=== PATIENT | male | born 1940 | race Caucasian/White ===

== ENCOUNTER 2017-04-15 11:25 | Inpatient (IN) | payer MEDICARE ==
[~2017-04-15] VITALS: Ht 182.9 cm; Wt 81.0 kg
[2017-04-15] VITALS (18 sets, daily range): BP systolic 78–93; BP diastolic 40–57
[2017-04-15] MEDS ORDERED: ONDANSETRON PF 4 MG/2 ML VIAL. IV PRN (14:00)
[2017-04-15] MEDS ORDERED: HYDROcodone/APAP 5/325MG 1 TAB TABLET PO PRN (14:00)
[2017-04-15] MEDS ORDERED: ACETAMINOPHEN 325 MG TABLET. PO PRN (14:00)
[2017-04-15] MEDS ORDERED: hydrALAZINE 20 MG/ML VIAL. IVP PRN (14:00)
[2017-04-15] MEDS ORDERED: ASPI-630 PO (14:54)
[2017-04-15] MEDS ORDERED: WARF1TAB7 PO (14:54)
[2017-04-15] MEDS ORDERED: CRESTOR5 MG PO (14:54)
[2017-04-15] MEDS ORDERED: FURO40TA4 PO (14:54)
[2017-04-15] MEDS ORDERED: ALEN70TA3 PO (14:54)
[2017-04-15] MEDS ORDERED: AMIO200T2 PO (14:54)
[2017-04-15] MEDS ORDERED: CYAN10005 PO (15:02)
[2017-04-15] MEDS ORDERED: HUM100VI5 SQ (15:02)
[2017-04-15] MEDS ORDERED: LEVO88TA4 PO (15:02)
[2017-04-15] MEDS ORDERED: VITA200C28 PO (15:02)
[2017-04-15] MEDS ORDERED: POTASSIUM CHLO10 MEQ PO (15:02)
[2017-04-15] MEDS ORDERED: CHOL100013 PO (15:02)
[2017-04-15] MEDS ORDERED: CARV6.252 PO (15:02)
--- NOTE | 2017-04-15 15:16 | PDOC1 ---
History and Physical Current Medications Current Medications Current Medications Medications (Trade) Dose Ordered Sig/Garret Start Time Stop Time Status Last Admin Dose Admin Acetaminophen (Tylenol) 325 mg PRN Q6HRS PRN 04/15/17 14:00 Acetaminophen/ Hydrocodone Bitart (Lortab 5/325) 1 tab PRN Q6HRS PRN 04/15/17 14:00 Albuterol Sulfate (Ventolin Neb Soln) 2.5 mg PRN Q4HRS PRN 04/15/17 14:00 Hydralazine HCl (Apresoline) 10 mg PRN Q4HRS PRN 04/15/17 14:00 Norepinephrine Bitartrate 250 ml @ 0 mls/hr CONT PRN 04/15/17 14:00 Ondansetron HCl (Zofran) 4 mg PRN Q8HRS PRN 04/15/17 14:00 Sodium Chloride 1,000 ml @ 125 mls/hr Q8H 04/15/17 14:00 Allergies Allergies Allergies Coded Allergies Type Severity Reaction Last Updated Verified niacin Allergy Intermediate 04/15/17 Yes pravastatin Allergy Intermediate 04/15/17 Yes simvastatin Allergy Intermediate 04/15/17 Yes ROS Review of System CONSTITUTIONAL: No fever or chills, weakness, EYES: No recent changes SKIN: No rash or itching CARDIOVASCULAR: No chest pain, syncope, palpitations, or edema RESPIRATORY: No SOB or cough GASTROINTESTINAL: nausea, r abdominal pain NEUROLOGICAL: No headaches or weakness ENDOCRINE: No cold or heat intolerance GENITOURINARY: No urgency or frequency of urination MUSCULOSKELETAL: No back pain or joint pain LYMPHATICS: No enlarged lymph nodes PSYCHIATRIC: No anxiety or depression Physical Exam Physical Exam GEN.: No apparent distress. Alert and oriented. weak in appearance HEENT: Head is normocephalic, atraumatic NECK: Supple. no JVD LUNGS: Clear to auscultation.normal airflow. HEART: RRR, S1, S2 present. Peripheral pulses intact ABDOMEN: Soft, nontender. Positive bowel sounds. tender, rt and left LQ EXTREMITIES: +2 EDEMA WITH DERMATITIS NEUROLOGIC: Normal speech, normal tone PSYCHIATRIC: Normal affect, normal mood. SKIN: RASH LE Vitals Vitals Vital Signs Date Time Temp Pulse Resp B/P (MAP) Pulse Ox O2 Delivery O2 Flow Rate FiO2 04/15/17 14:00 60 20 85/51 (62) 96 Nasal Cannula 2.0 04/15/17 13:45 97.9 97.9 VTE Prophylaxis Ordered VTE Prophylaxis Devices: Yes VTE Pharmacological Prophylaxi: Yes SEVERIANO CORDOBA MD Apr 15, 2017 15:16
[2017-04-15] MEDS ORDERED: DEXTROSE 50% 25 GM / 50ML DISP.SYRIN. IV PRN (15:30)
--- NOTE | 2017-04-15 15:38 | PDOC2 ---
GI CONSULT Reason For Consult: Abd pain HPI: HPI: 77 y/o male transferred from [facility] where he was evaluated for lower abdominal pain. Has been hypotensive. Reviewed labs in paper chart: WBC 6.5, Hgb 7.3 ( apparently previously 10.3), plt 129, Cr 4.8, BUN 95, lactic acid 2.3, INR 3, bili 1.5, AST 71, ALT 65, Alk Phos 43, lipase 44. CT A/P w/ mild cardiomegaly, small pleural effusions, cirrhosis, probable renal cysts, atherosclerotic disease, calcified gallstones, large amount of ascites. Transferred to [facility], admitted to ICU. Pain began 2 days ago, similar to feeling constipated. Abdomen quite distended , says retaining fluid, no h/o paracentesis. Denies h/o liver disease or ascites, does have CKD and CHF, along w/ h/o anemia. H/o constipation/straining , untreated, occasional sees pink streaks of blood. Last BM "chocolate colored " 2 days ago. Some nausea w/ "coughing up a tablespoon of acid" every morning. No hematemesis, melena, hematochezia, hematuria. No previous EGD, last colonoscopy 2014 (says has had six, first w/ polyp). H/o A Fib on Coumadin. IR has been consulted for paracentesis. Renal consult placed as well. Lactic acid to be repeated. 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 Allergies: Coded Allergies: niacin (Verified Allergy, Intermediate, 04/15/17) pravastatin (Verified Allergy, Intermediate, 04/15/17) simvastatin (Verified Allergy, Intermediate, 04/15/17) Medications: See EMR. Imaging: Imaging: Per HPI. PE: GEN: pale HEENT: Atraumatic, PERRL LUNGS: diminished HEART: RRR ABD: BS+, uncomfortable throughout, distended/ascites EXTREMITY: BLE edema SKIN: BLE stasis dermatitis NEURO/PSYCH: A & O 3 A/P: A/P: Ascites, cirrhosis, thrombocytopenia -h/o CKD and CHF, no h/o liver disease Anemia -occasional scant bleeding w/ straining, otherwise denies -previous colonoscopies, last 2014, no previous EGD -h/o A Fib on Coumadin Hypotension, CKD/HERIBERTO, pleural effusions Nausea, reflux -- IR consulted for paracentesis, transfusion also planned, along w/ echocardiogram. Will review w/ Dr. Lau. YUNIOR RESENDIZ Apr 15, 2017 15:38
[2017-04-15] MEDS ORDERED: WARFARIN 0.5 MG TABLET. PO ONE (16:00)
[2017-04-15] MEDS: PANTOPRAZOLE IV PUSH 40 MG VIAL. IVP SCH (16:12)
[2017-04-15] MEDS: IV NORMAL SALINE 1000ML BAG 1,000 ML IV SCH ×2 (16:12→22:47)
[2017-04-15] MEDS: NOREPINEPHRIN PREMIX 250 ML IV PRN ×2 (16:13→21:41)
[2017-04-15] MEDS: INSULIN ASPART 300 UNITS/3 ML INSULN.PEN SQ SCH (16:30)
[2017-04-15 16:47] LABS: HEMATOCRIT 24.8 % (39.0-53.0); HEMOGLOBIN 8.1 g/dL (13.0-17.5)
--- NOTE | 2017-04-15 17:32 | HP ---
ADMIT DATE: 04/15/2017 CHIEF COMPLAINT: Nausea and abdominal pain. HISTORY OF PRESENT ILLNESS: A 77-year-old male patient with several comorbid conditions went to [place] [facility] with complaints of 1 or 2 days of abdominal pain and discomfort located in the right lower quadrant and left lower quadrant area. The patient denies any fever, chills or trauma; never been diagnosed with cirrhosis. His pain is intractable in nature and is requiring IV pain medications and also has intractable nausea which has been improved now. The patient was hypertensive at the time of his admission. He was requiring vasopressors to improve his blood pressure and he did not respond after 3 liters of normal saline. He had a CT of the abdomen and pelvis which showed ascites. PAST MEDICAL HISTORY: AFib, coronary artery disease, CHF, diabetes, heart disease, renal disease, renal failure, coronary artery bypass surgery, pacemaker. FAMILY HISTORY: Father and mother . PERSONAL AND SOCIAL HISTORY: No smoking, no alcohol, no drug abuse, takes caffeine occasionally. ALLERGIES: NIACIN, ZOCOR, STATINS, _ HOME MEDICATIONS: Reviewed and reconciled. Please see MRAD. LABORATORY DATA: Laboratory findings from [place]. EKG personally reviewed; sinus rhythm with low voltage. WBC 6.5, hemoglobin is 7.3, hematocrit is 22.6, MCV is 85 and platelets are 129. INR is 3.0 and APTT is 36. Urine, pH is 5.0 and bilirubin negative. Urine nitrites negative. Chemistry: BUN is 95, creatinine 4.8, total bilirubin 0.5. Sodium is 135, potassium 4.9, chloride 104, carbon dioxide 24, gap is 10, GFR is 11.8, total protein 6.6. Troponin 0.017. Lactic acid 2.3. ASSESSMENT: 1. Shock, possible hypovolemic currently on vasopressors, Levophed with IV hydration. 2. Ascites, cirrhosis: unclear etiology. 3. Abdominal pain. Differential is peritonitis. 4. Chronic atrial fibrillation, rate controlled. 5. Acute kidney injury on chronic kidney disease 4. 6. History of congestive heart failure. 7. Type 2 diabetes mellitus. PLAN: 1. The patient is getting IV hydration at 125 mL per hour and currently is on Levophed to keep his blood pressure more than 90. 2. We will hold Lasix. 3. Pharmacy to dose warfarin. 4. Consult Dr. Beasley and Dr. Propeck 5. I will consult Britany for paracentesis. 6. Sliding scale insulin. 7. Continue ICU stay. 8. CBC, BMP in a.m. 9. P.r.n. hydralazine for hypertension. However, at this time, the patient is hypotensive. 10. Hold Coreg for now. 11. INR goal is 2.3. SEVERIANO CORDOBA MD DR: LITZY/luís JOB#: [id number] / [id number] ELE
[2017-04-16] VITALS (28 sets, daily range): BP systolic 80–104; BP diastolic 36–61
[2017-04-16] MEDS: NOREPINEPHRIN PREMIX 250 ML IV PRN ×3 (03:04→13:19)
[2017-04-16] MEDS: IV NORMAL SALINE 1000ML BAG 1,000 ML IV SCH ×3 (04:05→23:47)
[2017-04-16 05:10] LABS: BASO % 0 % (0-3); EOS % 0 % (0-3); HEMATOCRIT 27.4 % (39.0-53.0); HEMOGLOBIN 8.7 g/dL (13.0-17.5); LYMPH # 0.5 x10^3/uL (1.0-4.8); LYMPH % 4 % (24-48); MEAN CORPUSCULAR HEMOGLOBIN 27 pg (25-35); MEAN CORPUSCULAR HGB CONC 32 g/dL (31-37); MEAN CORPUSCULAR VOLUME 85 fL (79-100); MONO % 8 % (0-9); NEUT % 87 % (31-73); PLATELET COUNT 165 x10^3/uL (140-400); RED BLOOD COUNT 3.24 x10^6/uL (4.30-5.70); RED CELL DISTRIBUTION WIDTH 16.8 % (11.5-14.5); WHITE BLOOD COUNT 11.1 x10^3/uL (4.0-11.0)
[2017-04-16 05:36] LABS: INR 3.7 (0.8-1.1); PROTHROMBIN TIME PATIENT 34.7 SEC (11.7-14.0)
[2017-04-16 05:45] LABS: CALCIUM 7.6 mg/dL (8.5-10.1); CREATININE 4.1 mg/dL (0.7-1.3); GFR 14.1
[2017-04-16 05:47] LABS: POTASSIUM 4.8 mmol/L (3.5-5.1)
[2017-04-16] MEDS: INSULIN ASPART 300 UNITS/3 ML INSULN.PEN SQ SCH ×3 (08:00→17:00)
[2017-04-16] MEDS ORDERED: WARFARIN 1 MG TABLET. PO SCH (09:00)
[2017-04-16] MEDS: PANTOPRAZOLE IV PUSH 40 MG VIAL. IVP SCH (09:11)
--- NOTE | 2017-04-16 10:15 | PDOC ---
G I PROGRESS NOTE Subjective Maybe feeling some better overall; still appears uncomfortable. Objective No reports of any overt bleeding or emesis. Physical Exam Lungs clear anteriorly. Irreg R and R. Abdomen with ascites; fairly diffusely tender. Review of Relevant I have reviewed the following items ivon (where applicable) has been applied. Labs Laboratory Tests Test 04/15/17 14:15 04/15/17 16:05 04/15/17 16:30 04/15/17 17:00 Nasal Screen MRSA (PCR) Negative (Negative) Hemoglobin 8.1 g/dL (13.0-17.5) Hematocrit 24.8 % (39.0-53.0) Mean Corpuscular Hemoglobin Concent 33 g/dL (31-37) Lactic Acid Level 2.2 mmol/L (0.4-2.0) Glucose (Fingerstick) 103 mg/dL (70-99) Tumor Marker Alpha Fetoprotein 7.2 ng/mL (0.0-8.3) Test 04/16/17 05:00 White Blood Count 11.1 x10^3/uL (4.0-11.0) Red Blood Count 3.24 x10^6/uL (4.30-5.70) Hemoglobin 8.7 g/dL (13.0-17.5) Hematocrit 27.4 % (39.0-53.0) Mean Corpuscular Volume 85 fL (79-100) Mean Corpuscular Hemoglobin 27 pg (25-35) Mean Corpuscular Hemoglobin Concent 32 g/dL (31-37) Red Cell Distribution Width 16.8 % (11.5-14.5) Platelet Count 165 x10^3/uL (140-400) Neutrophils (%) (Auto) 87 % (31-73) Lymphocytes (%) (Auto) 4 % (24-48) Monocytes (%) (Auto) 8 % (0-9) Eosinophils (%) (Auto) 0 % (0-3) Basophils (%) (Auto) 0 % (0-3) Neutrophils # (Auto) 9.7 x10^3uL (1.8-7.7) Lymphocytes # (Auto) 0.5 x10^3/uL (1.0-4.8) Monocytes # (Auto) 0.9 x10^3/uL (0.0-1.1) Eosinophils # (Auto) 0.0 x10^3/uL (0.0-0.7) Basophils # (Auto) 0.0 x10^3/uL (0.0-0.2) Prothrombin Time 34.7 SEC (11.7-14.0) Prothromb Time International Ratio 3.7 (0.8-1.1) Sodium Level 139 mmol/L (136-145) Potassium Level 4.8 mmol/L (3.5-5.1) Chloride Level 104 mmol/L (98-107) Carbon Dioxide Level 20 mmol/L (21-32) Anion Gap 15 (6-14) Blood Urea Nitrogen 96 mg/dL (8-26) Creatinine 4.1 mg/dL (0.7-1.3) Estimated GFR (Cockcroft-Gault) 14.1 Glucose Level 113 mg/dL (70-99) Calcium Level 7.6 mg/dL (8.5-10.1) Laboratory Tests Test 04/15/17 14:15 04/15/17 16:05 04/15/17 16:30 04/15/17 17:00 Nasal Screen MRSA (PCR) Negative (Negative) Hemoglobin 8.1 g/dL (13.0-17.5) Hematocrit 24.8 % (39.0-53.0) Mean Corpuscular Hemoglobin Concent 33 g/dL (31-37) Lactic Acid Level 2.2 mmol/L (0.4-2.0) Glucose (Fingerstick) 103 mg/dL (70-99) Tumor Marker Alpha Fetoprotein 7.2 ng/mL (0.0-8.3) Test 04/16/17 05:00 White Blood Count 11.1 x10^3/uL (4.0-11.0) Red Blood Count 3.24 x10^6/uL (4.30-5.70) Hemoglobin 8.7 g/dL (13.0-17.5) Hematocrit 27.4 % (39.0-53.0) Mean Corpuscular Volume 85 fL (79-100) Mean Corpuscular Hemoglobin 27 pg (25-35) Mean Corpuscular Hemoglobin Concent 32 g/dL (31-37) Red Cell Distribution Width 16.8 % (11.5-14.5) Platelet Count 165 x10^3/uL (140-400) Neutrophils (%) (Auto) 87 % (31-73) Lymphocytes (%) (Auto) 4 % (24-48) Monocytes (%) (Auto) 8 % (0-9) Eosinophils (%) (Auto) 0 % (0-3) Basophils (%) (Auto) 0 % (0-3) Neutrophils # (Auto) 9.7 x10^3uL (1.8-7.7) Lymphocytes # (Auto) 0.5 x10^3/uL (1.0-4.8) Monocytes # (Auto) 0.9 x10^3/uL (0.0-1.1) Eosinophils # (Auto) 0.0 x10^3/uL (0.0-0.7) Basophils # (Auto) 0.0 x10^3/uL (0.0-0.2) Prothrombin Time 34.7 SEC (11.7-14.0) Prothromb Time International Ratio 3.7 (0.8-1.1) Sodium Level 139 mmol/L (136-145) Potassium Level 4.8 mmol/L (3.5-5.1) Chloride Level 104 mmol/L (98-107) Carbon Dioxide Level 20 mmol/L (21-32) Anion Gap 15 (6-14) Blood Urea Nitrogen 96 mg/dL (8-26) Creatinine 4.1 mg/dL (0.7-1.3) Estimated GFR (Cockcroft-Gault) 14.1 Glucose Level 113 mg/dL (70-99) Calcium Level 7.6 mg/dL (8.5-10.1) Hemoglobin stable. INR still near 4. Medications Current Medications Acetaminophen (Tylenol) 325 mg PRN Q6HRS PRN PO MILD PAIN / TEMP; Start at 14:00 Acetaminophen/ Hydrocodone Bitart (Lortab 5/325) 1 tab PRN Q6HRS PRN PO MODERATE TO SEVERE PAIN; Start 04/15/17 at 14:00 Hydralazine HCl (Apresoline) 10 mg PRN Q4HRS PRN IVP ELEVATED BP, SEE COMMENTS ; Start 04/15/17 at 14:00 Ondansetron HCl (Zofran) 4 mg PRN Q8HRS PRN IV NAUSEA/VOMITING; Start 04/15/17 at 14:00 Albuterol Sulfate (Ventolin Neb Soln) 2.5 mg PRN Q4HRS PRN NEB SHORTNESS OF BREATH; Start 04/15/17 at 14:00 Sodium Chloride 1,000 ml @ 125 mls/hr Q8H IV Last administered on 04/16/17 04 :05; Start 04/15/17 at 14:00 Norepinephrine Bitartrate 250 ml @ 0 mls/hr CONT PRN IV SEE I/O RECORD Last administered on 04/16/17 07:40; Start 04/15/17 at 14:00 Ceftriaxone Sodium 1 gm/ Sodium Chloride 50 ml @ 100 mls/hr Q24H IV ; Start at 16:00; Stop 04/15/17 at 16:00; Status DC Warfarin Sodium (Coumadin Per Pharmacy) 1 each PRN DAILY PRN MC SEE COMMENTS Last administered on 04/16/17 09:06; Start 04/15/17 at 15:15 Amiodarone HCl (Cordarone) 200 mg DAILY PO ; Start 04/16/17 at 09:00 Aspirin (Children'S Aspirin) 81 mg DAILYWBKFT PO ; Start 04/16/17 at 08:00 Cyanocobalamin (Vitamin B-12) 1,000 mcg AFTRNOON PO ; Start 04/16/17 at 13:00 Levothyroxine Sodium (Synthroid) 88 mcg DAILY07 PO ; Start 04/16/17 at 07:00 Warfarin Sodium (Coumadin) 1 mg DAILY PO ; Start 04/16/17 at 09:00; Status UNV Insulin Aspart (NovoLOG) 0-9 UNITS TIDWMEALS SQ ; Start 04/15/17 at 17:00 Dextrose (Dextrose 50%-Water Syringe) 12.5 gm PRN Q15MIN PRN IV SEE COMMENTS; Start 04/15/17 at 15:30 Warfarin Sodium (Coumadin) 0.5 mg 1X WARF ONCE PO ; Start 04/15/17 at 16:00; Stop 04/15/17 at 16:01; Status DC Pantoprazole Sodium (Protonix Vial) 40 mg DAILYAC IVP Last administered on 04/16 09:11; Start 04/15/17 at 16:30 Ceftriaxone Sodium 1 gm/ Sodium Chloride 50 ml @ 100 mls/hr Q24H IV Last administered on 04/16/17t 09:12; Start 04/16/17 at 09:00 Warfarin Sodium (Coumadin - No Dose Today) 1 each 1X WARF ONCE MC ; Start 04/16 at 16:00; Stop 04/16/17 at 16:01 Active Scripts Active Reported Potassium Chloride 10 Meq Capsule.er 10 Meq PO 3X/WEEK Vitamin B-12 (Cyanocobalamin (Vitamin B-12)) 1,000 Mcg Tablet 1 Tab PO AFTRNOON Vitamin D (Cholecalciferol (Vitamin D3)) 1,000 Unit Capsule 1 Cap PO HS Vitamin E (Vitamin E (Dl,Tocopheryl Acet)) 200 Unit Capsule 200 Unit PO AFTRNOON Novolin 70-30 100 Unit/Ml Vial (Hum Insulin Nph/Reg Insulin Hm) 100 Unit/1 Ml Vial 13 Unit SQ HS Levothyroxine Sodium 88 Mcg Tablet 1 Tab PO DAILY Carvedilol 6.25 Mg Tablet 1 Tab PO BID Fosamax (Alendronate Sodium) 70 Mg Tablet 1 Tab PO WEEKLY 1 Days Amiodarone Hcl 200 Mg Tablet 1 Tab PO DAILY Aspirin 81 Mg Tab.chew 1 Tab PO DAILY Warfarin Sodium 1 Mg Tablet 1 Mg PO DAILY Crestor (Rosuvastatin Calcium) 5 Mg Tablet 5 Mg PO HS Furosemide 40 Mg Tablet 40 Mg PO BID Vitals/I & O Vital Sign - Last 24 Hours 04/15/17 04/15/17 04/15/17 04/15/17 13:45 14:00 14:00 15:00 Temp 97.9 97.9 Pulse 60 60 60 Resp 20 20 20 B/P (MAP) 83/56 (65) 85/51 (62) 78/41 (53) Pulse Ox 98 96 96 O2 Delivery Nasal Cannula Nasal Cannula Nasal Cannula Nasal Cannula O2 Flow Rate 2.0 2.0 2.0 2.0 04/15/17 04/15/17 04/15/17 04/15/17 15:20 16:00 16:00 17:00 Temp 98.0 98.0 Pulse 60 60 60 Resp 20 20 20 B/P (MAP) 79/40 (53) 80/43 (55) 91/42 (58) Pulse Ox 96 96 96 O2 Delivery Nasal Cannula Nasal Cannula Nasal Cannula Nasal Cannula O2 Flow Rate 2.0 2.0 2.0 2.0 04/15/17 04/15/17 04/15/17 04/15/17 18:00 19:00 19:30 19:40 Temp 97.9 97.9 Pulse 60 60 60 Resp 20 20 20 B/P (MAP) 86/49 (61) 88/47 (61) 82/47 Pulse Ox 96 97 O2 Delivery Nasal Cannula Nasal Cannula Nasal Cannula O2 Flow Rate 2.0 2.0 2.0 04/15/17 04/15/17 04/15/17 04/15/17 20:00 20:09 20:40 21:00 Temp 97.9 98.3 97.9 98.3 Pulse 60 60 60 Resp 18 16 16 B/P (MAP) 90/50 (63) 91/49 93/53 (66) Pulse Ox 97 98 97 O2 Delivery Nasal Cannula Nasal Cannula Nasal Cannula O2 Flow Rate 2.0 2.0 2.0 04/15/17 04/15/17 04/15/17 04/15/17 21:45 21:58 22:00 23:00 Temp 98.4 98.4 Pulse 60 60 60 60 Resp 16 20 16 18 B/P (MAP) 83/45 (58) 83/45 92/57 (69) 83/43 (56) Pulse Ox 96 96 96 O2 Delivery Nasal Cannula Nasal Cannula Nasal Cannula O2 Flow Rate 2.0 2.0 2.0 04/15/17 04/15/17 04/15/17 04/16/17 23:15 23:45 23:59 00:00 Temp 99.6 99.6 Pulse 60 60 60 Resp 20 20 16 B/P (MAP) 85/41 (56) 79/42 (54) 87/36 (53) Pulse Ox 98 98 97 O2 Delivery Nasal Cannula Nasal Cannula Nasal Cannula Nasal Cannula O2 Flow Rate 2.0 2.0 2.0 04/16/17 04/16/17 04/16/17 04/16/17 01:00 02:00 03:05 04:00 Pulse 60 60 60 Resp 16 16 14 B/P (MAP) 97/54 (68) 94/54 (67) 90/55 (67) Pulse Ox 96 94 95 O2 Delivery Nasal Cannula Nasal Cannula Nasal Cannula Nasal Cannula O2 Flow Rate 2.0 2.0 2.0 2.0 04/16/17 04/16/17 04/16/1717 04:00 05:00 06:00 07:00 Temp 98.4 98.2 98.4 98.2 Pulse 60 60 60 60 Resp 14 16 14 20 B/P (MAP) 98/61 (73) 98/60 (73) 85/45 (58) 98/56 (70) Pulse Ox 94 91 95 92 O2 Delivery Nasal Cannula Nasal Cannula Nasal Cannula Nasal Cannula O2 Flow Rate 2.0 2.0 2.0 2.0 04/16/17 04/16/17 04/16/17 04/16/17 08:00 08:00 09:00 10:07 Pulse 60 60 62 Resp 19 21 20 B/P (MAP) 97/52 (67) 103/61 (75) 104/60 (75) Pulse Ox 92 92 95 O2 Delivery Nasal Cannula Nasal Cannula Nasal Cannula Nasal Cannula O2 Flow Rate 2.0 2.0 2.0 2.0 Intake and Output 04/15/17 04/15/17 04/16/17 15:00 23:00 07:00 Intake Total 526 ml 2628 ml Output Total 60 ml 445 ml 425 ml Balance -60 ml 81 ml [address] from [facility]. Assessment New onset ascites--given tender, infected? Seemed a little overdense to my eye on CT. Anemia, but no overt bleeding and fairly recent normal colonoscopy historically. Plan of Care: Continue current Tx, Mgmt Plan of Care Note As/if INR better, merits paracentesis. As regards etiology, could consider doppler of portal vein re: flow/direction. Cardiac cirrhosis/ascites certainly possible--this would not have signs of portal hypertension. PATY MUNIZ MD Apr 16, 2017 10:15
--- NOTE | 2017-04-16 10:27 | PDOC2 ---
CONSULT Date of Consult Date of Consult DATE: 04/16/17 TIME: 10:22 Reason for Consult Reason for Consult: HERIBETRO Referring Physician Referring Physician: JOHNY Identification/Chief Complaint Chief Complaint ABD PAIN Source Source: Chart review, Patient History of Present Illness Reason for Visit: THIS IS A 77 YR OLD ADMITTED WITH ABD PAIN AND NAUSEA AND POOR INTAKE FOR SEVERAL DAYS. WENT TO THE [facility] ER IN [place] AND WAS NOTED TO BE HYPOTENSIVE AND IN HERIBERTO WITH CR OF 4.8. HE HAS CKD STAGE 4 WITH CR OF 2.8. 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19) Drugs: None Lives: with Family Current Medications Current Medications Current Medications Acetaminophen (Tylenol) 325 mg PRN Q6HRS PRN PO MILD PAIN / TEMP; Start at 14:00 Acetaminophen/ Hydrocodone Bitart (Lortab 5/325) 1 tab PRN Q6HRS PRN PO MODERATE TO SEVERE PAIN; Start 04/15/17 at 14:00 Hydralazine HCl (Apresoline) 10 mg PRN Q4HRS PRN IVP ELEVATED BP, SEE COMMENTS ; Start 04/15/17 at 14:00 Ondansetron HCl (Zofran) 4 mg PRN Q8HRS PRN IV NAUSEA/VOMITING; Start 04/15/17 at 14:00 Albuterol Sulfate (Ventolin Neb Soln) 2.5 mg PRN Q4HRS PRN NEB SHORTNESS OF BREATH; Start 04/15/17 at 14:00 Sodium Chloride 1,000 ml @ 125 mls/hr Q8H IV Last administered on 04/16/17 04 :05; Start 04/15/17 at 14:00 Norepinephrine Bitartrate 250 ml @ 0 mls/hr CONT PRN IV SEE I/O RECORD Last administered on 04/16/17 07:40; Start 04/15/17 at 14:00 Ceftriaxone Sodium 1 gm/ Sodium Chloride 50 ml @ 100 mls/hr Q24H IV ; Start at 16:00; Stop 04/15/17 at 16:00; Status DC Warfarin Sodium (Coumadin Per Pharmacy) 1 each PRN DAILY PRN MC SEE COMMENTS Last administered on 04/16/17 09:06; Start 04/15/17 at 15:15 Amiodarone HCl (Cordarone) 200 mg DAILY PO ; Start 04/16/17 at 09:00 Aspirin (Children'S Aspirin) 81 mg DAILYWBKFT PO ; Start 04/16/17 at 08:00 Cyanocobalamin (Vitamin B-12) 1,000 mcg AFTRNOON PO ; Start 04/16/17 at 13:00 Levothyroxine Sodium (Synthroid) 88 mcg DAILY07 PO ; Start 04/16/17 at 07:00 Warfarin Sodium (Coumadin) 1 mg DAILY PO ; Start 04/16/17 at 09:00; Status UNV Insulin Aspart (NovoLOG) 0-9 UNITS TIDWMEALS SQ ; Start 04/15/17 at 17:00 Dextrose (Dextrose 50%-Water Syringe) 12.5 gm PRN Q15MIN PRN IV SEE COMMENTS; Start 04/15/17 at 15:30 Warfarin Sodium (Coumadin) 0.5 mg 1X WARF ONCE PO ; Start 04/15/17 at 16:00; Stop 04/15/17 at 16:01; Status DC Pantoprazole Sodium (Protonix Vial) 40 mg DAILYAC IVP Last administered on 04/16 09:11; Start 04/15/17 at 16:30 Ceftriaxone Sodium 1 gm/ Sodium Chloride 50 ml @ 100 mls/hr Q24H IV Last administered on 04/16/17 09:12; Start 04/16/17 at 09:00 Warfarin Sodium (Coumadin - No Dose Today) 1 each 1X WARF ONCE MC ; Start 04/16 at 16:00; Stop 04/16/17 at 16:01 Active Scripts Active Reported Potassium Chloride 10 Meq Capsule.er 10 Meq PO 3X/WEEK Vitamin B-12 (Cyanocobalamin (Vitamin B-12)) 1,000 Mcg Tablet 1 Tab PO AFTRNOON Vitamin D (Cholecalciferol (Vitamin D3)) 1,000 Unit Capsule 1 Cap PO HS Vitamin E (Vitamin E (Dl,Tocopheryl Acet)) 200 Unit Capsule 200 Unit PO AFTRNOON Novolin 70-30 100 Unit/Ml Vial (Hum Insulin Nph/Reg Insulin Hm) 100 Unit/1 Ml Vial 13 Unit SQ HS Levothyroxine Sodium 88 Mcg Tablet 1 Tab PO DAILY Carvedilol 6.25 Mg Tablet 1 Tab PO BID Fosamax (Alendronate Sodium) 70 Mg Tablet 1 Tab PO WEEKLY 1 Days Amiodarone Hcl 200 Mg Tablet 1 Tab PO DAILY Aspirin 81 Mg Tab.chew 1 Tab PO DAILY Warfarin Sodium 1 Mg Tablet 1 Mg PO DAILY Crestor (Rosuvastatin Calcium) 5 Mg Tablet 5 Mg PO HS Furosemide 40 Mg Tablet 40 Mg PO BID Allergies Allergies: Coded Allergies: niacin (Verified Allergy, Intermediate, 04/15/17) pravastatin (Verified Allergy, Intermediate, 04/15/17) simvastatin (Verified Allergy, Intermediate, 04/15/17) ROS General: YES: Fatigue, Malaise, Appetite PSYCHOLOGICAL ROS: YES: Anxiety HEENT: YES: Heacaches Respiratory: YES: Cough Gastrointestinal: Yes Nausea, Yes Abdominal Pain Genitourinary: YES Frequency, YES Other (NOCTURIA) Musculoskeletal: Yes Muscular Weakness Neurological: Yes Weakness Skin: Yes Dry Skin Physical Exam General: Alert, Oriented X3, Cooperative, No acute distress HEENT: Atraumatic, PERRLA, EOMI Lungs: Clear to auscultation, Normal air movement Heart: Other (IRREGULAR) Abdomen: Normal bowel sounds Extremities: No clubbing Neuro: Normal speech, Cranial nerves 3-12 NL Psych/Mental Status: Mental status NL, Mood NL MUSCULOSKELETAL: No deformity, No swelling Vitals VITALS Vital Signs Date Time Temp Pulse Resp B/P (MAP) Pulse Ox O2 Delivery O2 Flow Rate FiO2 04/16/17 10:07 62 20 104/60 (75) 95 Nasal Cannula 2.0 04/16/17 07:00 98.2 98.2 Labs Labs Laboratory Tests Test 04/15/17 14:15 04/15/17 16:05 04/15/17 16:30 04/15/17 17:00 Nasal Screen MRSA (PCR) Negative (Negative) Hemoglobin 8.1 g/dL (13.0-17.5) Hematocrit 24.8 % (39.0-53.0) Mean Corpuscular Hemoglobin Concent 33 g/dL (31-37) Lactic Acid Level 2.2 mmol/L (0.4-2.0) Glucose (Fingerstick) 103 mg/dL (70-99) Tumor Marker Alpha Fetoprotein 7.2 ng/mL (0.0-8.3) Test 04/16/17 05:00 White Blood Count 11.1 x10^3/uL (4.0-11.0) Red Blood Count 3.24 x10^6/uL (4.30-5.70) Hemoglobin 8.7 g/dL (13.0-17.5) Hematocrit 27.4 % (39.0-53.0) Mean Corpuscular Volume 85 fL (79-100) Mean Corpuscular Hemoglobin 27 pg (25-35) Mean Corpuscular Hemoglobin Concent 32 g/dL (31-37) Red Cell Distribution Width 16.8 % (11.5-14.5) Platelet Count 165 x10^3/uL (140-400) Neutrophils (%) (Auto) 87 % (31-73) Lymphocytes (%) (Auto) 4 % (24-48) Monocytes (%) (Auto) 8 % (0-9) Eosinophils (%) (Auto) 0 % (0-3) Basophils (%) (Auto) 0 % (0-3) Neutrophils # (Auto) 9.7 x10^3uL (1.8-7.7) Lymphocytes # (Auto) 0.5 x10^3/uL (1.0-4.8) Monocytes # (Auto) 0.9 x10^3/uL (0.0-1.1) Eosinophils # (Auto) 0.0 x10^3/uL (0.0-0.7) Basophils # (Auto) 0.0 x10^3/uL (0.0-0.2) Prothrombin Time 34.7 SEC (11.7-14.0) Prothromb Time International Ratio 3.7 (0.8-1.1) Sodium Level 139 mmol/L (136-145) Potassium Level 4.8 mmol/L (3.5-5.1) Chloride Level 104 mmol/L (98-107) Carbon Dioxide Level 20 mmol/L (21-32) Anion Gap 15 (6-14) Blood Urea Nitrogen 96 mg/dL (8-26) Creatinine 4.1 mg/dL (0.7-1.3) Estimated GFR (Cockcroft-Gault) 14.1 Glucose Level 113 mg/dL (70-99) Calcium Level 7.6 mg/dL (8.5-10.1) Laboratory Tests Test 04/15/17 14:15 04/15/17 16:05 04/15/17 16:30 04/15/17 17:00 Nasal Screen MRSA (PCR) Negative (Negative) Hemoglobin 8.1 g/dL (13.0-17.5) Hematocrit 24.8 % (39.0-53.0) Mean Corpuscular Hemoglobin Concent 33 g/dL (31-37) Lactic Acid Level 2.2 mmol/L (0.4-2.0) Glucose (Fingerstick) 103 mg/dL (70-99) Tumor Marker Alpha Fetoprotein 7.2 ng/mL (0.0-8.3) Test 04/16/17 05:00 White Blood Count 11.1 x10^3/uL (4.0-11.0) Red Blood Count 3.24 x10^6/uL (4.30-5.70) Hemoglobin 8.7 g/dL (13.0-17.5) Hematocrit 27.4 % (39.0-53.0) Mean Corpuscular Volume 85 fL (79-100) Mean Corpuscular Hemoglobin 27 pg (25-35) Mean Corpuscular Hemoglobin Concent 32 g/dL (31-37) Red Cell Distribution Width 16.8 % (11.5-14.5) Platelet Count 165 x10^3/uL (140-400) Neutrophils (%) (Auto) 87 % (31-73) Lymphocytes (%) (Auto) 4 % (24-48) Monocytes (%) (Auto) 8 % (0-9) Eosinophils (%) (Auto) 0 % (0-3) Basophils (%) (Auto) 0 % (0-3) Neutrophils # (Auto) 9.7 x10^3uL (1.8-7.7) Lymphocytes # (Auto) 0.5 x10^3/uL (1.0-4.8) Monocytes # (Auto) 0.9 x10^3/uL (0.0-1.1) Eosinophils # (Auto) 0.0 x10^3/uL (0.0-0.7) Basophils # (Auto) 0.0 x10^3/uL (0.0-0.2) Prothrombin Time 34.7 SEC (11.7-14.0) Prothromb Time International Ratio 3.7 (0.8-1.1) Sodium Level 139 mmol/L (136-145) Potassium Level 4.8 mmol/L (3.5-5.1) Chloride Level 104 mmol/L (98-107) Carbon Dioxide Level 20 mmol/L (21-32) Anion Gap 15 (6-14) Blood Urea Nitrogen 96 mg/dL (8-26) Creatinine 4.1 mg/dL (0.7-1.3) Estimated GFR (Cockcroft-Gault) 14.1 Glucose Level 113 mg/dL (70-99) Calcium Level 7.6 mg/dL (8.5-10.1) Assessment/Plan Assessment/Plan IMP DEHYDRATION HYPOTENSION ABD PAIN HERIBERTO WITH CR OF 4.1 CKD STAGE 4 WITH BASELINE CR OF 2.8 LEUCOCYTOSIS ANEMIA OF CKD PLAN IVF'S PRESSORS ANTIBIOTICS START ARANESP HOLD HIS HOME LASIX AND COREG AND KCL SPENCER ORTIZ MD Apr 16, 2017 10:27
[2017-04-16] MEDS: ASPIRIN CHEWABLE 81 MG TABLET. PO SCH (10:51)
[2017-04-16] MEDS: LEVOTHYROXINE 88 MCG TABLET PO SCH (10:51)
[2017-04-16] MEDS: AMIODARONE HCL 200 MG TABLET. PO SCH (10:51)
[2017-04-16 12:48] LABS: PLT ESTIMATE ADEQUATE (ADEQUATE)
--- NOTE | 2017-04-16 13:07 | PDOC ---
Provider Note Provider Note IR Note: Asked to consider paracentesis. 77 YO male ICU patient with h/o CAD, CHF, CKD. Now with abdominal pain, anemia, hypotension, and ascites. Patient might well benefit from paracentesis, but currently contraindicated with INR of 3.7. Will follow. VIDHYA ABRAMS MD Apr 16, 2017 13:07
[2017-04-16] MEDS: CYANOCOBALAMIN (VITAMIN B-12) 1,000 MCG TABLET. PO SCH (13:29)
--- NOTE | 2017-04-16 16:19 | PDOC ---
PROGRESS NOTES Chief Complaint Chief Complaint cc: low blood pressures A/P 1. Shock, possible hypovolemic: currently on vasopressors, Levophed with IV hydration. 2. Ascites, with cirrhosis: abdominal pain: on IV Rocephin,blood cx positive GPC/GPR, consult ID 3. Abdominal pain:? SBP, not able to do paracentesis due to INR 4. Chronic atrial fibrillation, rate controlled. 5. Acute kidney injury on chronic kidney disease 4.: Possible due to VMN, Volume resuscitation, Nephrology following, 6. History of congestive heart failure. 7. Type 2 diabetes mellitus: SSI 8. Prognosis guarded, 9. Anemia of chronic disease. History of Present Illness History of Present Illness making good urine no fever doing better Vitals Vitals Vital Signs Date Time Temp Pulse Resp B/P (MAP) Pulse Ox O2 Delivery O2 Flow Rate FiO2 04/16/17 15:32 61 96/56 (69) 04/16/17 13:00 22 93 Nasal Cannula 2.0 04/16/17 11:03 97.9 97.9 Physical Exam General: Alert, Oriented X3, Cooperative, No acute distress Heart: Normal S1, Normal S2, Other (IRREGULAR) Lungs: Clear Abdomen: Normal bowel sounds, Other Extremities: No clubbing Labs LABS Laboratory Tests Test 04/15/17 16:30 04/15/17 17:00 04/16/17 05:00 Glucose (Fingerstick) 103 mg/dL (70-99) Tumor Marker Alpha Fetoprotein 7.2 ng/mL (0.0-8.3) White Blood Count 11.1 x10^3/uL (4.0-11.0) Red Blood Count 3.24 x10^6/uL (4.30-5.70) Hemoglobin 8.7 g/dL (13.0-17.5) Hematocrit 27.4 % (39.0-53.0) Mean Corpuscular Volume 85 fL (79-100) Mean Corpuscular Hemoglobin 27 pg (25-35) Mean Corpuscular Hemoglobin Concent 32 g/dL (31-37) Red Cell Distribution Width 16.8 % (11.5-14.5) Platelet Count 165 x10^3/uL (140-400) Neutrophils (%) (Auto) 87 % (31-73) Lymphocytes (%) (Auto) 4 % (24-48) Monocytes (%) (Auto) 8 % (0-9) Eosinophils (%) (Auto) 0 % (0-3) Basophils (%) (Auto) 0 % (0-3) Neutrophils # (Auto) 9.7 x10^3uL (1.8-7.7) Lymphocytes # (Auto) 0.5 x10^3/uL (1.0-4.8) Monocytes # (Auto) 0.9 x10^3/uL (0.0-1.1) Eosinophils # (Auto) 0.0 x10^3/uL (0.0-0.7) Basophils # (Auto) 0.0 x10^3/uL (0.0-0.2) Segmented Neutrophils % 84 % (35-66) Band Neutrophils % 7 % (0-9) Lymphocytes % 6 % (24-48) Monocytes % 3 % (0-10) Platelet Estimate Adequate (ADEQUATE) Prothrombin Time 34.7 SEC (11.7-14.0) Prothromb Time International Ratio 3.7 (0.8-1.1) Sodium Level 139 mmol/L (136-145) Potassium Level 4.8 mmol/L (3.5-5.1) Chloride Level 104 mmol/L (98-107) Carbon Dioxide Level 20 mmol/L (21-32) Anion Gap 15 (6-14) Blood Urea Nitrogen 96 mg/dL (8-26) Creatinine 4.1 mg/dL (0.7-1.3) Estimated GFR (Cockcroft-Gault) 14.1 Glucose Level 113 mg/dL (70-99) Calcium Level 7.6 mg/dL (8.5-10.1) Comment Review of Relevant I have reviewed the following items ivon (where applicable) has been applied. Labs Laboratory Tests Test 04/15/17 14:15 04/15/17 16:05 04/15/17 16:30 04/15/17 17:00 Nasal Screen MRSA (PCR) Negative (Negative) Hemoglobin 8.1 g/dL (13.0-17.5) Hematocrit 24.8 % (39.0-53.0) Mean Corpuscular Hemoglobin Concent 33 g/dL (31-37) Lactic Acid Level 2.2 mmol/L (0.4-2.0) Glucose (Fingerstick) 103 mg/dL (70-99) Tumor Marker Alpha Fetoprotein 7.2 ng/mL (0.0-8.3) Test 04/16/17 05:00 White Blood Count 11.1 x10^3/uL (4.0-11.0) Red Blood Count 3.24 x10^6/uL (4.30-5.70) Hemoglobin 8.7 g/dL (13.0-17.5) Hematocrit 27.4 % (39.0-53.0) Mean Corpuscular Volume 85 fL (79-100) Mean Corpuscular Hemoglobin 27 pg (25-35) Mean Corpuscular Hemoglobin Concent 32 g/dL (31-37) Red Cell Distribution Width 16.8 % (11.5-14.5) Platelet Count 165 x10^3/uL (140-400) Neutrophils (%) (Auto) 87 % (31-73) Lymphocytes (%) (Auto) 4 % (24-48) Monocytes (%) (Auto) 8 % (0-9) Eosinophils (%) (Auto) 0 % (0-3) Basophils (%) (Auto) 0 % (0-3) Neutrophils # (Auto) 9.7 x10^3uL (1.8-7.7) Lymphocytes # (Auto) 0.5 x10^3/uL (1.0-4.8) Monocytes # (Auto) 0.9 x10^3/uL (0.0-1.1) Eosinophils # (Auto) 0.0 x10^3/uL (0.0-0.7) Basophils # (Auto) 0.0 x10^3/uL (0.0-0.2) Segmented Neutrophils % 84 % (35-66) Band Neutrophils % 7 % (0-9) Lymphocytes % 6 % (24-48) Monocytes % 3 % (0-10) Platelet Estimate Adequate (ADEQUATE) Prothrombin Time 34.7 SEC (11.7-14.0) Prothromb Time International Ratio 3.7 (0.8-1.1) Sodium Level 139 mmol/L (136-145) Potassium Level 4.8 mmol/L (3.5-5.1) Chloride Level 104 mmol/L (98-107) Carbon Dioxide Level 20 mmol/L (21-32) Anion Gap 15 (6-14) Blood Urea Nitrogen 96 mg/dL (8-26) Creatinine 4.1 mg/dL (0.7-1.3) Estimated GFR (Cockcroft-Gault) 14.1 Glucose Level 113 mg/dL (70-99) Calcium Level 7.6 mg/dL (8.5-10.1) Laboratory Tests Test 04/15/17 16:30 04/15/17 17:00 04/16/17 05:00 Glucose (Fingerstick) 103 mg/dL (70-99) Tumor Marker Alpha Fetoprotein 7.2 ng/mL (0.0-8.3) White Blood Count 11.1 x10^3/uL (4.0-11.0) Red Blood Count 3.24 x10^6/uL (4.30-5.70) Hemoglobin 8.7 g/dL (13.0-17.5) Hematocrit 27.4 % (39.0-53.0) Mean Corpuscular Volume 85 fL (79-100) Mean Corpuscular Hemoglobin 27 pg (25-35) Mean Corpuscular Hemoglobin Concent 32 g/dL (31-37) Red Cell Distribution Width 16.8 % (11.5-14.5) Platelet Count 165 x10^3/uL (140-400) Neutrophils (%) (Auto) 87 % (31-73) Lymphocytes (%) (Auto) 4 % (24-48) Monocytes (%) (Auto) 8 % (0-9) Eosinophils (%) (Auto) 0 % (0-3) Basophils (%) (Auto) 0 % (0-3) Neutrophils # (Auto) 9.7 x10^3uL (1.8-7.7) Lymphocytes # (Auto) 0.5 x10^3/uL (1.0-4.8) Monocytes # (Auto) 0.9 x10^3/uL (0.0-1.1) Eosinophils # (Auto) 0.0 x10^3/uL (0.0-0.7) Basophils # (Auto) 0.0 x10^3/uL (0.0-0.2) Segmented Neutrophils % 84 % (35-66) Band Neutrophils % 7 % (0-9) Lymphocytes % 6 % (24-48) Monocytes % 3 % (0-10) Platelet Estimate Adequate (ADEQUATE) Prothrombin Time 34.7 SEC (11.7-14.0) Prothromb Time International Ratio 3.7 (0.8-1.1) Sodium Level 139 mmol/L (136-145) Potassium Level 4.8 mmol/L (3.5-5.1) Chloride Level 104 mmol/L (98-107) Carbon Dioxide Level 20 mmol/L (21-32) Anion Gap 15 (6-14) Blood Urea Nitrogen 96 mg/dL (8-26) Creatinine 4.1 mg/dL (0.7-1.3) Estimated GFR (Cockcroft-Gault) 14.1 Glucose Level 113 mg/dL (70-99) Calcium Level 7.6 mg/dL (8.5-10.1) Medications Current Medications Acetaminophen (Tylenol) 325 mg PRN Q6HRS PRN PO MILD PAIN / TEMP; Start at 14:00 Acetaminophen/ Hydrocodone Bitart (Lortab 5/325) 1 tab PRN Q6HRS PRN PO MODERATE TO SEVERE PAIN; Start 04/15/17 at 14:00 Hydralazine HCl (Apresoline) 10 mg PRN Q4HRS PRN IVP ELEVATED BP, SEE COMMENTS ; Start 04/15/17 at 14:00 Ondansetron HCl (Zofran) 4 mg PRN Q8HRS PRN IV NAUSEA/VOMITING; Start 04/15/17 at 14:00 Albuterol Sulfate (Ventolin Neb Soln) 2.5 mg PRN Q4HRS PRN NEB SHORTNESS OF BREATH; Start 04/15/17 at 14:00 Sodium Chloride 1,000 ml @ 125 mls/hr Q8H IV Last administered on 04/16/17 13 :19; Start 04/15/17 at 14:00 Norepinephrine Bitartrate 250 ml @ 0 mls/hr CONT PRN IV SEE I/O RECORD Last administered on 04/16/17 13:19; Start 04/15/17 at 14:00 Ceftriaxone Sodium 1 gm/ Sodium Chloride 50 ml @ 100 mls/hr Q24H IV ; Start at 16:00; Stop 04/15/17 at 16:00; Status DC Warfarin Sodium (Coumadin Per Pharmacy) 1 each PRN DAILY PRN MC SEE COMMENTS Last administered on 04/16/17 09:06; Start 04/15/17 at 15:15 Amiodarone HCl (Cordarone) 200 mg DAILY PO Last administered on 04/16/17 10:51 ; Start 04/16/17 at 09:00 Aspirin (Children'S Aspirin) 81 mg DAILYWBKFT PO Last administered on 10:51; Start 04/16/17 at 08:00 Cyanocobalamin (Vitamin B-12) 1,000 mcg AFTRNOON PO Last administered on 13:29; Start 04/16/17 at 13:00 Levothyroxine Sodium (Synthroid) 88 mcg DAILY07 PO Last administered on 10:51; Start 04/16/17 at 07:00 Warfarin Sodium (Coumadin) 1 mg DAILY PO ; Start 04/16/17 at 09:00; Status UNV Insulin Aspart (NovoLOG) 0-9 UNITS TIDWMEALS SQ ; Start 04/15/17 at 17:00 Dextrose (Dextrose 50%-Water Syringe) 12.5 gm PRN Q15MIN PRN IV SEE COMMENTS; Start 04/15/17 at 15:30 Warfarin Sodium (Coumadin) 0.5 mg 1X WARF ONCE PO ; Start 04/15/17 at 16:00; Stop 04/15/17 at 16:01; Status DC Pantoprazole Sodium (Protonix Vial) 40 mg DAILYAC IVP Last administered on 04/16 09:11; Start 04/15/17 at 16:30 Ceftriaxone Sodium 1 gm/ Sodium Chloride 50 ml @ 100 mls/hr Q24H IV Last administered on 04/16/17 09:12; Start 04/16/17 at 09:00 Warfarin Sodium (Coumadin - No Dose Today) 1 each 1X WARF ONCE MC ; Start 04/16 at 16:00; Stop 04/16/17 at 16:01; Status DC Darbepoetin Tomás (Aranesp) 60 mcg Sa SQ ; Start 04/16/17 at 21:00 Active Scripts Active Reported Potassium Chloride 10 Meq Capsule.er 10 Meq PO 3X/WEEK Vitamin B-12 (Cyanocobalamin (Vitamin B-12)) 1,000 Mcg Tablet 1 Tab PO AFTRNOON Vitamin D (Cholecalciferol (Vitamin D3)) 1,000 Unit Capsule 1 Cap PO HS Vitamin E (Vitamin E (Dl,Tocopheryl Acet)) 200 Unit Capsule 200 Unit PO AFTRNOON Novolin 70-30 100 Unit/Ml Vial (Hum Insulin Nph/Reg Insulin Hm) 100 Unit/1 Ml Vial 13 Unit SQ HS Levothyroxine Sodium 88 Mcg Tablet 1 Tab PO DAILY Carvedilol 6.25 Mg Tablet 1 Tab PO BID Fosamax (Alendronate Sodium) 70 Mg Tablet 1 Tab PO WEEKLY 1 Days Amiodarone Hcl 200 Mg Tablet 1 Tab PO DAILY Aspirin 81 Mg Tab.chew 1 Tab PO DAILY Warfarin Sodium 1 Mg Tablet 1 Mg PO DAILY Crestor (Rosuvastatin Calcium) 5 Mg Tablet 5 Mg PO HS Furosemide 40 Mg Tablet 40 Mg PO BID Vitals/I & O Vital Sign - Last 24 Hours 04/15/17 04/15/17 04/15/17 04/15/17 17:00 18:00 19:00 19:30 Temp 98.0 98.0 Pulse 60 60 60 Resp 20 20 20 B/P (MAP) 91/42 (58) 86/49 (61) 88/47 (61) Pulse Ox 96 96 97 O2 Delivery Nasal Cannula Nasal Cannula Nasal Cannula Nasal Cannula O2 Flow Rate 2.0 2.0 2.0 2.0 04/15/17 04/15/17 04/15/17 04/15/17 19:40 20:00 20:09 20:40 Temp 97.9 97.9 98.3 97.9 97.9 98.3 Pulse 60 60 60 Resp 20 18 16 B/P (MAP) 82/47 90/50 (63) 91/49 Pulse Ox 97 98 O2 Delivery Nasal Cannula Nasal Cannula O2 Flow Rate 2.0 2.0 04/15/17 04/15/17 04/15/17 04/15/17 21:00 21:45 21:58 22:00 Temp 98.4 98.4 Pulse 60 60 60 60 Resp 16 16 20 16 B/P (MAP) 93/53 (66) 83/45 (58) 83/45 92/57 (69) Pulse Ox 97 96 96 O2 Delivery Nasal Cannula Nasal Cannula Nasal Cannula O2 Flow Rate 2.0 2.0 2.0 04/15/17 04/15/17 04/15/17 04/15/17 23:00 23:15 23:45 23:59 Pulse 60 60 60 Resp 18 20 20 B/P (MAP) 83/43 (56) 85/41 (56) 79/42 (54) Pulse Ox 96 98 98 O2 Delivery Nasal Cannula Nasal Cannula Nasal Cannula Nasal Cannula O2 Flow Rate 2.0 2.0 2.0 04/16/17 04/16/17 04/16/17 04/16/17 00:00 01:00 02:00 03:05 Temp 99.6 99.6 Pulse 60 60 60 60 Resp 16 16 16 14 B/P (MAP) 87/36 (53) 97/54 (68) 94/54 (67) 90/55 (67) Pulse Ox 97 96 94 95 O2 Delivery Nasal Cannula Nasal Cannula Nasal Cannula Nasal Cannula O2 Flow Rate 2.0 2.0 2.0 2.0 04/16/17 04/16/17 04/16/17 04/16/17 04:00 04:00 05:00 06:00 Temp 98.4 98.4 Pulse 60 60 60 Resp 14 16 14 B/P (MAP) 98/61 (73) 98/60 (73) 85/45 (58) Pulse Ox 94 91 95 O2 Delivery Nasal Cannula Nasal Cannula Nasal Cannula Nasal Cannula O2 Flow Rate 2.0 2.0 2.0 2.0 04/16/17 04/16/17 04/16/17 04/16/17 07:00 08:00 08:00 09:00 Temp 98.2 98.2 Pulse 60 60 60 Resp 20 19 21 B/P (MAP) 98/56 (70) 97/52 (67) 103/61 (75) Pulse Ox 92 92 92 O2 Delivery Nasal Cannula Nasal Cannula Nasal Cannula Nasal Cannula O2 Flow Rate 2.0 2.0 2.0 2.0 04/16/17 04/16/17 04/16/17 04/16/17 10:07 10:51 11:03 11:15 Temp 97.9 97.9 Pulse 62 62 63 60 Resp 20 16 B/P (MAP) 104/60 (75) 104/60 103/59 (74) 101/59 (73) Pulse Ox 95 96 O2 Delivery Nasal Cannula Nasal Cannula O2 Flow Rate 2.0 2.0 04/16/17 04/16/17 04/16/17 04/16/17 12:00 12:00 12:00 12:30 Pulse 56 60 62 Resp 21 B/P (MAP) 102/56 (71) 102/56 (71) 87/53 (64) Pulse Ox 93 O2 Delivery Nasal Cannula Nasal Cannula O2 Flow Rate 2.0 2.0 04/16/17 04/16/17 04/16/17 04/16/17 12:45 13:00 13:51 15:32 Pulse 63 62 60 61 Resp 22 B/P (MAP) 97/49 (65) 94/59 (71) 90/54 (66) 96/56 (69) Pulse Ox 93 O2 Delivery Nasal Cannula O2 Flow Rate 2.0 Intake and Output 04/15/17 04/15/17 04/16/17 15:00 23:00 07:00 Intake Total 526 ml 2628 ml Output Total 60 ml 445 ml 425 ml Balance -60 ml 81 ml 2203 ml SEVERIANO CORDOBA MD Apr 16, 2017 16:19
--- NOTE | 2017-04-16 17:41 | PDOC ---
Infectious Disease Note Vital Sign Vital Signs Vital Signs Date Time Temp Pulse Resp B/P (MAP) Pulse Ox O2 Delivery O2 Flow Rate FiO2 04/16/17 15:32 61 96/56 (69) 04/16/17 13:00 22 93 Nasal Cannula 2.0 04/16/17 11:03 97.9 97.9 Labs Lab Laboratory Tests Test 04/16/17 05:00 White Blood Count 11.1 x10^3/uL (4.0-11.0) Red Blood Count 3.24 x10^6/uL (4.30-5.70) Hemoglobin 8.7 g/dL (13.0-17.5) Hematocrit 27.4 % (39.0-53.0) Mean Corpuscular Volume 85 fL (79-100) Mean Corpuscular Hemoglobin 27 pg (25-35) Mean Corpuscular Hemoglobin Concent 32 g/dL (31-37) Red Cell Distribution Width 16.8 % (11.5-14.5) Platelet Count 165 x10^3/uL (140-400) Neutrophils (%) (Auto) 87 % (31-73) Lymphocytes (%) (Auto) 4 % (24-48) Monocytes (%) (Auto) 8 % (0-9) Eosinophils (%) (Auto) 0 % (0-3) Basophils (%) (Auto) 0 % (0-3) Neutrophils # (Auto) 9.7 x10^3uL (1.8-7.7) Lymphocytes # (Auto) 0.5 x10^3/uL (1.0-4.8) Monocytes # (Auto) 0.9 x10^3/uL (0.0-1.1) Eosinophils # (Auto) 0.0 x10^3/uL (0.0-0.7) Basophils # (Auto) 0.0 x10^3/uL (0.0-0.2) Segmented Neutrophils % 84 % (35-66) Band Neutrophils % 7 % (0-9) Lymphocytes % 6 % (24-48) Monocytes % 3 % (0-10) Platelet Estimate Adequate (ADEQUATE) Prothrombin Time 34.7 SEC (11.7-14.0) Prothromb Time International Ratio 3.7 (0.8-1.1) Sodium Level 139 mmol/L (136-145) Potassium Level 4.8 mmol/L (3.5-5.1) Chloride Level 104 mmol/L (98-107) Carbon Dioxide Level 20 mmol/L (21-32) Anion Gap 15 (6-14) Blood Urea Nitrogen 96 mg/dL (8-26) Creatinine 4.1 mg/dL (0.7-1.3) Estimated GFR (Cockcroft-Gault) 14.1 Glucose Level 113 mg/dL (70-99) Calcium Level 7.6 mg/dL (8.5-10.1) Objective Assessment Hypotension BC + G + cocci and G + liza Abdominal pain and distention/ascites/possible SBP Cirrhosis of liver Renal failure Leukocytosis Plan Plan of Care change rocephine to zosyn one dose of vanc check cultures supportive care need diagnostic paracentesis KERWIN PEREZ MD Apr 16, 2017 17:41
[2017-04-16] MEDS ORDERED: VANCOMYCIN 1.5 GM in IV NORMAL SALINE 500ML BAG 500 ML IV ONE (18:30)
[2017-04-16] MEDS: PIPERACILLIN/TAZOBACTAM 2.25 GM in IV NORMAL SALINE 50ML 50 ML IV SCH ×2 (19:22→23:47)
[2017-04-16] MEDS: DARBEPOETIN ALFA 60 MCG/0.3 ML DISP.SYRIN. SQ SCH (20:45)
[2017-04-17] VITALS (25 sets, daily range): BP systolic 71–120; BP diastolic 48–83
[2017-04-17 05:12] LABS: BASO % 0 % (0-3); EOS % 0 % (0-3); HEMATOCRIT 26.3 % (39.0-53.0); HEMOGLOBIN 8.4 g/dL (13.0-17.5); LYMPH # 0.5 x10^3/uL (1.0-4.8); LYMPH % 4 % (24-48); MEAN CORPUSCULAR HEMOGLOBIN 27 pg (25-35); MEAN CORPUSCULAR HGB CONC 32 g/dL (31-37); MEAN CORPUSCULAR VOLUME 85 fL (79-100); MONO % 10 % (0-9); NEUT % 86 % (31-73); PLATELET COUNT 140 x10^3/uL (140-400); RED BLOOD COUNT 3.08 x10^6/uL (4.30-5.70); WHITE BLOOD COUNT 11.2 x10^3/uL (4.0-11.0)
[2017-04-17 05:16] LABS: INR 4.4 (0.8-1.1); PROTHROMBIN TIME PATIENT 39.3 SEC (11.7-14.0)
[2017-04-17 05:32] LABS: CALCIUM 7.5 mg/dL (8.5-10.1); CREATININE 3.7 mg/dL (0.7-1.3); GFR 15.9; POTASSIUM 4.5 mmol/L (3.5-5.1)
[2017-04-17] MEDS: PIPERACILLIN/TAZOBACTAM 2.25 GM in IV NORMAL SALINE 50ML 50 ML IV SCH ×3 (05:53→17:35)
[2017-04-17] MEDS: LEVOTHYROXINE 88 MCG TABLET PO SCH (06:34)
[2017-04-17] MEDS: INSULIN ASPART 300 UNITS/3 ML INSULN.PEN SQ SCH ×3 (07:49→17:34)
--- NOTE | 2017-04-17 08:04 | PDOC ---
G I PROGRESS NOTE Subjective Observed. Sleeping, not awakened. Objective Tachypneic. Physical Exam NO PE. Review of Relevant I have reviewed the following items ivon (where applicable) has been applied. Labs Laboratory Tests Test 04/15/17 14:15 04/15/17 16:05 04/15/17 16:30 04/15/17 17:00 Nasal Screen MRSA (PCR) Negative (Negative) Hemoglobin 8.1 g/dL (13.0-17.5) Hematocrit 24.8 % (39.0-53.0) Mean Corpuscular Hemoglobin Concent 33 g/dL (31-37) Lactic Acid Level 2.2 mmol/L (0.4-2.0) Glucose (Fingerstick) 103 mg/dL (70-99) Tumor Marker Alpha Fetoprotein 7.2 ng/mL (0.0-8.3) Test 04/16/17 05:00 04/16/17 18:13 04/16/17 21:15 04/17/17 03:38 White Blood Count 11.1 x10^3/uL (4.0-11.0) 11.2 x10^3/uL (4.0-11.0) Red Blood Count 3.24 x10^6/uL (4.30-5.70) 3.08 x10^6/uL (4.30-5.70) Hemoglobin 8.7 g/dL (13.0-17.5) 8.4 g/dL (13.0-17.5) Hematocrit 27.4 % (39.0-53.0) 26.3 % (39.0-53.0) Mean Corpuscular Volume 85 fL (79-100) 85 fL (79-100) Mean Corpuscular Hemoglobin 27 pg (25-35) 27 pg (25-35) Mean Corpuscular Hemoglobin Concent 32 g/dL (31-37) 32 g/dL (31-37) Red Cell Distribution Width 16.8 % (11.5-14.5) 17.0 % (11.5-14.5) Platelet Count 165 x10^3/uL (140-400) 140 x10^3/uL (140-400) Neutrophils (%) (Auto) 87 % (31-73) 86 % (31-73) Lymphocytes (%) (Auto) 4 % (24-48) 4 % (24-48) Monocytes (%) (Auto) 8 % (0-9) 10 % (0-9) Eosinophils (%) (Auto) 0 % (0-3) 0 % (0-3) Basophils (%) (Auto) 0 % (0-3) 0 % (0-3) Neutrophils # (Auto) 9.7 x10^3uL (1.8-7.7) 9.6 x10^3uL (1.8-7.7) Lymphocytes # (Auto) 0.5 x10^3/uL (1.0-4.8) 0.5 x10^3/uL (1.0-4.8) Monocytes # (Auto) 0.9 x10^3/uL (0.0-1.1) 1.1 x10^3/uL (0.0-1.1) Eosinophils # (Auto) 0.0 x10^3/uL (0.0-0.7) 0.0 x10^3/uL (0.0-0.7) Basophils # (Auto) 0.0 x10^3/uL (0.0-0.2) 0.0 x10^3/uL (0.0-0.2) Segmented Neutrophils % 84 % (35-66) Band Neutrophils % 7 % (0-9) Lymphocytes % 6 % (24-48) Monocytes % 3 % (0-10) Platelet Estimate Adequate (ADEQUATE) Prothrombin Time 34.7 SEC (11.7-14.0) 39.3 SEC (11.7-14.0) Prothromb Time International Ratio 3.7 (0.8-1.1) 4.4 (0.8-1.1) Sodium Level 139 mmol/L (136-145) 138 mmol/L (136-145) Potassium Level 4.8 mmol/L (3.5-5.1) 4.5 mmol/L (3.5-5.1) Chloride Level 104 mmol/L (98-107) 105 mmol/L (98-107) Carbon Dioxide Level 20 mmol/L (21-32) 18 mmol/L (21-32) Anion Gap 15 (6-14) 15 (6-14) Blood Urea Nitrogen 96 mg/dL (8-26) 97 mg/dL (8-26) Creatinine 4.1 mg/dL (0.7-1.3) 3.7 mg/dL (0.7-1.3) Estimated GFR (Cockcroft-Gault) 14.1 15.9 Glucose Level 113 mg/dL (70-99) 136 mg/dL (70-99) Calcium Level 7.6 mg/dL (8.5-10.1) 7.5 mg/dL (8.5-10.1) Glucose (Fingerstick) 127 mg/dL (70-99) 164 mg/dL (70-99) Laboratory Tests Test 04/16/17 18:13 04/16/17 21:15 04/17/17 03:38 Glucose (Fingerstick) 127 mg/dL (70-99) 164 mg/dL (70-99) White Blood Count 11.2 x10^3/uL (4.0-11.0) Red Blood Count 3.08 x10^6/uL (4.30-5.70) Hemoglobin 8.4 g/dL (13.0-17.5) Hematocrit 26.3 % (39.0-53.0) Mean Corpuscular Volume 85 fL (79-100) Mean Corpuscular Hemoglobin 27 pg (25-35) Mean Corpuscular Hemoglobin Concent 32 g/dL (31-37) Red Cell Distribution Width 17.0 % (11.5-14.5) Platelet Count 140 x10^3/uL (140-400) Neutrophils (%) (Auto) 86 % (31-73) Lymphocytes (%) (Auto) 4 % (24-48) Monocytes (%) (Auto) 10 % (0-9) Eosinophils (%) (Auto) 0 % (0-3) Basophils (%) (Auto) 0 % (0-3) Neutrophils # (Auto) 9.6 x10^3uL (1.8-7.7) Lymphocytes # (Auto) 0.5 x10^3/uL (1.0-4.8) Monocytes # (Auto) 1.1 x10^3/uL (0.0-1.1) Eosinophils # (Auto) 0.0 x10^3/uL (0.0-0.7) Basophils # (Auto) 0.0 x10^3/uL (0.0-0.2) Prothrombin Time 39.3 SEC (11.7-14.0) Prothromb Time International Ratio 4.4 (0.8-1.1) Sodium Level 138 mmol/L (136-145) Potassium Level 4.5 mmol/L (3.5-5.1) Chloride Level 105 mmol/L (98-107) Carbon Dioxide Level 18 mmol/L (21-32) Anion Gap 15 (6-14) Blood Urea Nitrogen 97 mg/dL (8-26) Creatinine 3.7 mg/dL (0.7-1.3) Estimated GFR (Cockcroft-Gault) 15.9 Glucose Level 136 mg/dL (70-99) Calcium Level 7.5 mg/dL (8.5-10.1) Hemoglobin stable. INR drifting up. Medications Current Medications Acetaminophen (Tylenol) 325 mg PRN Q6HRS PRN PO MILD PAIN / TEMP; Start at 14:00 Acetaminophen/ Hydrocodone Bitart (Lortab 5/325) 1 tab PRN Q6HRS PRN PO MODERATE TO SEVERE PAIN; Start 04/15/17 at 14:00 Hydralazine HCl (Apresoline) 10 mg PRN Q4HRS PRN IVP ELEVATED BP, SEE COMMENTS ; Start 04/15/17 at 14:00 Ondansetron HCl (Zofran) 4 mg PRN Q8HRS PRN IV NAUSEA/VOMITING; Start 04/15/17 at 14:00 Albuterol Sulfate (Ventolin Neb Soln) 2.5 mg PRN Q4HRS PRN NEB SHORTNESS OF BREATH; Start 04/15/17 at 14:00 Sodium Chloride 1,000 ml @ 125 mls/hr Q8H IV Last administered on 04/16/17 23 :47; Start 04/15/17 at 14:00 Norepinephrine Bitartrate 250 ml @ 0 mls/hr CONT PRN IV SEE I/O RECORD Last administered on 04/16/17 13:19; Start 04/15/17 at 14:00 Ceftriaxone Sodium 1 gm/ Sodium Chloride 50 ml @ 100 mls/hr Q24H IV ; Start at 16:00; Stop 04/15/17 at 16:00; Status DC Warfarin Sodium (Coumadin Per Pharmacy) 1 each PRN DAILY PRN MC SEE COMMENTS Last administered on 04/16/17 09:06; Start 04/15/17 at 15:15 Amiodarone HCl (Cordarone) 200 mg DAILY PO Last administered on 04/16/17 10:51 ; Start 04/16/17 at 09:00 Aspirin (Children'S Aspirin) 81 mg DAILYWBKFT PO Last administered on 10:51; Start 04/16/17 at 08:00 Cyanocobalamin (Vitamin B-12) 1,000 mcg AFTRNOON PO Last administered on 13:29; Start 04/16/17 at 13:00 Levothyroxine Sodium (Synthroid) 88 mcg DAILY07 PO Last administered on 06:34; Start 04/16/17 at 07:00 Warfarin Sodium (Coumadin) 1 mg DAILY PO ; Start 04/16/17 at 09:00; Status UNV Insulin Aspart (NovoLOG) 0-9 UNITS TIDWMEALS SQ ; Start 04/15/17 at 17:00 Dextrose (Dextrose 50%-Water Syringe) 12.5 gm PRN Q15MIN PRN IV SEE COMMENTS; Start 04/15/17 at 15:30 Warfarin Sodium (Coumadin) 0.5 mg 1X WARF ONCE PO ; Start 04/15/17 at 16:00; Stop 04/15/17 at 16:01; Status DC Pantoprazole Sodium (Protonix Vial) 40 mg DAILYAC IVP Last administered on 04/16 09:11; Start 04/15/17 at 16:30 Ceftriaxone Sodium 1 gm/ Sodium Chloride 50 ml @ 100 mls/hr Q24H IV Last administered on 04/16/17 09:12; Start 04/16/17 at 09:00; Stop 04/16/17 at 17:42 ; Status DC Warfarin Sodium (Coumadin - No Dose Today) 1 each 1X WARF ONCE MC ; Start 04/16 at 16:00; Stop 04/16/17 at 16:01; Status DC Darbepoetin Tomás (Aranesp) 60 mcg Sa SQ Last administered on 04/16/17 20:45; Start 04/16/17 at 21:00 Piperacillin Sod/ Tazobactam Sod 2.25 gm/Sodium Chloride 50 ml @ 100 mls/hr Q6HRS IV Last administered on 04/17/17 05:53; Start 04/16/17 at 18:00 Vancomycin HCl 1.5 gm/Sodium Chloride 500 ml @ 250 mls/hr 1X ONCE IV Last administered on 04/16/17 19:22; Start 04/16/17 at 18:30; Stop 04/16/17 at 20:29 ; Status DC Active Scripts Active Reported Potassium Chloride 10 Meq Capsule.er 10 Meq PO 3X/WEEK Vitamin B-12 (Cyanocobalamin (Vitamin B-12)) 1,000 Mcg Tablet 1 Tab PO AFTRNOON Vitamin D (Cholecalciferol (Vitamin D3)) 1,000 Unit Capsule 1 Cap PO HS Vitamin E (Vitamin E (Dl,Tocopheryl Acet)) 200 Unit Capsule 200 Unit PO AFTRNOON Novolin 70-30 100 Unit/Ml Vial (Hum Insulin Nph/Reg Insulin Hm) 100 Unit/1 Ml Vial 13 Unit SQ HS Levothyroxine Sodium 88 Mcg Tablet 1 Tab PO DAILY Carvedilol 6.25 Mg Tablet 1 Tab PO BID Fosamax (Alendronate Sodium) 70 Mg Tablet 1 Tab PO WEEKLY 1 Days Amiodarone Hcl 200 Mg Tablet 1 Tab PO DAILY Aspirin 81 Mg Tab.chew 1 Tab PO DAILY Warfarin Sodium 1 Mg Tablet 1 Mg PO DAILY Crestor (Rosuvastatin Calcium) 5 Mg Tablet 5 Mg PO HS Furosemide 40 Mg Tablet 40 Mg PO BID Vitals/I & O Vital Sign - Last 24 Hours 04/16/17 04/16/17 04/16/17 04/16/17 09:00 10:07 10:51 11:03 Temp 97.9 97.9 Pulse 60 62 62 63 Resp 21 20 16 B/P (MAP) 103/61 (75) 104/60 (75) 104/60 103/59 (74) Pulse Ox 92 95 96 O2 Delivery Nasal Cannula Nasal Cannula Nasal Cannula O2 Flow Rate 2.0 2.0 2.0 04/16/17 04/16/17 04/16/17 04/16/17 11:15 12:00 12:00 12:00 Pulse 60 56 60 Resp 21 B/P (MAP) 101/59 (73) 102/56 (71) 102/56 (71) Pulse Ox 93 O2 Delivery Nasal Cannula Nasal Cannula O2 Flow Rate 2.0 2.0 04/16/17 04/16/17 04/16/17 04/16/17 12:30 12:45 13:00 13:51 Pulse 62 63 62 60 Resp 22 B/P (MAP) 87/53 (64) 97/49 (65) 94/59 (71) 90/54 (66) Pulse Ox 93 O2 Delivery Nasal Cannula O2 Flow Rate 2.0 04/16/17 04/16/17 04/16/17 04/16/17 15:30 15:32 16:00 16:00 Temp 97.9 97.9 Pulse 61 61 60 Resp 20 B/P (MAP) 96/56 (69) 96/56 (69) 96/58 (71) Pulse Ox 93 O2 Delivery Nasal Cannula Nasal Cannula O2 Flow Rate 2.0 2.0 04/16/17 04/16/17 04/16/17 04/16/17 17:00 18:00 19:00 20:00 Temp 97.9 97.9 Pulse 60 60 60 62 Resp 22 22 20 24 B/P (MAP) 87/55 (66) 91/50 (64) 95/52 (66) 99/57 (71) Pulse Ox 94 92 93 94 O2 Delivery Nasal Cannula Nasal Cannula Nasal Cannula Nasal Cannula O2 Flow Rate 2.0 2.0 2.0 2.0 04/16/17 04/16/17 04/16/17 04/16/17 20:00 21:00 22:00 23:00 Pulse 60 60 60 Resp 24 22 24 B/P (MAP) 87/53 (64) 85/54 (64) 80/61 (67) Pulse Ox 95 95 95 O2 Delivery Nasal Cannula Nasal Cannula Nasal Cannula Nasal Cannula O2 Flow Rate 2.0 2.0 2.0 2.0 04/16/17 04/17/17 04/17/17 04/17/17 23:59 00:00 01:00 02:00 Temp 98.2 98.2 Pulse 60 60 60 Resp 22 24 24 B/P (MAP) 83/55 (64) 77/48 (58) 76/52 (60) Pulse Ox 96 95 95 O2 Delivery Nasal Cannula Nasal Cannula Nasal Cannula Nasal Cannula O2 Flow Rate 2.0 2.0 2.0 2.0 04/17/17 04/17/17 04/17/1718/17 03:00 03:15 04:00 05:00 Pulse 60 60 60 Resp 22 22 22 B/P (MAP) 76/52 (60) 89/55 (66) 84/52 (63) Pulse Ox 95 95 96 O2 Delivery Nasal Cannula Nasal Cannula Nasal Cannula Nasal Cannula O2 Flow Rate 2.0 2.0 2.0 2.0 04/17/17 04/17/17 06:00 07:00 Pulse 60 60 Resp 22 21 B/P (MAP) 96/57 (70) 94/56 (69) Pulse Ox 96 95 O2 Delivery Nasal Cannula Nasal Cannula O2 Flow Rate 2.0 2.0 Intake and Output 04/16/17 04/16/17 04/17/17 15:00 23:00 07:00 Intake Total 340 ml 2775 ml 2473 ml Output Total 430 ml 480 ml 450 ml Balance -90 ml 2295 ml 2023 ml Assessment New-onset ascites. May be multifactorial. Merits at least one paracentesis, but INR precludes at this point. Plan of Care: Continue current Tx, Mgmt Plan of Care Note Vitamin K? PATY MUNIZ MD Apr 17, 2017 08:04
[2017-04-17] MEDS: ALBUTEROL SULFATE 2.5 MG/3 ML NEBU. NEB PRN (08:28)
[2017-04-17] MEDS: NOREPINEPHRIN PREMIX 250 ML IV PRN ×2 (08:46→20:29)
[2017-04-17] MEDS: IV NORMAL SALINE 1000ML BAG 1,000 ML IV SCH ×3 (08:47→22:11)
[2017-04-17] MEDS: AMIODARONE HCL 200 MG TABLET. PO SCH (08:47)
[2017-04-17] MEDS: PANTOPRAZOLE IV PUSH 40 MG VIAL. IVP SCH (08:47)
[2017-04-17] MEDS: ASPIRIN CHEWABLE 81 MG TABLET. PO SCH (08:48)
--- NOTE | 2017-04-17 08:57 | PDOC ---
Infectious Disease Note Subjective Subjective Feeling better this morning, + abdominal bloating No BM + throat dry Hypotensive, on Levophed 10 mcg No fever last 24 hours ROS ROS GEN: Denies chills, sweats CV: Denies chest pain RESP: Denies shortness of air, cough GI: Denies n/v Vital Sign Vital Signs Vital Signs Date Time Temp Pulse Resp B/P (MAP) Pulse Ox O2 Delivery O2 Flow Rate FiO2 04/17/17 08:31 96 Nasal Cannula 2.0 04/17/17 07:00 60 21 94/56 (69) 04/17/17 00:00 98.2 98.2 Physical Exam PHYSICAL EXAM GENERAL: Sitting in the chair, eating, relaxed appearance HEENT: Oral cavity dry LUNGS: Clear HEART: S1S2, no gallop, no murmur ABD: Distended, BS present, soft, NT : Stahl EXT: BLE edema 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, 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, no focal neurologic deficit SKIN: No rash IV: ok Labs Lab Laboratory Tests Test 04/16/17 18:13 04/16/17 21:15 04/17/17 03:38 Glucose (Fingerstick) 127 mg/dL (70-99) 164 mg/dL (70-99) White Blood Count 11.2 x10^3/uL (4.0-11.0) Red Blood Count 3.08 x10^6/uL (4.30-5.70) Hemoglobin 8.4 g/dL (13.0-17.5) Hematocrit 26.3 % (39.0-53.0) Mean Corpuscular Volume 85 fL (79-100) Mean Corpuscular Hemoglobin 27 pg (25-35) Mean Corpuscular Hemoglobin Concent 32 g/dL (31-37) Red Cell Distribution Width 17.0 % (11.5-14.5) Platelet Count 140 x10^3/uL (140-400) Neutrophils (%) (Auto) 86 % (31-73) Lymphocytes (%) (Auto) 4 % (24-48) Monocytes (%) (Auto) 10 % (0-9) Eosinophils (%) (Auto) 0 % (0-3) Basophils (%) (Auto) 0 % (0-3) Neutrophils # (Auto) 9.6 x10^3uL (1.8-7.7) Lymphocytes # (Auto) 0.5 x10^3/uL (1.0-4.8) Monocytes # (Auto) 1.1 x10^3/uL (0.0-1.1) Eosinophils # (Auto) 0.0 x10^3/uL (0.0-0.7) Basophils # (Auto) 0.0 x10^3/uL (0.0-0.2) Prothrombin Time 39.3 SEC (11.7-14.0) Prothromb Time International Ratio 4.4 (0.8-1.1) Sodium Level 138 mmol/L (136-145) Potassium Level 4.5 mmol/L (3.5-5.1) Chloride Level 105 mmol/L (98-107) Carbon Dioxide Level 18 mmol/L (21-32) Anion Gap 15 (6-14) Blood Urea Nitrogen 97 mg/dL (8-26) Creatinine 3.7 mg/dL (0.7-1.3) Estimated GFR (Cockcroft-Gault) 15.9 Glucose Level 136 mg/dL (70-99) Calcium Level 7.5 mg/dL (8.5-10.1) Objective Assessment Hypotension, on Levophed GPC & GPR bacteremia, present on transfer from [facility]. Abdominal pain and distention/ascites/possible SBP Cirrhosis of liver HERIBERTO on CKD Leukocytosis Coagulopathy Plan Plan of Care Zosyn One time dose vanc, 04/16 Await final cultures supportive care need diagnostic paracentesis Attending Co-Sign The patient was seen and interviewed as well as examined at the bedside. The chart was reviewed. The case was discussed. Agree with the plan of care. WOOD KRUEGER APRN Apr 17, 2017 08:57 KERWIN PEREZ MD Apr 17, 2017 12:06
[2017-04-17] MEDS ORDERED: PHYTONADIONE (VIT K1) 5 MG TABLET PO ONE (11:15)
--- NOTE | 2017-04-17 11:41 | PDOC ---
Renal-Progress Notes Subjective Notes Notes FEELING BETTER Vitals Vitals Vital Signs Date Time Temp Pulse Resp B/P (MAP) Pulse Ox O2 Delivery O2 Flow Rate FiO2 04/17/17 11:00 60 20 95/53 (67) 94 Nasal Cannula 2.0 04/17/17 00:00 98.2 98.2 Weight Weight [ ] I.O. Intake and Output Intake and Output 04/17/17 07:00 Intake Total 5588 ml Output Total 1360 ml Balance 4228 ml Intake Oral 1830 ml IV Total 3758 ml Output Urine Total 1360 ml Labs Labs Laboratory Tests Test 04/16/17 18:13 04/16/17 21:15 04/17/17 03:38 Glucose (Fingerstick) 127 mg/dL (70-99) 164 mg/dL (70-99) White Blood Count 11.2 x10^3/uL (4.0-11.0) Red Blood Count 3.08 x10^6/uL (4.30-5.70) Hemoglobin 8.4 g/dL (13.0-17.5) Hematocrit 26.3 % (39.0-53.0) Mean Corpuscular Volume 85 fL (79-100) Mean Corpuscular Hemoglobin 27 pg (25-35) Mean Corpuscular Hemoglobin Concent 32 g/dL (31-37) Red Cell Distribution Width 17.0 % (11.5-14.5) Platelet Count 140 x10^3/uL (140-400) Neutrophils (%) (Auto) 86 % (31-73) Lymphocytes (%) (Auto) 4 % (24-48) Monocytes (%) (Auto) 10 % (0-9) Eosinophils (%) (Auto) 0 % (0-3) Basophils (%) (Auto) 0 % (0-3) Neutrophils # (Auto) 9.6 x10^3uL (1.8-7.7) Lymphocytes # (Auto) 0.5 x10^3/uL (1.0-4.8) Monocytes # (Auto) 1.1 x10^3/uL (0.0-1.1) Eosinophils # (Auto) 0.0 x10^3/uL (0.0-0.7) Basophils # (Auto) 0.0 x10^3/uL (0.0-0.2) Prothrombin Time 39.3 SEC (11.7-14.0) Prothromb Time International Ratio 4.4 (0.8-1.1) Sodium Level 138 mmol/L (136-145) Potassium Level 4.5 mmol/L (3.5-5.1) Chloride Level 105 mmol/L (98-107) Carbon Dioxide Level 18 mmol/L (21-32) Anion Gap 15 (6-14) Blood Urea Nitrogen 97 mg/dL (8-26) Creatinine 3.7 mg/dL (0.7-1.3) Estimated GFR (Cockcroft-Gault) 15.9 Glucose Level 136 mg/dL (70-99) Calcium Level 7.5 mg/dL (8.5-10.1) Review of Systems Constitutional: yes: weakness, alert, oriented Ears/Nose/Throat: Yes: no symptom reported Eyes: Yes: no symptom reported Pulmonary: Yes no symptom reported Cardiovascular: Yes no symptom reported Gastrointestional: Yes: constipation Genitourinary: Yes: no symptom reported Musculoskeletal: Yes: muscle stiffness Skin: Yes no symptom reported Physical Exam General Appearance: no apparent distress Skin: warm Respiratory: decreased breath sounds Heart: S1S2 Abdomen: soft, bowel sounds present Genitourinary: bladder flat Extremities: pulses present Neurology: alert, oriented Assessment Assessment IMP HERIBERTO-BETTER WITH CR DOWN TO 3.7 CKD STAGE 4 WITH CR OF 2.8 DEHYDRATION BACTEREMIA HYPOTENSION ASCITES PLAN PRESSORS NEEDED ANTIBIOTICS CONT WITH IVF'S GI EVAL LABS IN AM SPENCER ORTIZ MD Apr 17, 2017 11:41
--- NOTE | 2017-04-17 12:12 | ACF ---
Admission Forms Criteria LIVER DISEASE COMPLICATIONS Clinical Indications for Admission to Inpatient Care (Place 'X' for any and all applicable criteria): Admission is indicated for patient with ANY ONE of the following(1)(2)(3)(4): [X]I. Inpatient admission required rather than observation care because of ANY ONE of the following: [ ]a) Hemodynamic instability that is severe or persistent [ ]b) Severe electrolyte abnormalities requiring inpatient care [ ]c) Respiratory compromise that is severe or persistent [ ]d) Coagulation abnormal that is severe or persistent [ ]e) Severe pain requiring acute inpatient management [ ]f) Renal insufficiency that is severe or worsening [ ]g) Metabolic abnormalities (e.g., vomiting, hypoglycemia, acidosis) that are severe or persistent [ ]h) Hypovolemia or hypervolemia that is severe or persistent [ ]i) Absent bowel sounds with complete ileus(2) [ ]j) Signs of intestinal obstruction or peritonitis[A] [ ]k) IV fluid to replace significant ongoing losses (>3 L/m2 per day) [ ]l) Continuous IV infusion of anticoagulation, platelet inhibitor, vasoactive, or antiarrhythmic medication [X]m) Percutaneous or open drainage (e.g., abscess, biliary tract) procedures [ ]n) Parenteral nutrition regimen that must be implemented on inpatient basis [ ]o) Other condition treatment or monitoring requiring inpatient admission [ ]II. Infected hepatic hydrothorax (eg, empyema) [ ]III. Hepatorenal syndrome (eg, elevated. creatinine with adequate volume status and negative evaluation for other cause)(8) [ ]IV. Spontaneous bacterial peritonitis [ ]V. Suspected infected ascites as indicated by ANY ONE of the following: [ ]a) Temp >100 degrees F (37.8 C ) [ ]b) High WBC count [ ]c) Abdominal pain or tenderness not relieved by paracentesis [ ]. New-onset or worsening hepatic encephalopathy(7) [ ]VII. Suspected fulminant hepatic failure (e.g., acute coagulopathy with hepatic encephalopathy or acute elevation of hepatic transaminases to more than 15 times baseline)(4) [ ]VIII. Acute hepatitis (e.g., ALT and AST at least 3 times baseline) with coagulopathy or severe jaundice as indicated by ANY ONE of the following(9)(10): [ ]a) Bilirubin >20 mg/dL (342 moles/L)(11) [ ]b) Acute elevation of PT to >50% above normal or INR >1.5 [ ] IX. Treatment of injury from hepatotoxin (e.g., acetaminophen) that requires inpatient monitoring [ ] X. Acute fatty liver of Extended stay beyond goal length of stay may be needed for(3)(7): [ ]a) Hepatorenal syndrome [ ]b) Severe or persistent hepatic encephalopathy [ ]c) Renal failure due to other causes associated with cirrhosis (e.g., hypovolemia) [ ]d) Severe or persistent coagulation abnormalities [ ]e) Refractory ascites, volume, or electrolyte abnormality [ ]f) Severe or persistent gastroesophageal bleeding [ ]g) Severe infectious or hepatotoxin-induced hepatitis (eg, acetaminophen) [ ]h) Hemodynamic instability that is severe or persistent The original [employer] content created by [employer] has been revised. The portions of the content which have been revised are identified through the use of italic text or in bold, and [facility] has neither reviewed nor approved the modified material. All other unmodified content is copyright [facility] [employer]. Please see references footnoted in the original [employer] edition 2016 Admission Criteria Met?: Yes EZEQUIEL ALTMAN Apr 17, 2017 12:12
[2017-04-17] MEDS: CYANOCOBALAMIN (VITAMIN B-12) 1,000 MCG TABLET. PO SCH (13:00)
--- NOTE | 2017-04-17 13:11 | CARD ---
APPROVED REPORT EXAM: Two-dimensional and M-mode echocardiogram with Doppler and color Doppler. Other Information Quality : Good INDICATION Hypotension 2D DIMENSIONS RVDd5.2 (2.9-3.5cm)Left Atrium(2D)4.2 (1.6-4.0cm) IVSd0.6 (0.7-1.1cm)Aortic Root(2D)3.0 (2.0-3.7cm) LVDd5.1 (3.9-5.9cm)LVOT Diameter2.3 (1.8-2.4cm) PWd0.8 (0.7-1.1cm)LVDs4.2 (2.5-4.0cm) FS (%) 18.4 %SV47.7 ml LVEF(%)35.0 (>50%) Aortic Valve AoV Peak Toño.120.1cm/sAoV VTI19.0cm AO Peak GR.5.8mmHgLVOT VTI 21.36cm AO Mean GR.3mmHgAVA (VTI)4.50cm2 Mitral Valve MV E Hblbspsp65.8cm/sMV DECEL [id number] MV A Wqqhtrgv60.4cm/sE/A Ratio1.0 TDI Lateral E' P. V5.66cm/sMedial E' P. V3.41cm/s E/Lateral E'10.0E/Medial E'16.7 Tricuspid Valve TR P. Qcrsvthe921nm/sRAP [id number] TR Peak Gr.[id number] LEFT VENTRICLE The left ventricle is normal size. There is normal left ventricular wall thickness. The LV Ejection F raction is 35%. There is global hypokinesis of the left ventricle. Apical motion consistent with pace maker activation. RIGHT VENTRICLE The right ventricle is mildly to moderately dilated. Systolic function is mildly to moderately reduce d. ATRIA The left atrium is mildly dilated. The right atrium is severely dilated. The interatrial septum is in tact with no evidence for an atrial septal defect or patent foramen ovale as noted on 2-D or Doppler imaging. MITRAL VALVE The mitral valve is calcified but opens well. There is no evidence of mitral valve prolapse. There is no mitral valve stenosis. Doppler and Color-flow revealed mild mitral regurgitation. TRICUSPID VALVE The tricuspid valve is normal in structure Doppler and Color Flow revealed mild tricuspid regurgitati on. There is mild pulmonary hypertension. Due to a sub-optimal doppler interrogation unable to estima te the PA pressure accurately. There is no tricuspid valve prolapse or vegetation. There is no tricus pid valve stenosis. PULMONIC VALVE The pulmonary valve is normal in structure and function. Doppler and Color Flow revealed no pulmonic valvular regurgitation. There is no pulmonic valvular stenosis. GREAT VESSELS The aortic root is normal in size. The ascending aorta is not well seen. The IVC is dilated and colla pses <50% with inspiration. PERICARDIAL EFFUSION There is large pleural effusion. There is no evidence of significant pericardial effusion. Critical Notification Critical Value: No <Conclusion> The LV Ejection Fraction is 35%. There is global hypokinesis of the left ventricle. Apical motion consistent with pacemaker activation. The right ventricle is mildly to moderately dilated. The left atrium is mildly dilated. The right atrium is severely dilated. The mitral valve is calcified but opens well. Doppler and Color-flow revealed mild mitral regurgitation. Doppler and Color Flow revealed mild tricuspid regurgitation. There is mild pulmonary hypertension. Due to a sub-optimal doppler interrogation unable to estimate t he PA pressure accurately. The pulmonary valve is normal in structure and function. There is large pleural effusion. There is no evidence of significant pericardial effusion.
--- NOTE | 2017-04-17 13:25 | PDOC ---
PROGRESS NOTES Chief Complaint Chief Complaint cc: low blood pressures A/P 1. Shock, possible hypovolemic: currently on vasopressors, Levophed with IV hydration. 2. Ascites, with cirrhosis: abdominal pain: on IV Zosyn ,blood cx positive GPC/ GPR,finals pending. 3. Abdominal pain:? SBP, not able to do paracentesis due to INR, vitamin K today, 4. Chronic atrial fibrillation, rate controlled. hold Coumadin. 5. Acute kidney injury on chronic kidney disease 4.: Possible due to VMN, Volume resuscitation, Nephrology following, 6. History of congestive heart failure. 7. Type 2 diabetes mellitus: SSI 8. Prognosis guarded, 9. Anemia of chronic disease. History of Present Illness History of Present Illness making good urine no fever doing better Vitals Vitals Vital Signs Date Time Temp Pulse Resp B/P (MAP) Pulse Ox O2 Delivery O2 Flow Rate FiO2 04/17/17 12:00 97.9 60 15 96/55 (69) 95 Nasal Cannula 2.0 97.9 Physical Exam General: Alert, Oriented X3, Cooperative, No acute distress Heart: Normal S1, Normal S2, Other (IRREGULAR) Lungs: Clear Abdomen: Normal bowel sounds, Soft, Other (distended. ) Extremities: No clubbing Labs LABS Laboratory Tests Test 04/16/17 18:13 04/16/17 21:15 04/17/17 03:38 04/17/17 12:49 Glucose (Fingerstick) 127 mg/dL (70-99) 164 mg/dL (70-99) 154 mg/dL (70-99) White Blood Count 11.2 x10^3/uL (4.0-11.0) Red Blood Count 3.08 x10^6/uL (4.30-5.70) Hemoglobin 8.4 g/dL (13.0-17.5) Hematocrit 26.3 % (39.0-53.0) Mean Corpuscular Volume 85 fL (79-100) Mean Corpuscular Hemoglobin 27 pg (25-35) Mean Corpuscular Hemoglobin Concent 32 g/dL (31-37) Red Cell Distribution Width 17.0 % (11.5-14.5) Platelet Count 140 x10^3/uL (140-400) Neutrophils (%) (Auto) 86 % (31-73) Lymphocytes (%) (Auto) 4 % (24-48) Monocytes (%) (Auto) 10 % (0-9) Eosinophils (%) (Auto) 0 % (0-3) Basophils (%) (Auto) 0 % (0-3) Neutrophils # (Auto) 9.6 x10^3uL (1.8-7.7) Lymphocytes # (Auto) 0.5 x10^3/uL (1.0-4.8) Monocytes # (Auto) 1.1 x10^3/uL (0.0-1.1) Eosinophils # (Auto) 0.0 x10^3/uL (0.0-0.7) Basophils # (Auto) 0.0 x10^3/uL (0.0-0.2) Prothrombin Time 39.3 SEC (11.7-14.0) Prothromb Time International Ratio 4.4 (0.8-1.1) Sodium Level 138 mmol/L (136-145) Potassium Level 4.5 mmol/L (3.5-5.1) Chloride Level 105 mmol/L (98-107) Carbon Dioxide Level 18 mmol/L (21-32) Anion Gap 15 (6-14) Blood Urea Nitrogen 97 mg/dL (8-26) Creatinine 3.7 mg/dL (0.7-1.3) Estimated GFR (Cockcroft-Gault) 15.9 Glucose Level 136 mg/dL (70-99) Calcium Level 7.5 mg/dL (8.5-10.1) Comment Review of Relevant I have reviewed the following items ivon (where applicable) has been applied. Labs Laboratory Tests Test 04/15/17 14:15 04/15/17 16:05 04/15/17 16:30 04/15/17 17:00 Nasal Screen MRSA (PCR) Negative (Negative) Hemoglobin 8.1 g/dL (13.0-17.5) Hematocrit 24.8 % (39.0-53.0) Mean Corpuscular Hemoglobin Concent 33 g/dL (31-37) Lactic Acid Level 2.2 mmol/L (0.4-2.0) Glucose (Fingerstick) 103 mg/dL (70-99) Tumor Marker Alpha Fetoprotein 7.2 ng/mL (0.0-8.3) Test 04/16/17 05:00 04/16/17 18:13 04/16/17 21:15 04/17/17 03:38 White Blood Count 11.1 x10^3/uL (4.0-11.0) 11.2 x10^3/uL (4.0-11.0) Red Blood Count 3.24 x10^6/uL (4.30-5.70) 3.08 x10^6/uL (4.30-5.70) Hemoglobin 8.7 g/dL (13.0-17.5) 8.4 g/dL (13.0-17.5) Hematocrit 27.4 % (39.0-53.0) 26.3 % (39.0-53.0) Mean Corpuscular Volume 85 fL (79-100) 85 fL (79-100) Mean Corpuscular Hemoglobin 27 pg (25-35) 27 pg (25-35) Mean Corpuscular Hemoglobin Concent 32 g/dL (31-37) 32 g/dL (31-37) Red Cell Distribution Width 16.8 % (11.5-14.5) 17.0 % (11.5-14.5) Platelet Count 165 x10^3/uL (140-400) 140 x10^3/uL (140-400) Neutrophils (%) (Auto) 87 % (31-73) 86 % (31-73) Lymphocytes (%) (Auto) 4 % (24-48) 4 % (24-48) Monocytes (%) (Auto) 8 % (0-9) 10 % (0-9) Eosinophils (%) (Auto) 0 % (0-3) 0 % (0-3) Basophils (%) (Auto) 0 % (0-3) 0 % (0-3) Neutrophils # (Auto) 9.7 x10^3uL (1.8-7.7) 9.6 x10^3uL (1.8-7.7) Lymphocytes # (Auto) 0.5 x10^3/uL (1.0-4.8) 0.5 x10^3/uL (1.0-4.8) Monocytes # (Auto) 0.9 x10^3/uL (0.0-1.1) 1.1 x10^3/uL (0.0-1.1) Eosinophils # (Auto) 0.0 x10^3/uL (0.0-0.7) 0.0 x10^3/uL (0.0-0.7) Basophils # (Auto) 0.0 x10^3/uL (0.0-0.2) 0.0 x10^3/uL (0.0-0.2) Segmented Neutrophils % 84 % (35-66) Band Neutrophils % 7 % (0-9) Lymphocytes % 6 % (24-48) Monocytes % 3 % (0-10) Platelet Estimate Adequate (ADEQUATE) Prothrombin Time 34.7 SEC (11.7-14.0) 39.3 SEC (11.7-14.0) Prothromb Time International Ratio 3.7 (0.8-1.1) 4.4 (0.8-1.1) Sodium Level 139 mmol/L (136-145) 138 mmol/L (136-145) Potassium Level 4.8 mmol/L (3.5-5.1) 4.5 mmol/L (3.5-5.1) Chloride Level 104 mmol/L (98-107) 105 mmol/L (98-107) Carbon Dioxide Level 20 mmol/L (21-32) 18 mmol/L (21-32) Anion Gap 15 (6-14) 15 (6-14) Blood Urea Nitrogen 96 mg/dL (8-26) 97 mg/dL (8-26) Creatinine 4.1 mg/dL (0.7-1.3) 3.7 mg/dL (0.7-1.3) Estimated GFR (Cockcroft-Gault) 14.1 15.9 Glucose Level 113 mg/dL (70-99) 136 mg/dL (70-99) Calcium Level 7.6 mg/dL (8.5-10.1) 7.5 mg/dL (8.5-10.1) Glucose (Fingerstick) 127 mg/dL (70-99) 164 mg/dL (70-99) Test 04/17/17 12:49 Glucose (Fingerstick) 154 mg/dL (70-99) Laboratory Tests Test 04/16/17 18:13 04/16/17 21:15 04/17/17 03:38 04/17/17 12:49 Glucose (Fingerstick) 127 mg/dL (70-99) 164 mg/dL (70-99) 154 mg/dL (70-99) White Blood Count 11.2 x10^3/uL (4.0-11.0) Red Blood Count 3.08 x10^6/uL (4.30-5.70) Hemoglobin 8.4 g/dL (13.0-17.5) Hematocrit 26.3 % (39.0-53.0) Mean Corpuscular Volume 85 fL (79-100) Mean Corpuscular Hemoglobin 27 pg (25-35) Mean Corpuscular Hemoglobin Concent 32 g/dL (31-37) Red Cell Distribution Width 17.0 % (11.5-14.5) Platelet Count 140 x10^3/uL (140-400) Neutrophils (%) (Auto) 86 % (31-73) Lymphocytes (%) (Auto) 4 % (24-48) Monocytes (%) (Auto) 10 % (0-9) Eosinophils (%) (Auto) 0 % (0-3) Basophils (%) (Auto) 0 % (0-3) Neutrophils # (Auto) 9.6 x10^3uL (1.8-7.7) Lymphocytes # (Auto) 0.5 x10^3/uL (1.0-4.8) Monocytes # (Auto) 1.1 x10^3/uL (0.0-1.1) Eosinophils # (Auto) 0.0 x10^3/uL (0.0-0.7) Basophils # (Auto) 0.0 x10^3/uL (0.0-0.2) Prothrombin Time 39.3 SEC (11.7-14.0) Prothromb Time International Ratio 4.4 (0.8-1.1) Sodium Level 138 mmol/L (136-145) Potassium Level 4.5 mmol/L (3.5-5.1) Chloride Level 105 mmol/L (98-107) Carbon Dioxide Level 18 mmol/L (21-32) Anion Gap 15 (6-14) Blood Urea Nitrogen 97 mg/dL (8-26) Creatinine 3.7 mg/dL (0.7-1.3) Estimated GFR (Cockcroft-Gault) 15.9 Glucose Level 136 mg/dL (70-99) Calcium Level 7.5 mg/dL (8.5-10.1) Medications Current Medications Acetaminophen (Tylenol) 325 mg PRN Q6HRS PRN PO MILD PAIN / TEMP; Start at 14:00 Acetaminophen/ Hydrocodone Bitart (Lortab 5/325) 1 tab PRN Q6HRS PRN PO MODERATE TO SEVERE PAIN; Start 04/15/17 at 14:00 Hydralazine HCl (Apresoline) 10 mg PRN Q4HRS PRN IVP ELEVATED BP, SEE COMMENTS ; Start 04/15/17 at 14:00 Ondansetron HCl (Zofran) 4 mg PRN Q8HRS PRN IV NAUSEA/VOMITING; Start 04/15/17 at 14:00 Albuterol Sulfate (Ventolin Neb Soln) 2.5 mg PRN Q4HRS PRN NEB SHORTNESS OF BREATH Last administered on 04/17/17 08:28; Start 04/15/17 at 14:00 Sodium Chloride 1,000 ml @ 125 mls/hr Q8H IV Last administered on 04/17/17 08 :47; Start 04/15/17 at 14:00 Norepinephrine Bitartrate 250 ml @ 0 mls/hr CONT PRN IV SEE I/O RECORD Last administered on 04/17/17 08:46; Start 04/15/17 at 14:00 Ceftriaxone Sodium 1 gm/ Sodium Chloride 50 ml @ 100 mls/hr Q24H IV ; Start at 16:00; Stop 04/15/17 at 16:00; Status DC Warfarin Sodium (Coumadin Per Pharmacy) 1 each PRN DAILY PRN MC SEE COMMENTS Last administered on 04/16/17 09:06; Start 04/15/17 at 15:15 Amiodarone HCl (Cordarone) 200 mg DAILY PO Last administered on 04/17/17 08:47 ; Start 04/16/17 at 09:00 Aspirin (Children'S Aspirin) 81 mg DAILYWBKFT PO Last administered on 08:48; Start 04/16/17 at 08:00 Cyanocobalamin (Vitamin B-12) 1,000 mcg AFTRNOON PO Last administered on 13:29; Start 04/16/17 at 13:00 Levothyroxine Sodium (Synthroid) 88 mcg DAILY07 PO Last administered on 06:34; Start 04/16/17 at 07:00 Warfarin Sodium (Coumadin) 1 mg DAILY PO ; Start 04/16/17 at 09:00; Status UNV Insulin Aspart (NovoLOG) 0-9 UNITS TIDWMEALS SQ ; Start 04/15/17 at 17:00 Dextrose (Dextrose 50%-Water Syringe) 12.5 gm PRN Q15MIN PRN IV SEE COMMENTS; Start 04/15/17 at 15:30 Warfarin Sodium (Coumadin) 0.5 mg 1X WARF ONCE PO ; Start 04/15/17 at 16:00; Stop 04/15/17 at 16:01; Status DC Pantoprazole Sodium (Protonix Vial) 40 mg DAILYAC IVP Last administered on 04/17 08:47; Start 04/15/17 at 16:30 Ceftriaxone Sodium 1 gm/ Sodium Chloride 50 ml @ 100 mls/hr Q24H IV Last administered on 04/16/17 09:12; Start 04/16/17 at 09:00; Stop 04/16/17 at 17:42 ; Status DC Warfarin Sodium (Coumadin - No Dose Today) 1 each 1X WARF ONCE MC ; Start 04/16 at 16:00; Stop 04/16/17 at 16:01; Status DC Darbepoetin Tomás (Aranesp) 60 mcg Sa SQ Last administered on 04/16/17 20:45; Start 04/16/17 at 21:00 Piperacillin Sod/ Tazobactam Sod 2.25 gm/Sodium Chloride 50 ml @ 100 mls/hr Q6HRS IV Last administered on 04/17/17 05:53; Start 04/16/17 at 18:00 Vancomycin HCl 1.5 gm/Sodium Chloride 500 ml @ 250 mls/hr 1X ONCE IV Last administered on 04/16/17 19:22; Start 04/16/17 at 18:30; Stop 04/16/17 at 20:29 ; Status DC Phytonadione (Mephyton) 5 mg 1X ONCE PO ; Start 04/17/17 at 11:15; Stop at 11:16; Status DC Active Scripts Active Reported Potassium Chloride 10 Meq Capsule.er 10 Meq PO 3X/WEEK Vitamin B-12 (Cyanocobalamin (Vitamin B-12)) 1,000 Mcg Tablet 1 Tab PO AFTRNOON Vitamin D (Cholecalciferol (Vitamin D3)) 1,000 Unit Capsule 1 Cap PO HS Vitamin E (Vitamin E (Dl,Tocopheryl Acet)) 200 Unit Capsule 200 Unit PO AFTRNOON Novolin 70-30 100 Unit/Ml Vial (Hum Insulin Nph/Reg Insulin Hm) 100 Unit/1 Ml Vial 13 Unit SQ HS Levothyroxine Sodium 88 Mcg Tablet 1 Tab PO DAILY Carvedilol 6.25 Mg Tablet 1 Tab PO BID Fosamax (Alendronate Sodium) 70 Mg Tablet 1 Tab PO WEEKLY 1 Days Amiodarone Hcl 200 Mg Tablet 1 Tab PO DAILY Aspirin 81 Mg Tab.chew 1 Tab PO DAILY Warfarin Sodium 1 Mg Tablet 1 Mg PO DAILY Crestor (Rosuvastatin Calcium) 5 Mg Tablet 5 Mg PO HS Furosemide 40 Mg Tablet 40 Mg PO BID Vitals/I & O Vital Sign - Last 24 Hours 04/16/17 04/16/17 04/16/17 04/16/17 13:51 15:30 15:32 16:00 Temp 97.9 97.9 Pulse 60 61 61 60 Resp 20 B/P (MAP) 90/54 (66) 96/56 (69) 96/56 (69) 96/58 (71) Pulse Ox 93 O2 Delivery Nasal Cannula O2 Flow Rate 2.0 04/16/17 04/16/17 04/16/17 04/16/17 16:00 17:00 18:00 19:00 Temp 97.9 97.9 Pulse 60 60 60 Resp 22 22 20 B/P (MAP) 87/55 (66) 91/50 (64) 95/52 (66) Pulse Ox 94 92 93 O2 Delivery Nasal Cannula Nasal Cannula Nasal Cannula Nasal Cannula O2 Flow Rate 2.0 2.0 2.0 2.0 04/16/17 04/16/17 04/16/17 04/16/17 20:00 20:00 21:00 22:00 Pulse 62 60 60 Resp 24 24 22 B/P (MAP) 99/57 (71) 87/53 (64) 85/54 (64) Pulse Ox 94 95 95 O2 Delivery Nasal Cannula Nasal Cannula Nasal Cannula Nasal Cannula O2 Flow Rate 2.0 2.0 2.0 2.0 04/16/17 04/16/17 04/17/17 04/17/17 23:00 23:59 00:00 01:00 Temp 98.2 98.2 Pulse 60 60 60 Resp 24 22 24 B/P (MAP) 80/61 (67) 83/55 (64) 77/48 (58) Pulse Ox 95 96 95 O2 Delivery Nasal Cannula Nasal Cannula Nasal Cannula Nasal Cannula O2 Flow Rate 2.0 2.0 2.0 2.0 04/17/17 04/17/17 04/17/17 04/17/17 02:00 03:00 03:15 04:00 Pulse 60 60 60 Resp 22 B/P (MAP) 76/52 (60) 76/52 (60) 89/55 (66) Pulse Ox 95 95 95 O2 Delivery Nasal Cannula Nasal Cannula Nasal Cannula Nasal Cannula O2 Flow Rate 2.0 2.0 2.0 2.0 04/17/17 04/17/17 04/17/17 04/17/17 05:00 06:00 07:00 07:05 Temp 97.7 97.7 Pulse 60 60 60 Resp 22 22 21 B/P (MAP) 84/52 (63) 96/57 (70) 94/56 (69) Pulse Ox 96 96 95 O2 Delivery Nasal Cannula Nasal Cannula Nasal Cannula O2 Flow Rate 2.0 2.0 2.0 04/17/17 04/17/17 04/17/17 04/17/17 08:00 08:00 08:31 08:47 Pulse 62 60 Resp 16 B/P (MAP) 86/53 (64) 94/56 Pulse Ox 93 96 O2 Delivery Nasal Cannula Nasal Cannula Nasal Cannula O2 Flow Rate 2.0 2.0 2.0 04/17/17 04/17/17 04/17/17 04/17/17 09:00 10:00 10:15 11:00 Pulse 64 60 60 60 Resp 22 20 20 20 B/P (MAP) 98/54 (69) 71/51 (58) 87/58 (68) 95/53 (67) Pulse Ox 96 95 95 94 O2 Delivery Nasal Cannula Nasal Cannula Nasal Cannula Nasal Cannula O2 Flow Rate 2.0 2.0 2.0 2.0 04/17/17 04/17/17 12:00 12:00 Temp 97.9 97.9 Pulse 60 Resp 15 B/P (MAP) 96/55 (69) Pulse Ox 95 O2 Delivery Nasal Cannula Nasal Cannula O2 Flow Rate 2.0 2.0 Intake and Output 04/16/17 04/16/17 04/17/17 15:00 23:00 07:00 Intake Total 340 ml 2775 ml 2473 ml Output Total 430 ml 480 ml 450 ml Balance -90 ml 2295 ml 2023 ml SEVERIANO CORDOBA MD Apr 17, 2017 13:25
--- NOTE | 2017-04-17 14:15 | CONS ---
DATE OF CONSULTATION: 04/16/2017 REQUESTING PHYSICIAN: Dr. Childress. REASON FOR CONSULTATION: Sepsis. HISTORY OF PRESENT ILLNESS: This is a 77-year-old gentleman with a history of renal failure, although no history of liver disease that he knows of. The patient presented with abdominal pain, nausea, and not feeling well. The patient denied any fever. The patient has significant abdominal distention that he has never had before. The patient was admitted. He is in hypovolemic hypotensive shock, renal failure, cirrhosis of liver, ascites, and possible SBP, now blood cultures are positive with Gram-positive cocci in pairs and chains and Gram-positive liza. The patient is receiving Rocephin and consult has been requested. The patient denies any fever as I said. He has nausea, denies any vomiting, diarrhea, or chest pain. PAST MEDICAL HISTORY: Positive for renal insufficiency, atrial fibrillation, coronary artery disease, congestive heart failure, diabetes, coronary artery bypass grafting done, pacemaker in place. SOCIAL HISTORY: Negative for smoking, alcohol use, or drug use. ALLERGIES: LISTED ALLERGIC TO ZOCOR AND NIACIN. CURRENT MEDICATIONS: Reviewed. The patient is on Rocephin. REVIEW OF SYSTEMS: As per HPI, all other systems reviewed are negative. PHYSICAL EXAMINATION: GENERAL: Alert and oriented gentleman, not in distress. VITAL SIGNS: Stable, afebrile. HEENT: NAD. NECK: Supple, no JVP, no lymphadenopathy. LUNGS: Clear. HEART: S1, S2 regular. ABDOMEN: Quite distended, fluid still present. There is some mild diffuse tenderness. Organomegaly not appreciated. EXTREMITIES: Edema present. SKIN: Unremarkable. NEUROLOGIC: The patient is intact. LABORATORY DATA: White count is 11.1, hemoglobin 8.7, platelets are 65,000. BUN 96, creatinine 4.1. Lactic acid was 2.2. Blood culture from [facility] is positive with Gram-positive cocci in pairs and chains and Gram-positive liza. IMPRESSION: 1. Hypotension may have been hepatorenal syndrome. 2. Blood culture positive for Gram-positive cocci, may have been contaminant and/or SBP. 3. Abdominal pain with distention, has ascites, and possible SBP. 4. Cirrhosis of liver. 5. Renal failure. 6. Leukocytosis. RECOMMENDATIONS: We will change Rocephin to Zosyn one dose of vancomycin. We will check cultures, supportive care, need diagnostic paracentesis and we will continue to follow. Thank you very much, Dr. Childress, for giving me the opportunity to participate in this patient's care. KERWIN PEREZ MD DR: ARMIDA/luís JOB#: [id number] / [id number]
[2017-04-17 21:23] LABS: HEP A IGM ABDY Negative (Negative)
[2017-04-18] VITALS (24 sets, daily range): BP systolic 87–110; BP diastolic 55–70
[2017-04-18] MEDS: PIPERACILLIN/TAZOBACTAM 2.25 GM in IV NORMAL SALINE 50ML 50 ML IV SCH ×5 (00:01→23:53)
[2017-04-18 04:33] LABS: BASO % 0 % (0-3); EOS % 0 % (0-3); HEMATOCRIT 26.2 % (39.0-53.0); HEMOGLOBIN 8.3 g/dL (13.0-17.5); LYMPH # 0.3 x10^3/uL (1.0-4.8); LYMPH % 3 % (24-48); MEAN CORPUSCULAR HEMOGLOBIN 27 pg (25-35); MEAN CORPUSCULAR HGB CONC 32 g/dL (31-37); MEAN CORPUSCULAR VOLUME 85 fL (79-100); MONO % 8 % (0-9); NEUT % 89 % (31-73); PLATELET COUNT 150 x10^3/uL (140-400); RED BLOOD COUNT 3.08 x10^6/uL (4.30-5.70)
[2017-04-18 04:40] LABS: INR 3.7 (0.8-1.1); PROTHROMBIN TIME PATIENT 34.2 SEC (11.7-14.0)
[2017-04-18 05:13] LABS: CALCIUM 7.3 mg/dL (8.5-10.1); CREATININE 3.3 mg/dL (0.7-1.3); GFR 18.2; POTASSIUM 4.3 mmol/L (3.5-5.1)
[2017-04-18] MEDS: IV NORMAL SALINE 1000ML BAG 1,000 ML IV SCH (06:20)
[2017-04-18] MEDS: NOREPINEPHRIN PREMIX 250 ML IV PRN (06:22)
[2017-04-18] MEDS: PANTOPRAZOLE IV PUSH 40 MG VIAL. IVP SCH (07:42)
[2017-04-18] MEDS: ASPIRIN CHEWABLE 81 MG TABLET. PO SCH (07:42)
[2017-04-18] MEDS: LEVOTHYROXINE 88 MCG TABLET PO SCH (07:42)
[2017-04-18] MEDS: INSULIN ASPART 300 UNITS/3 ML INSULN.PEN SQ SCH ×3 (08:00→17:00)
--- NOTE | 2017-04-18 08:17 | PDOC ---
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, 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, no focal neurologic deficit SKIN: No rash IV: ok Labs Lab Laboratory Tests Test 04/17/17 12:49 04/17/17 17:33 04/17/17 22:08 04/18/17 03:49 Glucose (Fingerstick) 154 mg/dL (70-99) 170 mg/dL (70-99) 160 mg/dL (70-99) White Blood Count 12.0 x10^3/uL (4.0-11.0) Red Blood Count 3.08 x10^6/uL (4.30-5.70) Hemoglobin 8.3 g/dL (13.0-17.5) Hematocrit 26.2 % (39.0-53.0) Mean Corpuscular Volume 85 fL (79-100) Mean Corpuscular Hemoglobin 27 pg (25-35) Mean Corpuscular Hemoglobin Concent 32 g/dL (31-37) Red Cell Distribution Width 17.0 % (11.5-14.5) Platelet Count 150 x10^3/uL (140-400) Neutrophils (%) (Auto) 89 % (31-73) Lymphocytes (%) (Auto) 3 % (24-48) Monocytes (%) (Auto) 8 % (0-9) Eosinophils (%) (Auto) 0 % (0-3) Basophils (%) (Auto) 0 % (0-3) Neutrophils # (Auto) 10.6 x10^3uL (1.8-7.7) Lymphocytes # (Auto) 0.3 x10^3/uL (1.0-4.8) Monocytes # (Auto) 1.0 x10^3/uL (0.0-1.1) Eosinophils # (Auto) 0.0 x10^3/uL (0.0-0.7) Basophils # (Auto) 0.0 x10^3/uL (0.0-0.2) Prothrombin Time 34.2 SEC (11.7-14.0) Prothromb Time International Ratio 3.7 (0.8-1.1) Sodium Level 139 mmol/L (136-145) Potassium Level 4.3 mmol/L (3.5-5.1) Chloride Level 106 mmol/L (98-107) Carbon Dioxide Level 20 mmol/L (21-32) Anion Gap 13 (6-14) Blood Urea Nitrogen 90 mg/dL (8-26) Creatinine 3.3 mg/dL (0.7-1.3) Estimated GFR (Cockcroft-Gault) 18.2 Glucose Level 144 mg/dL (70-99) Calcium Level 7.3 mg/dL (8.5-10.1) Test 04/18/17 07:46 Glucose (Fingerstick) 124 mg/dL (70-99) Objective Assessment Hypotension BC + G + cocci and G + liza Abdominal pain and distention/ascites/possible SBP Cirrhosis of liver Renal failure Leukocytosis Plan Plan of Care Zosyn One time dose vanc, 04/16 Await final cultures supportive care need diagnostic paracentesis KERWIN PEREZ MD Apr 18, 2017 08:17
[2017-04-18] MEDS: AMIODARONE HCL 200 MG TABLET. PO SCH (09:19)
[2017-04-18] MEDS ORDERED: MAGNESIUM SULFATE 2GM 50 ML IV PRN (09:45)
--- NOTE | 2017-04-18 09:50 | PDOC ---
SUBJECTIVE ROS HERIBERTO/ CKD IV doing Better but feels SOB CVS: min Orthopnea, no CP RESP: + SOB, ? COPPOLA (? not ambulated) GI: no Nausea, no Vomiting : no Dysuria, no Urgency OBJECTIVE Vital Signs Vital Signs Date Time Temp Pulse Resp B/P (MAP) Pulse Ox O2 Delivery O2 Flow Rate FiO2 04/18/17 09:19 61 91/55 04/18/17 09:00 20 97 Nasal Cannula 2.0 04/18/17 08:00 97.5 97.5 I & 0 Intake and Output 04/18/17 07:00 Intake Total 4196 ml Output Total 1730 ml Balance 2466 ml Intake Oral 850 ml IV Total 3346 ml Output Urine Total 1730 ml PHYSICAL EXAM Physical Exam GEN: Awake, Oriented x 3, In no distress EYES: Vision Unchanged, Conjunctiva Normal EN: No EN Drainage, Mucous Membranes moist NECK: no JVD, min JVP, Supple, no Thyromegaly CVS: S1S2, ? Murmur, No Gallop, No Rub,+ Edema RESP: alise basal Rales, occ Rhonchi,no Acc. Muscle Use GI: BS + ve, NO Bruit, Non Tender, Non Distended : no CVA tenderness, no Suprapubic Tenderness ([place]) DIAGNOSIS/ASSESSMENT Assessment & Plan ARF/ ? ATN vs VMN - Now better with Vol repletion and IVF: [facility] Dc IVF and reval UO, hemodynamics etc. Current fluid and E-lyte status does not necessitate emergent need for dialysis. Will re-evaluate for dialysis in the am ? Sepsis - Lactate was mildly ^ed - recheck for resolution Underlying CKD III with baseline Creat of 2.8 Mild MEt Acidosis - Watch trend off of NaCl - recheck lactate (NAG however now) ANEMIA; check Iron; Aranap as ordered, Transfuse as needed for hgb < 7 HypoTN: Current meds reviewed. remains on Pressors for now See orders for changes. DEHYDRATION - Appears adequately Vol replete; watch off of IVF BACTEREMIA - ? Source; await ID eval ASCITES with Suspicion for Cirrhosis (no imaging studies avail to review) Discussed Plan of Care with pt at bedside Problems: COMMENT/RELEVANT DATA Meds Current Medications Medications (Trade) Dose Ordered Sig/Garret Start Time Stop Time Status Last Admin Dose Admin Acetaminophen (Tylenol) 325 mg PRN Q6HRS PRN 04/15/17 14:00 Acetaminophen/ Hydrocodone Bitart (Lortab 5/325) 1 tab PRN Q6HRS PRN 04/15/17 14:00 Albuterol Sulfate (Ventolin Neb Soln) 2.5 mg PRN Q4HRS PRN 04/15/17 14:00 04/17/17 08:28 2.5 MG Amiodarone HCl (Cordarone) 200 mg DAILY 04/16/17 09:00 04/18/17 09:19 200 MG Aspirin (Children'S Aspirin) 81 mg DAILYWBKFT 04/16/17 08:00 04/18/17 07:42 81 MG Ceftriaxone Sodium 1 gm/ Sodium Chloride 50 ml @ 100 mls/hr Q24H 04/16/17 09:00 04/16/17 17:42 DC 04/16/17 09:12 100 MLS/HR Cyanocobalamin (Vitamin B-12) 1,000 mcg AFTRNOON 04/16/17 13:00 04/17/17 13:00 1,000 MCG Darbepoetin Tomás (Aranesp) 60 mcg Sa 04/16/17 21:00 04/16/17 20:45 60 MCG Dextrose (Dextrose 50%-Water Syringe) 12.5 gm PRN Q15MIN PRN 04/15/17 15:30 Hydralazine HCl (Apresoline) 10 mg PRN Q4HRS PRN 04/15/17 14:00 Insulin Aspart (NovoLOG) 0-9 UNITS TIDWMEALS 04/15/17 17:00 04/17/17 17:34 4 UNITS Levothyroxine Sodium (Synthroid) 88 mcg DAILY07 04/16/17 07:00 04/18/17 07:42 88 MCG Norepinephrine Bitartrate 250 ml @ 0 mls/hr CONT PRN 04/15/17 14:00 04/18/17 06:22 22.5 MLS/HR Ondansetron HCl (Zofran) 4 mg PRN Q8HRS PRN 04/15/17 14:00 Pantoprazole Sodium (Protonix Vial) 40 mg DAILYAC 04/15/17 16:30 04/18/17 07:42 40 MG Phytonadione (Mephyton) 5 mg 1X ONCE 04/17/17 11:15 04/17/17 11:16 DC 04/17/17 11:15 5 MG Piperacillin Sod/ Tazobactam Sod 2.25 gm/Sodium Chloride 50 ml @ 100 mls/hr Q6HRS 04/16/17 18:00 04/18/17 06:22 100 MLS/HR Sodium Chloride 1,000 ml @ 125 mls/hr Q8H 04/15/17 14:00 04/18/17 06:20 125 MLS/HR Vancomycin HCl 1.5 gm/Sodium Chloride 500 ml @ 250 mls/hr 1X ONCE 04/16/17 18:30 04/16/17 20:29 DC 04/16/17 19:22 250 MLS/HR Warfarin Sodium (Coumadin - No Dose Today) 1 each 1X WARF ONCE 04/16/17 16:00 04/16/17 16:01 DC Warfarin Sodium (Coumadin Per Pharmacy) 1 each PRN DAILY PRN 04/15/17 15:15 04/17/17 15:31 1 EACH Warfarin Sodium (Coumadin) 0.5 mg 1X WARF ONCE 04/15/17 16:00 04/15/17 16:01 DC Lab Laboratory Tests Test 04/17/17 12:49 04/17/17 17:33 04/17/17 22:08 04/18/17 03:49 Glucose (Fingerstick) 154 mg/dL (70-99) 170 mg/dL (70-99) 160 mg/dL (70-99) White Blood Count 12.0 x10^3/uL (4.0-11.0) Red Blood Count 3.08 x10^6/uL (4.30-5.70) Hemoglobin 8.3 g/dL (13.0-17.5) Hematocrit 26.2 % (39.0-53.0) Mean Corpuscular Volume 85 fL (79-100) Mean Corpuscular Hemoglobin 27 pg (25-35) Mean Corpuscular Hemoglobin Concent 32 g/dL (31-37) Red Cell Distribution Width 17.0 % (11.5-14.5) Platelet Count 150 x10^3/uL (140-400) Neutrophils (%) (Auto) 89 % (31-73) Lymphocytes (%) (Auto) 3 % (24-48) Monocytes (%) (Auto) 8 % (0-9) Eosinophils (%) (Auto) 0 % (0-3) Basophils (%) (Auto) 0 % (0-3) Neutrophils # (Auto) 10.6 x10^3uL (1.8-7.7) Lymphocytes # (Auto) 0.3 x10^3/uL (1.0-4.8) Monocytes # (Auto) 1.0 x10^3/uL (0.0-1.1) Eosinophils # (Auto) 0.0 x10^3/uL (0.0-0.7) Basophils # (Auto) 0.0 x10^3/uL (0.0-0.2) Prothrombin Time 34.2 SEC (11.7-14.0) Prothromb Time International Ratio 3.7 (0.8-1.1) Sodium Level 139 mmol/L (136-145) Potassium Level 4.3 mmol/L (3.5-5.1) Chloride Level 106 mmol/L (98-107) Carbon Dioxide Level 20 mmol/L (21-32) Anion Gap 13 (6-14) Blood Urea Nitrogen 90 mg/dL (8-26) Creatinine 3.3 mg/dL (0.7-1.3) Estimated GFR (Cockcroft-Gault) 18.2 Glucose Level 144 mg/dL (70-99) Calcium Level 7.3 mg/dL (8.5-10.1) Test 04/18/17 07:46 Glucose (Fingerstick) 124 mg/dL (70-99) NAKIA PEREZ MD Apr 18, 2017 09:50
--- NOTE | 2017-04-18 10:17 | PDOC ---
PROGRESS NOTES Chief Complaint Chief Complaint cc: low blood pressures A/P 1. Shock, possible hypovolemic: currently on vasopressors, Levophed with IV hydration. Hold IVF due to increased swelling 2. Ascites, with cirrhosis: abdominal pain: on IV Zosyn ,blood cx positive GPC/ GPR,finals pending. 3. Abdominal pain:? SBP, not able to do paracentesis due to elevated INR, s/p vitamin K on 04/17/17, 4. Chronic atrial fibrillation, rate controlled. hold Coumadin. 5. Acute kidney injury on chronic kidney disease 4.: Possible due to VMN, Volume resuscitation, d/w Nephrology 6. History of congestive heart failure. 7. Type 2 diabetes mellitus: SSI 8. Cardiomyopathy with EF 30% : Consult cardiology, 9. Anemia of chronic disease. History of Present Illness History of Present Illness making good urine no fever doing better Vitals Vitals Vital Signs Date Time Temp Pulse Resp B/P (MAP) Pulse Ox O2 Delivery O2 Flow Rate FiO2 04/18/17 09:19 61 91/55 04/18/17 09:00 20 97 Nasal Cannula 2.0 04/18/17 08:00 97.5 97.5 Physical Exam General: Alert, Oriented X3, Cooperative, No acute distress Heart: Normal S1, Normal S2, Other (IRREGULAR) Lungs: Clear Abdomen: Normal bowel sounds, Soft, Other (distended. ) Extremities: No clubbing, Other (edema with chornic dermatitis. ) Labs LABS Laboratory Tests Test 04/17/17 12:49 04/17/17 17:33 04/17/17 22:08 04/18/17 03:49 Glucose (Fingerstick) 154 mg/dL (70-99) 170 mg/dL (70-99) 160 mg/dL (70-99) White Blood Count 12.0 x10^3/uL (4.0-11.0) Red Blood Count 3.08 x10^6/uL (4.30-5.70) Hemoglobin 8.3 g/dL (13.0-17.5) Hematocrit 26.2 % (39.0-53.0) Mean Corpuscular Volume 85 fL (79-100) Mean Corpuscular Hemoglobin 27 pg (25-35) Mean Corpuscular Hemoglobin Concent 32 g/dL (31-37) Red Cell Distribution Width 17.0 % (11.5-14.5) Platelet Count 150 x10^3/uL (140-400) Neutrophils (%) (Auto) 89 % (31-73) Lymphocytes (%) (Auto) 3 % (24-48) Monocytes (%) (Auto) 8 % (0-9) Eosinophils (%) (Auto) 0 % (0-3) Basophils (%) (Auto) 0 % (0-3) Neutrophils # (Auto) 10.6 x10^3uL (1.8-7.7) Lymphocytes # (Auto) 0.3 x10^3/uL (1.0-4.8) Monocytes # (Auto) 1.0 x10^3/uL (0.0-1.1) Eosinophils # (Auto) 0.0 x10^3/uL (0.0-0.7) Basophils # (Auto) 0.0 x10^3/uL (0.0-0.2) Prothrombin Time 34.2 SEC (11.7-14.0) Prothromb Time International Ratio 3.7 (0.8-1.1) Sodium Level 139 mmol/L (136-145) Potassium Level 4.3 mmol/L (3.5-5.1) Chloride Level 106 mmol/L (98-107) Carbon Dioxide Level 20 mmol/L (21-32) Anion Gap 13 (6-14) Blood Urea Nitrogen 90 mg/dL (8-26) Creatinine 3.3 mg/dL (0.7-1.3) Estimated GFR (Cockcroft-Gault) 18.2 Glucose Level 144 mg/dL (70-99) Calcium Level 7.3 mg/dL (8.5-10.1) Test 04/18/17 07:46 Glucose (Fingerstick) 124 mg/dL (70-99) Comment Review of Relevant I have reviewed the following items ivon (where applicable) has been applied. Labs Laboratory Tests Test 04/16/17 18:13 04/16/17 21:15 04/17/17 03:38 04/17/17 12:49 Glucose (Fingerstick) 127 mg/dL (70-99) 164 mg/dL (70-99) 154 mg/dL (70-99) White Blood Count 11.2 x10^3/uL (4.0-11.0) Red Blood Count 3.08 x10^6/uL (4.30-5.70) Hemoglobin 8.4 g/dL (13.0-17.5) Hematocrit 26.3 % (39.0-53.0) Mean Corpuscular Volume 85 fL (79-100) Mean Corpuscular Hemoglobin 27 pg (25-35) Mean Corpuscular Hemoglobin Concent 32 g/dL (31-37) Red Cell Distribution Width 17.0 % (11.5-14.5) Platelet Count 140 x10^3/uL (140-400) Neutrophils (%) (Auto) 86 % (31-73) Lymphocytes (%) (Auto) 4 % (24-48) Monocytes (%) (Auto) 10 % (0-9) Eosinophils (%) (Auto) 0 % (0-3) Basophils (%) (Auto) 0 % (0-3) Neutrophils # (Auto) 9.6 x10^3uL (1.8-7.7) Lymphocytes # (Auto) 0.5 x10^3/uL (1.0-4.8) Monocytes # (Auto) 1.1 x10^3/uL (0.0-1.1) Eosinophils # (Auto) 0.0 x10^3/uL (0.0-0.7) Basophils # (Auto) 0.0 x10^3/uL (0.0-0.2) Prothrombin Time 39.3 SEC (11.7-14.0) Prothromb Time International Ratio 4.4 (0.8-1.1) Sodium Level 138 mmol/L (136-145) Potassium Level 4.5 mmol/L (3.5-5.1) Chloride Level 105 mmol/L (98-107) Carbon Dioxide Level 18 mmol/L (21-32) Anion Gap 15 (6-14) Blood Urea Nitrogen 97 mg/dL (8-26) Creatinine 3.7 mg/dL (0.7-1.3) Estimated GFR (Cockcroft-Gault) 15.9 Glucose Level 136 mg/dL (70-99) Calcium Level 7.5 mg/dL (8.5-10.1) Test 04/17/17 17:33 04/17/17 22:08 04/18/17 03:49 04/18/17 07:46 Glucose (Fingerstick) 170 mg/dL (70-99) 160 mg/dL (70-99) 124 mg/dL (70-99) White Blood Count 12.0 x10^3/uL (4.0-11.0) Red Blood Count 3.08 x10^6/uL (4.30-5.70) Hemoglobin 8.3 g/dL (13.0-17.5) Hematocrit 26.2 % (39.0-53.0) Mean Corpuscular Volume 85 fL (79-100) Mean Corpuscular Hemoglobin 27 pg (25-35) Mean Corpuscular Hemoglobin Concent 32 g/dL (31-37) Red Cell Distribution Width 17.0 % (11.5-14.5) Platelet Count 150 x10^3/uL (140-400) Neutrophils (%) (Auto) 89 % (31-73) Lymphocytes (%) (Auto) 3 % (24-48) Monocytes (%) (Auto) 8 % (0-9) Eosinophils (%) (Auto) 0 % (0-3) Basophils (%) (Auto) 0 % (0-3) Neutrophils # (Auto) 10.6 x10^3uL (1.8-7.7) Lymphocytes # (Auto) 0.3 x10^3/uL (1.0-4.8) Monocytes # (Auto) 1.0 x10^3/uL (0.0-1.1) Eosinophils # (Auto) 0.0 x10^3/uL (0.0-0.7) Basophils # (Auto) 0.0 x10^3/uL (0.0-0.2) Prothrombin Time 34.2 SEC (11.7-14.0) Prothromb Time International Ratio 3.7 (0.8-1.1) Sodium Level 139 mmol/L (136-145) Potassium Level 4.3 mmol/L (3.5-5.1) Chloride Level 106 mmol/L (98-107) Carbon Dioxide Level 20 mmol/L (21-32) Anion Gap 13 (6-14) Blood Urea Nitrogen 90 mg/dL (8-26) Creatinine 3.3 mg/dL (0.7-1.3) Estimated GFR (Cockcroft-Gault) 18.2 Glucose Level 144 mg/dL (70-99) Calcium Level 7.3 mg/dL (8.5-10.1) Laboratory Tests Test 04/17/17 12:49 04/17/17 17:33 04/17/17 22:08 04/18/17 03:49 Glucose (Fingerstick) 154 mg/dL (70-99) 170 mg/dL (70-99) 160 mg/dL (70-99) White Blood Count 12.0 x10^3/uL (4.0-11.0) Red Blood Count 3.08 x10^6/uL (4.30-5.70) Hemoglobin 8.3 g/dL (13.0-17.5) Hematocrit 26.2 % (39.0-53.0) Mean Corpuscular Volume 85 fL (79-100) Mean Corpuscular Hemoglobin 27 pg (25-35) Mean Corpuscular Hemoglobin Concent 32 g/dL (31-37) Red Cell Distribution Width 17.0 % (11.5-14.5) Platelet Count 150 x10^3/uL (140-400) Neutrophils (%) (Auto) 89 % (31-73) Lymphocytes (%) (Auto) 3 % (24-48) Monocytes (%) (Auto) 8 % (0-9) Eosinophils (%) (Auto) 0 % (0-3) Basophils (%) (Auto) 0 % (0-3) Neutrophils # (Auto) 10.6 x10^3uL (1.8-7.7) Lymphocytes # (Auto) 0.3 x10^3/uL (1.0-4.8) Monocytes # (Auto) 1.0 x10^3/uL (0.0-1.1) Eosinophils # (Auto) 0.0 x10^3/uL (0.0-0.7) Basophils # (Auto) 0.0 x10^3/uL (0.0-0.2) Prothrombin Time 34.2 SEC (11.7-14.0) Prothromb Time International Ratio 3.7 (0.8-1.1) Sodium Level 139 mmol/L (136-145) Potassium Level 4.3 mmol/L (3.5-5.1) Chloride Level 106 mmol/L (98-107) Carbon Dioxide Level 20 mmol/L (21-32) Anion Gap 13 (6-14) Blood Urea Nitrogen 90 mg/dL (8-26) Creatinine 3.3 mg/dL (0.7-1.3) Estimated GFR (Cockcroft-Gault) 18.2 Glucose Level 144 mg/dL (70-99) Calcium Level 7.3 mg/dL (8.5-10.1) Test 04/18/17 07:46 Glucose (Fingerstick) 124 mg/dL (70-99) Medications Current Medications Acetaminophen (Tylenol) 325 mg PRN Q6HRS PRN PO MILD PAIN / TEMP; Start at 14:00 Acetaminophen/ Hydrocodone Bitart (Lortab 5/325) 1 tab PRN Q6HRS PRN PO MODERATE TO SEVERE PAIN; Start 04/15/17 at 14:00 Hydralazine HCl (Apresoline) 10 mg PRN Q4HRS PRN IVP ELEVATED BP, SEE COMMENTS ; Start 04/15/17 at 14:00 Ondansetron HCl (Zofran) 4 mg PRN Q8HRS PRN IV NAUSEA/VOMITING; Start 04/15/17 at 14:00 Albuterol Sulfate (Ventolin Neb Soln) 2.5 mg PRN Q4HRS PRN NEB SHORTNESS OF BREATH Last administered on 04/17/17 08:28; Start 04/15/17 at 14:00 Sodium Chloride 1,000 ml @ 125 mls/hr Q8H IV Last administered on 04/18/17 06 :20; Start 04/15/17 at 14:00; Stop 04/18/17 at 09:50; Status DC Norepinephrine Bitartrate 250 ml @ 0 mls/hr CONT PRN IV SEE I/O RECORD Last administered on 04/18/17 06:22; Start 04/15/17 at 14:00 Ceftriaxone Sodium 1 gm/ Sodium Chloride 50 ml @ 100 mls/hr Q24H IV ; Start at 16:00; Stop 04/15/17 at 16:00; Status DC Warfarin Sodium (Coumadin Per Pharmacy) 1 each PRN DAILY PRN MC SEE COMMENTS Last administered on 04/17/17 15:31; Start 04/15/17 at 15:15 Amiodarone HCl (Cordarone) 200 mg DAILY PO Last administered on 04/18/17 09:19 ; Start 04/16/17 at 09:00 Aspirin (Children'S Aspirin) 81 mg DAILYWBKFT PO Last administered on 07:42; Start 04/16/17 at 08:00 Cyanocobalamin (Vitamin B-12) 1,000 mcg AFTRNOON PO Last administered on 13:00; Start 04/16/17 at 13:00 Levothyroxine Sodium (Synthroid) 88 mcg DAILY07 PO Last administered on 07:42; Start 04/16/17 at 07:00 Warfarin Sodium (Coumadin) 1 mg DAILY PO ; Start 04/16/17 at 09:00; Status UNV Insulin Aspart (NovoLOG) 0-9 UNITS TIDWMEALS SQ Last administered on 04/17/17 17:34; Start 04/15/17 at 17:00 Dextrose (Dextrose 50%-Water Syringe) 12.5 gm PRN Q15MIN PRN IV SEE COMMENTS; Start 04/15/17 at 15:30 Warfarin Sodium (Coumadin) 0.5 mg 1X WARF ONCE PO ; Start 04/15/17 at 16:00; Stop 04/15/17 at 16:01; Status DC Pantoprazole Sodium (Protonix Vial) 40 mg DAILYAC IVP Last administered on 04/18 07:42; Start 04/15/17 at 16:30 Ceftriaxone Sodium 1 gm/ Sodium Chloride 50 ml @ 100 mls/hr Q24H IV Last administered on 04/16/17 09:12; Start 04/16/17 at 09:00; Stop 04/16/17 at 17:42 ; Status DC Warfarin Sodium (Coumadin - No Dose Today) 1 each 1X WARF ONCE MC ; Start 04/16 at 16:00; Stop 04/16/17 at 16:01; Status DC Darbepoetin Tomás (Aranesp) 60 mcg Sa SQ Last administered on 04/16/17 20:45; Start 04/16/17 at 21:00 Piperacillin Sod/ Tazobactam Sod 2.25 gm/Sodium Chloride 50 ml @ 100 mls/hr Q6HRS IV Last administered on 04/18/17 06:22; Start 04/16/17 at 18:00 Vancomycin HCl 1.5 gm/Sodium Chloride 500 ml @ 250 mls/hr 1X ONCE IV Last administered on 04/16/17 19:22; Start 04/16/17 at 18:30; Stop 04/16/17 at 20:29 ; Status DC Phytonadione (Mephyton) 5 mg 1X ONCE PO Last administered on 04/17/17 11:15; Start 04/17/17 at 11:15; Stop 04/17/17 at 11:16; Status DC Magnesium Sulfate/ Dextrose 50 ml @ 25 mls/hr PRN DAILY PRN IV for Mag < 1.7 on am labs; Start 04/18/17 at 09:45 Active Scripts Active Reported Potassium Chloride 10 Meq Capsule.er 10 Meq PO 3X/WEEK Vitamin B-12 (Cyanocobalamin (Vitamin B-12)) 1,000 Mcg Tablet 1 Tab PO AFTRNOON Vitamin D (Cholecalciferol (Vitamin D3)) 1,000 Unit Capsule 1 Cap PO HS Vitamin E (Vitamin E (Dl,Tocopheryl Acet)) 200 Unit Capsule 200 Unit PO AFTRNOON Novolin 70-30 100 Unit/Ml Vial (Hum Insulin Nph/Reg Insulin Hm) 100 Unit/1 Ml Vial 13 Unit SQ HS Levothyroxine Sodium 88 Mcg Tablet 1 Tab PO DAILY Carvedilol 6.25 Mg Tablet 1 Tab PO BID Fosamax (Alendronate Sodium) 70 Mg Tablet 1 Tab PO WEEKLY 1 Days Amiodarone Hcl 200 Mg Tablet 1 Tab PO DAILY Aspirin 81 Mg Tab.chew 1 Tab PO DAILY Warfarin Sodium 1 Mg Tablet 1 Mg PO DAILY Crestor (Rosuvastatin Calcium) 5 Mg Tablet 5 Mg PO HS Furosemide 40 Mg Tablet 40 Mg PO BID Vitals/I & O Vital Sign - Last 24 Hours 04/17/17 04/17/17 04/17/17 04/17/17 10:15 11:00 12:00 12:00 Temp 97.9 97.9 Pulse 60 60 60 Resp 20 20 15 B/P (MAP) 87/58 (68) 95/53 (67) 96/55 (69) Pulse Ox 95 94 95 O2 Delivery Nasal Cannula Nasal Cannula Nasal Cannula Nasal Cannula O2 Flow Rate 2.0 2.0 2.0 2.0 04/17/17 04/17/17 04/17/17 6/18/17 13:00 14:00 15:00 16:00 Pulse 60 64 63 62 Resp 17 18 18 12 B/P (MAP) 100/54 (69) 96/67 (77) 99/64 (76) 97/62 (74) Pulse Ox 92 94 93 93 O2 Delivery Nasal Cannula Nasal Cannula Nasal Cannula Nasal Cannula O2 Flow Rate 2.0 2.0 2.0 2.0 04/17/17 04/17/17 04/17/17 04/17/17 16:02 17:00 18:00 19:00 Temp 97.6 97.6 Pulse 62 66 80 Resp 24 21 22 B/P (MAP) 99/65 (76) 111/70 (84) 114/83 (93) Pulse Ox 92 92 99 O2 Delivery Nasal Cannula Nasal Cannula Nasal Cannula Nasal Cannula O2 Flow Rate 2.0 2.0 2.0 2.0 04/17/17 04/17/17 04/17/17 04/17/17 20:00 20:00 21:00 22:00 Pulse 82 63 63 Resp 18 23 B/P (MAP) 120/67 (84) 96/60 (72) 107/64 (78) Pulse Ox 100 96 96 O2 Delivery Nasal Cannula Nasal Cannula Nasal Cannula Nasal Cannula O2 Flow Rate 2.0 2.0 2.0 2.0 04/17/17 04/18/17 04/18/17 04/18/17 23:00 00:00 00:00 01:00 Temp 98.0 98.0 Pulse 62 63 60 Resp 22 B/P (MAP) 103/62 (76) 103/61 (75) 98/57 (71) Pulse Ox 96 96 97 O2 Delivery Nasal Cannula Nasal Cannula Nasal Cannula Nasal Cannula O2 Flow Rate 2.0 2.0 2.0 2.0 04/18/17 04/18/17 04/18/17 04/18/17 02:00 03:00 04:00 04:00 Temp 98.0 98.0 Pulse 60 60 60 Resp 20 23 B/P (MAP) 98/60 (73) 87/58 (68) 106/66 (79) Pulse Ox 97 98 98 O2 Delivery Nasal Cannula Nasal Cannula Nasal Cannula Nasal Cannula O2 Flow Rate 2.0 2.0 2.0 2.0 6/04/18/17 04/18/17 04/18/17 05:00 06:00 07:00 08:00 Pulse 60 60 60 Resp 20 21 24 B/P (MAP) 95/63 (74) 103/69 (80) 97/61 (73) Pulse Ox 97 97 97 O2 Delivery Nasal Cannula Nasal Cannula Nasal Cannula Nasal Cannula O2 Flow Rate 2.0 2.0 2.0 2.0 04/18/17 04/18/17 04/18/17 08:00 09:00 09:19 Temp 97.5 97.5 Pulse 60 63 61 Resp 33 20 B/P (MAP) 108/67 (81) 104/61 (75) 91/55 Pulse Ox 97 97 O2 Delivery Nasal Cannula Nasal Cannula O2 Flow Rate 2.0 2.0 Intake and Output 04/17/17 04/17/17 04/18/17 15:00 23:00 07:00 Intake Total 600 ml 1883 ml 1713 ml Output Total 300 ml 775 ml 655 ml Balance 300 ml 1108 ml 1058 ml SEVERIANO CORDOBA MD Apr 18, 2017 10:17
[2017-04-18 10:19] LABS: % SAT IRON 3 % (15-34); IRON,SERUM 9 ug/dL (65-175)
[2017-04-18 10:31] LABS: FREE T4 1.02 ng/dL (0.76-1.46)
--- NOTE | 2017-04-18 12:10 | RAD ---
Indication ascites. Crackling sounds in the chest. Abnormal physical exam. Frontal and lateral views of the chest were obtained. No prior imaging of the chest is available. Postoperative changes in the chest are noted. The level of inspiratory effort is suboptimal. There is no gross congestive heart failure. There are probable tiny pleural effusions. There is no consolidated pneumonia. Defibrillating and bipolar cardiac pacing device is noted. There is an air fluid collection below the right hemidiaphragm. Subdiaphragmatic abscess is not excluded. The findings may be secondary to a ruptured viscus with ascites (ascites was demonstrated on a CT examination 04/15/2017). The air below the right hemidiaphragm is not explained by virtue of the recent CT. There is also a suggested air collection below the left hemidiaphragm. Diagnostic considerations are the same. A repeat CT examination of the chest and abdomen should be considered. Preliminary results were communicated Vee, the nurse caring for the patient in the ICU, at the time of dictation. IMPRESSION: Air below the right hemidiaphragm and probably the left. Ruptured viscus is the leading consideration.. CT imaging of the abdomen and pelvis should be considered
--- NOTE | 2017-04-18 12:11 | PDOC2 ---
CARDIAC CONSULT DATE OF CONSULT Date of Consult DATE: 04/18/17 TIME: 12:00 REASON FOR CONSULT Reason for Consult: EF 30% AFIB Hypotension REFERRING PHYSICIAN Referring Physician: Dr. Childress HISTORY OF PRESENT ILLNESS HISTORY OF PRESENT ILLNESS This is a 77 yo male who initially presented to [facility] with complaints of abdominal pain. Pain began a week ago. Associated with lower abdominal pressure "bloating" and inability to empty bladder. Does have a history of ICM s/p ICD placement. Follows closely with Dr. James with [facility]. Seen in the HF clinic at last week and had Lasix infusion per report. Has chronic LE edema. Reports compliance with medications. PAST MEDICAL HISTORY Cardiovascular: AFIB, CAD (s/p CABG), CHF (with ICM ), HTN, Hyperlipidemia, Valve insufficiency GI: GERD Hepatobiliary: Cirrhosis Psych: No pertinent hx, Other (PTSD) Musculoskeletal: Osteoarthritis Infectious disease: No pertinent hx ENT: No pertinent hx Renal/: Chronic renal insuff Endocrine: Diabetes, Hypothyroidism Dermatology: No pertinent hx PAST SURGICAL HISTORY Past Surgical History: Pacemaker (AICD), CABG, Cataract Removal FAMILY HISTORY Family History: Family History Unknown SOCIAL HISTORY Smoke: Quit (30 yrs ago ) ALCOHOL: none Drugs: None Lives: with Family ALLERGIES ALLERGIES: Coded Allergies: niacin (Verified Allergy, Intermediate, 04/15/17) pravastatin (Verified Allergy, Intermediate, 04/15/17) simvastatin (Verified Allergy, Intermediate, 04/15/17) ROS Review of System 14 point ROS conducted with pertinent positives noted above in HPI PHYSICAL EXAM General: Alert, Oriented X3, Cooperative, mild distress HEENT: Atraumatic, Mucous membr. moist/pink Lungs: Other (bibasilar crackles posteriorly ) Heart: Other (v-paced with underlying SR) Abdomen: Other (firm, ascites present ) Extremities: Other (2 + bilateral LE edema with chronic venous stasis changes, trace hand edema ) Skin: No significant lesion Neuro: Normal speech, Sensation intact Psych/Mental Status: Mental status NL, Mood NL MUSCULOSKELETAL: Osteoarthritic changes both hands VITALS VITALS Vital Signs Date Time Temp Pulse Resp B/P (MAP) Pulse Ox O2 Delivery O2 Flow Rate FiO2 04/18/17 11:00 60 25 98/67 (77) 97 Nasal Cannula 2.0 04/18/17 08:00 97.5 97.5 LABS Lab: Laboratory Tests Test 04/17/17 12:49 6/18/17 17:33 04/17/17 22:08 04/18/17 03:49 Glucose (Fingerstick) 154 mg/dL (70-99) 170 mg/dL (70-99) 160 mg/dL (70-99) White Blood Count 12.0 x10^3/uL (4.0-11.0) Red Blood Count 3.08 x10^6/uL (4.30-5.70) Hemoglobin 8.3 g/dL (13.0-17.5) Hematocrit 26.2 % (39.0-53.0) Mean Corpuscular Volume 85 fL (79-100) Mean Corpuscular Hemoglobin 27 pg (25-35) Mean Corpuscular Hemoglobin Concent 32 g/dL (31-37) Red Cell Distribution Width 17.0 % (11.5-14.5) Platelet Count 150 x10^3/uL (140-400) Neutrophils (%) (Auto) 89 % (31-73) Lymphocytes (%) (Auto) 3 % (24-48) Monocytes (%) (Auto) 8 % (0-9) Eosinophils (%) (Auto) 0 % (0-3) Basophils (%) (Auto) 0 % (0-3) Neutrophils # (Auto) 10.6 x10^3uL (1.8-7.7) Lymphocytes # (Auto) 0.3 x10^3/uL (1.0-4.8) Monocytes # (Auto) 1.0 x10^3/uL (0.0-1.1) Eosinophils # (Auto) 0.0 x10^3/uL (0.0-0.7) Basophils # (Auto) 0.0 x10^3/uL (0.0-0.2) Reticulocyte Count (auto) 1.0 % (0.5-2.5) Prothrombin Time 34.2 SEC (11.7-14.0) Prothromb Time International Ratio 3.7 (0.8-1.1) Sodium Level 139 mmol/L (136-145) Potassium Level 4.3 mmol/L (3.5-5.1) Chloride Level 106 mmol/L (98-107) Carbon Dioxide Level 20 mmol/L (21-32) Anion Gap 13 (6-14) Blood Urea Nitrogen 90 mg/dL (8-26) Creatinine 3.3 mg/dL (0.7-1.3) Estimated GFR (Cockcroft-Gault) 18.2 Glucose Level 144 mg/dL (70-99) Calcium Level 7.3 mg/dL (8.5-10.1) Iron Level 9 ug/dL (65-175) Total Iron Binding Capacity 305 ug/dL (250-450) Iron Saturation 3 % (15-34) Ferritin 164 ng/mL (26-388) Thyroid Stimulating Hormone (TSH) 3.753 uIU/mL (0.358-3.74) Free Thyroxine 1.02 ng/dL (0.76-1.46) Test 04/18/17 07:46 Glucose (Fingerstick) 124 mg/dL (70-99) ECHOCARDIOGRAM ECHOCARDIOGRAM <Conclusion> The LV Ejection Fraction is 35%. There is global hypokinesis of the left ventricle. Apical motion consistent with pacemaker activation. The right ventricle is mildly to moderately dilated. The left atrium is mildly dilated. The right atrium is severely dilated. The mitral valve is calcified but opens well. Doppler and Color-flow revealed mild mitral regurgitation. Doppler and Color Flow revealed mild tricuspid regurgitation. There is mild pulmonary hypertension. Due to a sub-optimal doppler interrogation unable to estimate the PA pressure accurately. The pulmonary valve is normal in structure and function. There is large pleural effusion. There is no evidence of significant pericardial effusion. DATE: 04/17/17 1311 ASSESSMENT/PLAN ASSESSMENT/PLAN 1. Acute on chronic systolic HF 2. ICM; LVEF 35% s/p AICD 3. CAD s/p CABG. Stable, CP free 4. H/o AFIB on Amiodarone therapy 5. Hypertension presently hypotensive 6. Hyperlipidemia; statin therapy 7. Leukocytosis with bacteremia; ?sepsis 8. HERIBERTO with CKD; improving post fluids 9. H/o Cirrhosis with present ascites Recommendations Continue Amiodarone for rhythm maintenance OAC with warfarin for stroke prophylaxis. INR 3.7 Titrate pressors as warranted. Will defer aggressive diuresis with hypotension for now Paracentesis when able. Optimization therapy as BP allows. Continue antibiotic therapy as per ID Supportive care Records from obtained: - Most recent echo with an EF of 30%. - RHC 10/28/16 show RA pressure of 5. RV pressure of 28x6. PAP of 28/13. Wedge was 7. Problems: ARAM TROTTER APRN Apr 18, 2017 12:11
[2017-04-18] MEDS: CYANOCOBALAMIN (VITAMIN B-12) 1,000 MCG TABLET. PO SCH (13:13)
--- NOTE | 2017-04-18 13:21 | PDOC ---
Subjective: Subjective: Feels full, breathing a little better. Objective: Objective: D/w RN - BM this morning. Vital Signs: Vital Signs Date Time Temp Pulse Resp B/P (MAP) Pulse Ox O2 Delivery O2 Flow Rate FiO2 04/18/17 12:00 97.1 60 22 106/58 (74) 94 Nasal Cannula 2.0 97.1 Labs: Laboratory Tests Test 04/17/17 17:33 04/17/17 22:08 04/18/17 03:49 04/18/17 07:46 Glucose (Fingerstick) 170 mg/dL 160 mg/dL 124 mg/dL White Blood Count 12.0 x10^3/uL Red Blood Count 3.08 x10^6/uL Hemoglobin 8.3 g/dL Hematocrit 26.2 % Mean Corpuscular Volume 85 fL Mean Corpuscular Hemoglobin 27 pg Mean Corpuscular Hemoglobin Concent 32 g/dL Red Cell Distribution Width 17.0 % Platelet Count 150 x10^3/uL Neutrophils (%) (Auto) 89 % Lymphocytes (%) (Auto) 3 % Monocytes (%) (Auto) 8 % Eosinophils (%) (Auto) 0 % Basophils (%) (Auto) 0 % Neutrophils # (Auto) 10.6 x10^3uL Lymphocytes # (Auto) 0.3 x10^3/uL Monocytes # (Auto) 1.0 x10^3/uL Eosinophils # (Auto) 0.0 x10^3/uL Basophils # (Auto) 0.0 x10^3/uL Reticulocyte Count (auto) 1.0 % Prothrombin Time 34.2 SEC Prothromb Time International Ratio 3.7 Sodium Level 139 mmol/L Potassium Level 4.3 mmol/L Chloride Level 106 mmol/L Carbon Dioxide Level 20 mmol/L Anion Gap 13 Blood Urea Nitrogen 90 mg/dL Creatinine 3.3 mg/dL Estimated GFR (Cockcroft-Gault) 18.2 Glucose Level 144 mg/dL Calcium Level 7.3 mg/dL Iron Level 9 ug/dL Total Iron Binding Capacity 305 ug/dL Iron Saturation 3 % Ferritin 164 ng/mL Thyroid Stimulating Hormone (TSH) 3.753 uIU/mL Free Thyroxine 1.02 ng/dL Test 04/18/17 12:32 Glucose (Fingerstick) 137 mg/dL PE: GEN: NAD, up to chair ABD: distended EXTREMITY/SKIN: BLE edema, dermatitis NEURO/PSYCH: A & O 3 A/P: Ascites (new onset), cirrhosis, thrombocytopenia/coagulopathy TAMEKA -no previous EGD, last colonoscopy 2014 -h/o A Fib on Coumadin CHF, hypotension -- Paracentesis on hold w/ elevated INR. ?vit K YUNIOR RESENDIZ Apr 18, 2017 13:21
--- NOTE | 2017-04-18 15:31 | PDOC2 ---
JENNIFER ELDER Ashley PLATING TECHNICIAN 04/18/17 1531: CONSULT Date of Consult Date of Consult DATE: 04/18/17 TIME: 15:18 Reason for Consult Reason for Consult: perforated viscus Referring Physician Referring Physician: Dr Rodney Identification/Chief Complaint Chief Complaint abdominal pain Source Source: Chart review, Patient History of Present Illness Reason for Visit: [facility] transfer, admitted 04/15 for abdominal pain and distention, new findings of liver cirrhosis and ascites. Significant medical history including afib, on coumadin, CKD, DM, CHF, CAD currently without abdominal pain and reports + stool today, does continue to be distended, nursing reports on cardiac diet, taking small amounts, no n/v denies any history of ulcers Past Medical History Cardiovascular: AFIB, CAD (s/p CABG), CHF (with ICM ), HTN, Hyperlipidemia, Valve insufficiency GI: GERD Hepatobiliary: Cirrhosis Psych: No pertinent hx, Other (PTSD) Musculoskeletal: Osteoarthritis Infectious disease: No pertinent hx ENT: No pertinent hx Renal/: Chronic renal insuff Endocrine: Diabetes, Hypothyroidism Dermatology: No pertinent hx Past Surgical History Past Surgical History: Pacemaker (AICD), CABG, Cataract Removal Family History Family History: Family History Unknown Social History Quit (30 yrs ago ) ALCOHOL: none Drugs: None Lives: with Family Current Medications Current Medications Current Medications Acetaminophen (Tylenol) 325 mg PRN Q6HRS PRN PO MILD PAIN / TEMP; Start at 14:00 Acetaminophen/ Hydrocodone Bitart (Lortab 5/325) 1 tab PRN Q6HRS PRN PO MODERATE TO SEVERE PAIN; Start 04/15/17 at 14:00 Hydralazine HCl (Apresoline) 10 mg PRN Q4HRS PRN IVP ELEVATED BP, SEE COMMENTS ; Start 04/15/17 at 14:00 Ondansetron HCl (Zofran) 4 mg PRN Q8HRS PRN IV NAUSEA/VOMITING; Start 04/15/17 at 14:00 Albuterol Sulfate (Ventolin Neb Soln) 2.5 mg PRN Q4HRS PRN NEB SHORTNESS OF BREATH Last administered on 04/17/17 08:28; Start 04/15/17 at 14:00 Sodium Chloride 1,000 ml @ 125 mls/hr Q8H IV Last administered on 04/18/17 06 :20; Start 04/15/17 at 14:00; Stop 04/18/17 at 09:50; Status DC Norepinephrine Bitartrate 250 ml @ 0 mls/hr CONT PRN IV SEE I/O RECORD Last administered on 04/18/17 06:22; Start 04/15/17 at 14:00 Ceftriaxone Sodium 1 gm/ Sodium Chloride 50 ml @ 100 mls/hr Q24H IV ; Start at 16:00; Stop 04/15/17 at 16:00; Status DC Warfarin Sodium (Coumadin Per Pharmacy) 1 each PRN DAILY PRN MC SEE COMMENTS Last administered on 04/18/17 11:27; Start 04/15/17 at 15:15 Amiodarone HCl (Cordarone) 200 mg DAILY PO Last administered on 04/18/17 09:19 ; Start 04/16/17 at 09:00 Aspirin (Children'S Aspirin) 81 mg DAILYWBKFT PO Last administered on 07:42; Start 04/16/17 at 08:00 Cyanocobalamin (Vitamin B-12) 1,000 mcg AFTRNOON PO Last administered on 13:13; Start 04/16/17 at 13:00 Levothyroxine Sodium (Synthroid) 88 mcg DAILY07 PO Last administered on 07:42; Start 04/16/17 at 07:00 Warfarin Sodium (Coumadin) 1 mg DAILY PO ; Start 04/16/17 at 09:00; Status UNV Insulin Aspart (NovoLOG) 0-9 UNITS TIDWMEALS SQ Last administered on 04/17/17 17:34; Start 04/15/17 at 17:00 Dextrose (Dextrose 50%-Water Syringe) 12.5 gm PRN Q15MIN PRN IV SEE COMMENTS; Start 04/15/17 at 15:30 Warfarin Sodium (Coumadin) 0.5 mg 1X WARF ONCE PO ; Start 04/15/17 at 16:00; Stop 04/15/17 at 16:01; Status DC Pantoprazole Sodium (Protonix Vial) 40 mg DAILYAC IVP Last administered on 04/18 07:42; Start 04/15/17 at 16:30 Ceftriaxone Sodium 1 gm/ Sodium Chloride 50 ml @ 100 mls/hr Q24H IV Last administered on 04/16/17 09:12; Start 04/16/17 at 09:00; Stop 04/16/17 at 17:42 ; Status DC Warfarin Sodium (Coumadin - No Dose Today) 1 each 1X WARF ONCE MC ; Start 04/16 at 16:00; Stop 04/16/17 at 16:01; Status DC Darbepoetin Tomás (Aranesp) 60 mcg Sa SQ Last administered on 04/16/17 20:45; Start 04/16/17 at 21:00 Piperacillin Sod/ Tazobactam Sod 2.25 gm/Sodium Chloride 50 ml @ 100 mls/hr Q6HRS IV Last administered on 04/18/17 12:25; Start 04/16/17 at 18:00 Vancomycin HCl 1.5 gm/Sodium Chloride 500 ml @ 250 mls/hr 1X ONCE IV Last administered on 04/16/17 19:22; Start 04/16/17 at 18:30; Stop 04/16/17 at 20:29 ; Status DC Phytonadione (Mephyton) 5 mg 1X ONCE PO Last administered on 04/17/17 11:15; Start 04/17/17 at 11:15; Stop 04/17/17 at 11:16; Status DC Magnesium Sulfate/ Dextrose 50 ml @ 25 mls/hr PRN DAILY PRN IV for Mag < 1.7 on am labs; Start 04/18/17 at 09:45 Warfarin Sodium (Coumadin - No Dose Today) 1 each 1X WARF ONCE MC ; Start 04/18 at 16:00; Stop 04/18/17 at 16:01 Active Scripts Active Reported Potassium Chloride 10 Meq Capsule.er 10 Meq PO 3X/WEEK Vitamin B-12 (Cyanocobalamin (Vitamin B-12)) 1,000 Mcg Tablet 1 Tab PO AFTRNOON Vitamin D (Cholecalciferol (Vitamin D3)) 1,000 Unit Capsule 1 Cap PO HS Vitamin E (Vitamin E (Dl,Tocopheryl Acet)) 200 Unit Capsule 200 Unit PO AFTRNOON Novolin 70-30 100 Unit/Ml Vial (Hum Insulin Nph/Reg Insulin Hm) 100 Unit/1 Ml Vial 13 Unit SQ HS Levothyroxine Sodium 88 Mcg Tablet 1 Tab PO DAILY Carvedilol 6.25 Mg Tablet 1 Tab PO BID Fosamax (Alendronate Sodium) 70 Mg Tablet 1 Tab PO WEEKLY 1 Days Amiodarone Hcl 200 Mg Tablet 1 Tab PO DAILY Aspirin 81 Mg Tab.chew 1 Tab PO DAILY Warfarin Sodium 1 Mg Tablet 1 Mg PO DAILY Crestor (Rosuvastatin Calcium) 5 Mg Tablet 5 Mg PO HS Furosemide 40 Mg Tablet 40 Mg PO BID Allergies Allergies: Coded Allergies: niacin (Verified Allergy, Intermediate, 04/15/17) pravastatin (Verified Allergy, Intermediate, 04/15/17) simvastatin (Verified Allergy, Intermediate, 04/15/17) ROS General: YES: Appetite (low), No: Chills, Other (fevers) PSYCHOLOGICAL ROS: No: Anxiety, Depression Eyes: No Blurry vision, No Double vision HEENT: No: Heacaches, Sore Throat Hematological and Lymphatic: YES: Bleeding Problems, No: Blood Clots Respiratory: YES: Shortness of breath, SOB with excertion, No: Cough Cardiovascular: No Chest Pain, No Palpitations Gastrointestinal: Yes Other (see hpi) Genitourinary: No Dysuria, No Retention Musculoskeletal: Yes Joint Pain, No Muscle Pain Neurological: No Impaired Coord/balance, No Numbness/Tingling Skin: No Pruritus, No Rash Physical Exam General: Alert, Oriented X3, Cooperative, No acute distress HEENT: PERRLA, Mucous membr. moist/pink Lungs: Other (diminished, soa while speaking, O2 in place) Heart: Regular rate, Normal S1, Normal S2 Abdomen: Soft, Other (distended, ascites, nontender on exam, reducible, nontender umbo hernia) Extremities: No cyanosis, Other (+ edema) Skin: No breakdown, No significant lesion Neuro: Normal speech, Sensation intact Psych/Mental Status: Mental status NL, Mood NL MUSCULOSKELETAL: No deformity Vitals VITALS Vital Signs Date Time Temp Pulse Resp B/P (MAP) Pulse Ox O2 Delivery O2 Flow Rate FiO2 04/18/17 15:00 60 22 109/63 (78) 93 Nasal Cannula 2.0 04/18/17 12:00 97.1 97.1 Labs Labs Laboratory Tests Test 04/16/17 18:13 04/16/17 21:15 04/17/17 03:38 04/17/17 12:49 Glucose (Fingerstick) 127 mg/dL (70-99) 164 mg/dL (70-99) 154 mg/dL (70-99) White Blood Count 11.2 x10^3/uL (4.0-11.0) Red Blood Count 3.08 x10^6/uL (4.30-5.70) Hemoglobin 8.4 g/dL (13.0-17.5) Hematocrit 26.3 % (39.0-53.0) Mean Corpuscular Volume 85 fL (79-100) Mean Corpuscular Hemoglobin 27 pg (25-35) Mean Corpuscular Hemoglobin Concent 32 g/dL (31-37) Red Cell Distribution Width 17.0 % (11.5-14.5) Platelet Count 140 x10^3/uL (140-400) Neutrophils (%) (Auto) 86 % (31-73) Lymphocytes (%) (Auto) 4 % (24-48) Monocytes (%) (Auto) 10 % (0-9) Eosinophils (%) (Auto) 0 % (0-3) Basophils (%) (Auto) 0 % (0-3) Neutrophils # (Auto) 9.6 x10^3uL (1.8-7.7) Lymphocytes # (Auto) 0.5 x10^3/uL (1.0-4.8) Monocytes # (Auto) 1.1 x10^3/uL (0.0-1.1) Eosinophils # (Auto) 0.0 x10^3/uL (0.0-0.7) Basophils # (Auto) 0.0 x10^3/uL (0.0-0.2) Prothrombin Time 39.3 SEC (11.7-14.0) Prothromb Time International Ratio 4.4 (0.8-1.1) Sodium Level 138 mmol/L (136-145) Potassium Level 4.5 mmol/L (3.5-5.1) Chloride Level 105 mmol/L (98-107) Carbon Dioxide Level 18 mmol/L (21-32) Anion Gap 15 (6-14) Blood Urea Nitrogen 97 mg/dL (8-26) Creatinine 3.7 mg/dL (0.7-1.3) Estimated GFR (Cockcroft-Gault) 15.9 Glucose Level 136 mg/dL (70-99) Calcium Level 7.5 mg/dL (8.5-10.1) Test 04/17/17 17:33 04/17/17 22:08 04/18/17 03:49 04/18/17 07:46 Glucose (Fingerstick) 170 mg/dL (70-99) 160 mg/dL (70-99) 124 mg/dL (70-99) White Blood Count 12.0 x10^3/uL (4.0-11.0) Red Blood Count 3.08 x10^6/uL (4.30-5.70) Hemoglobin 8.3 g/dL (13.0-17.5) Hematocrit 26.2 % (39.0-53.0) Mean Corpuscular Volume 85 fL (79-100) Mean Corpuscular Hemoglobin 27 pg (25-35) Mean Corpuscular Hemoglobin Concent 32 g/dL (31-37) Red Cell Distribution Width 17.0 % (11.5-14.5) Platelet Count 150 x10^3/uL (140-400) Neutrophils (%) (Auto) 89 % (31-73) Lymphocytes (%) (Auto) 3 % (24-48) Monocytes (%) (Auto) 8 % (0-9) Eosinophils (%) (Auto) 0 % (0-3) Basophils (%) (Auto) 0 % (0-3) Neutrophils # (Auto) 10.6 x10^3uL (1.8-7.7) Lymphocytes # (Auto) 0.3 x10^3/uL (1.0-4.8) Monocytes # (Auto) 1.0 x10^3/uL (0.0-1.1) Eosinophils # (Auto) 0.0 x10^3/uL (0.0-0.7) Basophils # (Auto) 0.0 x10^3/uL (0.0-0.2) Reticulocyte Count (auto) 1.0 % (0.5-2.5) Prothrombin Time 34.2 SEC (11.7-14.0) Prothromb Time International Ratio 3.7 (0.8-1.1) Sodium Level 139 mmol/L (136-145) Potassium Level 4.3 mmol/L (3.5-5.1) Chloride Level 106 mmol/L (98-107) Carbon Dioxide Level 20 mmol/L (21-32) Anion Gap 13 (6-14) Blood Urea Nitrogen 90 mg/dL (8-26) Creatinine 3.3 mg/dL (0.7-1.3) Estimated GFR (Cockcroft-Gault) 18.2 Glucose Level 144 mg/dL (70-99) Calcium Level 7.3 mg/dL (8.5-10.1) Iron Level 9 ug/dL (65-175) Total Iron Binding Capacity 305 ug/dL (250-450) Iron Saturation 3 % (15-34) Ferritin 164 ng/mL (26-388) Thyroid Stimulating Hormone (TSH) 3.753 uIU/mL (0.358-3.74) Free Thyroxine 1.02 ng/dL (0.76-1.46) Test 04/18/17 12:32 Glucose (Fingerstick) 137 mg/dL (70-99) Laboratory Tests Test 04/17/17 17:33 04/17/17 22:08 04/18/17 03:49 04/18/17 07:46 Glucose (Fingerstick) 170 mg/dL (70-99) 160 mg/dL (70-99) 124 mg/dL (70-99) White Blood Count 12.0 x10^3/uL (4.0-11.0) Red Blood Count 3.08 x10^6/uL (4.30-5.70) Hemoglobin 8.3 g/dL (13.0-17.5) Hematocrit 26.2 % (39.0-53.0) Mean Corpuscular Volume 85 fL (79-100) Mean Corpuscular Hemoglobin 27 pg (25-35) Mean Corpuscular Hemoglobin Concent 32 g/dL (31-37) Red Cell Distribution Width 17.0 % (11.5-14.5) Platelet Count 150 x10^3/uL (140-400) Neutrophils (%) (Auto) 89 % (31-73) Lymphocytes (%) (Auto) 3 % (24-48) Monocytes (%) (Auto) 8 % (0-9) Eosinophils (%) (Auto) 0 % (0-3) Basophils (%) (Auto) 0 % (0-3) Neutrophils # (Auto) 10.6 x10^3uL (1.8-7.7) Lymphocytes # (Auto) 0.3 x10^3/uL (1.0-4.8) Monocytes # (Auto) 1.0 x10^3/uL (0.0-1.1) Eosinophils # (Auto) 0.0 x10^3/uL (0.0-0.7) Basophils # (Auto) 0.0 x10^3/uL (0.0-0.2) Reticulocyte Count (auto) 1.0 % (0.5-2.5) Prothrombin Time 34.2 SEC (11.7-14.0) Prothromb Time International Ratio 3.7 (0.8-1.1) Sodium Level 139 mmol/L (136-145) Potassium Level 4.3 mmol/L (3.5-5.1) Chloride Level 106 mmol/L (98-107) Carbon Dioxide Level 20 mmol/L (21-32) Anion Gap 13 (6-14) Blood Urea Nitrogen 90 mg/dL (8-26) Creatinine 3.3 mg/dL (0.7-1.3) Estimated GFR (Cockcroft-Gault) 18.2 Glucose Level 144 mg/dL (70-99) Calcium Level 7.3 mg/dL (8.5-10.1) Iron Level 9 ug/dL (65-175) Total Iron Binding Capacity 305 ug/dL (250-450) Iron Saturation 3 % (15-34) Ferritin 164 ng/mL (26-388) Thyroid Stimulating Hormone (TSH) 3.753 uIU/mL (0.358-3.74) Free Thyroxine 1.02 ng/dL (0.76-1.46) Test 04/18/17 12:32 Glucose (Fingerstick) 137 mg/dL (70-99) Assessment/Plan Assessment/Plan coagulopathy-INR 3.7, Coumadin on hold, received Vit k yesterday renal failure Significant cardiac hx afib, cad, cabg, chf new diagnosis of cirrhosis, ascites hypotension, on Levophed, weaning down however pneumoperitoneum--new finding of free air under diaphragm concerning for perforated viscus--however abdominal exam is benign, comorbidities makes pt a high risk for operative intervention will check noncontrasted CT NPO, bowel rest, continue abx d/w MARIBEL Rodriguez MD 04/18/17 5833: CONSULT Allergies Allergies: Coded Allergies: niacin (Verified Allergy, Intermediate, 04/15/17) pravastatin (Verified Allergy, Intermediate, 04/15/17) simvastatin (Verified Allergy, Intermediate, 04/15/17) Assessment/Plan Assessment/Plan Pt seen and examined. Agree with Ms. Elder's note Pt reports abd pain earlier in the week, but none currently abd soft, positive fluid wave, NTTP, umb hernia c/w cirrhosis pt is high surgical risk given liver disease, elevated INR given asymptomatic, favor bowel rest and close observation suspect diverticular disease, which should resolve with supportive care Thanks for consult! JENNIFER ELDER APRN Apr 18, 2017 15:31 MARIBEL MCCURDY MD Apr 18, 2017 21:59
--- NOTE | 2017-04-18 16:13 | RAD ---
Indication plain film findings suggesting pneumoperitoneum. Axial images through the abdomen and pelvis were obtained. No oral or IV contrast was administered. There are bilateral pleural effusions. There is volume loss at the lung bases compatible with atelectasis secondary to the pleural fluid or pneumonia. A dominant soft tissue mass at either lung base is not seen. Imaging through the upper abdomen confirms pneumoperitoneum. The etiology is unclear but a ruptured viscus would be the leading consideration. There is extensive abdominal ascites. The liver has a somewhat shrunken appearance suggesting cirrhosis. There is no splenomegaly. Acute finding in involving the liver or spleen is not seen. There are densities within the gallbladder likely reflecting cholelithiasis. No pancreatic abnormality is seen. No adrenal masses are seen. There is a 4 cm mass associated with the left kidney compatible with a cyst. Occasional diverticula are seen associated with the large bowel. Active inflammation is not seen. There is soft tissue swelling suggesting a systemic process such as anasarca Preliminary critical results were communicated to Katyh, the nurse caring for the patient in the ICU, at the time of dictation IMPRESSION: Pneumoperitoneum is confirmed. The etiology is unclear but a ruptured viscus would be the leading consideration. Extensive abdominal ascites. Suspect cirrhosis. Moderate bilateral pleural effusions. Volume loss at the lung bases compatible with atelectasis or pneumonia. PQRS Compliance Statement: One or more of the following individualized dose reduction techniques were utilized for this examination: 1. Automated exposure control 2. Adjustment of the mA and/or kV according to patient size 3. Use of iterative reconstruction technique
[2017-04-19] VITALS (24 sets, daily range): BP systolic 80–111; BP diastolic 50–69
[2017-04-19 05:09] LABS: BASO % 0 % (0-3); EOS % 0 % (0-3); HEMOGLOBIN 8.3 g/dL (13.0-17.5); LYMPH # 0.2 x10^3/uL (1.0-4.8); LYMPH % 2 % (24-48); MEAN CORPUSCULAR HEMOGLOBIN 27 pg (25-35); MEAN CORPUSCULAR HGB CONC 32 g/dL (31-37); MEAN CORPUSCULAR VOLUME 85 fL (79-100); MONO % 7 % (0-9); NEUT % 90 % (31-73); PLATELET COUNT 140 x10^3/uL (140-400); RED BLOOD COUNT 3.05 x10^6/uL (4.30-5.70); RED CELL DISTRIBUTION WIDTH 17.3 % (11.5-14.5); WHITE BLOOD COUNT 9.7 x10^3/uL (4.0-11.0)
[2017-04-19 05:23] LABS: INR 2.3 (0.8-1.1); PROTHROMBIN TIME PATIENT 24.2 SEC (11.7-14.0)
[2017-04-19 05:24] LABS: ALBUMIN 2.1 g/dL (3.4-5.0); CALCIUM 7.7 mg/dL (8.5-10.1); GFR 20.3; PHOSPHORUS 5.1 mg/dL (2.6-4.7); POTASSIUM 4.2 mmol/L (3.5-5.1)
[2017-04-19] MEDS: PIPERACILLIN/TAZOBACTAM 2.25 GM in IV NORMAL SALINE 50ML 50 ML IV SCH ×4 (06:03→23:07)
[2017-04-19] MEDS: INSULIN ASPART 300 UNITS/3 ML INSULN.PEN SQ SCH ×3 (08:00→16:30)
--- NOTE | 2017-04-19 08:10 | PDOC ---
Infectious Disease Note Subjective Subjective Feeling ok says, no complaints No fever last 24 hours ROS ROS GEN: Denies fevers, chills, sweats HEENT: Denies blurred vision, sore throat CV: Denies chest pain RESP: Denies shortness of air, cough GI: Denies n/v/d NEURO: Denies confusion, dizziness MSK: Denies weakness, joint pain/swelling Vital Sign Vital Signs Vital Signs Date Time Temp Pulse Resp B/P (MAP) Pulse Ox O2 Delivery O2 Flow Rate FiO2 04/19/17 06:00 60 25 93/62 (72) 98 Nasal Cannula 2.0 04/19/17 04:00 97.8 97.8 Physical Exam PHYSICAL EXAM GENERAL: NAD, Alert HEENT: PERRL, OC/OP NECK: Supple, no JVD, no LN LUNGS: Clear HEART: S1S2, no gallop, no murmur ABD: Soft, NT, no organomegaly, no rebound EXT: No edema, no cyanosis, ascites + 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 SERVICES SPECIALIST: Alert, 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, no focal neurologic deficit SKIN: No rash IV: ok Labs Lab Laboratory Tests Test 04/18/17 12:32 04/18/17 17:31 04/19/17 04:45 04/19/17 07:00 Glucose (Fingerstick) 137 mg/dL (70-99) 142 mg/dL (70-99) 116 mg/dL (70-99) White Blood Count 9.7 x10^3/uL (4.0-11.0) Red Blood Count 3.05 x10^6/uL (4.30-5.70) Hemoglobin 8.3 g/dL (13.0-17.5) Hematocrit 26.0 % (39.0-53.0) Mean Corpuscular Volume 85 fL (79-100) Mean Corpuscular Hemoglobin 27 pg (25-35) Mean Corpuscular Hemoglobin Concent 32 g/dL (31-37) Red Cell Distribution Width 17.3 % (11.5-14.5) Platelet Count 140 x10^3/uL (140-400) Neutrophils (%) (Auto) 90 % (31-73) Lymphocytes (%) (Auto) 2 % (24-48) Monocytes (%) (Auto) 7 % (0-9) Eosinophils (%) (Auto) 0 % (0-3) Basophils (%) (Auto) 0 % (0-3) Neutrophils # (Auto) 8.7 x10^3uL (1.8-7.7) Lymphocytes # (Auto) 0.2 x10^3/uL (1.0-4.8) Monocytes # (Auto) 0.7 x10^3/uL (0.0-1.1) Eosinophils # (Auto) 0.0 x10^3/uL (0.0-0.7) Basophils # (Auto) 0.0 x10^3/uL (0.0-0.2) Prothrombin Time 24.2 SEC (11.7-14.0) Prothromb Time International Ratio 2.3 (0.8-1.1) Sodium Level 143 mmol/L (136-145) Potassium Level 4.2 mmol/L (3.5-5.1) Chloride Level 109 mmol/L (98-107) Carbon Dioxide Level 21 mmol/L (21-32) Anion Gap 13 (6-14) Blood Urea Nitrogen 83 mg/dL (8-26) Creatinine 3.0 mg/dL (0.7-1.3) Estimated GFR (Cockcroft-Gault) 20.3 Glucose Level 127 mg/dL (70-99) Lactic Acid Level 1.1 mmol/L (0.4-2.0) Calcium Level 7.7 mg/dL (8.5-10.1) Phosphorus Level 5.1 mg/dL (2.6-4.7) Magnesium Level 2.3 mg/dL (1.8-2.4) Albumin 2.1 g/dL (3.4-5.0) Objective Assessment Hypotension BC + G + cocci and G + liza,, ID still pending Abdominal pain and distention/ascites/possible SBP Cirrhosis of liver Renal failure Leukocytosis Pneumoperitoneum Plan Plan of Care Zosyn One time dose vanc, 04/16 Await final cultures supportive care d/w dr Milly PEREZ,KERWIN Borden MD Apr 19, 2017 08:10
[2017-04-19] MEDS: LEVOTHYROXINE 88 MCG TABLET PO SCH (08:44)
[2017-04-19] MEDS: PANTOPRAZOLE IV PUSH 40 MG VIAL. IVP SCH (08:44)
--- NOTE | 2017-04-19 09:05 | PDOC ---
SURGICAL PROGRESS NOTE Subjective Pt sleeping, awakens easily, denies abd pain Vital Signs Vital Signs Date Time Temp Pulse Resp B/P (MAP) Pulse Ox O2 Delivery O2 Flow Rate FiO2 04/19/17 08:00 97.3 61 25 85/52 (63) 97 Nasal Cannula 2.0 97.3 I&O Intake and Output 04/19/17 07:00 Intake Total 1347 ml Output Total 1925 ml Balance -578 ml Intake Oral 605 ml IV Total 742 ml Output Urine Total 1925 ml # Bowel Movements 1 General: Alert, Oriented X3, Cooperative, No acute distress Abdomen: Soft, No tenderness, Other (fluid wave c/w cirrhosis, umb hernia, reducible) Labs Laboratory Tests Test 04/17/17 12:49 04/17/17 17:33 04/17/17 22:08 04/18/17 03:49 Glucose (Fingerstick) 154 mg/dL (70-99) 170 mg/dL (70-99) 160 mg/dL (70-99) White Blood Count 12.0 x10^3/uL (4.0-11.0) Red Blood Count 3.08 x10^6/uL (4.30-5.70) Hemoglobin 8.3 g/dL (13.0-17.5) Hematocrit 26.2 % (39.0-53.0) Mean Corpuscular Volume 85 fL (79-100) Mean Corpuscular Hemoglobin 27 pg (25-35) Mean Corpuscular Hemoglobin Concent 32 g/dL (31-37) Red Cell Distribution Width 17.0 % (11.5-14.5) Platelet Count 150 x10^3/uL (140-400) Neutrophils (%) (Auto) 89 % (31-73) Lymphocytes (%) (Auto) 3 % (24-48) Monocytes (%) (Auto) 8 % (0-9) Eosinophils (%) (Auto) 0 % (0-3) Basophils (%) (Auto) 0 % (0-3) Neutrophils # (Auto) 10.6 x10^3uL (1.8-7.7) Lymphocytes # (Auto) 0.3 x10^3/uL (1.0-4.8) Monocytes # (Auto) 1.0 x10^3/uL (0.0-1.1) Eosinophils # (Auto) 0.0 x10^3/uL (0.0-0.7) Basophils # (Auto) 0.0 x10^3/uL (0.0-0.2) Reticulocyte Count (auto) 1.0 % (0.5-2.5) Prothrombin Time 34.2 SEC (11.7-14.0) Prothromb Time International Ratio 3.7 (0.8-1.1) Sodium Level 139 mmol/L (136-145) Potassium Level 4.3 mmol/L (3.5-5.1) Chloride Level 106 mmol/L (98-107) Carbon Dioxide Level 20 mmol/L (21-32) Anion Gap 13 (6-14) Blood Urea Nitrogen 90 mg/dL (8-26) Creatinine 3.3 mg/dL (0.7-1.3) Estimated GFR (Cockcroft-Gault) 18.2 Glucose Level 144 mg/dL (70-99) Calcium Level 7.3 mg/dL (8.5-10.1) Iron Level 9 ug/dL (65-175) Total Iron Binding Capacity 305 ug/dL (250-450) Iron Saturation 3 % (15-34) Ferritin 164 ng/mL (26-388) Thyroid Stimulating Hormone (TSH) 3.753 uIU/mL (0.358-3.74) Free Thyroxine 1.02 ng/dL (0.76-1.46) Test 04/18/17 07:46 04/18/17 12:32 04/18/17 17:31 04/19/17 04:45 Glucose (Fingerstick) 124 mg/dL (70-99) 137 mg/dL (70-99) 142 mg/dL (70-99) White Blood Count 9.7 x10^3/uL (4.0-11.0) Red Blood Count 3.05 x10^6/uL (4.30-5.70) Hemoglobin 8.3 g/dL (13.0-17.5) Hematocrit 26.0 % (39.0-53.0) Mean Corpuscular Volume 85 fL (79-100) Mean Corpuscular Hemoglobin 27 pg (25-35) Mean Corpuscular Hemoglobin Concent 32 g/dL (31-37) Red Cell Distribution Width 17.3 % (11.5-14.5) Platelet Count 140 x10^3/uL (140-400) Neutrophils (%) (Auto) 90 % (31-73) Lymphocytes (%) (Auto) 2 % (24-48) Monocytes (%) (Auto) 7 % (0-9) Eosinophils (%) (Auto) 0 % (0-3) Basophils (%) (Auto) 0 % (0-3) Neutrophils # (Auto) 8.7 x10^3uL (1.8-7.7) Lymphocytes # (Auto) 0.2 x10^3/uL (1.0-4.8) Monocytes # (Auto) 0.7 x10^3/uL (0.0-1.1) Eosinophils # (Auto) 0.0 x10^3/uL (0.0-0.7) Basophils # (Auto) 0.0 x10^3/uL (0.0-0.2) Prothrombin Time 24.2 SEC (11.7-14.0) Prothromb Time International Ratio 2.3 (0.8-1.1) Sodium Level 143 mmol/L (136-145) Potassium Level 4.2 mmol/L (3.5-5.1) Chloride Level 109 mmol/L (98-107) Carbon Dioxide Level 21 mmol/L (21-32) Anion Gap 13 (6-14) Blood Urea Nitrogen 83 mg/dL (8-26) Creatinine 3.0 mg/dL (0.7-1.3) Estimated GFR (Cockcroft-Gault) 20.3 Glucose Level 127 mg/dL (70-99) Lactic Acid Level 1.1 mmol/L (0.4-2.0) Calcium Level 7.7 mg/dL (8.5-10.1) Phosphorus Level 5.1 mg/dL (2.6-4.7) Magnesium Level 2.3 mg/dL (1.8-2.4) Albumin 2.1 g/dL (3.4-5.0) Test 04/19/17 07:00 Glucose (Fingerstick) 116 mg/dL (70-99) Laboratory Tests Test 04/18/17 12:32 04/18/17 17:31 04/19/17 04:45 04/19/17 07:00 Glucose (Fingerstick) 137 mg/dL (70-99) 142 mg/dL (70-99) 116 mg/dL (70-99) White Blood Count 9.7 x10^3/uL (4.0-11.0) Red Blood Count 3.05 x10^6/uL (4.30-5.70) Hemoglobin 8.3 g/dL (13.0-17.5) Hematocrit 26.0 % (39.0-53.0) Mean Corpuscular Volume 85 fL (79-100) Mean Corpuscular Hemoglobin 27 pg (25-35) Mean Corpuscular Hemoglobin Concent 32 g/dL (31-37) Red Cell Distribution Width 17.3 % (11.5-14.5) Platelet Count 140 x10^3/uL (140-400) Neutrophils (%) (Auto) 90 % (31-73) Lymphocytes (%) (Auto) 2 % (24-48) Monocytes (%) (Auto) 7 % (0-9) Eosinophils (%) (Auto) 0 % (0-3) Basophils (%) (Auto) 0 % (0-3) Neutrophils # (Auto) 8.7 x10^3uL (1.8-7.7) Lymphocytes # (Auto) 0.2 x10^3/uL (1.0-4.8) Monocytes # (Auto) 0.7 x10^3/uL (0.0-1.1) Eosinophils # (Auto) 0.0 x10^3/uL (0.0-0.7) Basophils # (Auto) 0.0 x10^3/uL (0.0-0.2) Prothrombin Time 24.2 SEC (11.7-14.0) Prothromb Time International Ratio 2.3 (0.8-1.1) Sodium Level 143 mmol/L (136-145) Potassium Level 4.2 mmol/L (3.5-5.1) Chloride Level 109 mmol/L (98-107) Carbon Dioxide Level 21 mmol/L (21-32) Anion Gap 13 (6-14) Blood Urea Nitrogen 83 mg/dL (8-26) Creatinine 3.0 mg/dL (0.7-1.3) Estimated GFR (Cockcroft-Gault) 20.3 Glucose Level 127 mg/dL (70-99) Lactic Acid Level 1.1 mmol/L (0.4-2.0) Calcium Level 7.7 mg/dL (8.5-10.1) Phosphorus Level 5.1 mg/dL (2.6-4.7) Magnesium Level 2.3 mg/dL (1.8-2.4) Albumin 2.1 g/dL (3.4-5.0) Problem List pneumoperitoneum, unknown etiology, favor diverticular disease appears stable, asymptomatic d/w Dr. Feliicano Rodney no surgical plans, pt poor candidate Problems: MARIBEL MCCURDY MD Apr 19, 2017 09:05
--- NOTE | 2017-04-19 10:17 | PDOC ---
SUBJECTIVE ROS HERIBERTO/ CKD III Feeling OK today. Breathing is better today CVS: no Orthopnea, no CP RESP: min SOB, ? COPPOLA GI: no Nausea, no Vomiting : no Dysuria, no Urgency OBJECTIVE Vital Signs Vital Signs Date Time Temp Pulse Resp B/P (MAP) Pulse Ox O2 Delivery O2 Flow Rate FiO2 04/19/17 09:00 60 25 101/61 (74) 99 Nasal Cannula 2.0 04/19/17 08:00 97.3 97.3 I & 0 Intake and Output 04/19/17 07:00 Intake Total 1347 ml Output Total 1925 ml Balance -578 ml Intake Oral 605 ml IV Total 742 ml Output Urine Total 1925 ml # Bowel Movements 1 PHYSICAL EXAM Physical Exam GEN: Awake, Oriented x 3, In no distress EYES: Vision Unchanged, Conjunctiva Normal EN: No EN Drainage, Mucous Membranes moist NECK: no JVD, min JVP, Supple, no Thyromegaly CVS: S1S2, ? Murmur, No Gallop, No Rub,+ Edema RESP: alise basal Rales, occ Rhonchi,no Acc. Muscle Use GI: BS + ve, NO Bruit, Non Tender, Non Distended : no CVA tenderness, no Suprapubic Tenderness (hudson) SKIN: no visible Rashes Breast Exam deferred Mu.Sk: Adequate ROM no Muscle Atrophy Heme: Unable to palpate Obvious LAD no palp Splenomegaly NEURO: Good Strength and Tone Cranial Nerves II - XII grossly intact; No Asterixis Psych: ? Depressed no Active hallucination DIAGNOSIS/ASSESSMENT Assessment & Plan ARF/ ? ATN vs VMN - Now better with Vol repletion and IVF: ? Early HRS. Creat better despite Dc IVF . UO is OK for now. Current fluid and E-lyte status does not necessitate emergent need for dialysis. Will re-evaluate for dialysis in the am Abd Perf (as reported on PA and Lat CXR and confirmed with CT)) - Now evaluated and followed by GS and GI. ? Need for TPN if he needs to be NPO in near term Ascites - Tap when INR is better ? Sepsis - Lactate was mildly ^ed - resolved on recheck Underlying CKD III with baseline Creat of 2.8 Mild MEt Acidosis - better off of NaCl Mildly ^ed Phos - watch trend while he remains NPO Nutrition - ? TPN once fluid status optimized (after Ascites Tap) ANEMIA; IV Iron as ordered; Aranesp as ordered, Transfuse as needed for hgb < 7 HypoTN: Current meds reviewed. remains on Pressors for now See orders for changes. BACTEREMIA - ? Source; await ID eval - ? Associated with abd Perf Cirrhosis as noted on CT scan - defer to GI to eval - ? Etio COMMENT/RELEVANT DATA Meds Current Medications Medications (Trade) Dose Ordered Sig/Garret Start Time Stop Time Status Last Admin Dose Admin Acetaminophen (Tylenol) 325 mg PRN Q6HRS PRN 04/15/17 14:00 Acetaminophen/ Hydrocodone Bitart (Lortab 5/325) 1 tab PRN Q6HRS PRN 04/15/17 14:00 Albuterol Sulfate (Ventolin Neb Soln) 2.5 mg PRN Q4HRS PRN 04/15/17 14:00 04/17/17 08:28 2.5 MG Amiodarone HCl (Cordarone) 200 mg DAILY 04/16/17 09:00 04/18/17 17:42 DC 04/18/17 09:19 200 MG Aspirin (Children'S Aspirin) 81 mg DAILYWBKFT 04/16/17 08:00 04/18/17 17:43 DC 04/18/17 07:42 81 MG Ceftriaxone Sodium 1 gm/ Sodium Chloride 50 ml @ 100 mls/hr Q24H 04/16/17 09:00 04/16/17 17:42 DC 04/16/17 09:12 100 MLS/HR Cyanocobalamin (Vitamin B-12) 1,000 mcg AFTRNOON 04/16/17 13:00 04/18/17 17:33 DC 04/18/17 13:13 1,000 MCG Darbepoetin Tomás (Aranesp) 60 mcg Sa 04/16/17 21:00 04/16/17 20:45 60 MCG Dextrose (Dextrose 50%-Water Syringe) 12.5 gm PRN Q15MIN PRN 04/15/17 15:30 Hydralazine HCl (Apresoline) 10 mg PRN Q4HRS PRN 04/15/17 14:00 Insulin Aspart (NovoLOG) 0-9 UNITS TIDWMEALS 04/15/17 17:00 04/17/17 17:34 4 UNITS Levothyroxine Sodium (Synthroid) 88 mcg DAILY07 04/16/17 07:00 04/19/17 08:44 88 MCG Magnesium Sulfate/ Dextrose 50 ml @ 25 mls/hr PRN DAILY PRN 04/18/17 09:45 Morphine Sulfate 2 mg PRN Q2HR PRN 04/18/17 17:45 Norepinephrine Bitartrate 250 ml @ 0 mls/hr CONT PRN 04/15/17 14:00 04/18/17 06:22 22.5 MLS/HR Ondansetron HCl (Zofran) 4 mg PRN Q8HRS PRN 04/15/17 14:00 Pantoprazole Sodium (Protonix Vial) 40 mg DAILYAC 04/15/17 16:30 04/19/17 08:44 40 MG Phytonadione (Mephyton) 5 mg 1X ONCE 04/17/17 11:15 04/17/17 11:16 DC 04/17/17 11:15 5 MG Piperacillin Sod/ Tazobactam Sod 2.25 gm/Sodium Chloride 50 ml @ 100 mls/hr Q6HRS 04/16/17 18:00 04/19/17 06:03 100 MLS/HR Sodium Chloride 1,000 ml @ 125 mls/hr Q8H 04/15/17 14:00 04/18/17 09:50 DC 04/18/17 06:20 125 MLS/HR Vancomycin HCl 1.5 gm/Sodium Chloride 500 ml @ 250 mls/hr 1X ONCE 04/16/17 18:30 04/16/17 20:29 DC 04/16/17 19:22 250 MLS/HR Warfarin Sodium (Coumadin - No Dose Today) 1 each 1X WARF ONCE 04/18/17 16:00 04/18/17 16:01 DC Warfarin Sodium (Coumadin Per Pharmacy) 1 each PRN DAILY PRN 04/15/17 15:15 04/18/17 11:27 1 EACH Warfarin Sodium (Coumadin) 0.5 mg 1X WARF ONCE 04/15/17 16:00 04/15/17 16:01 DC Lab Laboratory Tests Test 04/18/17 12:32 04/18/17 17:31 04/19/17 04:45 04/19/17 07:00 Glucose (Fingerstick) 137 mg/dL (70-99) 142 mg/dL (70-99) 116 mg/dL (70-99) White Blood Count 9.7 x10^3/uL (4.0-11.0) Red Blood Count 3.05 x10^6/uL (4.30-5.70) Hemoglobin 8.3 g/dL (13.0-17.5) Hematocrit 26.0 % (39.0-53.0) Mean Corpuscular Volume 85 fL (79-100) Mean Corpuscular Hemoglobin 27 pg (25-35) Mean Corpuscular Hemoglobin Concent 32 g/dL (31-37) Red Cell Distribution Width 17.3 % (11.5-14.5) Platelet Count 140 x10^3/uL (140-400) Neutrophils (%) (Auto) 90 % (31-73) Lymphocytes (%) (Auto) 2 % (24-48) Monocytes (%) (Auto) 7 % (0-9) Eosinophils (%) (Auto) 0 % (0-3) Basophils (%) (Auto) 0 % (0-3) Neutrophils # (Auto) 8.7 x10^3uL (1.8-7.7) Lymphocytes # (Auto) 0.2 x10^3/uL (1.0-4.8) Monocytes # (Auto) 0.7 x10^3/uL (0.0-1.1) Eosinophils # (Auto) 0.0 x10^3/uL (0.0-0.7) Basophils # (Auto) 0.0 x10^3/uL (0.0-0.2) Prothrombin Time 24.2 SEC (11.7-14.0) Prothromb Time International Ratio 2.3 (0.8-1.1) Sodium Level 143 mmol/L (136-145) Potassium Level 4.2 mmol/L (3.5-5.1) Chloride Level 109 mmol/L (98-107) Carbon Dioxide Level 21 mmol/L (21-32) Anion Gap 13 (6-14) Blood Urea Nitrogen 83 mg/dL (8-26) Creatinine 3.0 mg/dL (0.7-1.3) Estimated GFR (Cockcroft-Gault) 20.3 Glucose Level 127 mg/dL (70-99) Lactic Acid Level 1.1 mmol/L (0.4-2.0) Calcium Level 7.7 mg/dL (8.5-10.1) Phosphorus Level 5.1 mg/dL (2.6-4.7) Magnesium Level 2.3 mg/dL (1.8-2.4) Albumin 2.1 g/dL (3.4-5.0) NAKIA PEREZ MD Apr 19, 2017 10:17
--- NOTE | 2017-04-19 11:09 | PDOC ---
PROGRESS NOTES Chief Complaint Chief Complaint cc: low blood pressures A/P 1. Shock, possible hypovolemic: off vasopressors, Hold IVF due to increased swelling 2. Ascites, with cirrhosis and : IV Zosyn ,blood cx positive GPC/GPR,finals pending. 3. Abdominal pain:Pneumoperitoneum due to posable viscus perforation, not able to do paracentesis due to elevated INR, s/p vitamin K on 04/17/17, consult surgery, clinically better on abx, not a surgical candidate now. 4. Chronic atrial fibrillation, rate controlled. hold Coumadin. 5. Acute kidney injury on chronic kidney disease 4.: Possible due to VMN, Volume resuscitation, d/w Nephrology, good out put, 6. History of congestive heart failure. 7. Type 2 diabetes mellitus: SSI 8. Cardiomyopathy with EF 30% : Consult cardiology, limit IV Fluids, 9. Anemia of chronic disease. History of Present Illness History of Present Illness making good urine no fever doing better Vitals Vitals Vital Signs Date Time Temp Pulse Resp B/P (MAP) Pulse Ox O2 Delivery O2 Flow Rate FiO2 04/19/17 10:00 60 19 96/58 (71) 98 Nasal Cannula 2.0 04/19/17 08:00 97.3 97.3 Physical Exam General: Alert, Oriented X3, Cooperative, No acute distress Heart: Regular rate, Normal S1, Normal S2 Lungs: Clear Abdomen: Normal bowel sounds, Soft, No tenderness, Other (fluid wave c/w cirrhosis, umb hernia, reducible) Extremities: No cyanosis, Other (+ edema) Skin: No breakdown, No significant lesion Labs LABS Laboratory Tests Test 04/18/17 12:32 04/18/17 17:31 04/19/17 04:45 04/19/17 07:00 Glucose (Fingerstick) 137 mg/dL (70-99) 142 mg/dL (70-99) 116 mg/dL (70-99) White Blood Count 9.7 x10^3/uL (4.0-11.0) Red Blood Count 3.05 x10^6/uL (4.30-5.70) Hemoglobin 8.3 g/dL (13.0-17.5) Hematocrit 26.0 % (39.0-53.0) Mean Corpuscular Volume 85 fL (79-100) Mean Corpuscular Hemoglobin 27 pg (25-35) Mean Corpuscular Hemoglobin Concent 32 g/dL (31-37) Red Cell Distribution Width 17.3 % (11.5-14.5) Platelet Count 140 x10^3/uL (140-400) Neutrophils (%) (Auto) 90 % (31-73) Lymphocytes (%) (Auto) 2 % (24-48) Monocytes (%) (Auto) 7 % (0-9) Eosinophils (%) (Auto) 0 % (0-3) Basophils (%) (Auto) 0 % (0-3) Neutrophils # (Auto) 8.7 x10^3uL (1.8-7.7) Lymphocytes # (Auto) 0.2 x10^3/uL (1.0-4.8) Monocytes # (Auto) 0.7 x10^3/uL (0.0-1.1) Eosinophils # (Auto) 0.0 x10^3/uL (0.0-0.7) Basophils # (Auto) 0.0 x10^3/uL (0.0-0.2) Prothrombin Time 24.2 SEC (11.7-14.0) Prothromb Time International Ratio 2.3 (0.8-1.1) Sodium Level 143 mmol/L (136-145) Potassium Level 4.2 mmol/L (3.5-5.1) Chloride Level 109 mmol/L (98-107) Carbon Dioxide Level 21 mmol/L (21-32) Anion Gap 13 (6-14) Blood Urea Nitrogen 83 mg/dL (8-26) Creatinine 3.0 mg/dL (0.7-1.3) Estimated GFR (Cockcroft-Gault) 20.3 Glucose Level 127 mg/dL (70-99) Lactic Acid Level 1.1 mmol/L (0.4-2.0) Calcium Level 7.7 mg/dL (8.5-10.1) Phosphorus Level 5.1 mg/dL (2.6-4.7) Magnesium Level 2.3 mg/dL (1.8-2.4) Albumin 2.1 g/dL (3.4-5.0) Comment Review of Relevant I have reviewed the following items ivon (where applicable) has been applied. Labs Laboratory Tests Test 04/17/17 12:49 04/17/17 17:33 04/17/17 22:08 04/18/17 03:49 Glucose (Fingerstick) 154 mg/dL (70-99) 170 mg/dL (70-99) 160 mg/dL (70-99) White Blood Count 12.0 x10^3/uL (4.0-11.0) Red Blood Count 3.08 x10^6/uL (4.30-5.70) Hemoglobin 8.3 g/dL (13.0-17.5) Hematocrit 26.2 % (39.0-53.0) Mean Corpuscular Volume 85 fL (79-100) Mean Corpuscular Hemoglobin 27 pg (25-35) Mean Corpuscular Hemoglobin Concent 32 g/dL (31-37) Red Cell Distribution Width 17.0 % (11.5-14.5) Platelet Count 150 x10^3/uL (140-400) Neutrophils (%) (Auto) 89 % (31-73) Lymphocytes (%) (Auto) 3 % (24-48) Monocytes (%) (Auto) 8 % (0-9) Eosinophils (%) (Auto) 0 % (0-3) Basophils (%) (Auto) 0 % (0-3) Neutrophils # (Auto) 10.6 x10^3uL (1.8-7.7) Lymphocytes # (Auto) 0.3 x10^3/uL (1.0-4.8) Monocytes # (Auto) 1.0 x10^3/uL (0.0-1.1) Eosinophils # (Auto) 0.0 x10^3/uL (0.0-0.7) Basophils # (Auto) 0.0 x10^3/uL (0.0-0.2) Reticulocyte Count (auto) 1.0 % (0.5-2.5) Prothrombin Time 34.2 SEC (11.7-14.0) Prothromb Time International Ratio 3.7 (0.8-1.1) Sodium Level 139 mmol/L (136-145) Potassium Level 4.3 mmol/L (3.5-5.1) Chloride Level 106 mmol/L (98-107) Carbon Dioxide Level 20 mmol/L (21-32) Anion Gap 13 (6-14) Blood Urea Nitrogen 90 mg/dL (8-26) Creatinine 3.3 mg/dL (0.7-1.3) Estimated GFR (Cockcroft-Gault) 18.2 Glucose Level 144 mg/dL (70-99) Calcium Level 7.3 mg/dL (8.5-10.1) Iron Level 9 ug/dL (65-175) Total Iron Binding Capacity 305 ug/dL (250-450) Iron Saturation 3 % (15-34) Ferritin 164 ng/mL (26-388) Thyroid Stimulating Hormone (TSH) 3.753 uIU/mL (0.358-3.74) Free Thyroxine 1.02 ng/dL (0.76-1.46) Test 04/18/17 07:46 04/18/17 12:32 04/18/17 17:31 04/19/17 04:45 Glucose (Fingerstick) 124 mg/dL (70-99) 137 mg/dL (70-99) 142 mg/dL (70-99) White Blood Count 9.7 x10^3/uL (4.0-11.0) Red Blood Count 3.05 x10^6/uL (4.30-5.70) Hemoglobin 8.3 g/dL (13.0-17.5) Hematocrit 26.0 % (39.0-53.0) Mean Corpuscular Volume 85 fL (79-100) Mean Corpuscular Hemoglobin 27 pg (25-35) Mean Corpuscular Hemoglobin Concent 32 g/dL (31-37) Red Cell Distribution Width 17.3 % (11.5-14.5) Platelet Count 140 x10^3/uL (140-400) Neutrophils (%) (Auto) 90 % (31-73) Lymphocytes (%) (Auto) 2 % (24-48) Monocytes (%) (Auto) 7 % (0-9) Eosinophils (%) (Auto) 0 % (0-3) Basophils (%) (Auto) 0 % (0-3) Neutrophils # (Auto) 8.7 x10^3uL (1.8-7.7) Lymphocytes # (Auto) 0.2 x10^3/uL (1.0-4.8) Monocytes # (Auto) 0.7 x10^3/uL (0.0-1.1) Eosinophils # (Auto) 0.0 x10^3/uL (0.0-0.7) Basophils # (Auto) 0.0 x10^3/uL (0.0-0.2) Prothrombin Time 24.2 SEC (11.7-14.0) Prothromb Time International Ratio 2.3 (0.8-1.1) Sodium Level 143 mmol/L (136-145) Potassium Level 4.2 mmol/L (3.5-5.1) Chloride Level 109 mmol/L (98-107) Carbon Dioxide Level 21 mmol/L (21-32) Anion Gap 13 (6-14) Blood Urea Nitrogen 83 mg/dL (8-26) Creatinine 3.0 mg/dL (0.7-1.3) Estimated GFR (Cockcroft-Gault) 20.3 Glucose Level 127 mg/dL (70-99) Lactic Acid Level 1.1 mmol/L (0.4-2.0) Calcium Level 7.7 mg/dL (8.5-10.1) Phosphorus Level 5.1 mg/dL (2.6-4.7) Magnesium Level 2.3 mg/dL (1.8-2.4) Albumin 2.1 g/dL (3.4-5.0) Test 04/19/17 07:00 Glucose (Fingerstick) 116 mg/dL (70-99) Laboratory Tests Test 04/18/17 12:32 04/18/17 17:31 04/19/17 04:45 04/19/17 07:00 Glucose (Fingerstick) 137 mg/dL (70-99) 142 mg/dL (70-99) 116 mg/dL (70-99) White Blood Count 9.7 x10^3/uL (4.0-11.0) Red Blood Count 3.05 x10^6/uL (4.30-5.70) Hemoglobin 8.3 g/dL (13.0-17.5) Hematocrit 26.0 % (39.0-53.0) Mean Corpuscular Volume 85 fL (79-100) Mean Corpuscular Hemoglobin 27 pg (25-35) Mean Corpuscular Hemoglobin Concent 32 g/dL (31-37) Red Cell Distribution Width 17.3 % (11.5-14.5) Platelet Count 140 x10^3/uL (140-400) Neutrophils (%) (Auto) 90 % (31-73) Lymphocytes (%) (Auto) 2 % (24-48) Monocytes (%) (Auto) 7 % (0-9) Eosinophils (%) (Auto) 0 % (0-3) Basophils (%) (Auto) 0 % (0-3) Neutrophils # (Auto) 8.7 x10^3uL (1.8-7.7) Lymphocytes # (Auto) 0.2 x10^3/uL (1.0-4.8) Monocytes # (Auto) 0.7 x10^3/uL (0.0-1.1) Eosinophils # (Auto) 0.0 x10^3/uL (0.0-0.7) Basophils # (Auto) 0.0 x10^3/uL (0.0-0.2) Prothrombin Time 24.2 SEC (11.7-14.0) Prothromb Time International Ratio 2.3 (0.8-1.1) Sodium Level 143 mmol/L (136-145) Potassium Level 4.2 mmol/L (3.5-5.1) Chloride Level 109 mmol/L (98-107) Carbon Dioxide Level 21 mmol/L (21-32) Anion Gap 13 (6-14) Blood Urea Nitrogen 83 mg/dL (8-26) Creatinine 3.0 mg/dL (0.7-1.3) Estimated GFR (Cockcroft-Gault) 20.3 Glucose Level 127 mg/dL (70-99) Lactic Acid Level 1.1 mmol/L (0.4-2.0) Calcium Level 7.7 mg/dL (8.5-10.1) Phosphorus Level 5.1 mg/dL (2.6-4.7) Magnesium Level 2.3 mg/dL (1.8-2.4) Albumin 2.1 g/dL (3.4-5.0) Medications Current Medications Acetaminophen (Tylenol) 325 mg PRN Q6HRS PRN PO MILD PAIN / TEMP; Start at 14:00 Acetaminophen/ Hydrocodone Bitart (Lortab 5/325) 1 tab PRN Q6HRS PRN PO MODERATE TO SEVERE PAIN; Start 04/15/17 at 14:00 Hydralazine HCl (Apresoline) 10 mg PRN Q4HRS PRN IVP ELEVATED BP, SEE COMMENTS ; Start 04/15/17 at 14:00 Ondansetron HCl (Zofran) 4 mg PRN Q8HRS PRN IV NAUSEA/VOMITING; Start 04/15/17 at 14:00 Albuterol Sulfate (Ventolin Neb Soln) 2.5 mg PRN Q4HRS PRN NEB SHORTNESS OF BREATH Last administered on 04/17/17 08:28; Start 04/15/17 at 14:00 Sodium Chloride 1,000 ml @ 125 mls/hr Q8H IV Last administered on 04/18/17 06 :20; Start 04/15/17 at 14:00; Stop 04/18/17 at 09:50; Status DC Norepinephrine Bitartrate 250 ml @ 0 mls/hr CONT PRN IV SEE I/O RECORD Last administered on 04/18/17 06:22; Start 04/15/17 at 14:00 Ceftriaxone Sodium 1 gm/ Sodium Chloride 50 ml @ 100 mls/hr Q24H IV ; Start at 16:00; Stop 04/15/17 at 16:00; Status DC Warfarin Sodium (Coumadin Per Pharmacy) 1 each PRN DAILY PRN MC SEE COMMENTS Last administered on 04/19/17 10:53; Start 04/15/17 at 15:15 Amiodarone HCl (Cordarone) 200 mg DAILY PO Last administered on 04/18/17 09:19 ; Start 04/16/17 at 09:00; Stop 04/18/17 at 17:42; Status DC Aspirin (Children'S Aspirin) 81 mg DAILYWBKFT PO Last administered on 07:42; Start 04/16/17 at 08:00; Stop 04/18/17 at 17:43; Status DC Cyanocobalamin (Vitamin B-12) 1,000 mcg AFTRNOON PO Last administered on 13:13; Start 04/16/17 at 13:00; Stop 04/18/17 at 17:33; Status DC Levothyroxine Sodium (Synthroid) 88 mcg DAILY07 PO Last administered on 08:44; Start 04/16/17 at 07:00 Warfarin Sodium (Coumadin) 1 mg DAILY PO ; Start 04/16/17 at 09:00; Status UNV Insulin Aspart (NovoLOG) 0-9 UNITS TIDWMEALS SQ Last administered on 04/17/17 17:34; Start 04/15/17 at 17:00 Dextrose (Dextrose 50%-Water Syringe) 12.5 gm PRN Q15MIN PRN IV SEE COMMENTS; Start 04/15/17 at 15:30 Warfarin Sodium (Coumadin) 0.5 mg 1X WARF ONCE PO ; Start 04/15/17 at 16:00; Stop 04/15/17 at 16:01; Status DC Pantoprazole Sodium (Protonix Vial) 40 mg DAILYAC IVP Last administered on 04/19 08:44; Start 04/15/17 at 16:30 Ceftriaxone Sodium 1 gm/ Sodium Chloride 50 ml @ 100 mls/hr Q24H IV Last administered on 04/16/17 09:12; Start 04/16/17 at 09:00; Stop 04/16/17 at 17:42 ; Status DC Warfarin Sodium (Coumadin - No Dose Today) 1 each 1X WARF ONCE MC ; Start 04/16 at 16:00; Stop 04/16/17 at 16:01; Status DC Darbepoetin Tomás (Aranesp) 60 mcg Sa SQ Last administered on 04/16/17 20:45; Start 04/16/17 at 21:00 Piperacillin Sod/ Tazobactam Sod 2.25 gm/Sodium Chloride 50 ml @ 100 mls/hr Q6HRS IV Last administered on 04/19/17 06:03; Start 04/16/17 at 18:00 Vancomycin HCl 1.5 gm/Sodium Chloride 500 ml @ 250 mls/hr 1X ONCE IV Last administered on 04/16/17 19:22; Start 04/16/17 at 18:30; Stop 04/16/17 at 20:29 ; Status DC Phytonadione (Mephyton) 5 mg 1X ONCE PO Last administered on 04/17/17 11:15; Start 04/17/17 at 11:15; Stop 04/17/17 at 11:16; Status DC Magnesium Sulfate/ Dextrose 50 ml @ 25 mls/hr PRN DAILY PRN IV for Mag < 1.7 on am labs; Start 04/18/17 at 09:45 Warfarin Sodium (Coumadin - No Dose Today) 1 each 1X WARF ONCE MC ; Start 04/18 at 16:00; Stop 04/18/17 at 16:01; Status DC Morphine Sulfate 2 mg PRN Q2HR PRN IV PAIN; Start 04/18/17 at 17:45 Iron Sucrose 200 mg/Sodium Chloride 110 ml @ 55 mls/hr 3X/WEEK IV ; Start 04/20 at 09:00; Stop 04/29/17 at 10:59 Warfarin Sodium (Coumadin - No Dose Today) 1 each 1X WARF ONCE MC ; Start 04/19 at 16:00; Stop 04/19/17 at 16:01 Active Scripts Active Reported Potassium Chloride 10 Meq Capsule.er 10 Meq PO 3X/WEEK Vitamin B-12 (Cyanocobalamin (Vitamin B-12)) 1,000 Mcg Tablet 1 Tab PO AFTRNOON Vitamin D (Cholecalciferol (Vitamin D3)) 1,000 Unit Capsule 1 Cap PO HS Vitamin E (Vitamin E (Dl,Tocopheryl Acet)) 200 Unit Capsule 200 Unit PO AFTRNOON Novolin 70-30 100 Unit/Ml Vial (Hum Insulin Nph/Reg Insulin Hm) 100 Unit/1 Ml Vial 13 Unit SQ HS Levothyroxine Sodium 88 Mcg Tablet 1 Tab PO DAILY Carvedilol 6.25 Mg Tablet 1 Tab PO BID Fosamax (Alendronate Sodium) 70 Mg Tablet 1 Tab PO WEEKLY 1 Days Amiodarone Hcl 200 Mg Tablet 1 Tab PO DAILY Aspirin 81 Mg Tab.chew 1 Tab PO DAILY Warfarin Sodium 1 Mg Tablet 1 Mg PO DAILY Crestor (Rosuvastatin Calcium) 5 Mg Tablet 5 Mg PO HS Furosemide 40 Mg Tablet 40 Mg PO BID Vitals/I & O Vital Sign - Last 24 Hours 04/18/17 04/18/17 04/18/17 04/18/17 12:00 12:00 13:00 14:00 Temp 97.1 97.1 Pulse 60 68 60 Resp 22 28 22 B/P (MAP) 106/58 (74) 93/65 (74) 110/64 (79) Pulse Ox 94 95 94 O2 Delivery Nasal Cannula Nasal Cannula Nasal Cannula Nasal Cannula O2 Flow Rate 2.0 2.0 2.0 2.0 04/18/17 04/18/17 04/18/1704/18/17 15:00 16:00 16:00 17:00 Temp 97.4 97.4 Pulse 60 61 60 Resp B/P (MAP) 109/63 (78) 109/70 (83) 99/64 (76) Pulse Ox 93 99 96 O2 Delivery Nasal Cannula Nasal Cannula Nasal Cannula Nasal Cannula O2 Flow Rate 2.0 2.0 2.0 2.0 04/18/17 04/18/17 04/18/17 04/18/17 18:00 19:00 20:00 20:58 Temp 97.8 97.8 Pulse 60 60 60 Resp B/P (MAP) 99/57 (71) 100/59 (73) 105/59 (74) Pulse Ox 98 96 95 O2 Delivery Nasal Cannula Nasal Cannula Nasal Cannula Nasal Cannula O2 Flow Rate 2.0 2.0 2.0 2.0 04/18/17 04/18/17 04/18/17 04/19/17 21:00 22:00 23:00 00:00 Pulse 60 61 60 Resp B/P (MAP) 102/63 (76) 97/63 (74) 94/55 (68) Pulse Ox 97 99 98 O2 Delivery Nasal Cannula Nasal Cannula Nasal Cannula Nasal Cannula O2 Flow Rate 2.0 2.0 2.0 2.0 04/19/17 04/19/17 04/19/17 04/19/17 00:00 01:00 02:00 03:00 Temp 98.4 98.4 Pulse 64 63 62 62 Resp 24 B/P (MAP) 99/58 (72) 98/62 (74) 80/50 (60) 95/56 (69) Pulse Ox 96 99 98 98 O2 Delivery Nasal Cannula Nasal Cannula Nasal Cannula Nasal Cannula O2 Flow Rate 2.0 2.0 2.0 2.0 04/19/17 04/19/17 04/19/17 04/19/17 04:00 04:00 05:00 06:00 Temp 97.8 97.8 Pulse 60 60 60 Resp B/P (MAP) 111/65 (80) 92/69 (77) 93/62 (72) Pulse Ox 96 98 98 O2 Delivery Nasal Cannula Nasal Cannula Nasal Cannula Nasal Cannula O2 Flow Rate 2.0 2.0 2.0 2.0 04/19/17 04/19/17 04/19/17 04/19/17 07:00 08:00 08:00 09:00 Temp 97.3 97.3 Pulse 61 61 60 Resp 26 25 25 B/P (MAP) 92/56 (68) 85/52 (63) 101/61 (74) Pulse Ox 99 97 99 O2 Delivery Nasal Cannula Nasal Cannula Nasal Cannula Nasal Cannula O2 Flow Rate 2.0 2.0 2.0 2.0 04/19/17 10:00 Pulse 60 Resp 19 B/P (MAP) 96/58 (71) Pulse Ox 98 O2 Delivery Nasal Cannula O2 Flow Rate 2.0 Intake and Output 04/18/17 04/18/17 04/19/17 15:00 23:00 07:00 Intake Total 655 ml 420 ml 272 ml Output Total 635 ml 725 ml 565 ml Balance 20 ml -305 ml -293 ml SEVERIANO CORDOBA MD Apr 19, 2017 11:09
--- NOTE | 2017-04-19 12:36 | PDOC ---
ARAM TROTTER MANAGER [place] 04/19/17 1236: CARDIO Progress Notes Date and Time Date of Service 04/19/17 Time of Evaluation 1055 Subjective Subjective: No Chest Pain, Other (Mild SOA, abdominal distention) Vitals Vitals Vital Signs Date Time Temp Pulse Resp B/P (MAP) Pulse Ox O2 Delivery O2 Flow Rate FiO2 04/19/17 11:00 60 23 90/59 (69) 100 Nasal Cannula 2.0 04/19/17 08:00 97.3 97.3 Weight Weight [ ] Input and Output Intake and Output Intake and Output 04/19/17 07:00 Intake Total 1347 ml Output Total 1925 ml Balance -578 ml Intake Oral 605 ml IV Total 742 ml Output Urine Total 1925 ml # Bowel Movements 1 Laboratory Labs Laboratory Tests Test 04/18/17 12:32 04/18/17 17:31 04/19/17 04:45 04/19/17 07:00 Glucose (Fingerstick) 137 mg/dL (70-99) 142 mg/dL (70-99) 116 mg/dL (70-99) White Blood Count 9.7 x10^3/uL (4.0-11.0) Red Blood Count 3.05 x10^6/uL (4.30-5.70) Hemoglobin 8.3 g/dL (13.0-17.5) Hematocrit 26.0 % (39.0-53.0) Mean Corpuscular Volume 85 fL (79-100) Mean Corpuscular Hemoglobin 27 pg (25-35) Mean Corpuscular Hemoglobin Concent 32 g/dL (31-37) Red Cell Distribution Width 17.3 % (11.5-14.5) Platelet Count 140 x10^3/uL (140-400) Neutrophils (%) (Auto) 90 % (31-73) Lymphocytes (%) (Auto) 2 % (24-48) Monocytes (%) (Auto) 7 % (0-9) Eosinophils (%) (Auto) 0 % (0-3) Basophils (%) (Auto) 0 % (0-3) Neutrophils # (Auto) 8.7 x10^3uL (1.8-7.7) Lymphocytes # (Auto) 0.2 x10^3/uL (1.0-4.8) Monocytes # (Auto) 0.7 x10^3/uL (0.0-1.1) Eosinophils # (Auto) 0.0 x10^3/uL (0.0-0.7) Basophils # (Auto) 0.0 x10^3/uL (0.0-0.2) Prothrombin Time 24.2 SEC (11.7-14.0) Prothromb Time International Ratio 2.3 (0.8-1.1) Sodium Level 143 mmol/L (136-145) Potassium Level 4.2 mmol/L (3.5-5.1) Chloride Level 109 mmol/L (98-107) Carbon Dioxide Level 21 mmol/L (21-32) Anion Gap 13 (6-14) Blood Urea Nitrogen 83 mg/dL (8-26) Creatinine 3.0 mg/dL (0.7-1.3) Estimated GFR (Cockcroft-Gault) 20.3 Glucose Level 127 mg/dL (70-99) Lactic Acid Level 1.1 mmol/L (0.4-2.0) Calcium Level 7.7 mg/dL (8.5-10.1) Phosphorus Level 5.1 mg/dL (2.6-4.7) Magnesium Level 2.3 mg/dL (1.8-2.4) Albumin 2.1 g/dL (3.4-5.0) Review of Systems Constitutional: yes: weakness, alert, oriented Ears/Nose/Throat: Yes: no symptom reported Eyes: Yes: no symptom reported Pulmonary: Yes no symptom reported Cardiovascular: Yes no symptom reported Gastrointestional: Yes: constipation Genitourinary: Yes: no symptom reported Musculoskeletal: Yes: muscle stiffness Skin: Yes no symptom reported Physical Exam HEENT: Neck Supple W Full Motion Chest: Symmetric LUNGS: Other (bibasilar crackles ) Heart: S1S2, RRR, other (v-paced with underlying SR) Abdomen: Other (firm, distended abdomen ) Extremities: Other (2-3+ bilateral LE edema with chronic venous stasis changes , trace bilateral hand edema) Neurology: alert, oriented Assessment Assessment 1. Acute on chronic systolic HF 2. ICM; LVEF 35% s/p AICD 3. CAD s/p CABG 4. H/o AFIB 5. Hypotension; off pressor support 6. Hyperlipidemia 7. Leukocytosis with bacteremia; ?sepsis 8. HERIBERTO with CKD 9. H/o Cirrhosis (recently diagnosed) with present ascites 10. ? pneumoperitoneum Recommendations Discontinue Amiodarone as etiology of cirrhosis is unclear. Further workup as per GI. OAC on hold with plan for paracentesis Will defer aggressive diuresis with hypotension for now. Could consider milrinone therapy if patient becomes more symptomatic. Paracentesis when able. Continue antibiotic therapy as per ID Supportive care Records from obtained: - Most recent echo with an EF of 30%. - RHC 10/28/16 show RA pressure of 5. RV pressure of 28x6. PAP of . Wedge was 7. Problems: STEVE BOLES MD 04/19/17 2300: CARDIO Progress Notes Plan Plan Pt. seen and examined. Agree with above PIANO REFINISHER note. He has significant edema on exam. RA pressures elevated with +Kussmaul sign. Will add dopamine/lasix to therapy. PLan for aggressive diuresis. Will follow along. ARAM TROTTER APRN Apr 19, 2017 12:36 STEVE BOLES MD Apr 19, 2017 23:00
--- NOTE | 2017-04-19 12:37 | PDOC ---
Objective: Objective: No GI concerns per RN. Received vit K yesterday. Reviewed surg notes, d/w cardiology. Vital Signs: Vital Signs Date Time Temp Pulse Resp B/P (MAP) Pulse Ox O2 Delivery O2 Flow Rate FiO2 04/19/17 11:00 60 23 90/59 (69) 100 Nasal Cannula 2.0 04/19/17 08:00 97.3 97.3 Labs: Laboratory Tests Test 04/18/17 12:32 04/18/17 17:31 04/19/17 07:00 Glucose (Fingerstick) 137 mg/dL (70-99) 142 mg/dL (70-99) 116 mg/dL (70-99) Imaging: CT A/P w/o contrast 04/18/17 IMPRESSION: Pneumoperitoneum is confirmed. The etiology is unclear but a ruptured viscus would be the leading consideration. Extensive abdominal ascites. Suspect cirrhosis. Moderate bilateral pleural effusions. Volume loss at the lung bases compatible with atelectasis or pneumonia. CXR 04/18/17 IMPRESSION: Air below the right hemidiaphragm and probably the left. Ruptured viscus is the leading consideration.. CT imaging of the abdomen and pelvis should be considered PE: GEN: seems a little SOA LUNGS: decreased, nasal cannula HEART: RRR ABD: distended EXTREMITY/SKIN: BLE edema, dermatitis NEURO/PSYCH: A & O 3 A/P: Ascites (new onset), cirrhosis, coagulopathy -now relates diagnosis of cirrhosis a few months ago -Hep panel negative -paracentesis ordered but on hold, INR improved today TAMEKA -no previous EGD, last colonoscopy 2014 -on IV iron CHF, hypotension, A Fib Pneumoperitoneum -noted on CXR yesterday, confirmed w/ CT, surgery following (?diverticular disease) -- ?etiology of cirrhosis Will review w/ Dr. Lau. YUNIOR RESENDIZ Apr 19, 2017 12:37
[2017-04-19] MEDS: FUROSEMIDE INJ 100 MG in IV NORMAL SALINE 100ML 100 ML IV PRN (16:24)
[2017-04-19] MEDS ORDERED: FUROSEMIDE 40 MG/4 ML VIAL. IVP ONE (16:30)
[2017-04-19] MEDS: ALBUTEROL SULFATE 2.5 MG/3 ML NEBU. NEB PRN (16:45)
[2017-04-20] VITALS (34 sets, daily range): BP systolic 63–120; BP diastolic 42–76
[2017-04-20 05:18] LABS: BASO % 0 % (0-3); EOS % 0 % (0-3); HEMATOCRIT 24.7 % (39.0-53.0); HEMOGLOBIN 7.9 g/dL (13.0-17.5); LYMPH # 0.3 x10^3/uL (1.0-4.8); LYMPH % 3 % (24-48); MEAN CORPUSCULAR HEMOGLOBIN 27 pg (25-35); MEAN CORPUSCULAR HGB CONC 32 g/dL (31-37); MEAN CORPUSCULAR VOLUME 85 fL (79-100); MONO % 7 % (0-9); NEUT % 90 % (31-73); PLATELET COUNT 142 x10^3/uL (140-400); RED BLOOD COUNT 2.91 x10^6/uL (4.30-5.70); RED CELL DISTRIBUTION WIDTH 16.7 % (11.5-14.5); WHITE BLOOD COUNT 7.8 x10^3/uL (4.0-11.0)
[2017-04-20 05:26] LABS: INR 2.3 (0.8-1.1); PROTHROMBIN TIME PATIENT 23.9 SEC (11.7-14.0)
[2017-04-20] MEDS: FUROSEMIDE INJ 100 MG in IV NORMAL SALINE 100ML 100 ML IV PRN (05:29)
[2017-04-20 05:45] LABS: ALBUMIN 1.9 g/dL (3.4-5.0); CALCIUM 8.1 mg/dL (8.5-10.1); CREATININE 2.9 mg/dL (0.7-1.3); GFR 21.1; PHOSPHORUS 4.9 mg/dL (2.6-4.7); POTASSIUM 3.6 mmol/L (3.5-5.1)
[2017-04-20] MEDS: PIPERACILLIN/TAZOBACTAM 2.25 GM in IV NORMAL SALINE 50ML 50 ML IV SCH ×4 (06:38→23:52)
[2017-04-20] MEDS: PANTOPRAZOLE IV PUSH 40 MG VIAL. IVP SCH (07:14)
[2017-04-20] MEDS: LEVOTHYROXINE 88 MCG TABLET PO SCH (07:14)
--- NOTE | 2017-04-20 07:55 | PDOC ---
Infectious Disease Note Subjective Subjective Feeling ok says, no complaints No fever last 24 hours ROS ROS GEN: Denies fevers, chills, sweats HEENT: Denies blurred vision, sore throat CV: Denies chest pain RESP: Denies shortness of air, cough GI: Denies n/v/d NEURO: Denies confusion, dizziness Vital Sign Vital Signs Vital Signs Date Time Temp Pulse Resp B/P (MAP) Pulse Ox O2 Delivery O2 Flow Rate FiO2 04/20/17 06:39 98.1 62 22 97/60 (72) 96 Nasal Cannula 2.0 98.1 Physical Exam PHYSICAL EXAM GENERAL: NAD, Alert HEENT: PERRL, OC/OP NECK: Supple, no JVD, no LN LUNGS: Clear HEART: S1S2, no gallop, no murmur ABD: Soft, NT, no organomegaly, no rebound EXT: No edema, no cyanosis , ascites + 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: Alert, 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, no focal neurologic deficit SKIN: No rash IV: ok Labs Lab Laboratory Tests Test 04/19/17 13:09 04/19/17 16:29 04/19/17 21:20 04/20/17 04:50 Glucose (Fingerstick) 115 mg/dL (70-99) 117 mg/dL (70-99) 110 mg/dL (70-99) White Blood Count 7.8 x10^3/uL (4.0-11.0) Red Blood Count 2.91 x10^6/uL (4.30-5.70) Hemoglobin 7.9 g/dL (13.0-17.5) Hematocrit 24.7 % (39.0-53.0) Mean Corpuscular Volume 85 fL (79-100) Mean Corpuscular Hemoglobin 27 pg (25-35) Mean Corpuscular Hemoglobin Concent 32 g/dL (31-37) Red Cell Distribution Width 16.7 % (11.5-14.5) Platelet Count 142 x10^3/uL (140-400) Neutrophils (%) (Auto) 90 % (31-73) Lymphocytes (%) (Auto) 3 % (24-48) Monocytes (%) (Auto) 7 % (0-9) Eosinophils (%) (Auto) 0 % (0-3) Basophils (%) (Auto) 0 % (0-3) Neutrophils # (Auto) 7.0 x10^3uL (1.8-7.7) Lymphocytes # (Auto) 0.3 x10^3/uL (1.0-4.8) Monocytes # (Auto) 0.5 x10^3/uL (0.0-1.1) Eosinophils # (Auto) 0.0 x10^3/uL (0.0-0.7) Basophils # (Auto) 0.0 x10^3/uL (0.0-0.2) Prothrombin Time 23.9 SEC (11.7-14.0) Prothromb Time International Ratio 2.3 (0.8-1.1) Sodium Level 146 mmol/L (136-145) Potassium Level 3.6 mmol/L (3.5-5.1) Chloride Level 112 mmol/L (98-107) Carbon Dioxide Level 22 mmol/L (21-32) Anion Gap 12 (6-14) Blood Urea Nitrogen 86 mg/dL (8-26) Creatinine 2.9 mg/dL (0.7-1.3) Estimated GFR (Cockcroft-Gault) 21.1 Glucose Level 115 mg/dL (70-99) Lactic Acid Level 0.8 mmol/L (0.4-2.0) Calcium Level 8.1 mg/dL (8.5-10.1) Phosphorus Level 4.9 mg/dL (2.6-4.7) Magnesium Level 2.3 mg/dL (1.8-2.4) Albumin 1.9 g/dL (3.4-5.0) Objective Assessment Hypotension BC + G + cocci and G + liza,, ID still pending Abdominal pain and distention/ascites/possible SBP Cirrhosis of liver Renal failure Leukocytosis Pneumoperitoneum Plan Plan of Care Zosyn One time dose vanc, 04/16 Await final cultures supportive care d/w KERWIN Yadav MD Apr 20, 2017 07:54
[2017-04-20] MEDS: INSULIN ASPART 300 UNITS/3 ML INSULN.PEN SQ SCH ×3 (08:00→17:00)
[2017-04-20] MEDS: IRON SUCROSE COMPLEX 200 MG in IV NORMAL SALINE 100ML 100 ML IV SCH (09:00)
--- NOTE | 2017-04-20 09:19 | PDOC ---
PROGRESS NOTES Chief Complaint Chief Complaint cc: low blood pressures A/P 1. Shock, possible hypovolemic: off vasopressors, with cardiomyopathy and low EF with extensive edema started on Dopamine gtt with Lasix drip, on electrolyte protocol 2. Ascites, with cirrhosis and : IV Zosyn ,blood cx positive GPC/GPR,finals pending. 3. Abdominal pain:Pneumoperitoneum due to posable viscus perforation, not able to do paracentesis due to elevated INR, s/p vitamin K on 04/17/17, consult surgery, clinically better on abx, not a surgical candidate now. 4. Chronic atrial fibrillation, rate controlled. hold Coumadin. 5. Acute kidney injury on chronic kidney disease 4.: Possible due to VMN, Volume resuscitation, good output with lasix, monitor electrolytes. 6. History of congestive heart failure. 7. Type 2 diabetes mellitus: SSI 8. Cardiomyopathy with EF 30% : cardiology following, on lasix gtt with dopamine. 9. Anemia of chronic disease. 10. Prognosis guarded. History of Present Illness History of Present Illness making good urine no fever doing better Vitals Vitals Vital Signs Date Time Temp Pulse Resp B/P (MAP) Pulse Ox O2 Delivery O2 Flow Rate FiO2 04/20/17 06:39 98.1 62 22 97/60 (72) 96 Nasal Cannula 2.0 98.1 Physical Exam General: Alert, Oriented X3, Cooperative, No acute distress Heart: Regular rate, Normal S1, Normal S2 Lungs: Clear Abdomen: Normal bowel sounds, Soft, No tenderness, Other (fluid wave c/w cirrhosis, umb hernia, reducible) Extremities: No cyanosis, Other (3+ edema) Skin: No breakdown, No significant lesion Labs LABS Laboratory Tests Test 04/19/17 13:09 04/19/17 16:29 04/19/17 21:20 04/20/17 04:50 Glucose (Fingerstick) 115 mg/dL (70-99) 117 mg/dL (70-99) 110 mg/dL (70-99) White Blood Count 7.8 x10^3/uL (4.0-11.0) Red Blood Count 2.91 x10^6/uL (4.30-5.70) Hemoglobin 7.9 g/dL (13.0-17.5) Hematocrit 24.7 % (39.0-53.0) Mean Corpuscular Volume 85 fL (79-100) Mean Corpuscular Hemoglobin 27 pg (25-35) Mean Corpuscular Hemoglobin Concent 32 g/dL (31-37) Red Cell Distribution Width 16.7 % (11.5-14.5) Platelet Count 142 x10^3/uL (140-400) Neutrophils (%) (Auto) 90 % (31-73) Lymphocytes (%) (Auto) 3 % (24-48) Monocytes (%) (Auto) 7 % (0-9) Eosinophils (%) (Auto) 0 % (0-3) Basophils (%) (Auto) 0 % (0-3) Neutrophils # (Auto) 7.0 x10^3uL (1.8-7.7) Lymphocytes # (Auto) 0.3 x10^3/uL (1.0-4.8) Monocytes # (Auto) 0.5 x10^3/uL (0.0-1.1) Eosinophils # (Auto) 0.0 x10^3/uL (0.0-0.7) Basophils # (Auto) 0.0 x10^3/uL (0.0-0.2) Prothrombin Time 23.9 SEC (11.7-14.0) Prothromb Time International Ratio 2.3 (0.8-1.1) Sodium Level 146 mmol/L (136-145) Potassium Level 3.6 mmol/L (3.5-5.1) Chloride Level 112 mmol/L (98-107) Carbon Dioxide Level 22 mmol/L (21-32) Anion Gap 12 (6-14) Blood Urea Nitrogen 86 mg/dL (8-26) Creatinine 2.9 mg/dL (0.7-1.3) Estimated GFR (Cockcroft-Gault) 21.1 Glucose Level 115 mg/dL (70-99) Lactic Acid Level 0.8 mmol/L (0.4-2.0) Calcium Level 8.1 mg/dL (8.5-10.1) Phosphorus Level 4.9 mg/dL (2.6-4.7) Magnesium Level 2.3 mg/dL (1.8-2.4) Albumin 1.9 g/dL (3.4-5.0) Test 04/20/17 08:05 Glucose (Fingerstick) 116 mg/dL (70-99) Comment Review of Relevant I have reviewed the following items ivon (where applicable) has been applied. Labs Laboratory Tests Test 04/18/17 12:32 04/18/17 17:31 04/19/17 04:45 04/19/17 07:00 Glucose (Fingerstick) 137 mg/dL (70-99) 142 mg/dL (70-99) 116 mg/dL (70-99) White Blood Count 9.7 x10^3/uL (4.0-11.0) Red Blood Count 3.05 x10^6/uL (4.30-5.70) Hemoglobin 8.3 g/dL (13.0-17.5) Hematocrit 26.0 % (39.0-53.0) Mean Corpuscular Volume 85 fL (79-100) Mean Corpuscular Hemoglobin 27 pg (25-35) Mean Corpuscular Hemoglobin Concent 32 g/dL (31-37) Red Cell Distribution Width 17.3 % (11.5-14.5) Platelet Count 140 x10^3/uL (140-400) Neutrophils (%) (Auto) 90 % (31-73) Lymphocytes (%) (Auto) 2 % (24-48) Monocytes (%) (Auto) 7 % (0-9) Eosinophils (%) (Auto) 0 % (0-3) Basophils (%) (Auto) 0 % (0-3) Neutrophils # (Auto) 8.7 x10^3uL (1.8-7.7) Lymphocytes # (Auto) 0.2 x10^3/uL (1.0-4.8) Monocytes # (Auto) 0.7 x10^3/uL (0.0-1.1) Eosinophils # (Auto) 0.0 x10^3/uL (0.0-0.7) Basophils # (Auto) 0.0 x10^3/uL (0.0-0.2) Prothrombin Time 24.2 SEC (11.7-14.0) Prothromb Time International Ratio 2.3 (0.8-1.1) Sodium Level 143 mmol/L (136-145) Potassium Level 4.2 mmol/L (3.5-5.1) Chloride Level 109 mmol/L (98-107) Carbon Dioxide Level 21 mmol/L (21-32) Anion Gap 13 (6-14) Blood Urea Nitrogen 83 mg/dL (8-26) Creatinine 3.0 mg/dL (0.7-1.3) Estimated GFR (Cockcroft-Gault) 20.3 Glucose Level 127 mg/dL (70-99) Lactic Acid Level 1.1 mmol/L (0.4-2.0) Calcium Level 7.7 mg/dL (8.5-10.1) Phosphorus Level 5.1 mg/dL (2.6-4.7) Magnesium Level 2.3 mg/dL (1.8-2.4) Albumin 2.1 g/dL (3.4-5.0) Test 04/19/17 13:09 04/19/17 16:29 04/19/17 21:20 04/20/17 04:50 Glucose (Fingerstick) 115 mg/dL (70-99) 117 mg/dL (70-99) 110 mg/dL (70-99) White Blood Count 7.8 x10^3/uL (4.0-11.0) Red Blood Count 2.91 x10^6/uL (4.30-5.70) Hemoglobin 7.9 g/dL (13.0-17.5) Hematocrit 24.7 % (39.0-53.0) Mean Corpuscular Volume 85 fL (79-100) Mean Corpuscular Hemoglobin 27 pg (25-35) Mean Corpuscular Hemoglobin Concent 32 g/dL (31-37) Red Cell Distribution Width 16.7 % (11.5-14.5) Platelet Count 142 x10^3/uL (140-400) Neutrophils (%) (Auto) 90 % (31-73) Lymphocytes (%) (Auto) 3 % (24-48) Monocytes (%) (Auto) 7 % (0-9) Eosinophils (%) (Auto) 0 % (0-3) Basophils (%) (Auto) 0 % (0-3) Neutrophils # (Auto) 7.0 x10^3uL (1.8-7.7) Lymphocytes # (Auto) 0.3 x10^3/uL (1.0-4.8) Monocytes # (Auto) 0.5 x10^3/uL (0.0-1.1) Eosinophils # (Auto) 0.0 x10^3/uL (0.0-0.7) Basophils # (Auto) 0.0 x10^3/uL (0.0-0.2) Prothrombin Time 23.9 SEC (11.7-14.0) Prothromb Time International Ratio 2.3 (0.8-1.1) Sodium Level 146 mmol/L (136-145) Potassium Level 3.6 mmol/L (3.5-5.1) Chloride Level 112 mmol/L (98-107) Carbon Dioxide Level 22 mmol/L (21-32) Anion Gap 12 (6-14) Blood Urea Nitrogen 86 mg/dL (8-26) Creatinine 2.9 mg/dL (0.7-1.3) Estimated GFR (Cockcroft-Gault) 21.1 Glucose Level 115 mg/dL (70-99) Lactic Acid Level 0.8 mmol/L (0.4-2.0) Calcium Level 8.1 mg/dL (8.5-10.1) Phosphorus Level 4.9 mg/dL (2.6-4.7) Magnesium Level 2.3 mg/dL (1.8-2.4) Albumin 1.9 g/dL (3.4-5.0) Test 04/20/17 08:05 Glucose (Fingerstick) 116 mg/dL (70-99) Laboratory Tests Test 04/19/17 13:09 04/19/17 16:29 04/19/17 21:20 04/20/17 04:50 Glucose (Fingerstick) 115 mg/dL (70-99) 117 mg/dL (70-99) 110 mg/dL (70-99) White Blood Count 7.8 x10^3/uL (4.0-11.0) Red Blood Count 2.91 x10^6/uL (4.30-5.70) Hemoglobin 7.9 g/dL (13.0-17.5) Hematocrit 24.7 % (39.0-53.0) Mean Corpuscular Volume 85 fL (79-100) Mean Corpuscular Hemoglobin 27 pg (25-35) Mean Corpuscular Hemoglobin Concent 32 g/dL (31-37) Red Cell Distribution Width 16.7 % (11.5-14.5) Platelet Count 142 x10^3/uL (140-400) Neutrophils (%) (Auto) 90 % (31-73) Lymphocytes (%) (Auto) 3 % (24-48) Monocytes (%) (Auto) 7 % (0-9) Eosinophils (%) (Auto) 0 % (0-3) Basophils (%) (Auto) 0 % (0-3) Neutrophils # (Auto) 7.0 x10^3uL (1.8-7.7) Lymphocytes # (Auto) 0.3 x10^3/uL (1.0-4.8) Monocytes # (Auto) 0.5 x10^3/uL (0.0-1.1) Eosinophils # (Auto) 0.0 x10^3/uL (0.0-0.7) Basophils # (Auto) 0.0 x10^3/uL (0.0-0.2) Prothrombin Time 23.9 SEC (11.7-14.0) Prothromb Time International Ratio 2.3 (0.8-1.1) Sodium Level 146 mmol/L (136-145) Potassium Level 3.6 mmol/L (3.5-5.1) Chloride Level 112 mmol/L (98-107) Carbon Dioxide Level 22 mmol/L (21-32) Anion Gap 12 (6-14) Blood Urea Nitrogen 86 mg/dL (8-26) Creatinine 2.9 mg/dL (0.7-1.3) Estimated GFR (Cockcroft-Gault) 21.1 Glucose Level 115 mg/dL (70-99) Lactic Acid Level 0.8 mmol/L (0.4-2.0) Calcium Level 8.1 mg/dL (8.5-10.1) Phosphorus Level 4.9 mg/dL (2.6-4.7) Magnesium Level 2.3 mg/dL (1.8-2.4) Albumin 1.9 g/dL (3.4-5.0) Test 04/20/17 08:05 Glucose (Fingerstick) 116 mg/dL (70-99) Medications Current Medications Acetaminophen (Tylenol) 325 mg PRN Q6HRS PRN PO MILD PAIN / TEMP; Start at 14:00 Acetaminophen/ Hydrocodone Bitart (Lortab 5/325) 1 tab PRN Q6HRS PRN PO MODERATE TO SEVERE PAIN; Start 04/15/17 at 14:00 Hydralazine HCl (Apresoline) 10 mg PRN Q4HRS PRN IVP ELEVATED BP, SEE COMMENTS ; Start 04/15/17 at 14:00 Ondansetron HCl (Zofran) 4 mg PRN Q8HRS PRN IV NAUSEA/VOMITING; Start 04/15/17 at 14:00 Albuterol Sulfate (Ventolin Neb Soln) 2.5 mg PRN Q4HRS PRN NEB SHORTNESS OF BREATH Last administered on 04/19/17 16:45; Start 04/15/17 at 14:00 Sodium Chloride 1,000 ml @ 125 mls/hr Q8H IV Last administered on 04/18/17 06 :20; Start 04/15/17 at 14:00; Stop 04/18/17 at 09:50; Status DC Norepinephrine Bitartrate 250 ml @ 0 mls/hr CONT PRN IV SEE I/O RECORD Last administered on 04/18/17 06:22; Start 04/15/17 at 14:00 Ceftriaxone Sodium 1 gm/ Sodium Chloride 50 ml @ 100 mls/hr Q24H IV ; Start at 16:00; Stop 04/15/17 at 16:00; Status DC Warfarin Sodium (Coumadin Per Pharmacy) 1 each PRN DAILY PRN MC SEE COMMENTS Last administered on 04/19/17 10:53; Start 04/15/17 at 15:15 Amiodarone HCl (Cordarone) 200 mg DAILY PO Last administered on 04/18/17 09:19 ; Start 04/16/17 at 09:00; Stop 04/18/17 at 17:42; Status DC Aspirin (Children'S Aspirin) 81 mg DAILYWBKFT PO Last administered on 07:42; Start 04/16/17 at 08:00; Stop 04/18/17 at 17:43; Status DC Cyanocobalamin (Vitamin B-12) 1,000 mcg AFTRNOON PO Last administered on 13:13; Start 04/16/17 at 13:00; Stop 04/18/17 at 17:33; Status DC Levothyroxine Sodium (Synthroid) 88 mcg DAILY07 PO Last administered on 07:14; Start 04/16/17 at 07:00 Warfarin Sodium (Coumadin) 1 mg DAILY PO ; Start 04/16/17 at 09:00; Status UNV Insulin Aspart (NovoLOG) 0-9 UNITS TIDWMEALS SQ Last administered on 04/17/17 17:34; Start 04/15/17 at 17:00 Dextrose (Dextrose 50%-Water Syringe) 12.5 gm PRN Q15MIN PRN IV SEE COMMENTS; Start 04/15/17 at 15:30 Warfarin Sodium (Coumadin) 0.5 mg 1X WARF ONCE PO ; Start 04/15/17 at 16:00; Stop 04/15/17 at 16:01; Status DC Pantoprazole Sodium (Protonix Vial) 40 mg DAILYAC IVP Last administered on 04/20 07:14; Start 04/15/17 at 16:30 Ceftriaxone Sodium 1 gm/ Sodium Chloride 50 ml @ 100 mls/hr Q24H IV Last administered on 04/16/17 09:12; Start 04/16/17 at 09:00; Stop 04/16/17 at 17:42 ; Status DC Warfarin Sodium (Coumadin - No Dose Today) 1 each 1X WARF ONCE MC ; Start 04/16 at 16:00; Stop 04/16/17 at 16:01; Status DC Darbepoetin Tomás (Aranesp) 60 mcg Sa SQ Last administered on 04/16/17 20:45; Start 04/16/17 at 21:00 Piperacillin Sod/ Tazobactam Sod 2.25 gm/Sodium Chloride 50 ml @ 100 mls/hr Q6HRS IV Last administered on 04/20/17 06:38; Start 04/16/17 at 18:00 Vancomycin HCl 1.5 gm/Sodium Chloride 500 ml @ 250 mls/hr 1X ONCE IV Last administered on 04/16/17 19:22; Start 04/16/17 at 18:30; Stop 04/16/17 at 20:29 ; Status DC Phytonadione (Mephyton) 5 mg 1X ONCE PO Last administered on 04/17/17 11:15; Start 04/17/17 at 11:15; Stop 04/17/17 at 11:16; Status DC Magnesium Sulfate/ Dextrose 50 ml @ 25 mls/hr PRN DAILY PRN IV for Mag < 1.7 on am labs; Start 04/18/17 at 09:45 Warfarin Sodium (Coumadin - No Dose Today) 1 each 1X WARF ONCE MC ; Start 04/18 at 16:00; Stop 04/18/17 at 16:01; Status DC Morphine Sulfate 2 mg PRN Q2HR PRN IV PAIN; Start 04/18/17 at 17:45 Iron Sucrose 200 mg/Sodium Chloride 110 ml @ 55 mls/hr 3X/WEEK IV ; Start 04/20 at 09:00; Stop 04/29/17 at 10:59 Warfarin Sodium (Coumadin - No Dose Today) 1 each 1X WARF ONCE MC ; Start 04/19 at 16:00; Stop 04/19/17 at 16:01; Status DC Furosemide 100 mg/ Sodium Chloride 100 ml @ 0 mls/hr CONT PRN IV SEE I/O RECORD Last administered on 04/20/17t 05:29; Start 04/19/17 at 15:45 Furosemide (Lasix) 40 mg 1X ONCE IVP Last administered on 04/19/17t 16:26; Start 04/19/17 at 16:30; Stop 04/19/17 at 16:31; Status DC Active Scripts Active Reported Potassium Chloride 10 Meq Capsule.er 10 Meq PO 3X/WEEK Vitamin B-12 (Cyanocobalamin (Vitamin B-12)) 1,000 Mcg Tablet 1 Tab PO AFTRNOON Vitamin D (Cholecalciferol (Vitamin D3)) 1,000 Unit Capsule 1 Cap PO HS Vitamin E (Vitamin E (Dl,Tocopheryl Acet)) 200 Unit Capsule 200 Unit PO AFTRNOON Novolin 70-30 100 Unit/Ml Vial (Hum Insulin Nph/Reg Insulin Hm) 100 Unit/1 Ml Vial 13 Unit SQ HS Levothyroxine Sodium 88 Mcg Tablet 1 Tab PO DAILY Carvedilol 6.25 Mg Tablet 1 Tab PO BID Fosamax (Alendronate Sodium) 70 Mg Tablet 1 Tab PO WEEKLY 1 Days Amiodarone Hcl 200 Mg Tablet 1 Tab PO DAILY Aspirin 81 Mg Tab.chew 1 Tab PO DAILY Warfarin Sodium 1 Mg Tablet 1 Mg PO DAILY Crestor (Rosuvastatin Calcium) 5 Mg Tablet 5 Mg PO HS Furosemide 40 Mg Tablet 40 Mg PO BID Vitals/I & O Vital Sign - Last 24 Hours 04/19/17 04/19/17 04/19/17 04/19/17 10:00 11:00 12:00 12:00 Temp 97.5 97.5 Pulse 60 60 60 Resp 19 23 23 B/P (MAP) 96/58 (71) 90/59 (69) 95/59 (71) Pulse Ox 98 100 100 O2 Delivery Nasal Cannula Nasal Cannula Nasal Cannula Nasal Cannula O2 Flow Rate 2.0 2.0 2.0 2.0 04/19/17 04/19/17 04/19/17 04/19/17 13:00 14:00 15:00 16:00 Temp 97.5 97.5 Pulse 62 59 61 64 Resp 24 24 22 24 B/P (MAP) 94/57 (69) 95/63 (74) 94/60 (71) 100/61 (74) Pulse Ox 97 99 98 99 O2 Delivery Room Air Nasal Cannula Nasal Cannula Nasal Cannula O2 Flow Rate 2.0 2.0 2.0 2.0 04/19/17 04/19/17 04/19/17 04/19/17 16:00 16:46 17:00 18:00 Pulse 63 63 Resp 27 23 B/P (MAP) 93/58 (70) 91/56 (68) Pulse Ox 99 98 O2 Delivery Nasal Cannula Nasal Cannula Nasal Cannula Nasal Cannula O2 Flow Rate 2.0 2.0 2.0 2.0 04/19/17 04/19/17 04/19/17 04/19/17 19:18 19:25 20:09 21:08 Temp 97.5 97.5 Pulse 62 63 60 Resp 22 B/P (MAP) 87/53 (64) 97/56 (70) 84/52 (63) Pulse Ox 99 100 O2 Delivery Nasal Cannula Nasal Cannula Nasal Cannula O2 Flow Rate 3.0 3.0 3.0 04/19/17 04/19/17 04/19/17 04/20/17 22:04 23:03 23:53 00:08 Temp 98.4 98.4 Pulse 62 62 63 Resp 24 B/P (MAP) 92/50 (64) 84/50 (61) 87/50 (62) Pulse Ox 99 99 99 O2 Delivery Nasal Cannula Nasal Cannula Nasal Cannula Nasal Cannula O2 Flow Rate 2.0 2.0 2.0 2.0 04/20/17 04/20/17 04/20/17 04/20/17 00:52 01:18 02:22 03:49 Pulse 62 64 64 Resp B/P (MAP) 84/50 (61) 82/48 (59) 97/53 (68) Pulse Ox 98 98 99 O2 Delivery Nasal Cannula Nasal Cannula Nasal Cannula Nasal Cannula O2 Flow Rate 2.0 2.0 2.0 2.0 04/20/17 04/20/17 04/20/17 04/20/17 04:13 05:27 06:33 06:39 Temp 98.1 98.1 98.5 98.1 98.1 98.1 98.5 98.1 Pulse 61 65 109 62 Resp 24 22 B/P (MAP) 86/51 (63) 109/58 (75) 120/76 (91) 97/60 (72) Pulse Ox 98 96 97 96 O2 Delivery Nasal Cannula Nasal Cannula Nasal Cannula Nasal Cannula O2 Flow Rate 2.0 2.0 3.0 2.0 Intake and Output 04/19/17 04/19/17 04/20/17 14:59 22:59 06:59 Intake Total 20 ml 100 ml Output Total 500 ml 900 ml 1450 ml Balance -480 ml -800 ml -1450 ml SEVERIANO CORDOBA MD Apr 20, 2017 09:19
--- NOTE | 2017-04-20 09:31 | PDOC ---
Objective: Objective: Reviewed other notes, pt seen w/ Dr. Lau. Vital Signs: Vital Signs Date Time Temp Pulse Resp B/P (MAP) Pulse Ox O2 Delivery O2 Flow Rate FiO2 04/20/17 06:39 98.1 62 22 97/60 (72) 96 Nasal Cannula 2.0 98.1 Labs: Laboratory Tests Test 04/19/17 13:09 04/19/17 16:29 04/19/17 21:20 04/20/17 04:50 Glucose (Fingerstick) 115 mg/dL 117 mg/dL 110 mg/dL White Blood Count 7.8 x10^3/uL Red Blood Count 2.91 x10^6/uL Hemoglobin 7.9 g/dL Hematocrit 24.7 % Mean Corpuscular Volume 85 fL Mean Corpuscular Hemoglobin 27 pg Mean Corpuscular Hemoglobin Concent 32 g/dL Red Cell Distribution Width 16.7 % Platelet Count 142 x10^3/uL Neutrophils (%) (Auto) 90 % Lymphocytes (%) (Auto) 3 % Monocytes (%) (Auto) 7 % Eosinophils (%) (Auto) 0 % Basophils (%) (Auto) 0 % Neutrophils # (Auto) 7.0 x10^3uL Lymphocytes # (Auto) 0.3 x10^3/uL Monocytes # (Auto) 0.5 x10^3/uL Eosinophils # (Auto) 0.0 x10^3/uL Basophils # (Auto) 0.0 x10^3/uL Prothrombin Time 23.9 SEC Prothromb Time International Ratio 2.3 Sodium Level 146 mmol/L Potassium Level 3.6 mmol/L Chloride Level 112 mmol/L Carbon Dioxide Level 22 mmol/L Anion Gap 12 Blood Urea Nitrogen 86 mg/dL Creatinine 2.9 mg/dL Estimated GFR (Cockcroft-Gault) 21.1 Glucose Level 115 mg/dL Lactic Acid Level 0.8 mmol/L Calcium Level 8.1 mg/dL Phosphorus Level 4.9 mg/dL Magnesium Level 2.3 mg/dL Albumin 1.9 g/dL Test 04/20/17 08:05 Glucose (Fingerstick) 116 mg/dL PE: GEN: pale LUNGS: decreased, nasal cannula HEART: S1S2 ABD: distended NEURO/PSYCH: A & O 3 A/P: Pneumoperitoneum -surgery following, suspect diverticular disease Ascites (new onset), cirrhosis, coagulopathy -Hep panel negative -?etiology -cardiology holding amiodarone TAMEKA -no previous EGD, last colonoscopy 2014 -on IV iron CHF, hypotension, A Fib, edema -diuresis per cardiology +BC -- Continue same per GI. YUNIOR RESENDIZ Apr 20, 2017 09:31
--- NOTE | 2017-04-20 10:48 | PDOC ---
SURGICAL PROGRESS NOTE Subjective Pt without c/o, resting, but awakens easily, no c/o abd pain, notes bowel fxn Vital Signs Vital Signs Date Time Temp Pulse Resp B/P (MAP) Pulse Ox O2 Delivery O2 Flow Rate FiO2 04/20/17 10:00 60 21 90/42 (58) 97 Nasal Cannula 2.0 04/20/17 09:00 97.2 97.2 I&O Intake and Output 04/20/17 06:59 Intake Total 120 ml Output Total 2850 ml Balance -2730 ml Intake Oral 20 ml IV Total 100 ml Output Urine Total 2850 ml General: Alert, Oriented X3, Cooperative, No acute distress Abdomen: Soft, No tenderness, Other (positive fluid) Labs Laboratory Tests Test 04/18/17 12:32 04/18/17 17:31 04/19/17 04:45 04/19/17 07:00 Glucose (Fingerstick) 137 mg/dL (70-99) 142 mg/dL (70-99) 116 mg/dL (70-99) White Blood Count 9.7 x10^3/uL (4.0-11.0) Red Blood Count 3.05 x10^6/uL (4.30-5.70) Hemoglobin 8.3 g/dL (13.0-17.5) Hematocrit 26.0 % (39.0-53.0) Mean Corpuscular Volume 85 fL (79-100) Mean Corpuscular Hemoglobin 27 pg (25-35) Mean Corpuscular Hemoglobin Concent 32 g/dL (31-37) Red Cell Distribution Width 17.3 % (11.5-14.5) Platelet Count 140 x10^3/uL (140-400) Neutrophils (%) (Auto) 90 % (31-73) Lymphocytes (%) (Auto) 2 % (24-48) Monocytes (%) (Auto) 7 % (0-9) Eosinophils (%) (Auto) 0 % (0-3) Basophils (%) (Auto) 0 % (0-3) Neutrophils # (Auto) 8.7 x10^3uL (1.8-7.7) Lymphocytes # (Auto) 0.2 x10^3/uL (1.0-4.8) Monocytes # (Auto) 0.7 x10^3/uL (0.0-1.1) Eosinophils # (Auto) 0.0 x10^3/uL (0.0-0.7) Basophils # (Auto) 0.0 x10^3/uL (0.0-0.2) Prothrombin Time 24.2 SEC (11.7-14.0) Prothromb Time International Ratio 2.3 (0.8-1.1) Sodium Level 143 mmol/L (136-145) Potassium Level 4.2 mmol/L (3.5-5.1) Chloride Level 109 mmol/L (98-107) Carbon Dioxide Level 21 mmol/L (21-32) Anion Gap 13 (6-14) Blood Urea Nitrogen 83 mg/dL (8-26) Creatinine 3.0 mg/dL (0.7-1.3) Estimated GFR (Cockcroft-Gault) 20.3 Glucose Level 127 mg/dL (70-99) Lactic Acid Level 1.1 mmol/L (0.4-2.0) Calcium Level 7.7 mg/dL (8.5-10.1) Phosphorus Level 5.1 mg/dL (2.6-4.7) Magnesium Level 2.3 mg/dL (1.8-2.4) Albumin 2.1 g/dL (3.4-5.0) Test 04/19/17 13:09 04/19/17 16:29 04/19/17 21:20 04/20/17 04:50 Glucose (Fingerstick) 115 mg/dL (70-99) 117 mg/dL (70-99) 110 mg/dL (70-99) White Blood Count 7.8 x10^3/uL (4.0-11.0) Red Blood Count 2.91 x10^6/uL (4.30-5.70) Hemoglobin 7.9 g/dL (13.0-17.5) Hematocrit 24.7 % (39.0-53.0) Mean Corpuscular Volume 85 fL (79-100) Mean Corpuscular Hemoglobin 27 pg (25-35) Mean Corpuscular Hemoglobin Concent 32 g/dL (31-37) Red Cell Distribution Width 16.7 % (11.5-14.5) Platelet Count 142 x10^3/uL (140-400) Neutrophils (%) (Auto) 90 % (31-73) Lymphocytes (%) (Auto) 3 % (24-48) Monocytes (%) (Auto) 7 % (0-9) Eosinophils (%) (Auto) 0 % (0-3) Basophils (%) (Auto) 0 % (0-3) Neutrophils # (Auto) 7.0 x10^3uL (1.8-7.7) Lymphocytes # (Auto) 0.3 x10^3/uL (1.0-4.8) Monocytes # (Auto) 0.5 x10^3/uL (0.0-1.1) Eosinophils # (Auto) 0.0 x10^3/uL (0.0-0.7) Basophils # (Auto) 0.0 x10^3/uL (0.0-0.2) Prothrombin Time 23.9 SEC (11.7-14.0) Prothromb Time International Ratio 2.3 (0.8-1.1) Sodium Level 146 mmol/L (136-145) Potassium Level 3.6 mmol/L (3.5-5.1) Chloride Level 112 mmol/L (98-107) Carbon Dioxide Level 22 mmol/L (21-32) Anion Gap 12 (6-14) Blood Urea Nitrogen 86 mg/dL (8-26) Creatinine 2.9 mg/dL (0.7-1.3) Estimated GFR (Cockcroft-Gault) 21.1 Glucose Level 115 mg/dL (70-99) Lactic Acid Level 0.8 mmol/L (0.4-2.0) Calcium Level 8.1 mg/dL (8.5-10.1) Phosphorus Level 4.9 mg/dL (2.6-4.7) Magnesium Level 2.3 mg/dL (1.8-2.4) Albumin 1.9 g/dL (3.4-5.0) Test 04/20/17 08:05 Glucose (Fingerstick) 116 mg/dL (70-99) Laboratory Tests Test 04/19/17 13:09 04/19/17 16:29 04/19/17 21:20 04/20/17 04:50 Glucose (Fingerstick) 115 mg/dL (70-99) 117 mg/dL (70-99) 110 mg/dL (70-99) White Blood Count 7.8 x10^3/uL (4.0-11.0) Red Blood Count 2.91 x10^6/uL (4.30-5.70) Hemoglobin 7.9 g/dL (13.0-17.5) Hematocrit 24.7 % (39.0-53.0) Mean Corpuscular Volume 85 fL (79-100) Mean Corpuscular Hemoglobin 27 pg (25-35) Mean Corpuscular Hemoglobin Concent 32 g/dL (31-37) Red Cell Distribution Width 16.7 % (11.5-14.5) Platelet Count 142 x10^3/uL (140-400) Neutrophils (%) (Auto) 90 % (31-73) Lymphocytes (%) (Auto) 3 % (24-48) Monocytes (%) (Auto) 7 % (0-9) Eosinophils (%) (Auto) 0 % (0-3) Basophils (%) (Auto) 0 % (0-3) Neutrophils # (Auto) 7.0 x10^3uL (1.8-7.7) Lymphocytes # (Auto) 0.3 x10^3/uL (1.0-4.8) Monocytes # (Auto) 0.5 x10^3/uL (0.0-1.1) Eosinophils # (Auto) 0.0 x10^3/uL (0.0-0.7) Basophils # (Auto) 0.0 x10^3/uL (0.0-0.2) Prothrombin Time 23.9 SEC (11.7-14.0) Prothromb Time International Ratio 2.3 (0.8-1.1) Sodium Level 146 mmol/L (136-145) Potassium Level 3.6 mmol/L (3.5-5.1) Chloride Level 112 mmol/L (98-107) Carbon Dioxide Level 22 mmol/L (21-32) Anion Gap 12 (6-14) Blood Urea Nitrogen 86 mg/dL (8-26) Creatinine 2.9 mg/dL (0.7-1.3) Estimated GFR (Cockcroft-Gault) 21.1 Glucose Level 115 mg/dL (70-99) Lactic Acid Level 0.8 mmol/L (0.4-2.0) Calcium Level 8.1 mg/dL (8.5-10.1) Phosphorus Level 4.9 mg/dL (2.6-4.7) Magnesium Level 2.3 mg/dL (1.8-2.4) Albumin 1.9 g/dL (3.4-5.0) Test 04/20/17 08:05 Glucose (Fingerstick) 116 mg/dL (70-99) Assessment/Plan pneumoperitoneum, clinically stable no surgical plans, poor candidate cont supportive care Problems: MARIBEL MCCURDY MD Apr 20, 2017 10:48
--- NOTE | 2017-04-20 13:13 | PDOC ---
CARDIO Progress Notes Date and Time Date of Service 04/20/17 Time of Evaluation 1230 Subjective Subjective: No Chest Pain, No Palpitations, Other (abdominal pain, mild SOA ) Vitals Vitals Vital Signs Date Time Temp Pulse Resp B/P (MAP) Pulse Ox O2 Delivery O2 Flow Rate FiO2 04/20/17 10:00 60 21 90/42 (58) 97 Nasal Cannula 2.0 04/20/17 09:00 97.2 97.2 Weight Weight [ ] Input and Output Intake and Output Intake and Output 04/20/17 06:59 Intake Total 120 ml Output Total 2850 ml Balance -2730 ml Intake Oral 20 ml IV Total 100 ml Output Urine Total 2850 ml Laboratory Labs Laboratory Tests Test 04/19/17 16:29 04/19/17 21:20 04/20/17 04:50 04/20/17 08:05 Glucose (Fingerstick) 117 mg/dL (70-99) 110 mg/dL (70-99) 116 mg/dL (70-99) White Blood Count 7.8 x10^3/uL (4.0-11.0) Red Blood Count 2.91 x10^6/uL (4.30-5.70) Hemoglobin 7.9 g/dL (13.0-17.5) Hematocrit 24.7 % (39.0-53.0) Mean Corpuscular Volume 85 fL (79-100) Mean Corpuscular Hemoglobin 27 pg (25-35) Mean Corpuscular Hemoglobin Concent 32 g/dL (31-37) Red Cell Distribution Width 16.7 % (11.5-14.5) Platelet Count 142 x10^3/uL (140-400) Neutrophils (%) (Auto) 90 % (31-73) Lymphocytes (%) (Auto) 3 % (24-48) Monocytes (%) (Auto) 7 % (0-9) Eosinophils (%) (Auto) 0 % (0-3) Basophils (%) (Auto) 0 % (0-3) Neutrophils # (Auto) 7.0 x10^3uL (1.8-7.7) Lymphocytes # (Auto) 0.3 x10^3/uL (1.0-4.8) Monocytes # (Auto) 0.5 x10^3/uL (0.0-1.1) Eosinophils # (Auto) 0.0 x10^3/uL (0.0-0.7) Basophils # (Auto) 0.0 x10^3/uL (0.0-0.2) Prothrombin Time 23.9 SEC (11.7-14.0) Prothromb Time International Ratio 2.3 (0.8-1.1) Sodium Level 146 mmol/L (136-145) Potassium Level 3.6 mmol/L (3.5-5.1) Chloride Level 112 mmol/L (98-107) Carbon Dioxide Level 22 mmol/L (21-32) Anion Gap 12 (6-14) Blood Urea Nitrogen 86 mg/dL (8-26) Creatinine 2.9 mg/dL (0.7-1.3) Estimated GFR (Cockcroft-Gault) 21.1 Glucose Level 115 mg/dL (70-99) Lactic Acid Level 0.8 mmol/L (0.4-2.0) Calcium Level 8.1 mg/dL (8.5-10.1) Phosphorus Level 4.9 mg/dL (2.6-4.7) Magnesium Level 2.3 mg/dL (1.8-2.4) Albumin 1.9 g/dL (3.4-5.0) Review of Systems Constitutional: yes: weakness, alert, oriented Ears/Nose/Throat: Yes: no symptom reported Eyes: Yes: no symptom reported Pulmonary: Yes no symptom reported Cardiovascular: Yes no symptom reported Gastrointestional: Yes: constipation Genitourinary: Yes: no symptom reported Musculoskeletal: Yes: muscle stiffness Skin: Yes no symptom reported Physical Exam HEENT: Neck Supple W Full Motion Chest: Symmetric LUNGS: Other (diminished bases ) Heart: S1S2, RRR, other (tele: v-paced with underlying AFIB ) Abdomen: Other (firm, distended abdomen ) Extremities: Other (2-3+ bilateral LE edema with chronic venous stasis changes , trace bilateral hand edema) Neurology: alert, oriented, follow commands Assessment Assessment 1. Acute on chronic systolic HF 2. ICM; LVEF 35% s/p AICD 3. CAD s/p CABG 4. PAFIB; OAC with warfarin 5. Hypotension; requiring pressor support following Lasix gtt 6. Hyperlipidemia 7. Leukocytosis with bacteremia; ?sepsis- BC final report pending 8. HERIBERTO with CKD; Cr trending downward- now 2.9 9. H/o Cirrhosis (recently diagnosed) with present ascites 10. Pneumoperitoneum; ? SBP; no surgical plans Recommendations Significantly hypotensive; pressor support initiated. Hold Lasix gtt for now. Continue to hold OAC; Paracentesis when able. Antibiotic therapy as per ID Continue supportive care ARAM TROTTER APRN Apr 20, 2017 13:13
--- NOTE | 2017-04-20 14:27 | PDOC ---
SUBJECTIVE ROS HERIBERTO/ CK DIII/ iV Doing nad Feeling OK OVerall CVS: no Orthopnea, no CP RESP: no SOB, no COPPOLA GI: no Nausea, no Vomiting : no Dysuria, no Urgency OBJECTIVE Vital Signs Vital Signs Date Time Temp Pulse Resp B/P (MAP) Pulse Ox O2 Delivery O2 Flow Rate FiO2 04/20/17 10:00 60 21 90/42 (58) 97 Nasal Cannula 2.0 04/20/17 09:00 97.2 97.2 I & 0 Intake and Output 04/20/17 06:59 Intake Total 120 ml Output Total 2850 ml Balance -2730 ml Intake Oral 20 ml IV Total 100 ml Output Urine Total 2850 ml PHYSICAL EXAM Physical Exam GEN: Awake, Oriented x 3, In no distress EYES: Vision Unchanged, Conjunctiva Normal EN: No EN Drainage, Mucous Membranes moist NECK: no JVD, min JVP, Supple, no Thyromegaly CVS: S1S2, ? Murmur, No Gallop, No Rub,+ Edema RESP: alise basal Rales, occ Rhonchi,no Acc. Muscle Use GI: BS + ve, NO Bruit, Non Tender, Non Distended : no CVA tenderness, no Suprapubic Tenderness (hudson) SKIN: no visible Rashes Breast Exam deferred Mu.Sk: Adequate ROM no Muscle Atrophy Heme: Unable to palpate Obvious LAD no palp Splenomegaly NEURO: Good Strength and Tone Cranial Nerves II - XII grossly intact; No Asterixis Psych: ? Depressed no Active hallucination DIAGNOSIS/ASSESSMENT Assessment & Plan CKD III / IV - gradually improving ? Early HRS v sdue to Cardiomyopathy. UO is OK for now. Current fluid and E-lyte status does not necessitate emergent need for dialysis. Will re-evaluate for dialysis in the am Abd Perf (as reported on PA and Lat CXR and confirmed with CT)) - Now evaluated and followed by GS and GI. ? Need for TPN if he needs to be NPO in near term Ascites - Tap when INR is better Underlying CKD III with baseline Creat of 2.8 Min ^ed Na - NPO status, Pt refusing Central access Mildly ^ed Phos - watch trend while he remains NPO Nutrition - ? TPN once fluid status optimized (after Ascites Tap) ANEMIA; IV Iron as ordered; Aranesp as ordered, Transfuse as needed for hgb < 7 HypoTN: Current meds reviewed. remains on Pressors for now See orders for changes. would like to use IV Alb to help with Hemodynamics BACTEREMIA - ? Source; await ID eval - ? Associated with abd Perf Cirrhosis as noted on CT scan - defer to GI to eval - ? 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 COMMENT/RELEVANT DATA Meds Current Medications Medications (Trade) Dose Ordered Sig/Garret Start Time Stop Time Status Last Admin Dose Admin Acetaminophen (Tylenol) 325 mg PRN Q6HRS PRN 04/15/17 14:00 Acetaminophen/ Hydrocodone Bitart (Lortab 5/325) 1 tab PRN Q6HRS PRN 04/15/17 14:00 Albuterol Sulfate (Ventolin Neb Soln) 2.5 mg PRN Q4HRS PRN 04/15/17 14:00 04/19/17 16:45 2.5 MG Amiodarone HCl (Cordarone) 200 mg DAILY 04/16/17 09:00 04/18/17 17:42 DC 04/18/17 09:19 200 MG Aspirin (Children'S Aspirin) 81 mg [id number] 04/16/17 08:00 04/18/17 17:43 DC 04/18/17 07:42 81 MG Ceftriaxone Sodium 1 gm/ Sodium Chloride 50 ml @ 100 mls/hr Q24H 04/16/17 09:00 04/16/17 17:42 DC 04/16/17 09:12 100 MLS/HR Cyanocobalamin (Vitamin B-12) 1,000 mcg AFTRNOON 04/16/17 13:00 04/18/17 17:33 DC 04/18/17 13:13 1,000 MCG Darbepoetin Tomás (Aranesp) 60 mcg Sa 04/16/17 21:00 04/16/17 20:45 60 MCG Dextrose (Dextrose 50%-Water Syringe) 12.5 gm PRN Q15MIN PRN 04/15/17 15:30 Dopamine HCl/ Dextrose 250 ml @ 16.622 mls/ hr CONT PRN 04/20/17 11:15 Furosemide (Lasix) 40 mg 1X ONCE 04/19/17 16:30 04/19/17 16:31 DC 04/19/17 16:26 40 MG Furosemide 100 mg/ Sodium Chloride 100 ml @ 0 mls/hr CONT PRN 04/19/17 15:45 04/20/17 05:29 5 MLS/HR Hydralazine HCl (Apresoline) 10 mg PRN Q4HRS PRN 04/15/17 14:00 Insulin Aspart (NovoLOG) 0-9 UNITS TIDWMEALS 04/15/17 17:00 04/17/17 17:34 4 UNITS Iron Sucrose 200 mg/Sodium Chloride 110 ml @ 55 mls/hr 3X/WEEK 04/20/17 09:00 04/29/17 10:59 04/20/17 09:00 55 MLS/HR Levothyroxine Sodium (Synthroid) 88 mcg DAILY07 04/16/17 07:00 04/20/17 07:14 88 MCG Magnesium Sulfate/ Dextrose 50 ml @ 25 mls/hr PRN DAILY PRN 04/18/17 09:45 Morphine Sulfate 2 mg PRN Q2HR PRN 04/18/17 17:45 Norepinephrine Bitartrate 250 ml @ 0 mls/hr CONT PRN 04/15/17 14:00 04/18/17 06:22 22.5 MLS/HR Ondansetron HCl (Zofran) 4 mg PRN Q8HRS PRN 04/15/17 14:00 04/20/17 13:23 4 MG Pantoprazole Sodium (Protonix Vial) 40 mg DAILYAC 04/15/17 16:30 04/20/17 07:14 40 MG Phytonadione (Mephyton) 5 mg 1X ONCE 04/17/17 11:15 04/17/17 11:16 DC 04/17/17 11:15 5 MG Piperacillin Sod/ Tazobactam Sod 2.25 gm/Sodium Chloride 50 ml @ 100 mls/hr Q6HRS 04/16/17 18:00 04/20/17 13:23 100 MLS/HR Sodium Chloride 1,000 ml @ 125 mls/hr Q8H 04/15/17 14:00 04/18/17 09:50 DC 04/18/17 06:20 125 MLS/HR Vancomycin HCl 1.5 gm/Sodium Chloride 500 ml @ 250 mls/hr 1X ONCE 04/16/17 18:30 04/16/17 20:29 DC 04/16/17 19:22 250 MLS/HR Warfarin Sodium (Coumadin - No Dose Today) 1 each 1X WARF ONCE 04/20/17 16:00 04/20/17 16:01 Warfarin Sodium (Coumadin Per Pharmacy) 1 each PRN DAILY PRN 04/15/17 15:15 04/20/17 10:59 1 EACH Warfarin Sodium (Coumadin) 0.5 mg 1X WARF ONCE 04/15/17 16:00 04/15/17 16:01 DC Lab Laboratory Tests Test 04/19/17 16:29 04/19/17 21:20 04/20/17 04:50 04/20/17 08:05 Glucose (Fingerstick) 117 mg/dL (70-99) 110 mg/dL (70-99) 116 mg/dL (70-99) White Blood Count 7.8 x10^3/uL (4.0-11.0) Red Blood Count 2.91 x10^6/uL (4.30-5.70) Hemoglobin 7.9 g/dL (13.0-17.5) Hematocrit 24.7 % (39.0-53.0) Mean Corpuscular Volume 85 fL (79-100) Mean Corpuscular Hemoglobin 27 pg (25-35) Mean Corpuscular Hemoglobin Concent 32 g/dL (31-37) Red Cell Distribution Width 16.7 % (11.5-14.5) Platelet Count 142 x10^3/uL (140-400) Neutrophils (%) (Auto) 90 % (31-73) Lymphocytes (%) (Auto) 3 % (24-48) Monocytes (%) (Auto) 7 % (0-9) Eosinophils (%) (Auto) 0 % (0-3) Basophils (%) (Auto) 0 % (0-3) Neutrophils # (Auto) 7.0 x10^3uL (1.8-7.7) Lymphocytes # (Auto) 0.3 x10^3/uL (1.0-4.8) Monocytes # (Auto) 0.5 x10^3/uL (0.0-1.1) Eosinophils # (Auto) 0.0 x10^3/uL (0.0-0.7) Basophils # (Auto) 0.0 x10^3/uL (0.0-0.2) Prothrombin Time 23.9 SEC (11.7-14.0) Prothromb Time International Ratio 2.3 (0.8-1.1) Sodium Level 146 mmol/L (136-145) Potassium Level 3.6 mmol/L (3.5-5.1) Chloride Level 112 mmol/L (98-107) Carbon Dioxide Level 22 mmol/L (21-32) Anion Gap 12 (6-14) Blood Urea Nitrogen 86 mg/dL (8-26) Creatinine 2.9 mg/dL (0.7-1.3) Estimated GFR (Cockcroft-Gault) 21.1 Glucose Level 115 mg/dL (70-99) Lactic Acid Level 0.8 mmol/L (0.4-2.0) Calcium Level 8.1 mg/dL (8.5-10.1) Phosphorus Level 4.9 mg/dL (2.6-4.7) Magnesium Level 2.3 mg/dL (1.8-2.4) Albumin 1.9 g/dL (3.4-5.0) Test 04/20/17 13:35 Glucose (Fingerstick) 130 mg/dL (70-99) NAIKA PEREZ MD Apr 20, 2017 14:27
[2017-04-20] MEDS ORDERED: POTASSIUM CHLORIDE 10MEQ 100 ML IV SCH ×3 (15:15)
[2017-04-20] MEDS ORDERED: PHYTONADIONE 10 MG/ML AMPUL. SQ ONE (16:00)
[2017-04-21] VITALS (28 sets, daily range): BP systolic 58–119; BP diastolic 38–71
[2017-04-21] MEDS ORDERED: ALBUMIN HUMAN 25% 100 ML IV ONE (04:00)
[2017-04-21 04:22] LABS: BASO % 0 % (0-3); EOS % 0 % (0-3); HEMATOCRIT 30.2 % (39.0-53.0); HEMOGLOBIN 9.9 g/dL (13.0-17.5); LYMPH # 0.5 x10^3/uL (1.0-4.8); LYMPH % 5 % (24-48); MEAN CORPUSCULAR HEMOGLOBIN 27 pg (25-35); MEAN CORPUSCULAR HGB CONC 33 g/dL (31-37); MEAN CORPUSCULAR VOLUME 83 fL (79-100); MONO % 7 % (0-9); NEUT % 88 % (31-73); PLATELET COUNT 202 x10^3/uL (140-400); RED BLOOD COUNT 3.64 x10^6/uL (4.30-5.70); RED CELL DISTRIBUTION WIDTH 17.5 % (11.5-14.5); WHITE BLOOD COUNT 9.2 x10^3/uL (4.0-11.0)
[2017-04-21 04:38] LABS: CALCIUM 8.6 mg/dL (8.5-10.1); GFR 20.3; PHOSPHORUS 5.3 mg/dL (2.6-4.7); POTASSIUM 3.5 mmol/L (3.5-5.1)
[2017-04-21 04:41] LABS: INR 1.6 (0.8-1.1); PROTHROMBIN TIME PATIENT 18.2 SEC (11.7-14.0)
[2017-04-21] MEDS: PIPERACILLIN/TAZOBACTAM 2.25 GM in IV NORMAL SALINE 50ML 50 ML IV SCH (05:30)
[2017-04-21] MEDS: LEVOTHYROXINE 88 MCG TABLET PO SCH (06:39)
[2017-04-21] MEDS: INSULIN ASPART 300 UNITS/3 ML INSULN.PEN SQ SCH ×3 (07:32→16:48)
[2017-04-21] MEDS: PANTOPRAZOLE IV PUSH 40 MG VIAL. IVP SCH (07:44)
--- NOTE | 2017-04-21 07:57 | PDOC ---
Infectious Disease Note Subjective Subjective Feeling ok says, no complaints No fever last 24 hours ROS ROS GEN: Denies fevers, chills, sweats HEENT: Denies blurred vision, sore throat CV: Denies chest pain RESP: Denies shortness of air, cough GI: Denies n/v/d NEURO: Denies confusion, dizziness MSK: Denies weakness, joint pain/swelling Vital Sign Vital Signs Vital Signs Date Time Temp Pulse Resp B/P (MAP) Pulse Ox O2 Delivery O2 Flow Rate FiO2 04/21/17 07:00 64 20 92/54 (67) 98 Nasal Cannula 2.0 04/21/17 04:00 97.6 97.6 Physical Exam PHYSICAL EXAM GENERAL: NAD, Alert HEENT: PERRL, OC/OP NECK: Supple, no JVD, no LN LUNGS: Clear HEART: S1S2, no gallop, no murmur ABD: Soft, NT, no organomegaly, no rebound,, ascites EXT: No edema, no cyanosis PHARMACY COORDINATOR: Alert, 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, no focal neurologic deficit SKIN: No rash IV: ok Labs Lab Laboratory Tests Test 04/20/17 08:05 04/20/17 13:35 04/20/17 18:29 04/21/17 04:05 Glucose (Fingerstick) 116 mg/dL (70-99) 130 mg/dL (70-99) 144 mg/dL (70-99) White Blood Count 9.2 x10^3/uL (4.0-11.0) Red Blood Count 3.64 x10^6/uL (4.30-5.70) Hemoglobin 9.9 g/dL (13.0-17.5) Hematocrit 30.2 % (39.0-53.0) Mean Corpuscular Volume 83 fL (79-100) Mean Corpuscular Hemoglobin 27 pg (25-35) Mean Corpuscular Hemoglobin Concent 33 g/dL (31-37) Red Cell Distribution Width 17.5 % (11.5-14.5) Platelet Count 202 x10^3/uL (140-400) Neutrophils (%) (Auto) 88 % (31-73) Lymphocytes (%) (Auto) 5 % (24-48) Monocytes (%) (Auto) 7 % (0-9) Eosinophils (%) (Auto) 0 % (0-3) Basophils (%) (Auto) 0 % (0-3) Neutrophils # (Auto) 8.1 x10^3uL (1.8-7.7) Lymphocytes # (Auto) 0.5 x10^3/uL (1.0-4.8) Monocytes # (Auto) 0.6 x10^3/uL (0.0-1.1) Eosinophils # (Auto) 0.0 x10^3/uL (0.0-0.7) Basophils # (Auto) 0.0 x10^3/uL (0.0-0.2) Prothrombin Time 18.2 SEC (11.7-14.0) Prothromb Time International Ratio 1.6 (0.8-1.1) Sodium Level 150 mmol/L (136-145) Potassium Level 3.5 mmol/L (3.5-5.1) Chloride Level 113 mmol/L (98-107) Carbon Dioxide Level 22 mmol/L (21-32) Anion Gap 15 (6-14) Blood Urea Nitrogen 87 mg/dL (8-26) Creatinine 3.0 mg/dL (0.7-1.3) Estimated GFR (Cockcroft-Gault) 20.3 Glucose Level 141 mg/dL (70-99) Lactic Acid Level 1.0 mmol/L (0.4-2.0) Calcium Level 8.6 mg/dL (8.5-10.1) Phosphorus Level 5.3 mg/dL (2.6-4.7) Magnesium Level 2.3 mg/dL (1.8-2.4) Albumin 2.0 g/dL (3.4-5.0) Objective Assessment Hypotension BC + G + cocci and G + liza,, clostridium + Abdominal pain and distention/ascites/possible SBP Cirrhosis of liver Renal failure Leukocytosis Pneumoperitoneum Plan Plan of Care Zosyn change to unasyn One time dose vanc, 04/16 Await final cultures supportive care d/w dr Perez Paracentesis today KERWIN PEREZ MD Apr 21, 2017 07:57
--- NOTE | 2017-04-21 07:58 | PDOC ---
SUBJECTIVE ROS HERIBERTO/ CKD III/ IV + ^Na doing OK overall, now on IV Alb, Lasix gtt and dopamine CVS: no Orthopnea, no CP RESP: no SOB, no COPPOLA GI: no Nausea, no Vomiting : no Dysuria, no Urgency OBJECTIVE Vital Signs Vital Signs Date Time Temp Pulse Resp B/P (MAP) Pulse Ox O2 Delivery O2 Flow Rate FiO2 04/21/17 07:00 64 20 92/54 (67) 98 Nasal Cannula 2.0 04/21/17 04:00 97.6 97.6 I & 0 Intake and Output 04/21/17 07:00 Intake Total 725 ml Output Total 3770 ml Balance -3045 ml Intake Oral 0 ml IV Total 725 ml Output Urine Total 3770 ml PHYSICAL EXAM Physical Exam GEN: Awake, Oriented x 3, In no distress EYES: Vision Unchanged, Conjunctiva Normal EN: No EN Drainage, Mucous Membranes moist NECK: no JVD, min JVP, Supple, no Thyromegaly CVS: S1S2, ? Murmur, No Gallop, No Rub,+ 2 Edema RESP: Rare Rales, occ Rhonchi,no Acc. Muscle Use GI: BS + ve, NO Bruit, Non Tender, min Distended : no CVA tenderness, no Suprapubic Tenderness (hudson) SKIN: no visible Rashes Breast Exam deferred Mu.Sk: Adequate ROM no Muscle Atrophy Heme: Unable to palpate Obvious LAD no palp Splenomegaly NEURO: Good Strength and Tone Cranial Nerves II - XII grossly intact; No Asterixis Psych: ? Depressed no Active hallucination DIAGNOSIS/ASSESSMENT Assessment & Plan: CKD III / IV - stable for now ? Early HRS v/s due to Cardiomyopathy. UO is OK for now palmer on lasix gtt. Current fluid and E-lyte status does not necessitate emergent need for dialysis. Will re-evaluate for dialysis in the am Abd Perf (as reported on PA and Lat CXR and confirmed with CT)) - Now evaluated and followed by GS and GI. ? Need for TPN if he needs to be NPO in near term vs Oral feeds Ascites - Tap when INR is better - ? Today Underlying CKD III with baseline Creat of 2.8 as OP ^ed Na - partially due to NPO status, Pt now agreeable to Central access. Antcipate worsening with IV Alb and Lasix. ? Start TPN once central access avail Mildly ^ed Phos - watch trend while he remains NPO; reval after TPN started Nutrition - ? TPN once fluid status optimized (after Ascites Tap) ANEMIA; IV Iron as ordered; Aranesp as ordered, Transfuse as needed for hgb < 7 HypoTN: Current meds reviewed. remains on Pressors for now. would like to use IV Alb to help with Hemodynamics BACTEREMIA - ? Source; await ID eval - ? Associated with abd Perf Cirrhosis as noted on CT scan - defer to GI to eval - ? Etio D/w Cardio ENDOSCOPY RN and Dr Feliciano Perez COMMENT/RELEVANT DATA Meds Current Medications Medications (Trade) Dose Ordered Sig/Garret Start Time Stop Time Status Last Admin Dose Admin Acetaminophen (Tylenol) 325 mg PRN Q6HRS PRN 04/15/17 14:00 Acetaminophen/ Hydrocodone Bitart (Lortab 5/325) 1 tab PRN Q6HRS PRN 04/15/17 14:00 Albumin Human 100 ml @ 100 mls/hr 1X ONCE 04/21/17 04:00 04/21/17 04:59 DC 04/21/17 04:02 100 MLS/HR Albuterol Sulfate (Ventolin Neb Soln) 2.5 mg PRN Q4HRS PRN 04/15/17 14:00 04/19/17 16:45 2.5 MG Amiodarone HCl (Cordarone) 200 mg DAILY 04/16/17 09:00 04/18/17 17:42 DC 04/18/17 09:19 200 MG Aspirin (Children'S Aspirin) 81 mg DAILYWBKFT 04/16/17 08:00 04/18/17 17:43 DC 04/18/17 07:42 81 MG Ceftriaxone Sodium 1 gm/ Sodium Chloride 50 ml @ 100 mls/hr Q24H 04/16/17 09:00 04/16/17 17:42 DC 04/16/17 09:12 100 MLS/HR Cyanocobalamin (Vitamin B-12) 1,000 mcg AFTRNOON 04/16/17 13:00 04/18/17 17:33 DC 04/18/17 13:13 1,000 MCG Darbepoetin Tomás (Aranesp) 60 mcg Sa 04/16/17 21:00 04/16/17 20:45 60 MCG Dextrose (Dextrose 50%-Water Syringe) 12.5 gm PRN Q15MIN PRN 04/15/17 15:30 Dopamine HCl/ Dextrose 250 ml @ 16.622 mls/ hr CONT PRN 04/20/17 11:15 04/20/17 21:09 23.27 MLS/HR Furosemide (Lasix) 40 mg 1X ONCE 04/19/17 16:30 04/19/17 16:31 DC 04/19/17 16:26 40 MG Furosemide 100 mg/ Sodium Chloride 100 ml @ 0 mls/hr CONT PRN 04/19/17 15:45 04/20/17 05:29 5 MLS/HR Hydralazine HCl (Apresoline) 10 mg PRN Q4HRS PRN 04/15/17 14:00 Insulin Aspart (NovoLOG) 0-9 UNITS TIDWMEALS 04/15/17 17:00 04/17/17 17:34 4 UNITS Iron Sucrose 200 mg/Sodium Chloride 110 ml @ 55 mls/hr 3X/WEEK 04/20/17 09:00 04/29/17 10:59 04/20/17 09:00 55 MLS/HR Levothyroxine Sodium (Synthroid) 88 mcg DAILY07 04/16/17 07:00 04/21/17 06:39 88 MCG Magnesium Sulfate/ Dextrose 50 ml @ 25 mls/hr PRN DAILY PRN 04/18/17 09:45 Morphine Sulfate 2 mg PRN Q2HR PRN 04/18/17 17:45 Norepinephrine Bitartrate 250 ml @ 0 mls/hr CONT PRN 04/15/17 14:00 04/18/17 06:22 22.5 MLS/HR Ondansetron HCl (Zofran) 4 mg PRN Q8HRS PRN 04/15/17 14:00 04/20/17 13:23 4 MG Pantoprazole Sodium (Protonix Vial) 40 mg DAILYAC 04/15/17 16:30 04/20/17 07:14 40 MG Phytonadione (Mephyton) 5 mg 1X ONCE 04/17/17 11:15 04/17/17 11:16 DC 04/17/17 11:15 5 MG Phytonadione (Vitamin K) 5 mg 1X ONCE 04/20/17 16:00 04/20/17 16:01 DC 04/20/17 15:55 5 MG Piperacillin Sod/ Tazobactam Sod 2.25 gm/Sodium Chloride 50 ml @ 100 mls/hr Q6HRS 04/16/17 18:00 04/21/17 05:30 100 MLS/HR Potassium Chloride 100 ml @ 100 mls/hr Q1H 04/20/17 15:15 04/21/17 03:14 UNV Sodium Chloride 1,000 ml @ 125 mls/hr Q8H 04/15/17 14:00 04/18/17 09:50 DC 04/18/17 06:20 125 MLS/HR Vancomycin HCl 1.5 gm/Sodium Chloride 500 ml @ 250 mls/hr 1X ONCE 04/16/17 18:30 04/16/17 20:29 DC 04/16/17 19:22 250 MLS/HR Warfarin Sodium (Coumadin - No Dose Today) 1 each 1X WARF ONCE 04/20/17 16:00 04/20/17 16:01 DC Warfarin Sodium (Coumadin Per Pharmacy) 1 each PRN DAILY PRN 04/15/17 15:15 04/20/17 16:07 DC 04/20/17 10:59 1 EACH Warfarin Sodium (Coumadin) 0.5 mg 1X WARF ONCE 04/15/17 16:00 04/15/17 16:01 DC Lab Laboratory Tests Test 04/20/17 08:05 04/20/17 13:35 04/20/17 18:29 04/21/17 04:05 Glucose (Fingerstick) 116 mg/dL (70-99) 130 mg/dL (70-99) 144 mg/dL (70-99) White Blood Count 9.2 x10^3/uL (4.0-11.0) Red Blood Count 3.64 x10^6/uL (4.30-5.70) Hemoglobin 9.9 g/dL (13.0-17.5) Hematocrit 30.2 % (39.0-53.0) Mean Corpuscular Volume 83 fL (79-100) Mean Corpuscular Hemoglobin 27 pg (25-35) Mean Corpuscular Hemoglobin Concent 33 g/dL (31-37) Red Cell Distribution Width 17.5 % (11.5-14.5) Platelet Count 202 x10^3/uL (140-400) Neutrophils (%) (Auto) 88 % (31-73) Lymphocytes (%) (Auto) 5 % (24-48) Monocytes (%) (Auto) 7 % (0-9) Eosinophils (%) (Auto) 0 % (0-3) Basophils (%) (Auto) 0 % (0-3) Neutrophils # (Auto) 8.1 x10^3uL (1.8-7.7) Lymphocytes # (Auto) 0.5 x10^3/uL (1.0-4.8) Monocytes # (Auto) 0.6 x10^3/uL (0.0-1.1) Eosinophils # (Auto) 0.0 x10^3/uL (0.0-0.7) Basophils # (Auto) 0.0 x10^3/uL (0.0-0.2) Prothrombin Time 18.2 SEC (11.7-14.0) Prothromb Time International Ratio 1.6 (0.8-1.1) Sodium Level 150 mmol/L (136-145) Potassium Level 3.5 mmol/L (3.5-5.1) Chloride Level 113 mmol/L (98-107) Carbon Dioxide Level 22 mmol/L (21-32) Anion Gap 15 (6-14) Blood Urea Nitrogen 87 mg/dL (8-26) Creatinine 3.0 mg/dL (0.7-1.3) Estimated GFR (Cockcroft-Gault) 20.3 Glucose Level 141 mg/dL (70-99) Lactic Acid Level 1.0 mmol/L (0.4-2.0) Calcium Level 8.6 mg/dL (8.5-10.1) Phosphorus Level 5.3 mg/dL (2.6-4.7) Magnesium Level 2.3 mg/dL (1.8-2.4) Albumin 2.0 g/dL (3.4-5.0) NAKIA PEREZ MD Apr 21, 2017 07:58
[2017-04-21] MEDS ORDERED: MAGNESIUM SULFATE 2GM 50 ML IV PRN (08:00)
[2017-04-21] MEDS ORDERED: POTASSIUM CHLORIDE 20MEQ 50 ML IV PRN ×2 (08:00)
[2017-04-21] MEDS ORDERED: LIDOCAINE 1% / SOD BICARB 8.4% 20 ML VIAL. IJ ONE ×2 (08:08→08:45)
[2017-04-21] MEDS ORDERED: MIDAZOLAM HCL/PF 2 MG/2 ML VIAL. ONE (08:20)
[2017-04-21] MEDS ORDERED: fentaNYL PF VIAL 100 MCG/2 ML VIAL ONE (08:20)
[2017-04-21] MEDS ORDERED: IOHEXOL 240 MG/ML 50ML VIAL. PO ONE (08:45)
[2017-04-21] MEDS: ALBUMIN HUMAN 25% 100 ML IV SCH ×3 (09:00→21:35)
--- NOTE | 2017-04-21 09:04 | PDOC ---
PROGRESS NOTES Chief Complaint Chief Complaint 1. HYpotensive Shock, s/p vasopressors, 2. Severe CM with low EF 2. Ascites, with cirrhosis s/p paracentesis (04/21/17) 3. Abdominal pain:Pneumoperitoneum 4. Chronic atrial fibrillation, rate controlled. 5. Acute kidney injury on chronic kidney disease 4.: Possible due to VMN, 6. MOd PCM 7. Type 2 diabetes mellitus: SSI 8. HYpernatremia 9. Anemia of chronic disease. 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 HD yet LAbs: ALbumin 2, NA 150, crea 3,0 (stable), K 3.5, INR 1.6 - coumadin on hold ( Hx a fib) PLAN: cont gtts SUpprotive care LAbs in AM Full code Prog guarded - multiple med issues, that can cause chronic exacerbations Vitals Vitals Vital Signs Date Time Temp Pulse Resp B/P (MAP) Pulse Ox O2 Delivery O2 Flow Rate FiO2 04/21/17 08:45 87 20 107/71 (83) 96 Nasal Cannula 4.0 04/21/17 04:00 97.6 97.6 Physical Exam General: Alert, Oriented X3, Cooperative, No acute distress Heart: Regular rate, Normal S1, Normal S2 Lungs: Clear Abdomen: Soft, No tenderness, Other (positive fluid) Extremities: No cyanosis, Other (3+ edema) Skin: No breakdown, No significant lesion Labs LABS Laboratory Tests Test 04/20/17 13:35 04/20/17 18:29 04/21/17 04:05 Glucose (Fingerstick) 130 mg/dL (70-99) 144 mg/dL (70-99) White Blood Count 9.2 x10^3/uL (4.0-11.0) Red Blood Count 3.64 x10^6/uL (4.30-5.70) Hemoglobin 9.9 g/dL (13.0-17.5) Hematocrit 30.2 % (39.0-53.0) Mean Corpuscular Volume 83 fL (79-100) Mean Corpuscular Hemoglobin 27 pg (25-35) Mean Corpuscular Hemoglobin Concent 33 g/dL (31-37) Red Cell Distribution Width 17.5 % (11.5-14.5) Platelet Count 202 x10^3/uL (140-400) Neutrophils (%) (Auto) 88 % (31-73) Lymphocytes (%) (Auto) 5 % (24-48) Monocytes (%) (Auto) 7 % (0-9) Eosinophils (%) (Auto) 0 % (0-3) Basophils (%) (Auto) 0 % (0-3) Neutrophils # (Auto) 8.1 x10^3uL (1.8-7.7) Lymphocytes # (Auto) 0.5 x10^3/uL (1.0-4.8) Monocytes # (Auto) 0.6 x10^3/uL (0.0-1.1) Eosinophils # (Auto) 0.0 x10^3/uL (0.0-0.7) Basophils # (Auto) 0.0 x10^3/uL (0.0-0.2) Prothrombin Time 18.2 SEC (11.7-14.0) Prothromb Time International Ratio 1.6 (0.8-1.1) Sodium Level 150 mmol/L (136-145) Potassium Level 3.5 mmol/L (3.5-5.1) Chloride Level 113 mmol/L (98-107) Carbon Dioxide Level 22 mmol/L (21-32) Anion Gap 15 (6-14) Blood Urea Nitrogen 87 mg/dL (8-26) Creatinine 3.0 mg/dL (0.7-1.3) Estimated GFR (Cockcroft-Gault) 20.3 Glucose Level 141 mg/dL (70-99) Lactic Acid Level 1.0 mmol/L (0.4-2.0) Calcium Level 8.6 mg/dL (8.5-10.1) Phosphorus Level 5.3 mg/dL (2.6-4.7) Magnesium Level 2.3 mg/dL (1.8-2.4) Albumin 2.0 g/dL (3.4-5.0) Review of Systems Review of Systems not obtained - out of icu Comment Review of Relevant I have reviewed the following items ivon (where applicable) has been applied. Labs Laboratory Tests Test 04/19/17 13:09 04/19/17 16:29 04/19/17 21:20 04/20/17 04:50 Glucose (Fingerstick) 115 mg/dL (70-99) 117 mg/dL (70-99) 110 mg/dL (70-99) White Blood Count 7.8 x10^3/uL (4.0-11.0) Red Blood Count 2.91 x10^6/uL (4.30-5.70) Hemoglobin 7.9 g/dL (13.0-17.5) Hematocrit 24.7 % (39.0-53.0) Mean Corpuscular Volume 85 fL (79-100) Mean Corpuscular Hemoglobin 27 pg (25-35) Mean Corpuscular Hemoglobin Concent 32 g/dL (31-37) Red Cell Distribution Width 16.7 % (11.5-14.5) Platelet Count 142 x10^3/uL (140-400) Neutrophils (%) (Auto) 90 % (31-73) Lymphocytes (%) (Auto) 3 % (24-48) Monocytes (%) (Auto) 7 % (0-9) Eosinophils (%) (Auto) 0 % (0-3) Basophils (%) (Auto) 0 % (0-3) Neutrophils # (Auto) 7.0 x10^3uL (1.8-7.7) Lymphocytes # (Auto) 0.3 x10^3/uL (1.0-4.8) Monocytes # (Auto) 0.5 x10^3/uL (0.0-1.1) Eosinophils # (Auto) 0.0 x10^3/uL (0.0-0.7) Basophils # (Auto) 0.0 x10^3/uL (0.0-0.2) Prothrombin Time 23.9 SEC (11.7-14.0) Prothromb Time International Ratio 2.3 (0.8-1.1) Sodium Level 146 mmol/L (136-145) Potassium Level 3.6 mmol/L (3.5-5.1) Chloride Level 112 mmol/L (98-107) Carbon Dioxide Level 22 mmol/L (21-32) Anion Gap 12 (6-14) Blood Urea Nitrogen 86 mg/dL (8-26) Creatinine 2.9 mg/dL (0.7-1.3) Estimated GFR (Cockcroft-Gault) 21.1 Glucose Level 115 mg/dL (70-99) Lactic Acid Level 0.8 mmol/L (0.4-2.0) Calcium Level 8.1 mg/dL (8.5-10.1) Phosphorus Level 4.9 mg/dL (2.6-4.7) Magnesium Level 2.3 mg/dL (1.8-2.4) Albumin 1.9 g/dL (3.4-5.0) Test 04/20/17 08:05 04/20/17 13:35 04/20/17 18:29 04/21/17 04:05 Glucose (Fingerstick) 116 mg/dL (70-99) 130 mg/dL (70-99) 144 mg/dL (70-99) White Blood Count 9.2 x10^3/uL (4.0-11.0) Red Blood Count 3.64 x10^6/uL (4.30-5.70) Hemoglobin 9.9 g/dL (13.0-17.5) Hematocrit 30.2 % (39.0-53.0) Mean Corpuscular Volume 83 fL (79-100) Mean Corpuscular Hemoglobin 27 pg (25-35) Mean Corpuscular Hemoglobin Concent 33 g/dL (31-37) Red Cell Distribution Width 17.5 % (11.5-14.5) Platelet Count 202 x10^3/uL (140-400) Neutrophils (%) (Auto) 88 % (31-73) Lymphocytes (%) (Auto) 5 % (24-48) Monocytes (%) (Auto) 7 % (0-9) Eosinophils (%) (Auto) 0 % (0-3) Basophils (%) (Auto) 0 % (0-3) Neutrophils # (Auto) 8.1 x10^3uL (1.8-7.7) Lymphocytes # (Auto) 0.5 x10^3/uL (1.0-4.8) Monocytes # (Auto) 0.6 x10^3/uL (0.0-1.1) Eosinophils # (Auto) 0.0 x10^3/uL (0.0-0.7) Basophils # (Auto) 0.0 x10^3/uL (0.0-0.2) Prothrombin Time 18.2 SEC (11.7-14.0) Prothromb Time International Ratio 1.6 (0.8-1.1) Sodium Level 150 mmol/L (136-145) Potassium Level 3.5 mmol/L (3.5-5.1) Chloride Level 113 mmol/L (98-107) Carbon Dioxide Level 22 mmol/L (21-32) Anion Gap 15 (6-14) Blood Urea Nitrogen 87 mg/dL (8-26) Creatinine 3.0 mg/dL (0.7-1.3) Estimated GFR (Cockcroft-Gault) 20.3 Glucose Level 141 mg/dL (70-99) Lactic Acid Level 1.0 mmol/L (0.4-2.0) Calcium Level 8.6 mg/dL (8.5-10.1) Phosphorus Level 5.3 mg/dL (2.6-4.7) Magnesium Level 2.3 mg/dL (1.8-2.4) Albumin 2.0 g/dL (3.4-5.0) Laboratory Tests Test 04/20/17 13:35 04/20/17 18:29 04/21/17 04:05 Glucose (Fingerstick) 130 mg/dL (70-99) 144 mg/dL (70-99) White Blood Count 9.2 x10^3/uL (4.0-11.0) Red Blood Count 3.64 x10^6/uL (4.30-5.70) Hemoglobin 9.9 g/dL (13.0-17.5) Hematocrit 30.2 % (39.0-53.0) Mean Corpuscular Volume 83 fL (79-100) Mean Corpuscular Hemoglobin 27 pg (25-35) Mean Corpuscular Hemoglobin Concent 33 g/dL (31-37) Red Cell Distribution Width 17.5 % (11.5-14.5) Platelet Count 202 x10^3/uL (140-400) Neutrophils (%) (Auto) 88 % (31-73) Lymphocytes (%) (Auto) 5 % (24-48) Monocytes (%) (Auto) 7 % (0-9) Eosinophils (%) (Auto) 0 % (0-3) Basophils (%) (Auto) 0 % (0-3) Neutrophils # (Auto) 8.1 x10^3uL (1.8-7.7) Lymphocytes # (Auto) 0.5 x10^3/uL (1.0-4.8) Monocytes # (Auto) 0.6 x10^3/uL (0.0-1.1) Eosinophils # (Auto) 0.0 x10^3/uL (0.0-0.7) Basophils # (Auto) 0.0 x10^3/uL (0.0-0.2) Prothrombin Time 18.2 SEC (11.7-14.0) Prothromb Time International Ratio 1.6 (0.8-1.1) Sodium Level 150 mmol/L (136-145) Potassium Level 3.5 mmol/L (3.5-5.1) Chloride Level 113 mmol/L (98-107) Carbon Dioxide Level 22 mmol/L (21-32) Anion Gap 15 (6-14) Blood Urea Nitrogen 87 mg/dL (8-26) Creatinine 3.0 mg/dL (0.7-1.3) Estimated GFR (Cockcroft-Gault) 20.3 Glucose Level 141 mg/dL (70-99) Lactic Acid Level 1.0 mmol/L (0.4-2.0) Calcium Level 8.6 mg/dL (8.5-10.1) Phosphorus Level 5.3 mg/dL (2.6-4.7) Magnesium Level 2.3 mg/dL (1.8-2.4) Albumin 2.0 g/dL (3.4-5.0) Medications Current Medications Acetaminophen (Tylenol) 325 mg PRN Q6HRS PRN PO MILD PAIN / TEMP; Start at 14:00 Acetaminophen/ Hydrocodone Bitart (Lortab 5/325) 1 tab PRN Q6HRS PRN PO MODERATE TO SEVERE PAIN; Start 04/15/17 at 14:00 Hydralazine HCl (Apresoline) 10 mg PRN Q4HRS PRN IVP ELEVATED BP, SEE COMMENTS ; Start 04/15/17 at 14:00 Ondansetron HCl (Zofran) 4 mg PRN Q8HRS PRN IV NAUSEA/VOMITING Last administered on 04/20/17t 13:23; Start 04/15/17 at 14:00 Albuterol Sulfate (Ventolin Neb Soln) 2.5 mg PRN Q4HRS PRN NEB SHORTNESS OF BREATH Last administered on 04/19/17 16:45; Start 04/15/17 at 14:00 Sodium Chloride 1,000 ml @ 125 mls/hr Q8H IV Last administered on 04/18/17 06 :20; Start 04/15/17 at 14:00; Stop 04/18/17 at 09:50; Status DC Norepinephrine Bitartrate 250 ml @ 0 mls/hr CONT PRN IV SEE I/O RECORD Last administered on 04/18/17 06:22; Start 04/15/17 at 14:00 Ceftriaxone Sodium 1 gm/ Sodium Chloride 50 ml @ 100 mls/hr Q24H IV ; Start at 16:00; Stop 04/15/17 at 16:00; Status DC Warfarin Sodium (Coumadin Per Pharmacy) 1 each PRN DAILY PRN MC SEE COMMENTS Last administered on 04/20/17 10:59; Start 04/15/17 at 15:15; Stop 04/20/17 at 16:07; Status DC Amiodarone HCl (Cordarone) 200 mg DAILY PO Last administered on 04/18/17 09:19 ; Start 04/16/17 at 09:00; Stop 04/18/17 at 17:42; Status DC Aspirin (Children'S Aspirin) 81 mg DAILYWBKFT PO Last administered on 07:42; Start 04/16/17 at 08:00; Stop 04/18/17 at 17:43; Status DC Cyanocobalamin (Vitamin B-12) 1,000 mcg AFTRNOON PO Last administered on 13:13; Start 04/16/17 at 13:00; Stop 04/18/17 at 17:33; Status DC Levothyroxine Sodium (Synthroid) 88 mcg DAILY07 PO Last administered on 06:39; Start 04/16/17 at 07:00 Warfarin Sodium (Coumadin) 1 mg DAILY PO ; Start 04/16/17 at 09:00; Status UNV Insulin Aspart (NovoLOG) 0-9 UNITS TIDWMEALS SQ Last administered on 04/17/17 17:34; Start 04/15/17 at 17:00 Dextrose (Dextrose 50%-Water Syringe) 12.5 gm PRN Q15MIN PRN IV SEE COMMENTS; Start 04/15/17 at 15:30 Warfarin Sodium (Coumadin) 0.5 mg 1X WARF ONCE PO ; Start 04/15/17 at 16:00; Stop 04/15/17 at 16:01; Status DC Pantoprazole Sodium (Protonix Vial) 40 mg DAILYAC IVP Last administered on 04/21 07:44; Start 04/15/17 at 16:30 Ceftriaxone Sodium 1 gm/ Sodium Chloride 50 ml @ 100 mls/hr Q24H IV Last administered on 04/16/17 09:12; Start 04/16/17 at 09:00; Stop 04/16/17 at 17:42 ; Status DC Warfarin Sodium (Coumadin - No Dose Today) 1 each 1X WARF ONCE MC ; Start 04/16 at 16:00; Stop 04/16/17 at 16:01; Status DC Darbepoetin Tomás (Aranesp) 60 mcg Sa SQ Last administered on 04/16/17 20:45; Start 04/16/17 at 21:00 Piperacillin Sod/ Tazobactam Sod 2.25 gm/Sodium Chloride 50 ml @ 100 mls/hr Q6HRS IV Last administered on 04/21/17 05:30; Start 04/16/17 at 18:00; Stop at 07:58; Status DC Vancomycin HCl 1.5 gm/Sodium Chloride 500 ml @ 250 mls/hr 1X ONCE IV Last administered on 04/16/17 19:22; Start 04/16/17 at 18:30; Stop 04/16/17 at 20:29 ; Status DC Phytonadione (Mephyton) 5 mg 1X ONCE PO Last administered on 04/17/17 11:15; Start 04/17/17 at 11:15; Stop 04/17/17 at 11:16; Status DC Magnesium Sulfate/ Dextrose 50 ml @ 25 mls/hr PRN DAILY PRN IV for Mag < 1.7 on am labs; Start 04/18/17 at 09:45 Warfarin Sodium (Coumadin - No Dose Today) 1 each 1X WARF ONCE MC ; Start 04/18 at 16:00; Stop 04/18/17 at 16:01; Status DC Morphine Sulfate 2 mg PRN Q2HR PRN IV PAIN; Start 04/18/17 at 17:45 Iron Sucrose 200 mg/Sodium Chloride 110 ml @ 55 mls/hr 3X/WEEK IV Last administered on 04/20/17 09:00; Start 04/20/17 at 09:00; Stop 04/29/17 at 10:59 Warfarin Sodium (Coumadin - No Dose Today) 1 each 1X WARF ONCE MC ; Start 04/19 at 16:00; Stop 04/19/17 at 16:01; Status DC Furosemide 100 mg/ Sodium Chloride 100 ml @ 0 mls/hr CONT PRN IV SEE I/O RECORD Last administered on 04/20/17 05:29; Start 04/19/17 at 15:45 Furosemide (Lasix) 40 mg 1X ONCE IVP Last administered on 04/19/17 16:26; Start 04/19/17 at 16:30; Stop 04/19/17 at 16:31; Status DC Warfarin Sodium (Coumadin - No Dose Today) 1 each 1X WARF ONCE MC ; Start 04/20 at 16:00; Stop 04/20/17 at 16:01; Status DC Dopamine HCl/ Dextrose 250 ml @ 16.622 mls/ hr CONT PRN IV SEE I/O RECORD Last administered on 04/21/17 08:14; Start 04/20/17 at 11:15 Phytonadione (Vitamin K) 5 mg 1X ONCE SQ Last administered on 04/20/17 15:55 ; Start 04/20/17 at 16:00; Stop 04/20/17 at 16:01; Status DC Potassium Chloride 100 ml @ 100 mls/hr Q1H IV ; Start 04/20/17 at 15:15; Stop 04/20/17 at 19:14; Status UNV Potassium Chloride 100 ml @ 100 mls/hr Q1H IV ; Start 04/20/17 at 15:15; Stop 04/20/17 at 23:14; Status UNV Potassium Chloride 100 ml @ 100 mls/hr Q1H IV ; Start 04/20/17 at 15:15; Stop 04/21/17 at 03:14; Status UNV Albumin Human 100 ml @ 100 mls/hr 1X ONCE IV Last administered on 04/21/17 04:02; Start 04/21/17 at 04:00; Stop 04/21/17 at 04:59; Status DC Albumin Human 100 ml @ 100 mls/hr TID IV ; Start 04/21/17 at 09:00; Stop at 21:59 Desmopressin Acetate (Ddavp) 4 mcg BID SQ ; Start 04/21/17 at 09:00; Stop at 21:01 Magnesium Sulfate/ Dextrose 50 ml @ 25 mls/hr PRN DAILY PRN IV for Mag < 1.7 on am labs; Start 04/21/17 at 08:00 Potassium Chloride 50 ml @ 50 mls/hr PRN Q6HRS PRN IV For K < 3.7; Start at 08:00 Potassium Chloride 50 ml @ 50 mls/hr PRN Q2HR PRN IV total of 40mEq for K < 3.5; Start 04/21/17 at 08:00 Ampicillin Sodium/ Sulbactam Sodium 1.5 gm/Sodium Chloride 50 ml @ 100 mls/hr Q6HRS IV ; Start 04/21/17 at 12:00 Potassium Chloride 100 ml @ 100 mls/hr Q1H IV ; Start 04/21/17 at 09:00; Stop 04/21/17 at 10:59 Lidocaine/Sodium Bicarbonate (Buffered Lidocaine 1%) 20 ml STK-MED ONCE IJ ; Start 04/21/17 at 08:08; Stop 04/21/17 at 08:09; Status DC Heparin Sodium/ Sodium Chloride 500 ml @ As Directed STK-MED ONCE .ROUTE ; Start 04/21/17 at 08:08; Stop 04/21/17 at 08:09; Status DC Fentanyl Citrate (Fentanyl 2ml Vial) 100 mcg STK-MED ONCE .ROUTE ; Start at 08:20; Stop 04/21/17 at 08:21; Status DC Midazolam HCl (Versed) 2 mg STK-MED ONCE .ROUTE ; Start 04/21/17 at 08:20; Stop 04/21/17 at 08:21; Status DC Iohexol (Omnipaque 240 Mg/ml) 30 ml 1X ONCE PO ; Start 04/21/17 at 08:45; Stop 04/21/17 at 08:46; Status DC Lidocaine/Sodium Bicarbonate (Buffered Lidocaine 1%) 3 ml 1X ONCE IJ ; Start at 08:45; Stop 04/21/17 at 08:49; Status DC Heparin Sodium/ Sodium Chloride 60 unit 1X ONCE IV ; Start 04/21/17 at 08:45; Stop 04/21/17 at 08:49; Status DC Active Scripts Active Reported Potassium Chloride 10 Meq Capsule.er 10 Meq PO 3X/WEEK Vitamin B-12 (Cyanocobalamin (Vitamin B-12)) 1,000 Mcg Tablet 1 Tab PO AFTRNOON Vitamin D (Cholecalciferol (Vitamin D3)) 1,000 Unit Capsule 1 Cap PO HS Vitamin E (Vitamin E (Dl,Tocopheryl Acet)) 200 Unit Capsule 200 Unit PO AFTRNOON Novolin 70-30 100 Unit/Ml Vial (Hum Insulin Nph/Reg Insulin Hm) 100 Unit/1 Ml Vial 13 Unit SQ HS Levothyroxine Sodium 88 Mcg Tablet 1 Tab PO DAILY Carvedilol 6.25 Mg Tablet 1 Tab PO BID Fosamax (Alendronate Sodium) 70 Mg Tablet 1 Tab PO WEEKLY 1 Days Amiodarone Hcl 200 Mg Tablet 1 Tab PO DAILY Aspirin 81 Mg Tab.chew 1 Tab PO DAILY Warfarin Sodium 1 Mg Tablet 1 Mg PO DAILY Crestor (Rosuvastatin Calcium) 5 Mg Tablet 5 Mg PO HS Furosemide 40 Mg Tablet 40 Mg PO BID Vitals/I & O Vital Sign - Last 24 Hours 04/20/17 04/20/17 04/20/17 04/20/17 10:00 11:00 11:15 11:30 Pulse 60 60 68 68 Resp B/P (MAP) 90/42 (58) 88/45 (59) 73/46 (55) 70/46 (54) Pulse Ox 97 96 96 96 O2 Delivery Nasal Cannula Nasal Cannula Nasal Cannula Nasal Cannula O2 Flow Rate 2.0 2.0 2.0 2.0 04/20/17 04/20/17 04/20/17 04/20/17 11:45 12:00 12:00 12:15 Temp 98.0 98.0 Pulse 66 74 88 Resp B/P (MAP) 73/47 (56) 93/48 (63) 103/48 (66) Pulse Ox 96 95 93 O2 Delivery Nasal Cannula Nasal Cannula Nasal Cannula Nasal Cannula O2 Flow Rate 2.0 2.0 2.0 2.0 04/20/17 04/20/17 04/20/17 04/20/17 12:30 12:45 13:00 13:15 Pulse 98 100 88 86 Resp 24 24 25 22 B/P (MAP) 96/54 (68) 93/55 (68) 84/61 (69) 93/53 (66) Pulse Ox 91 89 92 92 O2 Delivery Nasal Cannula Nasal Cannula Nasal Cannula Nasal Cannula O2 Flow Rate 2.0 2.0 2.0 2.0 04/20/17 04/20/17 04/20/17 04/20/17 13:30 13:45 14:00 14:30 Pulse 94 93 93 90 Resp 22 20 22 19 B/P (MAP) 103/44 (63) 95/48 (64) 82/49 (60) 93/53 (66) Pulse Ox 93 93 93 90 O2 Delivery Nasal Cannula Nasal Cannula Nasal Cannula Nasal Cannula O2 Flow Rate 2.0 2.0 2.0 2.0 04/20/17 04/20/17 04/20/17 04/20/17 14:37 16:00 16:00 17:00 Temp 97.3 97.3 Pulse 100 96 B/P (MAP) 98/65 (76) 102/56 (71) O2 Delivery Nasal Cannula Nasal Cannula Nasal Cannula Nasal Cannula O2 Flow Rate 2.0 2.0 2.0 2.0 04/20/17 04/20/17 04/20/17 04/20/17 18:00 19:00 19:00 20:00 Pulse 97 87 B/P (MAP) 63/ 101/47 (65) 98/54 (69) O2 Delivery Nasal Cannula Nasal Cannula Nasal Cannula O2 Flow Rate 2.0 2.0 2.0 04/20/17 04/20/17 04/20/17 04/20/17 20:00 20:30 21:00 22:00 Temp 97.8 97.8 Pulse 85 76 86 B/P (MAP) 91/60 (70) 63/46 (52) 77/50 (59) 91/49 (63) O2 Delivery Nasal Cannula Nasal Cannula Nasal Cannula O2 Flow Rate 2.0 2.0 2.0 04/20/17 04/21/17 04/21/17 04/21/17 23:00 00:00 00:00 01:00 Temp 97.6 97.6 Pulse 87 88 87 B/P (MAP) 105/54 (71) 90/52 (65) 92/52 (65) O2 Delivery Nasal Cannula Nasal Cannula Nasal Cannula Nasal Cannula O2 Flow Rate 2.0 2.0 2.0 2.0 04/21/17 04/21/17 04/21/17 04/21/17 02:00 03:00 04:00 04:00 Temp 97.6 97.6 Pulse 67 76 74 Resp 24 22 24 B/P (MAP) 87/54 (65) 93/61 (72) 100/60 (73) Pulse Ox 97 96 O2 Delivery Nasal Cannula Nasal Cannula Nasal Cannula Nasal Cannula O2 Flow Rate 2.0 2.0 2.0 2.0 04/21/17 04/21/17 04/21/17 04/21/17 05:00 06:00 07:00 08:00 Pulse 80 81 64 Resp 19 22 20 B/P (MAP) 93/63 (73) 88/51 (63) 92/54 (67) Pulse Ox 98 98 98 O2 Delivery Nasal Cannula Nasal Cannula Nasal Cannula Nasal Cannula O2 Flow Rate 2.0 2.0 2.0 2.0 04/21/17 04/21/17 08:30 08:45 Pulse 87 87 Resp 20 20 B/P (MAP) 119/71 (87) 107/71 (83) Pulse Ox 98 96 O2 Delivery Nasal Cannula Nasal Cannula O2 Flow Rate 4.0 4.0 Intake and Output 04/20/17 04/20/17 04/21/17 15:00 23:00 07:00 Intake Total 0 ml 725 ml Output Total 2000 ml 1230 ml 540 ml Balance -2000 ml -1230 ml 185 ml FABRICE PERSAUD MD Apr 21, 2017 09:04
--- NOTE | 2017-04-21 09:21 | PDOC ---
Exam Accreditation Manager Accreditation Manager Britany Director Of Recruiting Director Of Recruiting F Ndumbu Pre-Procedure Diagnosis Pre-Procedure Diagnosis 77 YO male ICU patient with cirrhosis, large volume ascites, and hypotension, requiring BP support with pressors. Post-Procedure Diagnosis Post-Procedure Diagnosis Same Procedure Performed Procedure Performed Sono guided Dx/Tx paracentesis Sono/fluoro guided CVC insertion for ICU meds, including pressors. Type of Anesthesia Type of Anesthesia Local only Estimated Blood Loss EBL: Minimal Specimens Specimans 10,000 cc reddish-hazy ascites removed---samples to lab per protocol Drain/Tubes Drains/Tubes Left IJ 7F 3L 20cm power injectable CVC Condition of Patient Condition of Patient No change. No apparent complication. Disposition Disposition From IR return to ICU. OK to use CVC. Full report to follow. VIDHYA ABRAMS MD Apr 21, 2017 09:21
--- NOTE | 2017-04-21 10:00 | PDOC ---
Objective: Objective: Was out for paracentesis when I stopped by. D/w RN. Vital Signs: Vital Signs Date Time Temp Pulse Resp B/P (MAP) Pulse Ox O2 Delivery O2 Flow Rate FiO2 04/21/17 09:45 81 20 105/67 (80) 97 Nasal Cannula 4.0 04/21/17 04:00 97.6 97.6 Labs: Laboratory Tests Test 04/20/17 13:35 04/20/17 18:29 04/21/17 04:05 Glucose (Fingerstick) 130 mg/dL 144 mg/dL White Blood Count 9.2 x10^3/uL Red Blood Count 3.64 x10^6/uL Hemoglobin 9.9 g/dL Hematocrit 30.2 % Mean Corpuscular Volume 83 fL Mean Corpuscular Hemoglobin 27 pg Mean Corpuscular Hemoglobin Concent 33 g/dL Red Cell Distribution Width 17.5 % Platelet Count 202 x10^3/uL Neutrophils (%) (Auto) 88 % Lymphocytes (%) (Auto) 5 % Monocytes (%) (Auto) 7 % Eosinophils (%) (Auto) 0 % Basophils (%) (Auto) 0 % Neutrophils # (Auto) 8.1 x10^3uL Lymphocytes # (Auto) 0.5 x10^3/uL Monocytes # (Auto) 0.6 x10^3/uL Eosinophils # (Auto) 0.0 x10^3/uL Basophils # (Auto) 0.0 x10^3/uL Prothrombin Time 18.2 SEC Prothromb Time International Ratio 1.6 Sodium Level 150 mmol/L Potassium Level 3.5 mmol/L Chloride Level 113 mmol/L Carbon Dioxide Level 22 mmol/L Anion Gap 15 Blood Urea Nitrogen 87 mg/dL Creatinine 3.0 mg/dL Estimated GFR (Cockcroft-Gault) 20.3 Glucose Level 141 mg/dL Lactic Acid Level 1.0 mmol/L Calcium Level 8.6 mg/dL Phosphorus Level 5.3 mg/dL Magnesium Level 2.3 mg/dL Albumin 2.0 g/dL PE: no exam A/P: Pneumoperitoneum -not good surg candidate Ascites (new onset), cirrhosis -Hep panel negative, ?etiology, previously on amiodarone -paracentesis today TAMEKA -no previous EGD, last colonoscopy 2014, on IV iron CHF, hypotension, A Fib, edema +BC -on atbx -- Await paracentesis. YUNIOR RESENDIZ Apr 21, 2017 10:00
[2017-04-21] MEDS: POTASSIUM CHLORIDE 10MEQ 100 ML IV SCH ×2 (10:41→11:10)
[2017-04-21] MEDS: DESMOPRESSIN 4 MCG/ML AMPUL. SQ SCH ×2 (11:10→21:26)
--- NOTE | 2017-04-21 11:36 | PDOC ---
SURGICAL PROGRESS NOTE Subjective Pt feels better, s/p paracentesis, min c/o LLQ pain Vital Signs Vital Signs Date Time Temp Pulse Resp B/P (MAP) Pulse Ox O2 Delivery O2 Flow Rate FiO2 04/21/17 11:00 99 Nasal Cannula 2.0 04/21/17 11:00 86 18 107/53 (71) 04/21/17 04:00 97.6 97.6 I&O Intake and Output 04/21/17 07:00 Intake Total 725 ml Output Total 3770 ml Balance -3045 ml Intake Oral 0 ml IV Total 725 ml Output Urine Total 3770 ml General: Alert, Oriented X3, Cooperative, No acute distress Abdomen: Soft, No tenderness, Other (fluid decreased) Labs Laboratory Tests Test 04/19/17 13:09 04/19/17 16:29 04/19/17 21:20 04/20/17 04:50 Glucose (Fingerstick) 115 mg/dL (70-99) 117 mg/dL (70-99) 110 mg/dL (70-99) White Blood Count 7.8 x10^3/uL (4.0-11.0) Red Blood Count 2.91 x10^6/uL (4.30-5.70) Hemoglobin 7.9 g/dL (13.0-17.5) Hematocrit 24.7 % (39.0-53.0) Mean Corpuscular Volume 85 fL (79-100) Mean Corpuscular Hemoglobin 27 pg (25-35) Mean Corpuscular Hemoglobin Concent 32 g/dL (31-37) Red Cell Distribution Width 16.7 % (11.5-14.5) Platelet Count 142 x10^3/uL (140-400) Neutrophils (%) (Auto) 90 % (31-73) Lymphocytes (%) (Auto) 3 % (24-48) Monocytes (%) (Auto) 7 % (0-9) Eosinophils (%) (Auto) 0 % (0-3) Basophils (%) (Auto) 0 % (0-3) Neutrophils # (Auto) 7.0 x10^3uL (1.8-7.7) Lymphocytes # (Auto) 0.3 x10^3/uL (1.0-4.8) Monocytes # (Auto) 0.5 x10^3/uL (0.0-1.1) Eosinophils # (Auto) 0.0 x10^3/uL (0.0-0.7) Basophils # (Auto) 0.0 x10^3/uL (0.0-0.2) Prothrombin Time 23.9 SEC (11.7-14.0) Prothromb Time International Ratio 2.3 (0.8-1.1) Sodium Level 146 mmol/L (136-145) Potassium Level 3.6 mmol/L (3.5-5.1) Chloride Level 112 mmol/L (98-107) Carbon Dioxide Level 22 mmol/L (21-32) Anion Gap 12 (6-14) Blood Urea Nitrogen 86 mg/dL (8-26) Creatinine 2.9 mg/dL (0.7-1.3) Estimated GFR (Cockcroft-Gault) 21.1 Glucose Level 115 mg/dL (70-99) Lactic Acid Level 0.8 mmol/L (0.4-2.0) Calcium Level 8.1 mg/dL (8.5-10.1) Phosphorus Level 4.9 mg/dL (2.6-4.7) Magnesium Level 2.3 mg/dL (1.8-2.4) Albumin 1.9 g/dL (3.4-5.0) Test 04/20/17 08:05 04/20/17 13:35 04/20/17 18:29 04/21/17 04:05 Glucose (Fingerstick) 116 mg/dL (70-99) 130 mg/dL (70-99) 144 mg/dL (70-99) White Blood Count 9.2 x10^3/uL (4.0-11.0) Red Blood Count 3.64 x10^6/uL (4.30-5.70) Hemoglobin 9.9 g/dL (13.0-17.5) Hematocrit 30.2 % (39.0-53.0) Mean Corpuscular Volume 83 fL (79-100) Mean Corpuscular Hemoglobin 27 pg (25-35) Mean Corpuscular Hemoglobin Concent 33 g/dL (31-37) Red Cell Distribution Width 17.5 % (11.5-14.5) Platelet Count 202 x10^3/uL (140-400) Neutrophils (%) (Auto) 88 % (31-73) Lymphocytes (%) (Auto) 5 % (24-48) Monocytes (%) (Auto) 7 % (0-9) Eosinophils (%) (Auto) 0 % (0-3) Basophils (%) (Auto) 0 % (0-3) Neutrophils # (Auto) 8.1 x10^3uL (1.8-7.7) Lymphocytes # (Auto) 0.5 x10^3/uL (1.0-4.8) Monocytes # (Auto) 0.6 x10^3/uL (0.0-1.1) Eosinophils # (Auto) 0.0 x10^3/uL (0.0-0.7) Basophils # (Auto) 0.0 x10^3/uL (0.0-0.2) Prothrombin Time 18.2 SEC (11.7-14.0) Prothromb Time International Ratio 1.6 (0.8-1.1) Sodium Level 150 mmol/L (136-145) Potassium Level 3.5 mmol/L (3.5-5.1) Chloride Level 113 mmol/L (98-107) Carbon Dioxide Level 22 mmol/L (21-32) Anion Gap 15 (6-14) Blood Urea Nitrogen 87 mg/dL (8-26) Creatinine 3.0 mg/dL (0.7-1.3) Estimated GFR (Cockcroft-Gault) 20.3 Glucose Level 141 mg/dL (70-99) Lactic Acid Level 1.0 mmol/L (0.4-2.0) Calcium Level 8.6 mg/dL (8.5-10.1) Phosphorus Level 5.3 mg/dL (2.6-4.7) Magnesium Level 2.3 mg/dL (1.8-2.4) Albumin 2.0 g/dL (3.4-5.0) Test 04/21/17 10:20 04/21/17 10:28 Magnesium Level 2.4 mg/dL (1.8-2.4) Glucose (Fingerstick) 148 mg/dL (70-99) Laboratory Tests Test 04/20/17 13:35 04/20/17 18:29 04/21/17 04:05 04/21/17 10:20 Glucose (Fingerstick) 130 mg/dL (70-99) 144 mg/dL (70-99) White Blood Count 9.2 x10^3/uL (4.0-11.0) Red Blood Count 3.64 x10^6/uL (4.30-5.70) Hemoglobin 9.9 g/dL (13.0-17.5) Hematocrit 30.2 % (39.0-53.0) Mean Corpuscular Volume 83 fL (79-100) Mean Corpuscular Hemoglobin 27 pg (25-35) Mean Corpuscular Hemoglobin Concent 33 g/dL (31-37) Red Cell Distribution Width 17.5 % (11.5-14.5) Platelet Count 202 x10^3/uL (140-400) Neutrophils (%) (Auto) 88 % (31-73) Lymphocytes (%) (Auto) 5 % (24-48) Monocytes (%) (Auto) 7 % (0-9) Eosinophils (%) (Auto) 0 % (0-3) Basophils (%) (Auto) 0 % (0-3) Neutrophils # (Auto) 8.1 x10^3uL (1.8-7.7) Lymphocytes # (Auto) 0.5 x10^3/uL (1.0-4.8) Monocytes # (Auto) 0.6 x10^3/uL (0.0-1.1) Eosinophils # (Auto) 0.0 x10^3/uL (0.0-0.7) Basophils # (Auto) 0.0 x10^3/uL (0.0-0.2) Prothrombin Time 18.2 SEC (11.7-14.0) Prothromb Time International Ratio 1.6 (0.8-1.1) Sodium Level 150 mmol/L (136-145) Potassium Level 3.5 mmol/L (3.5-5.1) Chloride Level 113 mmol/L (98-107) Carbon Dioxide Level 22 mmol/L (21-32) Anion Gap 15 (6-14) Blood Urea Nitrogen 87 mg/dL (8-26) Creatinine 3.0 mg/dL (0.7-1.3) Estimated GFR (Cockcroft-Gault) 20.3 Glucose Level 141 mg/dL (70-99) Lactic Acid Level 1.0 mmol/L (0.4-2.0) Calcium Level 8.6 mg/dL (8.5-10.1) Phosphorus Level 5.3 mg/dL (2.6-4.7) Magnesium Level 2.3 mg/dL (1.8-2.4) 2.4 mg/dL (1.8-2.4) Albumin 2.0 g/dL (3.4-5.0) Test 04/21/17 10:28 Glucose (Fingerstick) 148 mg/dL (70-99) Assessment/Plan pneumoperitoneum cont supportive care no surgical plans Problems: MARIBEL MCCURDY MD Apr 21, 2017 11:36
[2017-04-21] MEDS: AMPICILLIN/SULBACTAM 1.5 GM in IV NORMAL SALINE 50ML 50 ML IV SCH ×2 (11:49→17:40)
[2017-04-21 12:20] LABS: BF CLARITY TURBID; BF COLOR AMBER
--- NOTE | 2017-04-21 13:37 | PDOC ---
CARDIO Progress Notes Date and Time Date of Service 04/21/17 Time of Evaluation 1245 Subjective Subjective: No Chest Pain, No shortness of breath, No Palpitations, Other ( mild lower abdominal discomfort. Breathing significantly improved s/p paracentesis ) Vitals Vitals Vital Signs Date Time Temp Pulse Resp B/P (MAP) Pulse Ox O2 Delivery O2 Flow Rate FiO2 04/21/17 11:00 99 Nasal Cannula 2.0 04/21/17 11:00 86 18 107/53 (71) 04/21/17 04:00 97.6 97.6 Weight Weight [ ] Input and Output Intake and Output Intake and Output 04/21/17 07:00 Intake Total 725 ml Output Total 3770 ml Balance -3045 ml Intake Oral 0 ml IV Total 725 ml Output Urine Total 3770 ml Laboratory Labs Laboratory Tests Test 04/20/17 13:35 04/20/17 18:29 04/21/17 04:05 04/21/17 09:00 Glucose (Fingerstick) 130 mg/dL (70-99) 144 mg/dL (70-99) White Blood Count 9.2 x10^3/uL (4.0-11.0) Red Blood Count 3.64 x10^6/uL (4.30-5.70) Hemoglobin 9.9 g/dL (13.0-17.5) Hematocrit 30.2 % (39.0-53.0) Mean Corpuscular Volume 83 fL (79-100) Mean Corpuscular Hemoglobin 27 pg (25-35) Mean Corpuscular Hemoglobin Concent 33 g/dL (31-37) Red Cell Distribution Width 17.5 % (11.5-14.5) Platelet Count 202 x10^3/uL (140-400) Neutrophils (%) (Auto) 88 % (31-73) Lymphocytes (%) (Auto) 5 % (24-48) Monocytes (%) (Auto) 7 % (0-9) Eosinophils (%) (Auto) 0 % (0-3) Basophils (%) (Auto) 0 % (0-3) Neutrophils # (Auto) 8.1 x10^3uL (1.8-7.7) Lymphocytes # (Auto) 0.5 x10^3/uL (1.0-4.8) Monocytes # (Auto) 0.6 x10^3/uL (0.0-1.1) Eosinophils # (Auto) 0.0 x10^3/uL (0.0-0.7) Basophils # (Auto) 0.0 x10^3/uL (0.0-0.2) Prothrombin Time 18.2 SEC (11.7-14.0) Prothromb Time International Ratio 1.6 (0.8-1.1) Sodium Level 150 mmol/L (136-145) Potassium Level 3.5 mmol/L (3.5-5.1) Chloride Level 113 mmol/L (98-107) Carbon Dioxide Level 22 mmol/L (21-32) Anion Gap 15 (6-14) Blood Urea Nitrogen 87 mg/dL (8-26) Creatinine 3.0 mg/dL (0.7-1.3) Estimated GFR (Cockcroft-Gault) 20.3 Glucose Level 141 mg/dL (70-99) Lactic Acid Level 1.0 mmol/L (0.4-2.0) Calcium Level 8.6 mg/dL (8.5-10.1) Phosphorus Level 5.3 mg/dL (2.6-4.7) Magnesium Level 2.3 mg/dL (1.8-2.4) Albumin 2.0 g/dL (3.4-5.0) Body Fluid Source Ascites Body Fluid Color Gabrielle Body Fluid Clarity Turbid Body Fluid Nucleated Cells 2052 /cmm Body Fluid Mononuclear WBCs (%) 42 % Body Fluid Polymorphonuclear Cells 58 % Body Fluid Total RBCs Counted 69598 /cmm Test 04/21/17 10:20 04/21/17 10:28 Magnesium Level 2.4 mg/dL (1.8-2.4) Glucose (Fingerstick) 148 mg/dL (70-99) Review of Systems Constitutional: yes: weakness, alert, oriented Ears/Nose/Throat: Yes: no symptom reported Eyes: Yes: no symptom reported Pulmonary: Yes no symptom reported Cardiovascular: Yes no symptom reported Gastrointestional: Yes: constipation Genitourinary: Yes: no symptom reported Musculoskeletal: Yes: muscle stiffness Skin: Yes no symptom reported Physical Exam HEENT: Neck Supple W Full Motion Chest: Symmetric LUNGS: Clear to Auscultation, Other (diminished bases ) Heart: S1S2, RRR, other (tele: v-paced with underlying AFIB ) Abdomen: Other (mild lower abdominal tenderness ) Extremities: Other (2-3+ bilateral LE edema with chronic venous stasis changes , trace bilateral hand edema) Neurology: alert, oriented, follow commands Assessment Assessment 1. Acute on chronic systolic HF; better compensated post fluid removal 2. ICM; LVEF 35% s/p AICD 3. CAD s/p CABG 4. PAFIB; OAC with warfarin 5. Hypotension; requiring pressor support following Lasix gtt 6. Hyperlipidemia 7. Leukocytosis with bacteremia; ?sepsis- final report pending 8. HERIBERTO with CKD; Cr trending downward- now 2.9 9. H/o Cirrhosis (recently diagnosed) with present ascites; s/p paracentesis with 9000cc fluid removal. 10. Pneumoperitoneum; ? SBP; no surgical plans Recommendations Discontinue Lasix gtt. Resume oral Titrate off Dopamine as able. Resume Warfarin when okay with IR and sx Antibiotic therapy as per ID Continue supportive care ARAM TROTTER APRN Apr 21, 2017 13:37
[2017-04-21] MEDS: TPN PER PHARMACY MC PRN ×2 (13:59→14:57)
[2017-04-21] MEDS ORDERED: WARFARIN 1 MG TABLET. PO ONE (16:00)
--- NOTE | 2017-04-21 18:51 | RAD ---
Ultrasound-guided diagnostic and therapeutic paracentesis Indication: 77-year-old male with cirrhosis and with large volume, symptomatic ascites. Anesthesia: Local only Procedure: Informed consent was obtained from the patient. He was placed supine on the angiography table. Preliminary ultrasound examination confirmed the presence of a large volume of abdominal/pelvic ascites. A right lateral abdominal peritoneal fluid collection, suitable for sono guided paracentesis, was selected, was marked, and was documented with a single hard copy ultrasound image. That area was then prepped and draped in the usual sterile fashion. Using aseptic technique, local anesthesia, and direct ultrasound guidance, a 21-gauge micropuncture needle was successfully introduced into the selected peritoneal fluid collection. The 21-gauge needle was exchanged over a microguidewire for a micropuncture sheath, which was, in turn, exchanged over a 0.035 inch guidewire for a 6 [place] drainage catheter. Approximately 10,000 cc of reddish-hazy ascites was removed, samples which were submitted to the clinical laboratory per routine protocol. The drainage catheter was then removed and a sterile dressing was applied. Patient tolerated the procedure well without apparent complication. Infusion of 50 g 25% albumin was initiated during the paracentesis procedure. Impression: Successful, uneventful ultrasound-guided diagnostic and therapeutic paracentesis, as described.
[2017-04-21] MEDS: POTASSIUM CHLORIDE 20MEQ 50 ML IV SCH ×2 (19:29→20:13)
[2017-04-21] MEDS: FUROSEMIDE 40 MG TABLET. PO SCH (21:25)
[2017-04-21] MEDS ORDERED: TOTAL PARENTERAL NUTRITION IV SCH ×8 (22:00)
[2017-04-21] MEDS ORDERED: DEXTROSE 70% IV SCH ×8 (22:00)
[2017-04-21] MEDS ORDERED: [UNRECOGNIZED DRUG - OTHER] IV SCH ×8 (22:00)
[2017-04-21] MEDS ORDERED: AMINO ACIDS IV SCH ×8 (22:00)
[2017-04-22] VITALS (27 sets, daily range): BP systolic 82–151; BP diastolic 38–73
[2017-04-22] MEDS: AMPICILLIN/SULBACTAM 1.5 GM in IV NORMAL SALINE 50ML 50 ML IV SCH ×5 (01:53→23:21)
[2017-04-22 06:45] LABS: INR 1.9 (0.8-1.1); PROTHROMBIN TIME PATIENT 20.5 SEC (11.7-14.0)
--- NOTE | 2017-04-22 08:27 | PDOC ---
SURGICAL PROGRESS NOTE Subjective Pt reports feeling better, some gas pains Vital Signs Vital Signs Date Time Temp Pulse Resp B/P (MAP) Pulse Ox O2 Delivery O2 Flow Rate FiO2 04/22/17 06:26 82/47 (59) 04/22/17 06:22 85 19 99 Nasal Cannula 04/22/17 06:00 2.0 04/22/17 04:00 97.5 97.5 I&O Intake and Output 04/22/17 06:59 Intake Total 1696.59 ml Output Total 2890 ml Balance -1193.41 ml IV Total 1696.59 ml Output Urine Total 2890 ml General: Alert, Oriented X3, Cooperative, No acute distress Abdomen: Soft, Other (mild TTP LLQ) Labs Laboratory Tests Test 04/20/17 13:35 04/20/17 18:29 04/21/17 04:05 04/21/17 09:00 Glucose (Fingerstick) 130 mg/dL (70-99) 144 mg/dL (70-99) White Blood Count 9.2 x10^3/uL (4.0-11.0) Red Blood Count 3.64 x10^6/uL (4.30-5.70) Hemoglobin 9.9 g/dL (13.0-17.5) Hematocrit 30.2 % (39.0-53.0) Mean Corpuscular Volume 83 fL (79-100) Mean Corpuscular Hemoglobin 27 pg (25-35) Mean Corpuscular Hemoglobin Concent 33 g/dL (31-37) Red Cell Distribution Width 17.5 % (11.5-14.5) Platelet Count 202 x10^3/uL (140-400) Neutrophils (%) (Auto) 88 % (31-73) Lymphocytes (%) (Auto) 5 % (24-48) Monocytes (%) (Auto) 7 % (0-9) Eosinophils (%) (Auto) 0 % (0-3) Basophils (%) (Auto) 0 % (0-3) Neutrophils # (Auto) 8.1 x10^3uL (1.8-7.7) Lymphocytes # (Auto) 0.5 x10^3/uL (1.0-4.8) Monocytes # (Auto) 0.6 x10^3/uL (0.0-1.1) Eosinophils # (Auto) 0.0 x10^3/uL (0.0-0.7) Basophils # (Auto) 0.0 x10^3/uL (0.0-0.2) Prothrombin Time 18.2 SEC (11.7-14.0) Prothromb Time International Ratio 1.6 (0.8-1.1) Sodium Level 150 mmol/L (136-145) Potassium Level 3.5 mmol/L (3.5-5.1) Chloride Level 113 mmol/L (98-107) Carbon Dioxide Level 22 mmol/L (21-32) Anion Gap 15 (6-14) Blood Urea Nitrogen 87 mg/dL (8-26) Creatinine 3.0 mg/dL (0.7-1.3) Estimated GFR (Cockcroft-Gault) 20.3 Glucose Level 141 mg/dL (70-99) Lactic Acid Level 1.0 mmol/L (0.4-2.0) Calcium Level 8.6 mg/dL (8.5-10.1) Phosphorus Level 5.3 mg/dL (2.6-4.7) Magnesium Level 2.3 mg/dL (1.8-2.4) Albumin 2.0 g/dL (3.4-5.0) Body Fluid Source Ascites Body Fluid Color Gabrielle Body Fluid Clarity Turbid Body Fluid Nucleated Cells 2052 /cmm Body Fluid Mononuclear WBCs (%) 42 % Body Fluid Polymorphonuclear Cells 58 % Body Fluid Total RBCs Counted 28623 /cmm Test 04/21/17 10:20 04/21/17 10:28 04/21/17 16:48 04/21/17 17:40 Magnesium Level 2.4 mg/dL (1.8-2.4) Glucose (Fingerstick) 148 mg/dL (70-99) 142 mg/dL (70-99) Potassium Level 3.3 mmol/L (3.5-5.1) Test 04/22/17 06:05 Prothrombin Time 20.5 SEC (11.7-14.0) Prothromb Time International Ratio 1.9 (0.8-1.1) Sodium Level 152 mmol/L (136-145) Potassium Level 3.5 mmol/L (3.5-5.1) Chloride Level 116 mmol/L (98-107) Carbon Dioxide Level 25 mmol/L (21-32) Anion Gap 11 (6-14) Blood Urea Nitrogen 86 mg/dL (8-26) Creatinine 2.6 mg/dL (0.7-1.3) Estimated GFR (Cockcroft-Gault) 23.9 Glucose Level 225 mg/dL (70-99) Lactic Acid Level 0.9 mmol/L (0.4-2.0) Calcium Level 8.2 mg/dL (8.5-10.1) Phosphorus Level 4.2 mg/dL (2.6-4.7) Magnesium Level 2.1 mg/dL (1.8-2.4) Albumin 2.4 g/dL (3.4-5.0) Triglycerides Level 61 mg/dL (0-150) Laboratory Tests Test 04/21/17 09:00 04/21/17 10:20 04/21/17 10:28 04/21/17 16:48 Body Fluid Source Ascites Body Fluid Color Gabrielle Body Fluid Clarity Turbid Body Fluid Nucleated Cells 2052 /cmm Body Fluid Mononuclear WBCs (%) 42 % Body Fluid Polymorphonuclear Cells 58 % Body Fluid Total RBCs Counted 97249 /cmm Magnesium Level 2.4 mg/dL (1.8-2.4) Glucose (Fingerstick) 148 mg/dL (70-99) 142 mg/dL (70-99) Test 04/21/17 17:40 04/22/17 06:05 Potassium Level 3.3 mmol/L (3.5-5.1) 3.5 mmol/L (3.5-5.1) Prothrombin Time 20.5 SEC (11.7-14.0) Prothromb Time International Ratio 1.9 (0.8-1.1) Sodium Level 152 mmol/L (136-145) Chloride Level 116 mmol/L (98-107) Carbon Dioxide Level 25 mmol/L (21-32) Anion Gap 11 (6-14) Blood Urea Nitrogen 86 mg/dL (8-26) Creatinine 2.6 mg/dL (0.7-1.3) Estimated GFR (Cockcroft-Gault) 23.9 Glucose Level 225 mg/dL (70-99) Lactic Acid Level 0.9 mmol/L (0.4-2.0) Calcium Level 8.2 mg/dL (8.5-10.1) Phosphorus Level 4.2 mg/dL (2.6-4.7) Magnesium Level 2.1 mg/dL (1.8-2.4) Albumin 2.4 g/dL (3.4-5.0) Triglycerides Level 61 mg/dL (0-150) Assessment/Plan pneumoperitoneum appears stable no surgical plans, pt poor candidate cont supportive care Problems: MARIBEL MCCURDY MD Apr 22, 2017 08:27
[2017-04-22] MEDS: PANTOPRAZOLE IV PUSH 40 MG VIAL. IVP SCH (08:34)
[2017-04-22] MEDS: LEVOTHYROXINE 88 MCG TABLET PO SCH (08:34)
[2017-04-22] MEDS: FUROSEMIDE 40 MG TABLET. PO SCH ×2 (08:34→21:46)
[2017-04-22] MEDS: DESMOPRESSIN 4 MCG/ML AMPUL. SQ SCH ×2 (08:34→21:47)
[2017-04-22] MEDS: ALBUMIN HUMAN 25% 100 ML IV SCH ×3 (08:34→21:46)
[2017-04-22] MEDS: INSULIN ASPART 300 UNITS/3 ML INSULN.PEN SQ SCH ×3 (08:36→18:19)
[2017-04-22] MEDS: IRON SUCROSE COMPLEX 200 MG in IV NORMAL SALINE 100ML 100 ML IV SCH (08:48)
[2017-04-22] MEDS: TPN PER PHARMACY MC PRN ×2 (09:26→10:14)
--- NOTE | 2017-04-22 09:42 | PDOC ---
SUBJECTIVE ROS HERIBERTO/ CKD III/ Iv Doing OK overall, Better after Paracentesis CVS: no Orthopnea, no CP RESP: no SOB, no COPPOLA GI: no Nausea, no Vomiting : no Dysuria, no Urgency OBJECTIVE Vital Signs Vital Signs Date Time Temp Pulse Resp B/P (MAP) Pulse Ox O2 Delivery O2 Flow Rate FiO2 04/22/17 06:26 82/47 (59) 04/22/17 06:22 85 19 99 Nasal Cannula 04/22/17 06:00 2.0 04/22/17 04:00 97.5 97.5 I & 0 Intake and Output 04/22/17 07:00 Intake Total 1696.59 ml Output Total 2890 ml Balance -1193.41 ml IV Total 1696.59 ml Output Urine Total 2890 ml PHYSICAL EXAM Physical Exam GEN: Awake, Oriented x 3, In no distress EYES: Vision Unchanged, Conjunctiva Normal EN: No EN Drainage, Mucous Membranes moist NECK: no JVD, min JVP, Supple, no Thyromegaly CVS: S1S2, ? Murmur, No Gallop, No Rub,+ 2 Edema RESP: Rare Rales, occ Rhonchi,no Acc. Muscle Use GI: BS + ve, NO Bruit, Min Tender, not Distended; +ve Rebound t'ness : no CVA tenderness, no Suprapubic Tenderness ([place]) SKIN: no visible Rashes Breast Exam deferred Mu.Sk: Adequate ROM no Muscle Atrophy Heme: Unable to palpate Obvious LAD no palp Splenomegaly NEURO: Good Strength and Tone Cranial Nerves II - XII grossly intact; No Asterixis Psych: ? Depressed no Active hallucination DIAGNOSIS/ASSESSMENT Assessment & Plan: CKD III / IV - stable for now ? Early HRS v/s due to Cardiomyopathy. UO is OK for now palmer on lasix gtt. Current fluid and E-lyte status does not necessitate emergent need for dialysis. Will re-evaluate for dialysis in the am Abd Perf - now with t'ness and Rebound - re CT - Now evaluated and followed by GS and GI. ? Need for TPN if he needs to be NPO in near term vs Oral feeds Sepsis and Hypotension presumably associated with Abd Perf/ Pathology/ Peritonitis Ascites - s/p Tap Underlying CKD III with baseline Creat of 2.8 as OP ^ed Na - partially due to NPO status, watch trend on IV Alb, PO Lasix and current Na-free TPN Mildly ^ed Phos - better after TPN started Nutrition - TPN until cleared by GI/ GS for oral feeds ANEMIA; IV Iron as ordered; Aranesp as ordered, Transfuse as needed for hgb < 7 HypoTN: Current meds reviewed. remains on Pressors for now. would like to use IV Alb to help with Hemodynamics BACTEREMIA - ? Source; await ID eval - ? Associated with abd Perf Cirrhosis as noted on CT scan - defer to GI to eval - ? Etio D/w Cardio and ID [employer] [facility] STAFF NURSE COMMENT/RELEVANT DATA Meds Current Medications Medications (Trade) Dose Ordered Sig/Garret Start Time Stop Time Status Last Admin Dose Admin Acetaminophen (Tylenol) 325 mg PRN Q6HRS PRN 04/15/17 14:00 Acetaminophen/ Hydrocodone Bitart (Lortab 5/325) 1 tab PRN Q6HRS PRN 04/15/17 14:00 Albumin Human 100 ml @ 100 mls/hr TID 04/21/17 09:00 04/22/17 21:59 04/22/17 08:34 100 MLS/HR Albuterol Sulfate (Ventolin Neb Soln) 2.5 mg PRN Q4HRS PRN 04/15/17 14:00 04/19/17 16:45 2.5 MG Amiodarone HCl (Cordarone) 200 mg DAILY 04/16/17 09:00 04/18/17 17:42 DC 04/18/17 09:19 200 MG Ampicillin Sodium/ Sulbactam Sodium 1.5 gm/Sodium Chloride 50 ml @ 100 mls/hr Q6HRS 04/21/17 12:00 04/22/17 05:51 100 MLS/HR Aspirin (Children'S Aspirin) 81 mg [id number] 04/16/17 08:00 04/18/17 17:43 DC 04/18/17 07:42 81 MG Ceftriaxone Sodium 1 gm/ Sodium Chloride 50 ml @ 100 mls/hr Q24H 04/16/17 09:00 04/16/17 17:42 DC 04/16/17 09:12 100 MLS/HR Cyanocobalamin (Vitamin B-12) 1,000 mcg AFTRNOON 04/16/17 13:00 04/18/17 17:33 DC 04/18/17 13:13 1,000 MCG Darbepoetin Tomás (Aranesp) 60 mcg Sa 04/16/17 21:00 04/16/17 20:45 60 MCG Desmopressin Acetate (Ddavp) 4 mcg BID 04/21/17 09:00 04/23/17 21:01 04/22/17 08:34 4 MCG Dextrose (Dextrose 50%-Water Syringe) 12.5 gm PRN Q15MIN PRN 04/15/17 15:30 Dopamine HCl/ Dextrose 250 ml @ 16.622 mls/ hr CONT PRN 04/20/17 11:15 04/22/17 03:19 23.27 MLS/HR Fentanyl Citrate (Fentanyl 2ml Vial) 100 mcg STK-MED ONCE 04/21/17 08:20 04/21/17 08:21 DC Furosemide (Lasix) 40 mg BID 04/21/17 21:00 04/22/17 08:34 40 MG Furosemide 100 mg/ Sodium Chloride 100 ml @ 0 mls/hr CONT PRN 04/19/17 15:45 04/21/17 13:35 DC 04/20/17 05:29 5 MLS/HR Heparin Sodium/ Sodium Chloride 60 unit 1X ONCE 04/21/17 08:45 04/21/17 08:49 DC 04/21/17 09:17 60 UNIT Hydralazine HCl (Apresoline) 10 mg PRN Q4HRS PRN 04/15/17 14:00 Info 1 each PRN DAILY PRN 04/21/17 13:45 04/21/17 14:57 1 EACH Insulin Aspart (NovoLOG) 0-9 UNITS TIDWMEALS 04/15/17 17:00 04/22/17 08:36 4 UNITS Iohexol (Omnipaque 240 Mg/ml) 30 ml 1X ONCE 04/21/17 08:45 04/21/17 08:46 DC Iron Sucrose 200 mg/Sodium Chloride 110 ml @ 55 mls/hr 3X/WEEK 04/20/17 09:00 04/29/17 10:59 04/22/17 08:48 55 MLS/HR Levothyroxine Sodium (Synthroid) 88 mcg DAILY07 04/16/17 07:00 04/22/17 08:34 88 MCG Lidocaine/Sodium Bicarbonate (Buffered Lidocaine 1%) 3 ml 1X ONCE 04/21/17 08:45 04/21/17 08:49 DC 04/21/17 09:18 3 ML Magnesium Sulfate/ Dextrose 50 ml @ 25 mls/hr PRN DAILY PRN 04/21/17 08:00 Midazolam HCl (Versed) 2 mg STK-MED ONCE 04/21/17 08:20 04/21/17 08:21 DC Morphine Sulfate 2 mg PRN Q2HR PRN 04/18/17 17:45 Norepinephrine Bitartrate 250 ml @ 0 mls/hr CONT PRN 04/15/17 14:00 04/18/17 06:22 22.5 MLS/HR Ondansetron HCl (Zofran) 4 mg PRN Q8HRS PRN 04/15/17 14:00 04/20/17 13:23 4 MG Pantoprazole Sodium (Protonix Vial) 40 mg DAILYAC 04/15/17 16:30 04/22/17 08:34 40 MG Phytonadione (Mephyton) 5 mg 1X ONCE 04/17/17 11:15 04/17/17 11:16 DC 04/17/17 11:15 5 MG Phytonadione (Vitamin K) 5 mg 1X ONCE 04/20/17 16:00 04/20/17 16:01 DC 04/20/17 15:55 5 MG Piperacillin Sod/ Tazobactam Sod 2.25 gm/Sodium Chloride 50 ml @ 100 mls/hr Q6HRS 04/16/17 18:00 04/21/17 07:58 DC 04/21/17 05:30 100 MLS/HR Potassium Acetate 50 meq/Magnesium Sulfate 5 meq/ Calcium Gluconate 5 meq/ Multivitamins 10 ml/Chromium/ Copper/Manganese/ Seleni/Zn 1 ml/ Total Parenteral Nutrition/Amino Acids/Dextrose/ Fat Emulsion Intravenous 1,512 ml @ 63 mls/hr TPN CONT 04/21/17 22:00 04/22/17 21:59 04/21/17 21:26 63 MLS/HR Potassium Chloride 50 ml @ 50 mls/hr Q1H 04/21/17 19:00 04/21/17 20:59 DC 04/21/17 20:13 50 MLS/HR Sodium Chloride 1,000 ml @ 125 mls/hr Q8H 04/15/17 14:00 04/18/17 09:50 DC 04/18/17 06:20 125 MLS/HR Vancomycin HCl 1.5 gm/Sodium Chloride 500 ml @ 250 mls/hr 1X ONCE 04/16/17 18:30 04/16/17 20:29 DC 04/16/17 19:22 250 MLS/HR Warfarin Sodium (Coumadin - No Dose Today) 1 each 1X WARF ONCE 04/20/17 16:00 04/20/17 16:01 DC Warfarin Sodium (Coumadin Per Pharmacy) 1 each PRN DAILY PRN 04/21/17 13:45 04/21/17 13:39 1 EACH Warfarin Sodium (Coumadin) 1 mg 1X WARF ONCE 04/22/17 16:00 04/22/17 16:01 Lab Laboratory Tests Test 04/21/17 10:20 04/21/17 10:28 04/21/17 16:48 04/21/17 17:40 Magnesium Level 2.4 mg/dL (1.8-2.4) Glucose (Fingerstick) 148 mg/dL (70-99) 142 mg/dL (70-99) Potassium Level 3.3 mmol/L (3.5-5.1) Test 04/22/17 06:05 Prothrombin Time 20.5 SEC (11.7-14.0) Prothromb Time International Ratio 1.9 (0.8-1.1) Sodium Level 152 mmol/L (136-145) Potassium Level 3.5 mmol/L (3.5-5.1) Chloride Level 116 mmol/L (98-107) Carbon Dioxide Level 25 mmol/L (21-32) Anion Gap 11 (6-14) Blood Urea Nitrogen 86 mg/dL (8-26) Creatinine 2.6 mg/dL (0.7-1.3) Estimated GFR (Cockcroft-Gault) 23.9 Glucose Level 225 mg/dL (70-99) Lactic Acid Level 0.9 mmol/L (0.4-2.0) Calcium Level 8.2 mg/dL (8.5-10.1) Phosphorus Level 4.2 mg/dL (2.6-4.7) Magnesium Level 2.1 mg/dL (1.8-2.4) Albumin 2.4 g/dL (3.4-5.0) Triglycerides Level 61 mg/dL (0-150) NAKIA PEREZ MD Apr 22, 2017 09:42
--- NOTE | 2017-04-22 09:47 | PDOC ---
Infectious Disease Note Subjective Subjective c/o abdominal cramping, mild Denies N/V/D or bloating Hypotension, remains of dopamine TPN ROS ROS GEN: Denies fevers, chills, sweats CV: Denies chest pain RESP: Denies shortness of air, cough NEURO: Denies confusion Vital Sign Vital Signs Vital Signs Date Time Temp Pulse Resp B/P (MAP) Pulse Ox O2 Delivery O2 Flow Rate FiO2 04/22/17 06:26 82/47 (59) 04/22/17 06:22 85 19 99 Nasal Cannula 04/22/17 06:00 2.0 04/22/17 04:00 97.5 97.5 Physical Exam PHYSICAL EXAM GENERAL: Propped up in bed, calm, NAD HEENT: PERRL, OC/OP pink, dentures in place NECK: Supple, no JVD, no LN LUNGS: Clear HEART: S1 and S2 ABD: Mildly disdented, BS active, soft, + rebound tenderness EXT: Generalized edema, LUE > RUE 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 clean Labs Lab Laboratory Tests Test 04/21/17 10:20 04/21/17 10:28 04/21/17 16:48 04/21/17 17:40 Magnesium Level 2.4 mg/dL (1.8-2.4) Glucose (Fingerstick) 148 mg/dL (70-99) 142 mg/dL (70-99) Potassium Level 3.3 mmol/L (3.5-5.1) Test 04/22/17 06:05 Prothrombin Time 20.5 SEC (11.7-14.0) Prothromb Time International Ratio 1.9 (0.8-1.1) Sodium Level 152 mmol/L (136-145) Potassium Level 3.5 mmol/L (3.5-5.1) Chloride Level 116 mmol/L (98-107) Carbon Dioxide Level 25 mmol/L (21-32) Anion Gap 11 (6-14) Blood Urea Nitrogen 86 mg/dL (8-26) Creatinine 2.6 mg/dL (0.7-1.3) Estimated GFR (Cockcroft-Gault) 23.9 Glucose Level 225 mg/dL (70-99) Lactic Acid Level 0.9 mmol/L (0.4-2.0) Calcium Level 8.2 mg/dL (8.5-10.1) Phosphorus Level 4.2 mg/dL (2.6-4.7) Magnesium Level 2.1 mg/dL (1.8-2.4) Albumin 2.4 g/dL (3.4-5.0) Triglycerides Level 61 mg/dL (0-150) Micro 04/21. Abdominal fluid GRAM STAIN Final WBCS MANY RBCS MANY ORGANISMS NONE SEEN Objective Assessment Sepsis with hypotension, on pressor support GPC & Clostridium Ramosum bacteremia, present on transfer from [facility]. Abdominal pain and distention/ascites/possible SBP. Pneumoperitoneum -s/p paracentesis, 04/21 Cirrhosis of liver HERIBERTO on CKD Leukocytosis, improved Coagulopathy Plan Plan of Care Cont Unasyn One time dose vanc, 04/16 f/u abdominal fluid cultures and repeat CT abd/pelvic scan some improvement Supportive care No surgical plans noted Attending Co-Sign Attending Co-Sign The patient was seen and interviewed as well as examined at the bedside. The chart was reviewed. The case was discussed. Agree with the plan of care. WOOD KRUEGER APRN Apr 22, 2017 09:47 ARLET ALVARENGA MD Apr 22, 2017 14:13
--- NOTE | 2017-04-22 09:53 | PDOC ---
CARDIO Progress Notes Date and Time Date of Service 04/22/17 Time of Evaluation 0935 Subjective Subjective: No Chest Pain, No shortness of breath, No Palpitations, Other (c/o LLQ abdominal pain "gas") Vitals Vitals Vital Signs Date Time Temp Pulse Resp B/P (MAP) Pulse Ox O2 Delivery O2 Flow Rate FiO2 04/22/17 06:26 82/47 (59) 04/22/17 06:22 85 19 99 Nasal Cannula 04/22/17 06:00 2.0 04/22/17 04:00 97.5 97.5 Weight Weight [ ] Input and Output Intake and Output Intake and Output 04/22/17 07:00 Intake Total 1696.59 ml Output Total 2890 ml Balance -1193.41 ml IV Total 1696.59 ml Output Urine Total 2890 ml Laboratory Labs Laboratory Tests Test 04/21/17 10:20 04/21/17 10:28 04/21/17 16:48 04/21/17 17:40 Magnesium Level 2.4 mg/dL (1.8-2.4) Glucose (Fingerstick) 148 mg/dL (70-99) 142 mg/dL (70-99) Potassium Level 3.3 mmol/L (3.5-5.1) Test 04/22/17 06:05 Prothrombin Time 20.5 SEC (11.7-14.0) Prothromb Time International Ratio 1.9 (0.8-1.1) Lactic Acid Level 0.9 mmol/L (0.4-2.0) Magnesium Level 2.1 mg/dL (1.8-2.4) Triglycerides Level 61 mg/dL (0-150) Microbiology Micro Microbiology 04/21/17 Gram Stain - Final, Complete Review of Systems Constitutional: yes: weakness, alert, oriented Ears/Nose/Throat: Yes: no symptom reported Eyes: Yes: no symptom reported Pulmonary: Yes no symptom reported Cardiovascular: Yes no symptom reported Gastrointestional: Yes: constipation Genitourinary: Yes: no symptom reported Musculoskeletal: Yes: muscle stiffness Skin: Yes no symptom reported Physical Exam HEENT: Neck Supple W Full Motion Chest: Symmetric LUNGS: Clear to Auscultation, Other (diminished bases ) Heart: S1S2, RRR, other (tele: v-paced with underlying AFIB ) Abdomen: Other (LLQ abdominal tenderness ) Extremities: Other (2-3+ bilateral LE edema with chronic venous stasis changes , trace bilateral hand edema) Neurology: alert, oriented, follow commands Assessment Assessment 1. Acute on chronic systolic HF; better compensated post fluid removal 2. ICM; LVEF 35% s/p AICD 3. CAD s/p CABG 4. PAFIB; OAC with warfarin 5. Hypotension; continues to require pressor support. Albumin added 6. Hyperlipidemia 7. Leukocytosis with bacteremia; ?sepsis- final report pending 8. HERIBERTO with CKD; improved- now 2.7. Baseline near 2.8 9. H/o Cirrhosis (recently diagnosed) with present ascites; s/p paracentesis with 9000cc fluid removal. 10. Pneumoperitoneum; ? SBP; no surgical plans Recommendations Continue oral diuresis. Monitor fluid status closely with TPN, albumin, and IV antibiotic therapy . Wean off Dopamine as able. No TAPAN/BB with hypotension Antibiotic therapy as per ID Continue supportive care ARAM TROTTER APRN Apr 22, 2017 09:53
--- NOTE | 2017-04-22 09:57 | PDOC ---
PROGRESS NOTES Chief Complaint Chief Complaint 1. HYpotensive Shock, s/p vasopressors, 2. Severe CM with low EF 2. Ascites, with cirrhosis s/p LARGE VOLUME paracentesis (04/21/17) 3. Abdominal pain:Pneumoperitoneum 4. Chronic atrial fibrillation, rate controlled. 5. Acute kidney injury on chronic kidney disease 4.: Possible due to VMN, 6. MOd PCM 7. Type 2 diabetes mellitus: SSI 8. HYpernatremia 9. Anemia of chronic disease. 10. 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 gtt - accepted at [facility] ID wishes pt to stay here for now NOt HD yet LAbs: ALbumin 2, NA 150, crea 3,0 (stable), K 3.5, INR 1.6 - coumadin on hold ( Hx a fib) - reversed by vit K prior to pneumoperitoneum for the abd tap PLAN: cont gtts SUpprotive care LTAC on dc Follow renal and iD recs GEtting albumin - large vol paracentesis LAbs in AM Full code Prog guarded - multiple med issues, that can cause chronic exacerbations COnsider TPN for nutrition Vitals Vitals Vital Signs Date Time Temp Pulse Resp B/P (MAP) Pulse Ox O2 Delivery O2 Flow Rate FiO2 04/22/17 06:26 82/47 (59) 04/22/17 06:22 85 19 99 Nasal Cannula 04/22/17 06:00 2.0 04/22/17 04:00 97.5 97.5 Physical Exam General: Alert, Oriented X3, Cooperative, No acute distress Heart: Regular rate, Normal S1, Normal S2 Lungs: Clear Abdomen: Soft, Other (mild TTP LLQ) Extremities: No cyanosis, Other (3+ edema) Skin: No breakdown, No significant lesion Labs LABS Laboratory Tests Test 04/21/17 10:20 04/21/17 10:28 04/21/17 16:48 04/21/17 17:40 Magnesium Level 2.4 mg/dL (1.8-2.4) Glucose (Fingerstick) 148 mg/dL (70-99) 142 mg/dL (70-99) Potassium Level 3.3 mmol/L (3.5-5.1) Test 04/22/17 06:05 Prothrombin Time 20.5 SEC (11.7-14.0) Prothromb Time International Ratio 1.9 (0.8-1.1) Lactic Acid Level 0.9 mmol/L (0.4-2.0) Phosphorus Level 4.2 mg/dL (2.6-4.7) Magnesium Level 2.1 mg/dL (1.8-2.4) Triglycerides Level 61 mg/dL (0-150) Review of Systems Review of Systems denies 14 pt system Comment Review of Relevant I have reviewed the following items ivon (where applicable) has been applied. Labs Laboratory Tests Test 04/20/17 13:35 04/20/17 18:29 04/21/17 04:05 04/21/17 09:00 Glucose (Fingerstick) 130 mg/dL (70-99) 144 mg/dL (70-99) White Blood Count 9.2 x10^3/uL (4.0-11.0) Red Blood Count 3.64 x10^6/uL (4.30-5.70) Hemoglobin 9.9 g/dL (13.0-17.5) Hematocrit 30.2 % (39.0-53.0) Mean Corpuscular Volume 83 fL (79-100) Mean Corpuscular Hemoglobin 27 pg (25-35) Mean Corpuscular Hemoglobin Concent 33 g/dL (31-37) Red Cell Distribution Width 17.5 % (11.5-14.5) Platelet Count 202 x10^3/uL (140-400) Neutrophils (%) (Auto) 88 % (31-73) Lymphocytes (%) (Auto) 5 % (24-48) Monocytes (%) (Auto) 7 % (0-9) Eosinophils (%) (Auto) 0 % (0-3) Basophils (%) (Auto) 0 % (0-3) Neutrophils # (Auto) 8.1 x10^3uL (1.8-7.7) Lymphocytes # (Auto) 0.5 x10^3/uL (1.0-4.8) Monocytes # (Auto) 0.6 x10^3/uL (0.0-1.1) Eosinophils # (Auto) 0.0 x10^3/uL (0.0-0.7) Basophils # (Auto) 0.0 x10^3/uL (0.0-0.2) Prothrombin Time 18.2 SEC (11.7-14.0) Prothromb Time International Ratio 1.6 (0.8-1.1) Sodium Level 150 mmol/L (136-145) Potassium Level 3.5 mmol/L (3.5-5.1) Chloride Level 113 mmol/L (98-107) Carbon Dioxide Level 22 mmol/L (21-32) Anion Gap 15 (6-14) Blood Urea Nitrogen 87 mg/dL (8-26) Creatinine 3.0 mg/dL (0.7-1.3) Estimated GFR (Cockcroft-Gault) 20.3 Glucose Level 141 mg/dL (70-99) Lactic Acid Level 1.0 mmol/L (0.4-2.0) Calcium Level 8.6 mg/dL (8.5-10.1) Phosphorus Level 5.3 mg/dL (2.6-4.7) Magnesium Level 2.3 mg/dL (1.8-2.4) Albumin 2.0 g/dL (3.4-5.0) Body Fluid Source Ascites Body Fluid Color Gabrielle Body Fluid Clarity Turbid Body Fluid Nucleated Cells 2052 /cmm Body Fluid Mononuclear WBCs (%) 42 % Body Fluid Polymorphonuclear Cells 58 % Body Fluid Total RBCs Counted 55438 /cmm Test 04/21/17 10:20 04/21/17 10:28 04/21/17 16:48 04/21/17 17:40 Magnesium Level 2.4 mg/dL (1.8-2.4) Glucose (Fingerstick) 148 mg/dL (70-99) 142 mg/dL (70-99) Potassium Level 3.3 mmol/L (3.5-5.1) Test 04/22/17 06:05 Prothrombin Time 20.5 SEC (11.7-14.0) Prothromb Time International Ratio 1.9 (0.8-1.1) Lactic Acid Level 0.9 mmol/L (0.4-2.0) Phosphorus Level 4.2 mg/dL (2.6-4.7) Magnesium Level 2.1 mg/dL (1.8-2.4) Triglycerides Level 61 mg/dL (0-150) Laboratory Tests Test 04/21/17 10:20 04/21/17 10:28 04/21/17 16:48 04/21/17 17:40 Magnesium Level 2.4 mg/dL (1.8-2.4) Glucose (Fingerstick) 148 mg/dL (70-99) 142 mg/dL (70-99) Potassium Level 3.3 mmol/L (3.5-5.1) Test 04/22/17 06:05 Prothrombin Time 20.5 SEC (11.7-14.0) Prothromb Time International Ratio 1.9 (0.8-1.1) Lactic Acid Level 0.9 mmol/L (0.4-2.0) Phosphorus Level 4.2 mg/dL (2.6-4.7) Magnesium Level 2.1 mg/dL (1.8-2.4) Triglycerides Level 61 mg/dL (0-150) Microbiology 04/21/17 Gram Stain - Final, Complete Medications Current Medications Acetaminophen (Tylenol) 325 mg PRN Q6HRS PRN PO MILD PAIN / TEMP; Start at 14:00 Acetaminophen/ Hydrocodone Bitart (Lortab 5/325) 1 tab PRN Q6HRS PRN PO MODERATE TO SEVERE PAIN; Start 04/15/17 at 14:00 Hydralazine HCl (Apresoline) 10 mg PRN Q4HRS PRN IVP ELEVATED BP, SEE COMMENTS ; Start 04/15/17 at 14:00 Ondansetron HCl (Zofran) 4 mg PRN Q8HRS PRN IV NAUSEA/VOMITING Last administered on 04/20/17 13:23; Start 04/15/17 at 14:00 Albuterol Sulfate (Ventolin Neb Soln) 2.5 mg PRN Q4HRS PRN NEB SHORTNESS OF BREATH Last administered on 04/19/17 16:45; Start 04/15/17 at 14:00 Sodium Chloride 1,000 ml @ 125 mls/hr Q8H IV Last administered on 04/18/17 06 :20; Start 04/15/17 at 14:00; Stop 04/18/17 at 09:50; Status DC Norepinephrine Bitartrate 250 ml @ 0 mls/hr CONT PRN IV SEE I/O RECORD Last administered on 04/18/17 06:22; Start 04/15/17 at 14:00 Ceftriaxone Sodium 1 gm/ Sodium Chloride 50 ml @ 100 mls/hr Q24H IV ; Start at 16:00; Stop 04/15/17 at 16:00; Status DC Warfarin Sodium (Coumadin Per Pharmacy) 1 each PRN DAILY PRN MC SEE COMMENTS Last administered on 04/20/17 10:59; Start 04/15/17 at 15:15; Stop 04/20/17 at 16:07; Status DC Amiodarone HCl (Cordarone) 200 mg DAILY PO Last administered on 04/18/17 09:19 ; Start 04/16/17 at 09:00; Stop 04/18/17 at 17:42; Status DC Aspirin (Children'S Aspirin) 81 mg DAILYWBKFT PO Last administered on 07:42; Start 04/16/17 at 08:00; Stop 04/18/17 at 17:43; Status DC Cyanocobalamin (Vitamin B-12) 1,000 mcg AFTRNOON PO Last administered on 13:13; Start 04/16/17 at 13:00; Stop 04/18/17 at 17:33; Status DC Levothyroxine Sodium (Synthroid) 88 mcg DAILY07 PO Last administered on 08:34; Start 04/16/17 at 07:00 Warfarin Sodium (Coumadin) 1 mg DAILY PO ; Start 04/16/17 at 09:00; Status UNV Insulin Aspart (NovoLOG) 0-9 UNITS TIDWMEALS SQ Last administered on 04/22/17 08:36; Start 04/15/17 at 17:00 Dextrose (Dextrose 50%-Water Syringe) 12.5 gm PRN Q15MIN PRN IV SEE COMMENTS; Start 04/15/17 at 15:30 Warfarin Sodium (Coumadin) 0.5 mg 1X WARF ONCE PO ; Start 04/15/17 at 16:00; Stop 04/15/17 at 16:01; Status DC Pantoprazole Sodium (Protonix Vial) 40 mg DAILYAC IVP Last administered on 04/22 08:34; Start 04/15/17 at 16:30 Ceftriaxone Sodium 1 gm/ Sodium Chloride 50 ml @ 100 mls/hr Q24H IV Last administered on 04/16/17 09:12; Start 04/16/17 at 09:00; Stop 04/16/17 at 17:42 ; Status DC Warfarin Sodium (Coumadin - No Dose Today) 1 each 1X WARF ONCE MC ; Start 04/16 at 16:00; Stop 04/16/17 at 16:01; Status DC Darbepoetin Tomás (Aranesp) 60 mcg Sa SQ Last administered on 04/16/17 20:45; Start 04/16/17 at 21:00 Piperacillin Sod/ Tazobactam Sod 2.25 gm/Sodium Chloride 50 ml @ 100 mls/hr Q6HRS IV Last administered on 04/21/17 05:30; Start 04/16/17 at 18:00; Stop at 07:58; Status DC Vancomycin HCl 1.5 gm/Sodium Chloride 500 ml @ 250 mls/hr 1X ONCE IV Last administered on 04/16/17 19:22; Start 04/16/17 at 18:30; Stop 04/16/17 at 20:29 ; Status DC Phytonadione (Mephyton) 5 mg 1X ONCE PO Last administered on 04/17/17 11:15; Start 04/17/17 at 11:15; Stop 04/17/17 at 11:16; Status DC Magnesium Sulfate/ Dextrose 50 ml @ 25 mls/hr PRN DAILY PRN IV for Mag < 1.7 on am labs; Start 04/18/17 at 09:45; Status Cancel Warfarin Sodium (Coumadin - No Dose Today) 1 each 1X WARF ONCE MC ; Start 04/18 at 16:00; Stop 04/18/17 at 16:01; Status DC Morphine Sulfate 2 mg PRN Q2HR PRN IV PAIN; Start 04/18/17 at 17:45 Iron Sucrose 200 mg/Sodium Chloride 110 ml @ 55 mls/hr 3X/WEEK IV Last administered on 04/22/17 08:48; Start 04/20/17 at 09:00; Stop 04/29/17 at 10:59 Warfarin Sodium (Coumadin - No Dose Today) 1 each 1X WARF ONCE MC ; Start 04/19 at 16:00; Stop 04/19/17 at 16:01; Status DC Furosemide 100 mg/ Sodium Chloride 100 ml @ 0 mls/hr CONT PRN IV SEE I/O RECORD Last administered on 04/20/17 05:29; Start 04/19/17 at 15:45; Stop 04/21 at 13:35; Status DC Furosemide (Lasix) 40 mg 1X ONCE IVP Last administered on 04/19/17 16:26; Start 04/19/17 at 16:30; Stop 04/19/17 at 16:31; Status DC Warfarin Sodium (Coumadin - No Dose Today) 1 each 1X WARF ONCE MC ; Start 04/20 at 16:00; Stop 04/20/17 at 16:01; Status DC Dopamine HCl/ Dextrose 250 ml @ 16.622 mls/ hr CONT PRN IV SEE I/O RECORD Last administered on 04/22/17 03:19; Start 04/20/17 at 11:15 Phytonadione (Vitamin K) 5 mg 1X ONCE SQ Last administered on 04/20/17 15:55 ; Start 04/20/17 at 16:00; Stop 04/20/17 at 16:01; Status DC Potassium Chloride 100 ml @ 100 mls/hr Q1H IV ; Start 04/20/17 at 15:15; Stop 04/20/17 at 19:14; Status UNV Potassium Chloride 100 ml @ 100 mls/hr Q1H IV ; Start 04/20/17 at 15:15; Stop 04/20/17 at 23:14; Status UNV Potassium Chloride 100 ml @ 100 mls/hr Q1H IV ; Start 04/20/17 at 15:15; Stop 04/21/17 at 03:14; Status UNV Albumin Human 100 ml @ 100 mls/hr 1X ONCE IV Last administered on 04/21/17 04:02; Start 04/21/17 at 04:00; Stop 04/21/17 at 04:59; Status DC Albumin Human 100 ml @ 100 mls/hr TID IV Last administered on 04/22/17 08:34 ; Start 04/21/17 at 09:00; Stop 04/22/17 at 21:59 Desmopressin Acetate (Ddavp) 4 mcg BID SQ Last administered on 04/22/17 08:34 ; Start 04/21/17 at 09:00; Stop 04/23/17 at 21:01 Magnesium Sulfate/ Dextrose 50 ml @ 25 mls/hr PRN DAILY PRN IV for Mag < 1.7 on am labs; Start 04/21/17 at 08:00 Potassium Chloride 50 ml @ 50 mls/hr PRN Q6HRS PRN IV For K < 3.7; Start at 08:00 Potassium Chloride 50 ml @ 50 mls/hr PRN Q2HR PRN IV total of 40mEq for K < 3.5; Start 04/21/17 at 08:00 Ampicillin Sodium/ Sulbactam Sodium 1.5 gm/Sodium Chloride 50 ml @ 100 mls/hr Q6HRS IV Last administered on 04/22/17 05:51; Start 04/21/17 at 12:00 Potassium Chloride 100 ml @ 100 mls/hr Q1H IV Last administered on 04/21/17 11:10; Start 04/21/17 at 09:00; Stop 04/21/17 at 10:59; Status DC Lidocaine/Sodium Bicarbonate (Buffered Lidocaine 1%) 20 ml STK-MED ONCE IJ ; Start 04/21/17 at 08:08; Stop 04/21/17 at 08:09; Status DC Heparin Sodium/ Sodium Chloride 500 ml @ As Directed STK-MED ONCE .ROUTE ; Start 04/21/17 at 08:08; Stop 04/21/17 at 08:09; Status DC Fentanyl Citrate (Fentanyl 2ml Vial) 100 mcg STK-MED ONCE .ROUTE ; Start at 08:20; Stop 04/21/17 at 08:21; Status DC Midazolam HCl (Versed) 2 mg STK-MED ONCE .ROUTE ; Start 04/21/17 at 08:20; Stop 04/21/17 at 08:21; Status DC Iohexol (Omnipaque 240 Mg/ml) 30 ml 1X ONCE PO ; Start 04/21/17 at 08:45; Stop 04/21/17 at 08:46; Status DC Lidocaine/Sodium Bicarbonate (Buffered Lidocaine 1%) 3 ml 1X ONCE IJ Last administered on 04/21/17 09:18; Start 04/21/17 at 08:45; Stop 04/21/17 at 08:49 ; Status DC Heparin Sodium/ Sodium Chloride 60 unit 1X ONCE IV Last administered on 09:17; Start 04/21/17 at 08:45; Stop 04/21/17 at 08:49; Status DC Warfarin Sodium (Coumadin Per Pharmacy) 1 each PRN DAILY PRN MC SEE COMMENTS Last administered on 04/22/17 09:28; Start 04/21/17 at 13:45 Furosemide (Lasix) 40 mg BID PO Last administered on 04/22/17 08:34; Start at 21:00 Warfarin Sodium (Coumadin) 1 mg 1X WARF ONCE PO Last administered on 16:56; Start 04/21/17 at 16:00; Stop 04/21/17 at 16:01; Status DC Info 1 each PRN DAILY PRN MC SEE COMMENTS Last administered on 04/22/17 09:26 ; Start 04/21/17 at 13:45 Potassium Acetate 50 meq/Magnesium Sulfate 5 meq/ Calcium Gluconate 5 meq/ Multivitamins 10 ml/Chromium/ Copper/Manganese/ Seleni/Zn 1 ml/ Total Parenteral Nutrition/Amino Acids/Dextrose/ Fat Emulsion Intravenous 1,512 ml @ 63 mls/hr TPN CONT IV Last administered on 04/21/17 21:26; Start 04/21/17 at 22:00; Stop 04/22/17 at 21:59 Potassium Chloride 50 ml @ 50 mls/hr Q1H IV Last administered on 04/21/17 20: 13; Start 04/21/17 at 19:00; Stop 04/21/17 at 20:59; Status DC Warfarin Sodium (Coumadin) 1 mg 1X WARF ONCE PO ; Start 04/22/17 at 16:00; Stop 04/22/17 at 16:01 Potassium Chloride 50 ml @ 50 mls/hr Q1H IV ; Start 04/22/17 at 09:45; Stop at 11:44; Status UNV Active Scripts Active Reported Potassium Chloride 10 Meq Capsule.er 10 Meq PO 3X/WEEK Vitamin B-12 (Cyanocobalamin (Vitamin B-12)) 1,000 Mcg Tablet 1 Tab PO AFTRNOON Vitamin D (Cholecalciferol (Vitamin D3)) 1,000 Unit Capsule 1 Cap PO HS Vitamin E (Vitamin E (Dl,Tocopheryl Acet)) 200 Unit Capsule 200 Unit PO AFTRNOON Novolin 70-30 100 Unit/Ml Vial (Hum Insulin Nph/Reg Insulin Hm) 100 Unit/1 Ml Vial 13 Unit SQ HS Levothyroxine Sodium 88 Mcg Tablet 1 Tab PO DAILY Carvedilol 6.25 Mg Tablet 1 Tab PO BID Fosamax (Alendronate Sodium) 70 Mg Tablet 1 Tab PO WEEKLY 1 Days Amiodarone Hcl 200 Mg Tablet 1 Tab PO DAILY Aspirin 81 Mg Tab.chew 1 Tab PO DAILY Warfarin Sodium 1 Mg Tablet 1 Mg PO DAILY Crestor (Rosuvastatin Calcium) 5 Mg Tablet 5 Mg PO HS Furosemide 40 Mg Tablet 40 Mg PO BID Vitals/I & O Vital Sign - Last 24 Hours 04/21/17 04/21/17 04/21/17 04/21/17 10:10 11:00 11:00 12:00 Temp 97.5 97.5 Pulse 71 86 72 Resp 21 18 19 B/P (MAP) 100/58 (72) 107/53 (71) 101/51 (68) Pulse Ox 96 98 99 99 O2 Delivery Nasal Cannula Nasal Cannula Nasal Cannula Nasal Cannula O2 Flow Rate 1.0 2.0 2.0 2.0 04/21/17 04/21/17 04/21/17 04/21/17 12:00 13:00 14:00 15:00 Pulse 76 79 61 Resp 27 20 15 B/P (MAP) 101/52 (68) 99/58 (72) 95/58 (70) Pulse Ox 98 99 98 O2 Delivery Nasal Cannula Nasal Cannula Nasal Cannula Nasal Cannula O2 Flow Rate 2.0 2.0 2.0 2.0 04/21/17 04/21/17 04/21/17 04/21/17 16:00 16:00 17:00 18:00 Temp 97.5 97.5 Pulse 78 62 71 Resp 28 21 24 B/P (MAP) 58/38 (45) 77/43 (54) 93/56 (68) Pulse Ox 96 99 100 O2 Delivery Nasal Cannula Nasal Cannula Nasal Cannula Nasal Cannula O2 Flow Rate 2.0 2.0 2.0 2.0 04/21/17 04/21/17 04/21/17 04/21/17 19:00 20:00 20:00 21:00 Temp 97.2 97.2 Pulse 74 67 80 Resp 18 18 18 B/P (MAP) 92/52 (65) 96/50 (65) 96/53 (67) Pulse Ox 98 100 99 O2 Delivery Nasal Cannula Room Air Room Air Room Air O2 Flow Rate 2.0 04/21/17 04/21/17 04/22/17 04/22/17 22:00 23:00 00:00 00:00 Temp 97.4 97.4 Pulse 78 78 67 Resp 20 20 18 B/P (MAP) 97/51 (66) 101/57 (72) 92/50 (64) Pulse Ox 99 99 100 O2 Delivery Room Air Room Air Room Air Room Air 04/22/17 04/22/17 04/22/17 04/22/17 01:00 02:00 03:00 04:00 Temp 97.5 97.5 Pulse 78 78 74 67 Resp 20 20 16 B/P (MAP) 104/59 (74) 90/59 (69) 91/52 (65) 90/49 (63) Pulse Ox 99 99 99 100 O2 Delivery Room Air Room Air Room Air Nasal Cannula O2 Flow Rate 2.0 04/22/17 04/22/17 04/22/17 04/22/17 04:00 04:30 05:00 05:30 Pulse 74 74 66 Resp 22 B/P (MAP) 105/47 (66) 94/55 (68) 103/52 (69) Pulse Ox 99 99 99 O2 Delivery Room Air Nasal Cannula Nasal Cannula Nasal Cannula O2 Flow Rate 2.0 04/22/17 04/22/17 04/22/17 06:00 06:22 06:26 Pulse 94 85 Resp 22 19 B/P (MAP) 85/49 (61) 99/50 (66) 82/47 (59) Pulse Ox 99 99 O2 Delivery Nasal Cannula Nasal Cannula O2 Flow Rate 2.0 Intake and Output 04/21/17 04/21/17 04/22/17 15:00 23:00 07:00 Intake Total 196.6 ml 674.99 ml 825 ml Output Total 450 ml 1300 ml 1140 ml Balance -253.4 ml -625.01 ml -315 ml FABRICE PERSAUD MD Apr 22, 2017 09:57
[2017-04-22 10:05] LABS: ALBUMIN 2.4 g/dL (3.4-5.0); ALBUMIN/GLOBULIN RATIO 0.8 (1.0-1.7); CALCIUM 8.3 mg/dL (8.5-10.1); CREATININE 2.7 mg/dL (0.7-1.3); GFR 22.9; POTASSIUM 3.3 mmol/L (3.5-5.1); TOTAL BILIRUBIN 1.2 mg/dL (0.2-1.0); TOTAL PROTEIN 5.5 g/dL (6.4-8.2)
--- NOTE | 2017-04-22 10:12 | PDOC3 ---
Discharge Summary Visit Information Date of Admission: Apr 15, 2017 Date of Discharge: Apr 22, 2017 Admitting Diagnosis Comment: Chief Complaint 1. HYpotensive Shock, s/p vasopressors, 2. Severe CM with low EF 2. Ascites, with cirrhosis s/p LARGE VOLUME paracentesis (04/21/17) 3. Abdominal pain:Pneumoperitoneum 4. Chronic atrial fibrillation, rate controlled. 5. Acute kidney injury on chronic kidney disease 4.: Possible due to VMN, 6. MOd PCM 7. Type 2 diabetes mellitus: SSI 8. HYpernatremia 9. Anemia of chronic disease. 10. CHronic post inflammatory hyperpigmentation legs Brief Hospital Course Allergies Allergies Coded Allergies Type Severity Reaction Last Updated Verified niacin Allergy Intermediate 04/15/17 Yes pravastatin Allergy Intermediate 04/15/17 Yes simvastatin Allergy Intermediate 04/15/17 Yes Vital Signs Vital Signs Date Time Temp Pulse Resp B/P (MAP) Pulse Ox O2 Delivery O2 Flow Rate FiO2 04/22/17 08:00 97.5 70 21 91/38 (55) 100 Nasal Cannula 2.0 97.5 Lab Results Laboratory Tests Test 04/20/17 13:35 04/20/17 18:29 04/21/17 04:05 04/21/17 09:00 Glucose (Fingerstick) 130 mg/dL (70-99) 144 mg/dL (70-99) White Blood Count 9.2 x10^3/uL (4.0-11.0) Red Blood Count 3.64 x10^6/uL (4.30-5.70) Hemoglobin 9.9 g/dL (13.0-17.5) Hematocrit 30.2 % (39.0-53.0) Mean Corpuscular Volume 83 fL (79-100) Mean Corpuscular Hemoglobin 27 pg (25-35) Mean Corpuscular Hemoglobin Concent 33 g/dL (31-37) Red Cell Distribution Width 17.5 % (11.5-14.5) Platelet Count 202 x10^3/uL (140-400) Neutrophils (%) (Auto) 88 % (31-73) Lymphocytes (%) (Auto) 5 % (24-48) Monocytes (%) (Auto) 7 % (0-9) Eosinophils (%) (Auto) 0 % (0-3) Basophils (%) (Auto) 0 % (0-3) Neutrophils # (Auto) 8.1 x10^3uL (1.8-7.7) Lymphocytes # (Auto) 0.5 x10^3/uL (1.0-4.8) Monocytes # (Auto) 0.6 x10^3/uL (0.0-1.1) Eosinophils # (Auto) 0.0 x10^3/uL (0.0-0.7) Basophils # (Auto) 0.0 x10^3/uL (0.0-0.2) Prothrombin Time 18.2 SEC (11.7-14.0) Prothromb Time International Ratio 1.6 (0.8-1.1) Sodium Level 150 mmol/L (136-145) Potassium Level 3.5 mmol/L (3.5-5.1) Chloride Level 113 mmol/L (98-107) Carbon Dioxide Level 22 mmol/L (21-32) Anion Gap 15 (6-14) Blood Urea Nitrogen 87 mg/dL (8-26) Creatinine 3.0 mg/dL (0.7-1.3) Estimated GFR (Cockcroft-Gault) 20.3 Glucose Level 141 mg/dL (70-99) Lactic Acid Level 1.0 mmol/L (0.4-2.0) Calcium Level 8.6 mg/dL (8.5-10.1) Phosphorus Level 5.3 mg/dL (2.6-4.7) Magnesium Level 2.3 mg/dL (1.8-2.4) Albumin 2.0 g/dL (3.4-5.0) Body Fluid Source Ascites Body Fluid Color Gabrielle Body Fluid Clarity Turbid Body Fluid Nucleated Cells 2052 /cmm Body Fluid Mononuclear WBCs (%) 42 % Body Fluid Polymorphonuclear Cells 58 % Body Fluid Total RBCs Counted 71818 /cmm Test 04/21/17 10:20 04/21/17 10:28 04/21/17 16:48 04/21/17 17:40 Magnesium Level 2.4 mg/dL (1.8-2.4) Glucose (Fingerstick) 148 mg/dL (70-99) 142 mg/dL (70-99) Potassium Level 3.3 mmol/L (3.5-5.1) Test 04/22/17 06:05 Prothrombin Time 20.5 SEC (11.7-14.0) Prothromb Time International Ratio 1.9 (0.8-1.1) Sodium Level 150 mmol/L (136-145) Potassium Level 3.3 mmol/L (3.5-5.1) Chloride Level 115 mmol/L (98-107) Carbon Dioxide Level 27 mmol/L (21-32) Anion Gap 8 (6-14) Blood Urea Nitrogen 85 mg/dL (8-26) Creatinine 2.7 mg/dL (0.7-1.3) Estimated GFR (Cockcroft-Gault) 22.9 BUN/Creatinine Ratio 31 (6-20) Glucose Level 233 mg/dL (70-99) Lactic Acid Level 0.9 mmol/L (0.4-2.0) Calcium Level 8.3 mg/dL (8.5-10.1) Phosphorus Level 4.2 mg/dL (2.6-4.7) Magnesium Level 2.1 mg/dL (1.8-2.4) Total Bilirubin 1.2 mg/dL (0.2-1.0) Aspartate Amino Transf (AST/SGOT) 18 U/L (15-37) Alanine Aminotransferase (ALT/SGPT) 43 U/L (16-63) Alkaline Phosphatase 41 U/L (46-116) Total Protein 5.5 g/dL (6.4-8.2) Albumin 2.4 g/dL (3.4-5.0) Albumin/Globulin Ratio 0.8 (1.0-1.7) Triglycerides Level 61 mg/dL (0-150) Laboratory Tests Test 04/21/17 10:20 04/21/17 10:28 04/21/17 16:48 04/21/17 17:40 Magnesium Level 2.4 mg/dL (1.8-2.4) Glucose (Fingerstick) 148 mg/dL (70-99) 142 mg/dL (70-99) Potassium Level 3.3 mmol/L (3.5-5.1) Test 04/22/17 06:05 Prothrombin Time 20.5 SEC (11.7-14.0) Prothromb Time International Ratio 1.9 (0.8-1.1) Sodium Level 150 mmol/L (136-145) Potassium Level 3.3 mmol/L (3.5-5.1) Chloride Level 115 mmol/L (98-107) Carbon Dioxide Level 27 mmol/L (21-32) Anion Gap 8 (6-14) Blood Urea Nitrogen 85 mg/dL (8-26) Creatinine 2.7 mg/dL (0.7-1.3) Estimated GFR (Cockcroft-Gault) 22.9 BUN/Creatinine Ratio 31 (6-20) Glucose Level 233 mg/dL (70-99) Lactic Acid Level 0.9 mmol/L (0.4-2.0) Calcium Level 8.3 mg/dL (8.5-10.1) Phosphorus Level 4.2 mg/dL (2.6-4.7) Magnesium Level 2.1 mg/dL (1.8-2.4) Total Bilirubin 1.2 mg/dL (0.2-1.0) Aspartate Amino Transf (AST/SGOT) 18 U/L (15-37) Alanine Aminotransferase (ALT/SGPT) 43 U/L (16-63) Alkaline Phosphatase 41 U/L (46-116) Total Protein 5.5 g/dL (6.4-8.2) Albumin 2.4 g/dL (3.4-5.0) Albumin/Globulin Ratio 0.8 (1.0-1.7) Triglycerides Level 61 mg/dL (0-150) Brief Hospital Course Mr. Martinez is a 77 old [sex] who presented with [ ] Discharge Information Condition at Discharge: Improved, Stable Disposition/Orders: Other (ltac) Scheduled Alendronate Sodium (Fosamax), 1 TAB PO WEEKLY, (Reported) Amiodarone Hcl (Amiodarone Hcl), 1 TAB PO DAILY, (Reported) Aspirin (Aspirin), 1 TAB PO DAILY, (Reported) Carvedilol (Carvedilol), 1 TAB PO BID, (Reported) Cholecalciferol (Vitamin D3) (Vitamin D), 1 CAP PO HS, (Reported) Cyanocobalamin (Vitamin B-12) (Vitamin B-12), 1 TAB PO AFTRNOON, (Reported) Furosemide (Furosemide), 40 MG PO BID, (Reported) Hum Insulin Nph/Reg Insulin Hm (Novolin 70-30 100 Unit/Ml Vial), 13 UNIT SQ HS, (Reported) Levothyroxine Sodium (Levothyroxine Sodium), 1 TAB PO DAILY, (Reported) Potassium Chloride (Potassium Chloride), 10 MEQ PO 3X/WEEK, (Reported) Rosuvastatin Calcium (Crestor), 5 MG PO HS, (Reported) Vitamin E (Dl,Tocopheryl Acet) (Vitamin E), 200 UNIT PO AFTRNOON, (Reported) Warfarin Sodium (Warfarin Sodium), 1 MG PO DAILY, (Reported) FABRICE PERSAUD MD Apr 22, 2017 10:12
[2017-04-22] MEDS: POTASSIUM CHLORIDE 20MEQ 50 ML IV SCH ×2 (10:48→12:41)
[2017-04-22] MEDS ORDERED: IOHEXOL 240 MG/ML 50ML VIAL. PO ONE (11:45)
--- NOTE | 2017-04-22 12:51 | RAD ---
Indication ascites. Possible perforation. Pneumoperitoneum identified on previous exam. Axial images to the abdomen were obtained. Oral contrast was administered. IV contrast was not. Comparison is made to an exam 4 days earlier. Note is made of the paracentesis procedure yesterday. Bilateral pleural effusions persist. Some volume loss, compatible with passive atelectasis associated with the pleural fluid persists but aeration of the lung bases has improved somewhat relative to the previous exam. Some pneumoperitoneum persists but the volume of pneumoperitoneum is less than previously. Moderately extensive abdominal ascites persists but this too is improved. Increased density is seen associated with the gallbladder similar to the prior study. Cholelithiasis is not excluded. A new finding involving the liver or spleen is not seen. No new finding involving the pancreas kidneys or adrenal glands is seen. IMPRESSION: Pneumoperitoneum persists but the volume of free air in the abdomen is less than on the previous exam. Bilateral pleural effusions appearing similar. Aeration of the lung bases has improved somewhat. New finding in the abdomen is not seen. Abdominal ascites persists but is less than previously compatible with the paracentesis procedure yesterday PQRS Compliance Statement: One or more of the following individualized dose reduction techniques were utilized for this examination: 1. Automated exposure control 2. Adjustment of the mA and/or kV according to patient size 3. Use of iterative reconstruction technique
--- NOTE | 2017-04-22 14:22 | PDOC ---
Subjective: Subjective: Doing okay. Hungry. Some abd pain. Objective: Objective: Possible DC to [facility] today but will probably stay the weekend. Vital Signs: Vital Signs Date Time Temp Pulse Resp B/P (MAP) Pulse Ox O2 Delivery O2 Flow Rate FiO2 04/22/17 14:00 71 19 99/50 (66) 99 Room Air 04/22/17 12:00 97.5 97.5 04/22/17 11:00 2.0 Labs: Laboratory Tests Test 04/21/17 16:48 04/21/17 17:40 04/22/17 06:05 04/22/17 12:38 Glucose (Fingerstick) 142 mg/dL 236 mg/dL Potassium Level 3.3 mmol/L 3.3 mmol/L Prothrombin Time 20.5 SEC Prothromb Time International Ratio 1.9 Sodium Level 150 mmol/L Chloride Level 115 mmol/L Carbon Dioxide Level 27 mmol/L Anion Gap 8 Blood Urea Nitrogen 85 mg/dL Creatinine 2.7 mg/dL Estimated GFR (Cockcroft-Gault) 22.9 BUN/Creatinine Ratio 31 Glucose Level 233 mg/dL Lactic Acid Level 0.9 mmol/L Calcium Level 8.3 mg/dL Phosphorus Level 4.2 mg/dL Magnesium Level 2.1 mg/dL Total Bilirubin 1.2 mg/dL Aspartate Amino Transf (AST/SGOT) 18 U/L Alanine Aminotransferase (ALT/SGPT) 43 U/L Alkaline Phosphatase 41 U/L Total Protein 5.5 g/dL Albumin 2.4 g/dL Albumin/Globulin Ratio 0.8 Triglycerides Level 61 mg/dL PE: GEN: NAD, up to chair LUNGS: diminished ABD: less distended, some tenderness EXTREMITY: edematous NEURO/PSYCH: A & O 3 A/P: Pneumoperitoneum -TPN New onset ascites (?etiology), cirrhosis -s/p paracentesis 04/21/17 +BC -IV atbx CHF, hypotension -- Continue same per GI. YUNIOR RESENDIZ Apr 22, 2017 14:22 RALF MCDONALD MD Apr 22, 2017 14:27
[2017-04-22] MEDS ORDERED: WARFARIN 1 MG TABLET. PO ONE (16:00)
[2017-04-22] MEDS ORDERED: DEXTROSE 70% IV SCH ×8 (22:00)
[2017-04-22] MEDS ORDERED: [UNRECOGNIZED DRUG - OTHER] IV SCH ×8 (22:00)
[2017-04-22] MEDS ORDERED: AMINO ACIDS IV SCH ×8 (22:00)
[2017-04-22] MEDS ORDERED: TOTAL PARENTERAL NUTRITION IV SCH ×8 (22:00)
[2017-04-23] VITALS (17 sets, daily range): BP systolic 86–130; BP diastolic 44–60
[2017-04-23] MEDS: AMPICILLIN/SULBACTAM 1.5 GM in IV NORMAL SALINE 50ML 50 ML IV SCH ×4 (06:14→23:31)
[2017-04-23] MEDS: LEVOTHYROXINE 88 MCG TABLET PO SCH (06:17)
[2017-04-23 06:58] LABS: BASO % 0 % (0-3); EOS % 0 % (0-3); HEMATOCRIT 26.2 % (39.0-53.0); HEMOGLOBIN 8.3 g/dL (13.0-17.5); LYMPH # 0.4 x10^3/uL (1.0-4.8); LYMPH % 4 % (24-48); MEAN CORPUSCULAR HEMOGLOBIN 27 pg (25-35); MEAN CORPUSCULAR HGB CONC 32 g/dL (31-37); MEAN CORPUSCULAR VOLUME 84 fL (79-100); MONO % 4 % (0-9); NEUT % 92 % (31-73); PLATELET COUNT 179 x10^3/uL (140-400); RED BLOOD COUNT 3.11 x10^6/uL (4.30-5.70); RED CELL DISTRIBUTION WIDTH 17.2 % (11.5-14.5); WHITE BLOOD COUNT 9.9 x10^3/uL (4.0-11.0)
[2017-04-23 07:02] LABS: ALBUMIN 2.5 g/dL (3.4-5.0); CALCIUM 8.3 mg/dL (8.5-10.1); CREATININE 2.3 mg/dL (0.7-1.3); GFR 27.6; PHOSPHORUS 2.7 mg/dL (2.6-4.7); POTASSIUM 3.2 mmol/L (3.5-5.1)
[2017-04-23 07:23] LABS: INR 2.1 (0.8-1.1); PROTHROMBIN TIME PATIENT 22.6 SEC (11.7-14.0)
--- NOTE | 2017-04-23 07:34 | PDOC ---
CARDIOLOGY PROGRESS NOTE SUBJECTIVE: No acute events overnight. Off Dopamine. Continues to feel fatigued. +abd pain. OBJECTIVE: Vital SIgns: 98.1/68/ 107/45, 99% on RA. I & O -15L including paracentesis over last 72 hours Objective: Gen: Somnolent but arousable CVS: RRR, +systolic murmur PULM: Decreased breath sounds at the bases. ABD: Soft, Mild tenderness. EXT: 2+ edema. NEURO:Non-focal CURRENT MEDICATIONS: Lasix 40mg bid Coumadin x 1 Desmopressin DIAGNOSTIC TESTING: Hgb 8.3 Plt 179, Cr 2.3 INR 1.9 ASSESSMENT: 1. 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 PAF 3. CAD s/p CABG 4. Hepatorenal syndrome, etiology unclear 5. Bacteremia, possible underlying sepsis Problems: PLAN: 1. Although he is at high risk for stroke, given his liver failure, anemia and pneumoperitoneum, it would be better to hold his coumadin until he recovers further. Will stop further coumadin and reconsider prior to discharge from [facility]. 2. Continue lasix. 3. Unable to tolerate b-ernestine, snudeep-inh due to recent hypotension and HERIBERTO. Very poor prognosis, would consider palliative care consult/hospice. Poor utility to sending him to rehab as no continuous churn buttermaker prognosis. Will follow along. STEVE BOLES MD Apr 23, 2017 07:34
[2017-04-23] MEDS: FUROSEMIDE 40 MG TABLET. PO SCH ×2 (08:09→20:59)
[2017-04-23] MEDS: DESMOPRESSIN 4 MCG/ML AMPUL. SQ SCH ×2 (08:09→21:00)
[2017-04-23] MEDS: PANTOPRAZOLE IV PUSH 40 MG VIAL. IVP SCH (08:10)
[2017-04-23] MEDS: POTASSIUM CHLORIDE 20MEQ 50 ML IV SCH ×2 (08:17→10:49)
[2017-04-23] MEDS: INSULIN ASPART 300 UNITS/3 ML INSULN.PEN SQ SCH ×3 (08:18→18:26)
--- NOTE | 2017-04-23 08:35 | PDOC ---
Infectious Disease Note Subjective Subjective "feels lousy. c/o abdominal cramping and gas + BM Denies N/V/D or bloating BP stable, off dopamine TPN ROS ROS GEN: Denies fevers, chills, sweats CV: Denies chest pain RESP: Denies shortness of air, cough NEURO: Denies confusion, dizziness Vital Sign Vital Signs Vital Signs Date Time Temp Pulse Resp B/P (MAP) Pulse Ox O2 Delivery O2 Flow Rate FiO2 04/23/17 08:11 23 98 Room Air 04/23/17 07:00 68 116/46 (69) 04/23/17 04:00 98.1 98.1 04/22/17 11:00 2.0 Physical Exam PHYSICAL EXAM GENERAL: In chair, calm, NAD HEENT: OC/OP dry LUNGS: Clear HEART: S1 and S2 ABD: increase distention, ascites, BS active, soft, tender R mid quad EXT: Generalized edema PEWTER CASTER: Alert, 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, no focal neurologic deficit SKIN: No rash Left subclavian central line. clean Labs Lab Laboratory Tests Test 04/22/17 12:38 04/22/17 18:15 04/22/17 23:38 04/23/17 06:30 Glucose (Fingerstick) 236 mg/dL (70-99) 232 mg/dL (70-99) 245 mg/dL (70-99) White Blood Count 9.9 x10^3/uL (4.0-11.0) Red Blood Count 3.11 x10^6/uL (4.30-5.70) Hemoglobin 8.3 g/dL (13.0-17.5) Hematocrit 26.2 % (39.0-53.0) Mean Corpuscular Volume 84 fL (79-100) Mean Corpuscular Hemoglobin 27 pg (25-35) Mean Corpuscular Hemoglobin Concent 32 g/dL (31-37) Red Cell Distribution Width 17.2 % (11.5-14.5) Platelet Count 179 x10^3/uL (140-400) Neutrophils (%) (Auto) 92 % (31-73) Lymphocytes (%) (Auto) 4 % (24-48) Monocytes (%) (Auto) 4 % (0-9) Eosinophils (%) (Auto) 0 % (0-3) Basophils (%) (Auto) 0 % (0-3) Neutrophils # (Auto) 9.1 x10^3uL (1.8-7.7) Lymphocytes # (Auto) 0.4 x10^3/uL (1.0-4.8) Monocytes # (Auto) 0.4 x10^3/uL (0.0-1.1) Eosinophils # (Auto) 0.0 x10^3/uL (0.0-0.7) Basophils # (Auto) 0.0 x10^3/uL (0.0-0.2) Prothrombin Time 22.6 SEC (11.7-14.0) Prothromb Time International Ratio 2.1 (0.8-1.1) Sodium Level 151 mmol/L (136-145) Potassium Level 3.2 mmol/L (3.5-5.1) Chloride Level 114 mmol/L (98-107) Carbon Dioxide Level 27 mmol/L (21-32) Anion Gap 10 (6-14) Blood Urea Nitrogen 78 mg/dL (8-26) Creatinine 2.3 mg/dL (0.7-1.3) Estimated GFR (Cockcroft-Gault) 27.6 Glucose Level 292 mg/dL (70-99) Lactic Acid Level 1.6 mmol/L (0.4-2.0) Calcium Level 8.3 mg/dL (8.5-10.1) Phosphorus Level 2.7 mg/dL (2.6-4.7) Magnesium Level 1.9 mg/dL (1.8-2.4) Albumin 2.5 g/dL (3.4-5.0) CT abdomen, 04/22. IMPRESSION: Pneumoperitoneum persists but the volume of free air in the abdomen is less than on the previous exam. Bilateral pleural effusions appearing similar. Aeration of the lung bases has improved somewhat. New finding in the abdomen is not seen. Abdominal ascites persists but is less than previously compatible with the paracentesis procedure yesterday Micro 04/21. Abdominal fluid GRAM STAIN Final WBCS MANY RBCS MANY ORGANISMS NONE SEEN ANAEROBIC-AEROBIC CULTURE PENDING ANAEROBIC RES 1 PENDING AEROBIC CULT Preliminary Preliminary report AEROBIC RES 1 Preliminary Comment No growth after 18-24 hours. Objective Assessment Sepsis with hypotension, off pressor support now GPC & Clostridium Ramosum bacteremia, present on transfer from [facility]. Abdominal pain and distention/ascites/possible SBP. Pneumoperitoneum -s/p paracentesis, 04/21. cx NGTD Cirrhosis of liver HERIBERTO on CKD Leukocytosis, improved Coagulopathy PAFIB on warfarin therapy Plan Plan of Care Cont Unasyn One time dose vanc, 04/16 Monitor abd pain Abdominal fluid cultures NGTD Supportive care No surgical plans noted CBC in am Attending Co-Sign Attending Co-Sign The patient was seen and interviewed as well as examined at the bedside. The chart was reviewed. The case was discussed. Agree with the plan of care. WOOD KRUEGER APRN Apr 23, 2017 08:35 ARLET ALVARENGA MD Apr 23, 2017 12:22
[2017-04-23] MEDS ORDERED: fentaNYL PF VIAL 100 MCG/2 ML VIAL IV PRN (11:15)
--- NOTE | 2017-04-23 11:17 | PDOC ---
PROGRESS NOTES Chief Complaint Chief Complaint 1. HYpotensive Shock, s/p vasopressors, 2. Severe CM with low EF 2. Ascites, with cirrhosis s/p LARGE VOLUME paracentesis (04/21/17) 3. Abdominal pain:Pneumoperitoneum 4. Chronic atrial fibrillation, rate controlled. 5. Acute kidney injury on chronic kidney disease 4.: Possible due to VMN, 6. MOd PCM 7. Type 2 diabetes mellitus: SSI 8. HYpernatremia 9. Anemia of chronic disease. 10. CHronic post inflammatory hyperpigmentation legs History of Present Illness History of Present Illness Seen in ICU remains on dopa and albumin gtts More abd pain today, very tender with PT, very tender to palpation Got lortab PO today REfsued the morphine CARds did introduce hospice/palliative to him - I re inforced, he acknowledges There is and son? knows how isck he is Pt thinks his abd fluid is reaccumulating\ Abd seems more palpable today EARLIER ENTRY: SBP lowish Got 9 L ascitic fluid out - first time for pt accepted [facility]: Consult palliative re goals of acre and code status SO far fullc ode for now COnt gtts OK to t.o ICU Would recommend strict NPO - encourage IV pain meds - more pain today post PO lortab Replace K (3.2) Monitor BMP (creat 2.5 NA 151- NPO) BS high - on TPN Levemir 20 qD dw [employer] Vitals Vitals Vital Signs Date Time Temp Pulse Resp B/P (MAP) Pulse Ox O2 Delivery O2 Flow Rate FiO2 04/23/17 10:00 72 21 130/44 (72) 98 Room Air 04/23/17 04:00 98.1 98.1 04/22/17 11:00 2.0 Physical Exam General: Alert, Oriented X3, Cooperative, No acute distress Heart: Regular rate, Normal S1, Normal S2 Lungs: Clear Abdomen: Soft, Other (mild TTP LLQ) Extremities: No cyanosis, Other (3+ edema) Skin: No breakdown, No significant lesion Labs LABS Laboratory Tests Test 04/22/17 12:38 04/22/17 18:15 04/22/17 23:38 04/23/17 06:30 Glucose (Fingerstick) 236 mg/dL (70-99) 232 mg/dL (70-99) 245 mg/dL (70-99) White Blood Count 9.9 x10^3/uL (4.0-11.0) Red Blood Count 3.11 x10^6/uL (4.30-5.70) Hemoglobin 8.3 g/dL (13.0-17.5) Hematocrit 26.2 % (39.0-53.0) Mean Corpuscular Volume 84 fL (79-100) Mean Corpuscular Hemoglobin 27 pg (25-35) Mean Corpuscular Hemoglobin Concent 32 g/dL (31-37) Red Cell Distribution Width 17.2 % (11.5-14.5) Platelet Count 179 x10^3/uL (140-400) Neutrophils (%) (Auto) 92 % (31-73) Lymphocytes (%) (Auto) 4 % (24-48) Monocytes (%) (Auto) 4 % (0-9) Eosinophils (%) (Auto) 0 % (0-3) Basophils (%) (Auto) 0 % (0-3) Neutrophils # (Auto) 9.1 x10^3uL (1.8-7.7) Lymphocytes # (Auto) 0.4 x10^3/uL (1.0-4.8) Monocytes # (Auto) 0.4 x10^3/uL (0.0-1.1) Eosinophils # (Auto) 0.0 x10^3/uL (0.0-0.7) Basophils # (Auto) 0.0 x10^3/uL (0.0-0.2) Prothrombin Time 22.6 SEC (11.7-14.0) Prothromb Time International Ratio 2.1 (0.8-1.1) Sodium Level 151 mmol/L (136-145) Potassium Level 3.2 mmol/L (3.5-5.1) Chloride Level 114 mmol/L (98-107) Carbon Dioxide Level 27 mmol/L (21-32) Anion Gap 10 (6-14) Blood Urea Nitrogen 78 mg/dL (8-26) Creatinine 2.3 mg/dL (0.7-1.3) Estimated GFR (Cockcroft-Gault) 27.6 Glucose Level 292 mg/dL (70-99) Lactic Acid Level 1.6 mmol/L (0.4-2.0) Calcium Level 8.3 mg/dL (8.5-10.1) Phosphorus Level 2.7 mg/dL (2.6-4.7) Magnesium Level 1.9 mg/dL (1.8-2.4) Albumin 2.5 g/dL (3.4-5.0) Review of Systems Review of Systems abd pain, no emesis, soa at times, al else is neg Comment Review of Relevant I have reviewed the following items ivon (where applicable) has been applied. Labs Laboratory Tests Test 04/21/17 16:48 04/21/17 17:40 04/22/17 06:05 04/22/17 12:38 Glucose (Fingerstick) 142 mg/dL (70-99) 236 mg/dL (70-99) Potassium Level 3.3 mmol/L (3.5-5.1) 3.3 mmol/L (3.5-5.1) Prothrombin Time 20.5 SEC (11.7-14.0) Prothromb Time International Ratio 1.9 (0.8-1.1) Sodium Level 150 mmol/L (136-145) Chloride Level 115 mmol/L (98-107) Carbon Dioxide Level 27 mmol/L (21-32) Anion Gap 8 (6-14) Blood Urea Nitrogen 85 mg/dL (8-26) Creatinine 2.7 mg/dL (0.7-1.3) Estimated GFR (Cockcroft-Gault) 22.9 BUN/Creatinine Ratio 31 (6-20) Glucose Level 233 mg/dL (70-99) Lactic Acid Level 0.9 mmol/L (0.4-2.0) Calcium Level 8.3 mg/dL (8.5-10.1) Phosphorus Level 4.2 mg/dL (2.6-4.7) Magnesium Level 2.1 mg/dL (1.8-2.4) Total Bilirubin 1.2 mg/dL (0.2-1.0) Aspartate Amino Transf (AST/SGOT) 18 U/L (15-37) Alanine Aminotransferase (ALT/SGPT) 43 U/L (16-63) Alkaline Phosphatase 41 U/L (46-116) Total Protein 5.5 g/dL (6.4-8.2) Albumin 2.4 g/dL (3.4-5.0) Albumin/Globulin Ratio 0.8 (1.0-1.7) Triglycerides Level 61 mg/dL (0-150) Test 04/22/17 18:15 04/22/17 23:38 04/23/17 06:30 Glucose (Fingerstick) 232 mg/dL (70-99) 245 mg/dL (70-99) White Blood Count 9.9 x10^3/uL (4.0-11.0) Red Blood Count 3.11 x10^6/uL (4.30-5.70) Hemoglobin 8.3 g/dL (13.0-17.5) Hematocrit 26.2 % (39.0-53.0) Mean Corpuscular Volume 84 fL (79-100) Mean Corpuscular Hemoglobin 27 pg (25-35) Mean Corpuscular Hemoglobin Concent 32 g/dL (31-37) Red Cell Distribution Width 17.2 % (11.5-14.5) Platelet Count 179 x10^3/uL (140-400) Neutrophils (%) (Auto) 92 % (31-73) Lymphocytes (%) (Auto) 4 % (24-48) Monocytes (%) (Auto) 4 % (0-9) Eosinophils (%) (Auto) 0 % (0-3) Basophils (%) (Auto) 0 % (0-3) Neutrophils # (Auto) 9.1 x10^3uL (1.8-7.7) Lymphocytes # (Auto) 0.4 x10^3/uL (1.0-4.8) Monocytes # (Auto) 0.4 x10^3/uL (0.0-1.1) Eosinophils # (Auto) 0.0 x10^3/uL (0.0-0.7) Basophils # (Auto) 0.0 x10^3/uL (0.0-0.2) Prothrombin Time 22.6 SEC (11.7-14.0) Prothromb Time International Ratio 2.1 (0.8-1.1) Sodium Level 151 mmol/L (136-145) Potassium Level 3.2 mmol/L (3.5-5.1) Chloride Level 114 mmol/L (98-107) Carbon Dioxide Level 27 mmol/L (21-32) Anion Gap 10 (6-14) Blood Urea Nitrogen 78 mg/dL (8-26) Creatinine 2.3 mg/dL (0.7-1.3) Estimated GFR (Cockcroft-Gault) 27.6 Glucose Level 292 mg/dL (70-99) Lactic Acid Level 1.6 mmol/L (0.4-2.0) Calcium Level 8.3 mg/dL (8.5-10.1) Phosphorus Level 2.7 mg/dL (2.6-4.7) Magnesium Level 1.9 mg/dL (1.8-2.4) Albumin 2.5 g/dL (3.4-5.0) Laboratory Tests Test 04/22/17 12:38 04/22/17 18:15 04/22/17 23:38 04/23/17 06:30 Glucose (Fingerstick) 236 mg/dL (70-99) 232 mg/dL (70-99) 245 mg/dL (70-99) White Blood Count 9.9 x10^3/uL (4.0-11.0) Red Blood Count 3.11 x10^6/uL (4.30-5.70) Hemoglobin 8.3 g/dL (13.0-17.5) Hematocrit 26.2 % (39.0-53.0) Mean Corpuscular Volume 84 fL (79-100) Mean Corpuscular Hemoglobin 27 pg (25-35) Mean Corpuscular Hemoglobin Concent 32 g/dL (31-37) Red Cell Distribution Width 17.2 % (11.5-14.5) Platelet Count 179 x10^3/uL (140-400) Neutrophils (%) (Auto) 92 % (31-73) Lymphocytes (%) (Auto) 4 % (24-48) Monocytes (%) (Auto) 4 % (0-9) Eosinophils (%) (Auto) 0 % (0-3) Basophils (%) (Auto) 0 % (0-3) Neutrophils # (Auto) 9.1 x10^3uL (1.8-7.7) Lymphocytes # (Auto) 0.4 x10^3/uL (1.0-4.8) Monocytes # (Auto) 0.4 x10^3/uL (0.0-1.1) Eosinophils # (Auto) 0.0 x10^3/uL (0.0-0.7) Basophils # (Auto) 0.0 x10^3/uL (0.0-0.2) Prothrombin Time 22.6 SEC (11.7-14.0) Prothromb Time International Ratio 2.1 (0.8-1.1) Sodium Level 151 mmol/L (136-145) Potassium Level 3.2 mmol/L (3.5-5.1) Chloride Level 114 mmol/L (98-107) Carbon Dioxide Level 27 mmol/L (21-32) Anion Gap 10 (6-14) Blood Urea Nitrogen 78 mg/dL (8-26) Creatinine 2.3 mg/dL (0.7-1.3) Estimated GFR (Cockcroft-Gault) 27.6 Glucose Level 292 mg/dL (70-99) Lactic Acid Level 1.6 mmol/L (0.4-2.0) Calcium Level 8.3 mg/dL (8.5-10.1) Phosphorus Level 2.7 mg/dL (2.6-4.7) Magnesium Level 1.9 mg/dL (1.8-2.4) Albumin 2.5 g/dL (3.4-5.0) Microbiology 04/21/17 Gram Stain - Final, Complete Medications Current Medications Acetaminophen (Tylenol) 325 mg PRN Q6HRS PRN PO MILD PAIN / TEMP; Start at 14:00 Acetaminophen/ Hydrocodone Bitart (Lortab 5/325) 1 tab PRN Q6HRS PRN PO MODERATE TO SEVERE PAIN Last administered on 04/23/17 08:11; Start 04/15/17 at 14:00 Hydralazine HCl (Apresoline) 10 mg PRN Q4HRS PRN IVP ELEVATED BP, SEE COMMENTS ; Start 04/15/17 at 14:00 Ondansetron HCl (Zofran) 4 mg PRN Q8HRS PRN IV NAUSEA/VOMITING Last administered on 04/20/17 13:23; Start 04/15/17 at 14:00 Albuterol Sulfate (Ventolin Neb Soln) 2.5 mg PRN Q4HRS PRN NEB SHORTNESS OF BREATH Last administered on 04/19/17 16:45; Start 04/15/17 at 14:00 Sodium Chloride 1,000 ml @ 125 mls/hr Q8H IV Last administered on 04/18/17 06 :20; Start 04/15/17 at 14:00; Stop 04/18/17 at 09:50; Status DC Norepinephrine Bitartrate 250 ml @ 0 mls/hr CONT PRN IV SEE I/O RECORD Last administered on 04/18/17 06:22; Start 04/15/17 at 14:00 Ceftriaxone Sodium 1 gm/ Sodium Chloride 50 ml @ 100 mls/hr Q24H IV ; Start at 16:00; Stop 04/15/17 at 16:00; Status DC Warfarin Sodium (Coumadin Per Pharmacy) 1 each PRN DAILY PRN MC SEE COMMENTS Last administered on 04/20/17 10:59; Start 04/15/17 at 15:15; Stop 04/20/17 at 16:07; Status DC Amiodarone HCl (Cordarone) 200 mg DAILY PO Last administered on 04/18/17 09:19 ; Start 04/16/17 at 09:00; Stop 04/18/17 at 17:42; Status DC Aspirin (Children'S Aspirin) 81 mg DAILYWBKFT PO Last administered on 07:42; Start 04/16/17 at 08:00; Stop 04/18/17 at 17:43; Status DC Cyanocobalamin (Vitamin B-12) 1,000 mcg AFTRNOON PO Last administered on 13:13; Start 04/16/17 at 13:00; Stop 04/18/17 at 17:33; Status DC Levothyroxine Sodium (Synthroid) 88 mcg DAILY07 PO Last administered on 06:17; Start 04/16/17 at 07:00 Warfarin Sodium (Coumadin) 1 mg DAILY PO ; Start 04/16/17 at 09:00; Status UNV Insulin Aspart (NovoLOG) 0-9 UNITS TIDWMEALS SQ Last administered on 04/23/17 08:18; Start 04/15/17 at 17:00 Dextrose (Dextrose 50%-Water Syringe) 12.5 gm PRN Q15MIN PRN IV SEE COMMENTS; Start 04/15/17 at 15:30 Warfarin Sodium (Coumadin) 0.5 mg 1X WARF ONCE PO ; Start 04/15/17 at 16:00; Stop 04/15/17 at 16:01; Status DC Pantoprazole Sodium (Protonix Vial) 40 mg DAILYAC IVP Last administered on 04/23 08:10; Start 04/15/17 at 16:30 Ceftriaxone Sodium 1 gm/ Sodium Chloride 50 ml @ 100 mls/hr Q24H IV Last administered on 04/16/17 09:12; Start 04/16/17 at 09:00; Stop 04/16/17 at 17:42 ; Status DC Warfarin Sodium (Coumadin - No Dose Today) 1 each 1X WARF ONCE MC ; Start 04/16 at 16:00; Stop 04/16/17 at 16:01; Status DC Darbepoetin Tomás (Aranesp) 60 mcg Sa SQ Last administered on 04/16/17 20:45; Start 04/16/17 at 21:00 Piperacillin Sod/ Tazobactam Sod 2.25 gm/Sodium Chloride 50 ml @ 100 mls/hr Q6HRS IV Last administered on 04/21/17 05:30; Start 04/16/17 at 18:00; Stop at 07:58; Status DC Vancomycin HCl 1.5 gm/Sodium Chloride 500 ml @ 250 mls/hr 1X ONCE IV Last administered on 04/16/17 19:22; Start 04/16/17 at 18:30; Stop 04/16/17 at 20:29 ; Status DC Phytonadione (Mephyton) 5 mg 1X ONCE PO Last administered on 04/17/17 11:15; Start 04/17/17 at 11:15; Stop 04/17/17 at 11:16; Status DC Magnesium Sulfate/ Dextrose 50 ml @ 25 mls/hr PRN DAILY PRN IV for Mag < 1.7 on am labs; Start 04/18/17 at 09:45; Status Cancel Warfarin Sodium (Coumadin - No Dose Today) 1 each 1X WARF ONCE MC ; Start 04/18 at 16:00; Stop 04/18/17 at 16:01; Status DC Morphine Sulfate 2 mg PRN Q2HR PRN IV PAIN; Start 04/18/17 at 17:45 Iron Sucrose 200 mg/Sodium Chloride 110 ml @ 55 mls/hr 3X/WEEK IV Last administered on 04/22/17 08:48; Start 04/20/17 at 09:00; Stop 04/29/17 at 10:59 Warfarin Sodium (Coumadin - No Dose Today) 1 each 1X WARF ONCE MC ; Start 04/19 at 16:00; Stop 04/19/17 at 16:01; Status DC Furosemide 100 mg/ Sodium Chloride 100 ml @ 0 mls/hr CONT PRN IV SEE I/O RECORD Last administered on 04/20/17 05:29; Start 04/19/17 at 15:45; Stop 04/21 at 13:35; Status DC Furosemide (Lasix) 40 mg 1X ONCE IVP Last administered on 04/19/17 16:26; Start 04/19/17 at 16:30; Stop 04/19/17 at 16:31; Status DC Warfarin Sodium (Coumadin - No Dose Today) 1 each 1X WARF ONCE MC ; Start 04/20 at 16:00; Stop 04/20/17 at 16:01; Status DC Dopamine HCl/ Dextrose 250 ml @ 16.622 mls/ hr CONT PRN IV SEE I/O RECORD Last administered on 04/22/17 03:19; Start 04/20/17 at 11:15 Phytonadione (Vitamin K) 5 mg 1X ONCE SQ Last administered on 04/20/17 15:55 ; Start 04/20/17 at 16:00; Stop 04/20/17 at 16:01; Status DC Potassium Chloride 100 ml @ 100 mls/hr Q1H IV ; Start 04/20/17 at 15:15; Stop 04/20/17 at 19:14; Status UNV Potassium Chloride 100 ml @ 100 mls/hr Q1H IV ; Start 04/20/17 at 15:15; Stop 04/20/17 at 23:14; Status UNV Potassium Chloride 100 ml @ 100 mls/hr Q1H IV ; Start 04/20/17 at 15:15; Stop 04/21/17 at 03:14; Status UNV Albumin Human 100 ml @ 100 mls/hr 1X ONCE IV Last administered on 04/21/17 04:02; Start 04/21/17 at 04:00; Stop 04/21/17 at 04:59; Status DC Albumin Human 100 ml @ 100 mls/hr TID IV Last administered on 04/22/17 21:46 ; Start 04/21/17 at 09:00; Stop 04/22/17 at 21:59; Status DC Desmopressin Acetate (Ddavp) 4 mcg BID SQ Last administered on 04/23/17 08:09 ; Start 04/21/17 at 09:00; Stop 04/23/17 at 21:01 Magnesium Sulfate/ Dextrose 50 ml @ 25 mls/hr PRN DAILY PRN IV for Mag < 1.7 on am labs; Start 04/21/17 at 08:00 Potassium Chloride 50 ml @ 50 mls/hr PRN Q6HRS PRN IV For K < 3.7; Start at 08:00 Potassium Chloride 50 ml @ 50 mls/hr PRN Q2HR PRN IV total of 40mEq for K < 3.5; Start 04/21/17 at 08:00 Ampicillin Sodium/ Sulbactam Sodium 1.5 gm/Sodium Chloride 50 ml @ 100 mls/hr Q6HRS IV Last administered on 04/23/17 06:14; Start 04/21/17 at 12:00 Potassium Chloride 100 ml @ 100 mls/hr Q1H IV Last administered on 04/21/17 11:10; Start 04/21/17 at 09:00; Stop 04/21/17 at 10:59; Status DC Lidocaine/Sodium Bicarbonate (Buffered Lidocaine 1%) 20 ml STK-MED ONCE IJ ; Start 04/21/17 at 08:08; Stop 04/21/17 at 08:09; Status DC Heparin Sodium/ Sodium Chloride 500 ml @ As Directed STK-MED ONCE .ROUTE ; Start 04/21/17 at 08:08; Stop 04/21/17 at 08:09; Status DC Fentanyl Citrate (Fentanyl 2ml Vial) 100 mcg STK-MED ONCE .ROUTE ; Start at 08:20; Stop 04/21/17 at 08:21; Status DC Midazolam HCl (Versed) 2 mg STK-MED ONCE .ROUTE ; Start 04/21/17 at 08:20; Stop 04/21/17 at 08:21; Status DC Iohexol (Omnipaque 240 Mg/ml) 30 ml 1X ONCE PO ; Start 04/21/17 at 08:45; Stop 04/21/17 at 08:46; Status DC Lidocaine/Sodium Bicarbonate (Buffered Lidocaine 1%) 3 ml 1X ONCE IJ Last administered on 04/21/17 09:18; Start 04/21/17 at 08:45; Stop 04/21/17 at 08:49 ; Status DC Heparin Sodium/ Sodium Chloride 60 unit 1X ONCE IV Last administered on 09:17; Start 04/21/17 at 08:45; Stop 04/21/17 at 08:49; Status DC Warfarin Sodium (Coumadin Per Pharmacy) 1 each PRN DAILY PRN MC SEE COMMENTS Last administered on 04/23/17 08:02; Start 04/21/17 at 13:45; Stop 04/23/17 at 09:40; Status DC Furosemide (Lasix) 40 mg BID PO Last administered on 04/23/17 08:09; Start at 21:00 Warfarin Sodium (Coumadin) 1 mg 1X WARF ONCE PO Last administered on 16:56; Start 04/21/17 at 16:00; Stop 04/21/17 at 16:01; Status DC Info 1 each PRN DAILY PRN MC SEE COMMENTS Last administered on 04/22/17 10:14 ; Start 04/21/17 at 13:45 Potassium Acetate 50 meq/Magnesium Sulfate 5 meq/ Calcium Gluconate 5 meq/ Multivitamins 10 ml/Chromium/ Copper/Manganese/ Seleni/Zn 1 ml/ Total Parenteral Nutrition/Amino Acids/Dextrose/ Fat Emulsion Intravenous 1,512 ml @ 63 mls/hr TPN CONT IV Last administered on 04/21/17 21:26; Start 04/21/17 at 22:00; Stop 04/22/17 at 21:59; Status DC Potassium Chloride 50 ml @ 50 mls/hr Q1H IV Last administered on 04/21/17 20: 13; Start 04/21/17 at 19:00; Stop 04/21/17 at 20:59; Status DC Warfarin Sodium (Coumadin) 1 mg 1X WARF ONCE PO Last administered on 18:13; Start 04/22/17 at 16:00; Stop 04/22/17 at 16:01; Status DC Potassium Chloride 50 ml @ 50 mls/hr Q1H IV Last administered on 04/22/17 12: 41; Start 04/22/17 at 10:30; Stop 04/22/17 at 12:29; Status DC Potassium Acetate 70 meq/Magnesium Sulfate 5 meq/ Calcium Gluconate 5 meq/ Multivitamins 10 ml/Chromium/ Copper/Manganese/ Seleni/Zn 1 ml/ Total Parenteral Nutrition/Amino Acids/Dextrose/ Fat Emulsion Intravenous 1,512 ml @ 63 mls/hr TPN CONT IV Last administered on 04/22/17 19:54; Start 04/22/17 at 22:00; Stop 04/23/17 at 21:59 Iohexol (Omnipaque 240 Mg/ml) 50 ml 1X ONCE PO Last administered on 04/22/17 11:45; Start 04/22/17 at 11:45; Stop 04/22/17 at 11:46; Status DC Potassium Chloride 50 ml @ 50 mls/hr Q2H IV Last administered on 04/23/17 10: 49; Start 04/23/17 at 08:30; Stop 04/23/17 at 11:29 Warfarin Sodium (Coumadin) 1 mg 1X WARF ONCE PO ; Start 04/23/17 at 16:00; Stop 04/23/17 at 16:01; Status Cancel Insulin Detemir (Levemir) 20 units DAILY SQ ; Start 04/23/17 at 10:00 Active Scripts Active Reported Potassium Chloride 10 Meq Capsule.er 10 Meq PO 3X/WEEK Vitamin B-12 (Cyanocobalamin (Vitamin B-12)) 1,000 Mcg Tablet 1 Tab PO AFTRNOON Vitamin D (Cholecalciferol (Vitamin D3)) 1,000 Unit Capsule 1 Cap PO HS Vitamin E (Vitamin E (Dl,Tocopheryl Acet)) 200 Unit Capsule 200 Unit PO AFTRNOON Novolin 70-30 100 Unit/Ml Vial (Hum Insulin Nph/Reg Insulin Hm) 100 Unit/1 Ml Vial 13 Unit SQ HS Levothyroxine Sodium 88 Mcg Tablet 1 Tab PO DAILY Carvedilol 6.25 Mg Tablet 1 Tab PO BID Fosamax (Alendronate Sodium) 70 Mg Tablet 1 Tab PO WEEKLY 1 Days Amiodarone Hcl 200 Mg Tablet 1 Tab PO DAILY Aspirin 81 Mg Tab.chew 1 Tab PO DAILY Warfarin Sodium 1 Mg Tablet 1 Mg PO DAILY Crestor (Rosuvastatin Calcium) 5 Mg Tablet 5 Mg PO HS Furosemide 40 Mg Tablet 40 Mg PO BID Vitals/I & O Vital Sign - Last 24 Hours 04/22/17 04/22/17 04/22/17 04/22/17 12:00 12:00 13:00 14:00 Temp 97.5 97.5 Pulse 78 86 71 Resp 22 19 19 B/P (MAP) 95/53 (67) 96/51 (66) 99/50 (66) Pulse Ox 98 96 99 O2 Delivery Room Air Room Air Room Air Room Air 04/22/17 04/22/17 04/22/17 04/22/17 15:00 16:00 16:00 17:00 Temp 97.5 97.5 Pulse 74 66 68 Resp 20 22 21 B/P (MAP) 107/52 (70) 151/73 (99) 135/61 (85) Pulse Ox 97 97 99 O2 Delivery Room Air Room Air Room Air Room Air 04/22/17 04/22/17 04/22/17 04/22/17 18:00 19:00 20:00 20:00 Temp 97.6 97.6 Pulse 64 71 66 Resp 26 26 B/P (MAP) 137/62 (87) 125/62 (83) 99/42 (61) Pulse Ox 99 96 97 O2 Delivery Room Air Room Air Room Air Room Air 04/22/17 04/22/17 04/22/17 04/23/17 21:00 22:00 23:00 00:00 Temp 97.9 97.9 Pulse 69 75 65 71 Resp 24 25 21 25 B/P (MAP) 98/48 (65) 98/48 (65) 98/42 (60) 104/50 (68) Pulse Ox 95 98 98 100 O2 Delivery Room Air Room Air Room Air Room Air 04/23/17 04/23/17 04/23/17 04/23/17 00:00 01:00 02:00 03:00 Temp 98.1 98.1 Pulse 74 79 64 Resp 30 28 25 B/P (MAP) 113/55 (74) 122/60 (80) 112/48 (69) Pulse Ox 100 100 100 O2 Delivery Room Air Room Air Room Air Room Air 04/23/17 04/23/17 04/23/17 04/23/17 04:00 04:00 05:00 06:00 Temp 98.1 98.1 Pulse 73 68 68 Resp 20 24 B/P (MAP) 109/47 (67) 117/49 (71) 107/45 (65) Pulse Ox 100 99 99 O2 Delivery Room Air Room Air Room Air Room Air 04/23/17 04/23/17 04/23/17 04/23/17 07:00 08:00 08:00 08:11 Pulse 68 76 Resp B/P (MAP) 116/46 (69) 126/45 (72) Pulse Ox 99 99 98 O2 Delivery Room Air Room Air Room Air Room Air 04/23/17 04/23/17 04/23/17 09:00 09:11 10:00 Pulse 74 72 Resp B/P (MAP) 101/44 (63) 130/44 (72) Pulse Ox 96 98 O2 Delivery Room Air Room Air Room Air Intake and Output 04/22/17 04/22/17 04/23/17 14:59 22:59 06:59 Intake Total 400 ml 1141.99 ml 1304.11 ml Output Total 950 ml 1200 ml 425 ml Balance -550 ml -58.01 ml 879.11 ml FABRICE PERSAUD MD Apr 23, 2017 11:17
[2017-04-23] MEDS: TPN PER PHARMACY MC PRN (11:51)
--- NOTE | 2017-04-23 12:00 | RAD ---
Ultrasound and fluoro guided Central Venous Catheter placement Date of service: 04/21/2017 Indication: 77-year-old male ICU patient with hypotension. Central venous access insertion has been requested for ICU medications, including pressors. Fluoro time: 0.1 Kerma-Area Product: 1 Gycm2 Anesthesia: Local only Sterility: All elements of maximal sterile barrier technique, hand hygiene, skin preparation, and, if ultrasound was used, sterile ultrasound technique were followed. Procedure: Informed consent was obtained from the patient. He was placed supine on the angiography table. Preliminary ultrasound evaluation of left neck revealed wide patency of left internal jugular vein, which was documented with a single hard copy ultrasound image. Left neck was then prepped and draped in the usual sterile fashion, utilizing all elements of maximal sterile barrier technique, as described above. Using aseptic technique, local anesthesia, direct sterile ultrasound guidance, and the micropuncture system, successful percutaneous entry was achieved into left internal jugular vein. The left IJ venostomy tract was then dilated and a 7 M[place]ese triple lumen 20cm Power Injectable CVC was easily advanced centrally over an angiographic guidewire, and was positioned with it's tip at level of upper right atrium, using fluoroscopic guidance. Satisfactory position of the CVC tip was confirmed with a single fluoroscopic spot image. The CVC was then demonstrated to flush and aspirate normally and was secured at the skin exit site using suture and sterile dressing. Patient tolerated the procedure well, without apparent complication. Impression: Successful, uneventful sono and fluoro guided placement of left IJ 7 Maltese triple lumen 20 cm Power Injectable CVC, as described.
[2017-04-23] MEDS: INSULIN DETEMIR 300 UNITS/3 ML INSULN.PEN. SQ SCH (12:11)
--- NOTE | 2017-04-23 13:07 | PDOC ---
SUBJECTIVE ROS HERIBERTO/ CKD III Doing same overall x some abd discomfort CVS: no Orthopnea, no CP RESP: no SOB, no COPPOLA GI: no Nausea, no Vomiting : no Dysuria, no Urgency OBJECTIVE Vital Signs Vital Signs Date Time Temp Pulse Resp B/P (MAP) Pulse Ox O2 Delivery O2 Flow Rate FiO2 04/23/17 12:00 Room Air 04/23/17 12:00 97.6 77 23 111/53 (72) 100 97.6 04/22/17 11:00 2.0 I & 0 Intake and Output 04/23/17 07:00 Intake Total 2846.10 ml Output Total 2575 ml Balance 271.10 ml Intake Oral 820 ml IV Total 2026.10 ml Output Urine Total 2575 ml PHYSICAL EXAM Physical Exam GEN: Awake, Oriented x 3, In no distress EYES: Vision Unchanged, Conjunctiva Normal EN: No EN Drainage, Mucous Membranes moist NECK: no JVD, min JVP, Supple, no Thyromegaly CVS: S1S2, ? Murmur, No Gallop, No Rub,+ 2 Edema RESP: Rare Rales, occ Rhonchi,no Acc. Muscle Use GI: BS + ve, NO Bruit, Min Tender, not Distended; +ve Rebound t'ness : no CVA tenderness, no Suprapubic Tenderness (hudson) SKIN: no visible Rashes Breast Exam deferred Mu.Sk: Adequate ROM no Muscle Atrophy Heme: Unable to palpate Obvious LAD no palp Splenomegaly NEURO: Good Strength and Tone Cranial Nerves II - XII grossly intact; No Asterixis Psych: ? Depressed no Active hallucination DIAGNOSIS/ASSESSMENT Assessment & Plan: CKD III / IV - stable for now ? Early HRS v/s due to Cardiomyopathy. UO is OK for now palmer on lasix gtt. Current fluid and E-lyte status does not necessitate emergent need for dialysis. Will re-evaluate for dialysis in the am. Abd Perf - now with t'ness and Rebound - re CT - Now evaluated and followed by GS and GI. ct TPN sicne he needs to be NPO in near term vs Oral feeds and Hospice Sepsis and Hypotension presumably associated with Abd Perf/ Pathology/ Peritonitis Ascites - s/p Tap - ? Etio: Perf vs cirrhosis Underlying CKD III with baseline Creat of 2.8 as OP; now better then that Low K - replace as needed ^ed Na - partially due to NPO status, watch trend on current Na-free TPN Mildly ^ed Phos - better after TPN started Nutrition - TPN until cleared by GI/ GS for oral feeds ANEMIA; IV Iron as ordered; Aranesp as ordered, Transfuse as needed for hgb < 7 HypoTN: Current meds reviewed. remains on Pressors for now. would like to use IV Alb to help with Hemodynamics BACTEREMIA - ? Source; await ID eval - ? Associated with abd Perf Cirrhosis as noted on CT scan - defer to GI to eval - ? 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 Meds Current Medications Medications (Trade) Dose Ordered Sig/Garret Start Time Stop Time Status Last Admin Dose Admin Acetaminophen (Tylenol) 325 mg PRN Q6HRS PRN 04/15/17 14:00 Acetaminophen/ Hydrocodone Bitart (Lortab 5/325) 1 tab PRN Q6HRS PRN 04/15/17 14:00 04/23/17 11:14 DC 04/23/17 08:11 1 TAB Albumin Human 100 ml @ 100 mls/hr TID 04/21/17 09:00 04/22/17 21:59 DC 04/22/17 21:46 100 MLS/HR Albuterol Sulfate (Ventolin Neb Soln) 2.5 mg PRN Q4HRS PRN 04/15/17 14:00 04/19/17 16:45 2.5 MG Amiodarone HCl (Cordarone) 200 mg DAILY 04/16/17 09:00 04/18/17 17:42 DC 04/18/17 09:19 200 MG Ampicillin Sodium/ Sulbactam Sodium 1.5 gm/Sodium Chloride 50 ml @ 100 mls/hr Q6HRS 04/21/17 12:00 04/23/17 12:10 100 MLS/HR Aspirin (Children'S Aspirin) 81 mg DAILYWBKFT 04/16/17 08:00 04/18/17 17:43 DC 04/18/17 07:42 81 MG Ceftriaxone Sodium 1 gm/ Sodium Chloride 50 ml @ 100 mls/hr Q24H 04/16/17 09:00 04/16/17 17:42 DC 04/16/17 09:12 100 MLS/HR Cyanocobalamin (Vitamin B-12) 1,000 mcg AFTRNOON 04/16/17 13:00 04/18/17 17:33 DC 04/18/17 13:13 1,000 MCG Darbepoetin Tomás (Aranesp) 60 mcg Sa 04/16/17 21:00 04/16/17 20:45 60 MCG Desmopressin Acetate (Ddavp) 4 mcg BID 04/21/17 09:00 04/23/17 21:01 04/23/17 08:09 4 MCG Dextrose (Dextrose 50%-Water Syringe) 12.5 gm PRN Q15MIN PRN 04/15/17 15:30 Dopamine HCl/ Dextrose 250 ml @ 16.622 mls/ hr CONT PRN 04/20/17 11:15 04/22/17 03:19 23.27 MLS/HR Fentanyl Citrate (Fentanyl 2ml Vial) 50 mcg PRN Q2HR PRN 04/23/17 11:15 Furosemide (Lasix) 40 mg BID 04/21/17 21:00 04/23/17 08:09 40 MG Furosemide 100 mg/ Sodium Chloride 100 ml @ 0 mls/hr CONT PRN 04/19/17 15:45 04/21/17 13:35 DC 04/20/17 05:29 5 MLS/HR Heparin Sodium/ Sodium Chloride 60 unit 1X ONCE 04/21/17 08:45 04/21/17 08:49 DC 04/21/17 09:17 60 UNIT Hydralazine HCl (Apresoline) 10 mg PRN Q4HRS PRN 04/15/17 14:00 Info 1 each PRN DAILY PRN 04/21/17 13:45 04/23/17 11:51 1 EACH Insulin Aspart (NovoLOG) 0-9 UNITS TIDWMEALS 04/15/17 17:00 04/23/17 12:15 7 UNITS Insulin Detemir (Levemir) 20 units DAILY 04/23/17 10:00 04/23/17 12:11 20 UNITS Iohexol (Omnipaque 240 Mg/ml) 50 ml 1X ONCE 04/22/17 11:45 04/22/17 11:46 DC 04/22/17 11:45 50 ML Iron Sucrose 200 mg/Sodium Chloride 110 ml @ 55 mls/hr 3X/WEEK 04/20/17 09:00 04/29/17 10:59 04/22/17 08:48 55 MLS/HR Levothyroxine Sodium (Synthroid) 88 mcg DAILY07 04/16/17 07:00 04/23/17 06:17 88 MCG Lidocaine/Sodium Bicarbonate (Buffered Lidocaine 1%) 3 ml 1X ONCE 04/21/17 08:45 04/21/17 08:49 DC 04/21/17 09:18 3 ML Magnesium Sulfate/ Dextrose 50 ml @ 25 mls/hr PRN DAILY PRN 04/21/17 08:00 Midazolam HCl (Versed) 2 mg STK-MED ONCE 04/21/17 08:20 04/21/17 08:21 DC Morphine Sulfate 2 mg PRN Q2HR PRN 04/18/17 17:45 Norepinephrine Bitartrate 250 ml @ 0 mls/hr CONT PRN 04/15/17 14:00 04/18/17 06:22 22.5 MLS/HR Ondansetron HCl (Zofran) 4 mg PRN Q8HRS PRN 04/15/17 14:00 04/20/17 13:23 4 MG Pantoprazole Sodium (Protonix Vial) 40 mg DAILYAC 04/15/17 16:30 04/23/17 08:10 40 MG Phytonadione (Mephyton) 5 mg 1X ONCE 04/17/17 11:15 04/17/17 11:16 DC 04/17/17 11:15 5 MG Phytonadione (Vitamin K) 5 mg 1X ONCE 04/20/17 16:00 04/20/17 16:01 DC 04/20/17 15:55 5 MG Piperacillin Sod/ Tazobactam Sod 2.25 gm/Sodium Chloride 50 ml @ 100 mls/hr Q6HRS 04/16/17 18:00 04/21/17 07:58 DC 04/21/17 05:30 100 MLS/HR Potassium Acetate 50 meq/Magnesium Sulfate 5 meq/ Calcium Gluconate 5 meq/ Multivitamins 10 ml/Chromium/ Copper/Manganese/ Seleni/Zn 1 ml/ Total Parenteral Nutrition/Amino Acids/Dextrose/ Fat Emulsion Intravenous 1,512 ml @ 63 mls/hr TPN CONT 04/21/17 22:00 04/22/17 21:59 DC 04/21/17 21:26 63 MLS/HR Potassium Acetate 70 meq/Magnesium Sulfate 5 meq/ Calcium Gluconate 5 meq/ Multivitamins 10 ml/Chromium/ Copper/Manganese/ Seleni/Zn 1 ml/ Total Parenteral Nutrition/Amino Acids/Dextrose/ Fat Emulsion Intravenous 1,512 ml @ 63 mls/hr TPN CONT 04/22/17 22:00 04/23/17 21:59 04/22/17 19:54 63 MLS/HR Potassium Acetate 90 meq/Magnesium Sulfate 5 meq/ Calcium Gluconate 5 meq/ Multivitamins 10 ml/Chromium/ Copper/Manganese/ Seleni/Zn 1 ml/ Total Parenteral Nutrition/Amino Acids/Dextrose/ Fat Emulsion Intravenous 1,512 ml @ 63 mls/hr TPN CONT 04/23/17 22:00 04/24/17 21:59 Potassium Chloride 50 ml @ 50 mls/hr Q2H 04/23/17 08:30 04/23/17 11:29 DC 04/23/17 10:49 50 MLS/HR Sodium Chloride 1,000 ml @ 125 mls/hr Q8H 04/15/17 14:00 04/18/17 09:50 DC 04/18/17 06:20 125 MLS/HR Vancomycin HCl 1.5 gm/Sodium Chloride 500 ml @ 250 mls/hr 1X ONCE 04/16/17 18:30 04/16/17 20:29 DC 04/16/17 19:22 250 MLS/HR Warfarin Sodium (Coumadin - No Dose Today) 1 each 1X WARF ONCE 04/20/17 16:00 04/20/17 16:01 DC Warfarin Sodium (Coumadin Per Pharmacy) 1 each PRN DAILY PRN 04/21/17 13:45 04/23/17 09:40 DC 04/23/17 08:02 1 EACH Warfarin Sodium (Coumadin) 1 mg 1X WARF ONCE 04/23/17 16:00 04/23/17 16:01 Cancel Lab Laboratory Tests Test 04/22/17 18:15 04/22/17 23:38 04/23/17 06:30 04/23/17 12:08 Glucose (Fingerstick) 232 mg/dL (70-99) 245 mg/dL (70-99) 269 mg/dL (70-99) White Blood Count 9.9 x10^3/uL (4.0-11.0) Red Blood Count 3.11 x10^6/uL (4.30-5.70) Hemoglobin 8.3 g/dL (13.0-17.5) Hematocrit 26.2 % (39.0-53.0) Mean Corpuscular Volume 84 fL (79-100) Mean Corpuscular Hemoglobin 27 pg (25-35) Mean Corpuscular Hemoglobin Concent 32 g/dL (31-37) Red Cell Distribution Width 17.2 % (11.5-14.5) Platelet Count 179 x10^3/uL (140-400) Neutrophils (%) (Auto) 92 % (31-73) Lymphocytes (%) (Auto) 4 % (24-48) Monocytes (%) (Auto) 4 % (0-9) Eosinophils (%) (Auto) 0 % (0-3) Basophils (%) (Auto) 0 % (0-3) Neutrophils # (Auto) 9.1 x10^3uL (1.8-7.7) Lymphocytes # (Auto) 0.4 x10^3/uL (1.0-4.8) Monocytes # (Auto) 0.4 x10^3/uL (0.0-1.1) Eosinophils # (Auto) 0.0 x10^3/uL (0.0-0.7) Basophils # (Auto) 0.0 x10^3/uL (0.0-0.2) Prothrombin Time 22.6 SEC (11.7-14.0) Prothromb Time International Ratio 2.1 (0.8-1.1) Sodium Level 151 mmol/L (136-145) Potassium Level 3.2 mmol/L (3.5-5.1) Chloride Level 114 mmol/L (98-107) Carbon Dioxide Level 27 mmol/L (21-32) Anion Gap 10 (6-14) Blood Urea Nitrogen 78 mg/dL (8-26) Creatinine 2.3 mg/dL (0.7-1.3) Estimated GFR (Cockcroft-Gault) 27.6 Glucose Level 292 mg/dL (70-99) Lactic Acid Level 1.6 mmol/L (0.4-2.0) Calcium Level 8.3 mg/dL (8.5-10.1) Phosphorus Level 2.7 mg/dL (2.6-4.7) Magnesium Level 1.9 mg/dL (1.8-2.4) Albumin 2.5 g/dL (3.4-5.0) NAKIA PEREZ MD Apr 23, 2017 13:07
[2017-04-23] MEDS ORDERED: POTASSIUM CHLORIDE 20MEQ 50 ML IV PRN ×2 (13:15)
[2017-04-23] MEDS ORDERED: MAGNESIUM SULFATE 2GM 50 ML IV PRN (13:15)
--- NOTE | 2017-04-23 14:29 | PDOC ---
Provider Note Provider Note Melania Rowe Pt tells me his abd pain is the same. He is "sore". no n/v. afeb vss alert, in chair abd soft distended/ascites. diffuse tender a/p pneumoperitoneum. being managed since diagnosis with antibiotics/npo due to his sig comorbidities including ESLD with ascites, ARF, severe malnutrition. He would do very poorly with an operation. I see that discussion re: palliative care is in progress. I think that is the most reasonable course. SONDRA JENNINGS MD Apr 23, 2017 14:29
[2017-04-23] MEDS: MORPHINE SULFATE 2 MG/ML DISP.SYRIN. IV PRN (15:44)
[2017-04-23] MEDS ORDERED: WARFARIN 1 MG TABLET. PO ONE (16:00)
[2017-04-23] MEDS: DARBEPOETIN ALFA 60 MCG/0.3 ML DISP.SYRIN. SQ SCH (20:50)
[2017-04-23] MEDS ORDERED: TOTAL PARENTERAL NUTRITION IV SCH ×8 (22:00)
[2017-04-23] MEDS ORDERED: DEXTROSE 70% IV SCH ×8 (22:00)
[2017-04-23] MEDS ORDERED: AMINO ACIDS IV SCH ×8 (22:00)
[2017-04-23] MEDS ORDERED: [UNRECOGNIZED DRUG - OTHER] IV SCH ×8 (22:00)
[2017-04-24] VITALS (8 sets, daily range): BP systolic 79–97; BP diastolic 42–54
[2017-04-24] MEDS: INSULIN ASPART 300 UNITS/3 ML INSULN.PEN SQ SCH ×4 (00:08→17:51)
[2017-04-24 04:35] LABS: BASO % 0 % (0-3); EOS % 0 % (0-3); HEMATOCRIT 28.5 % (39.0-53.0); HEMOGLOBIN 8.8 g/dL (13.0-17.5); LYMPH # 0.3 x10^3/uL (1.0-4.8); LYMPH % 1 % (24-48); MEAN CORPUSCULAR HEMOGLOBIN 26 pg (25-35); MEAN CORPUSCULAR HGB CONC 31 g/dL (31-37); MEAN CORPUSCULAR VOLUME 85 fL (79-100); MONO % 2 % (0-9); NEUT % 97 % (31-73); PLATELET COUNT 170 x10^3/uL (140-400); RED BLOOD COUNT 3.35 x10^6/uL (4.30-5.70); RED CELL DISTRIBUTION WIDTH 17.3 % (11.5-14.5)
[2017-04-24 04:44] LABS: ALBUMIN 2.1 g/dL (3.4-5.0); CALCIUM 8.4 mg/dL (8.5-10.1); CREATININE 2.6 mg/dL (0.7-1.3); GFR 23.9; PHOSPHORUS 2.6 mg/dL (2.6-4.7)
[2017-04-24] MEDS: AMPICILLIN/SULBACTAM 1.5 GM in IV NORMAL SALINE 50ML 50 ML IV SCH ×2 (05:03→11:41)
[2017-04-24 05:04] LABS: NUCLEATED RBC 1; PLT ESTIMATE ADEQUATE (ADEQUATE); POLYCHROMASIA SLIGHT
[2017-04-24 05:05] LABS: ANISOCYTOSIS SLIGHT; TOXIC GRANULATION MOD
[2017-04-24] MEDS: LEVOTHYROXINE 88 MCG TABLET PO SCH (07:00)
[2017-04-24] MEDS: FUROSEMIDE 40 MG TABLET. PO SCH ×2 (08:15→21:00)
[2017-04-24] MEDS: PANTOPRAZOLE IV PUSH 40 MG VIAL. IVP SCH (08:38)
[2017-04-24] MEDS: INSULIN DETEMIR 300 UNITS/3 ML INSULN.PEN. SQ SCH (08:39)
--- NOTE | 2017-04-24 09:30 | PDOC ---
SUBJECTIVE ROS CKD IV not doing too well - significant ABD Discomfort CVS: no Orthopnea, no CP RESP: no SOB, no COPPOLA GI: no Nausea, no Vomiting : no Dysuria, no Urgency OBJECTIVE Vital Signs Vital Signs Date Time Temp Pulse Resp B/P (MAP) Pulse Ox O2 Delivery O2 Flow Rate FiO2 04/24/17 07:00 98.0 81 18 87/54 (65) 96 Room Air 98.0 I & 0 Intake and Output 04/24/17 07:00 Intake Total 441 ml Output Total 1125 ml Balance -684 ml IV Total 441 ml Output Urine Total 1125 ml PHYSICAL EXAM Physical Exam GEN: Awake, Oriented x 3, In no distress EYES: Vision Unchanged, Conjunctiva Normal EN: No EN Drainage, Mucous Membranes moist NECK: no JVD, min JVP, Supple, no Thyromegaly CVS: S1S2, ? Murmur, No Gallop, No Rub,+ 2 Edema RESP: Rare Rales, occ Rhonchi,no Acc. Muscle Use GI: BS rare to - ve, NO Bruit, very Tender, not Distended; +ve Rebound t' ness : no CVA tenderness, no Suprapubic Tenderness (hudson) DIAGNOSIS/ASSESSMENT Assessment & Plan: CKD III / IV - creat is stable for now . UO is OK for now. Current fluid and E -lyte status does not necessitate emergent need for dialysis. Will re-evaluate for dialysis in the am. Abd Perf - now with t'ness and Rebound - not a surgical candidate per GS. Hospice is being contemplated Sepsis and Hypotension presumably associated with Abd Perf/ Pathology/ Peritonitis - aysmptomatic off of pressors currently ^ed Na - partially due to NPO status, watch trend on current Na-free TPN - may need DDAVP Nutrition - TPN until cleared by GI/ GS for oral feeds ANEMIA; IV Iron as ordered; Aranesp as ordered, Transfuse as needed for hgb < 7 palliative Care eval for goals of care - DNR status? COMMENT/RELEVANT DATA Meds Current Medications Medications (Trade) Dose Ordered Sig/Garret Start Time Stop Time Status Last Admin Dose Admin Acetaminophen (Tylenol) 325 mg PRN Q6HRS PRN 04/15/17 14:00 Acetaminophen/ Hydrocodone Bitart (Lortab 5/325) 1 tab PRN Q6HRS PRN 04/15/17 14:00 04/23/17 11:14 DC 04/23/17 08:11 1 TAB Albumin Human 100 ml @ 100 mls/hr TID 04/21/17 09:00 04/22/17 21:59 DC 04/22/17 21:46 100 MLS/HR Albuterol Sulfate (Ventolin Neb Soln) 2.5 mg PRN Q4HRS PRN 04/15/17 14:00 04/19/17 16:45 2.5 MG Amiodarone HCl (Cordarone) 200 mg DAILY 04/16/17 09:00 04/18/17 17:42 DC 04/18/17 09:19 200 MG Ampicillin Sodium/ Sulbactam Sodium 1.5 gm/Sodium Chloride 50 ml @ 100 mls/hr Q6HRS 04/21/17 12:00 04/24/17 05:03 100 MLS/HR Aspirin (Children'S Aspirin) 81 mg DAILYWBKFT 04/16/17 08:00 04/18/17 17:43 DC 04/18/17 07:42 81 MG Ceftriaxone Sodium 1 gm/ Sodium Chloride 50 ml @ 100 mls/hr Q24H 04/16/17 09:00 04/16/17 17:42 DC 04/16/17 09:12 100 MLS/HR Cyanocobalamin (Vitamin B-12) 1,000 mcg AFTRNOON 04/16/17 13:00 04/18/17 17:33 DC 04/18/17 13:13 1,000 MCG Darbepoetin Tomás (Aranesp) 60 mcg Sa 04/16/17 21:00 04/23/17 20:50 60 MCG Desmopressin Acetate (Ddavp) 4 mcg BID 04/21/17 09:00 04/23/17 21:01 DC 04/23/17 21:00 4 MCG Dextrose (Dextrose 50%-Water Syringe) 12.5 gm PRN Q15MIN PRN 04/15/17 15:30 Dopamine HCl/ Dextrose 250 ml @ 16.622 mls/ hr CONT PRN 04/20/17 11:15 04/22/17 03:19 23.27 MLS/HR Fentanyl Citrate (Fentanyl 2ml Vial) 50 mcg PRN Q2HR PRN 6/24/17 11:15 Furosemide (Lasix) 40 mg BID 04/21/17 21:00 04/23/17 08:09 40 MG Furosemide 100 mg/ Sodium Chloride 100 ml @ 0 mls/hr CONT PRN 04/19/17 15:45 04/21/17 13:35 DC 04/20/17 05:29 5 MLS/HR Heparin Sodium/ Sodium Chloride 60 unit 1X ONCE 04/21/17 08:45 04/21/17 08:49 DC 04/21/17 09:17 60 UNIT Hydralazine HCl (Apresoline) 10 mg PRN Q4HRS PRN 04/15/17 14:00 Info 1 each PRN DAILY PRN 04/21/17 13:45 04/23/17 11:51 1 EACH Insulin Aspart (NovoLOG) 0-9 UNITS Q6HRS 04/23/17 18:00 04/24/17 05:10 7 UNITS Insulin Detemir (Levemir) 20 units DAILY 04/23/17 10:00 04/24/17 08:39 20 UNITS Iohexol (Omnipaque 240 Mg/ml) 50 ml 1X ONCE 04/22/17 11:45 04/22/17 11:46 DC 04/22/17 11:45 50 ML Iron Sucrose 200 mg/Sodium Chloride 110 ml @ 55 mls/hr 3X/WEEK 04/20/17 09:00 04/29/17 10:59 04/22/17 08:48 55 MLS/HR Levothyroxine Sodium (Synthroid) 88 mcg DAILY07 04/16/17 07:00 04/23/17 06:17 88 MCG Lidocaine/Sodium Bicarbonate (Buffered Lidocaine 1%) 3 ml 1X ONCE 04/21/17 08:45 04/21/17 08:49 DC 04/21/17 09:18 3 ML Magnesium Sulfate/ Dextrose 50 ml @ 25 mls/hr PRN DAILY PRN 04/23/17 13:15 Midazolam HCl (Versed) 2 mg STK-MED ONCE 04/21/17 08:20 04/21/17 08:21 DC Morphine Sulfate 2 mg PRN Q2HR PRN 04/18/17 17:45 04/23/17 15:44 2 MG Norepinephrine Bitartrate 250 ml @ 0 mls/hr CONT PRN 04/15/17 14:00 04/18/17 06:22 22.5 MLS/HR Ondansetron HCl (Zofran) 4 mg PRN Q8HRS PRN 04/15/17 14:00 04/20/17 13:23 4 MG Pantoprazole Sodium (Protonix Vial) 40 mg DAILYAC 04/15/17 16:30 04/24/17 08:38 40 MG Phytonadione (Mephyton) 5 mg 1X ONCE 04/17/17 11:15 04/17/17 11:16 DC 04/17/17 11:15 5 MG Phytonadione (Vitamin K) 5 mg 1X ONCE 04/20/17 16:00 04/20/17 16:01 DC 04/20/17 15:55 5 MG Piperacillin Sod/ Tazobactam Sod 2.25 gm/Sodium Chloride 50 ml @ 100 mls/hr Q6HRS 04/16/17 18:00 04/21/17 07:58 DC 04/21/17 05:30 100 MLS/HR Potassium Acetate 50 meq/Magnesium Sulfate 5 meq/ Calcium Gluconate 5 meq/ Multivitamins 10 ml/Chromium/ Copper/Manganese/ Seleni/Zn 1 ml/ Total Parenteral Nutrition/Amino Acids/Dextrose/ Fat Emulsion Intravenous 1,512 ml @ 63 mls/hr TPN CONT 04/21/17 22:00 04/22/17 21:59 DC 04/21/17 21:26 63 MLS/HR Potassium Acetate 70 meq/Magnesium Sulfate 5 meq/ Calcium Gluconate 5 meq/ Multivitamins 10 ml/Chromium/ Copper/Manganese/ Seleni/Zn 1 ml/ Total Parenteral Nutrition/Amino Acids/Dextrose/ Fat Emulsion Intravenous 1,512 ml @ 63 mls/hr TPN CONT 04/22/17 22:00 04/23/17 21:59 DC 04/22/17 19:54 63 MLS/HR Potassium Acetate 90 meq/Magnesium Sulfate 5 meq/ Calcium Gluconate 5 meq/ Multivitamins 10 ml/Chromium/ Copper/Manganese/ Seleni/Zn 1 ml/ Total Parenteral Nutrition/Amino Acids/Dextrose/ Fat Emulsion Intravenous 1,512 ml @ 63 mls/hr TPN CONT 04/23/17 22:00 04/24/17 21:59 04/23/17 20:51 63 MLS/HR Potassium Chloride 50 ml @ 50 mls/hr PRN Q2HR PRN 04/23/17 13:15 Sodium Chloride 1,000 ml @ 125 mls/hr Q8H 04/15/17 14:00 04/18/17 09:50 DC 04/18/17 06:20 125 MLS/HR Vancomycin HCl 1.5 gm/Sodium Chloride 500 ml @ 250 mls/hr 1X ONCE 04/16/17 18:30 04/16/17 20:29 DC 04/16/17 19:22 250 MLS/HR Warfarin Sodium (Coumadin - No Dose Today) 1 each 1X WARF ONCE 04/20/17 16:00 04/20/17 16:01 DC Warfarin Sodium (Coumadin Per Pharmacy) 1 each PRN DAILY PRN 04/21/17 13:45 04/23/17 09:40 DC 04/23/17 08:02 1 EACH Warfarin Sodium (Coumadin) 1 mg 1X WARF ONCE 04/23/17 16:00 04/23/17 16:01 Cancel Lab Laboratory Tests Test 04/23/17 12:08 04/23/17 17:55 04/23/17 21:27 04/24/17 04:25 Glucose (Fingerstick) 269 mg/dL (70-99) 308 mg/dL (70-99) 232 mg/dL (70-99) White Blood Count 22.0 x10^3/uL (4.0-11.0) Red Blood Count 3.35 x10^6/uL (4.30-5.70) Hemoglobin 8.8 g/dL (13.0-17.5) Hematocrit 28.5 % (39.0-53.0) Mean Corpuscular Volume 85 fL (79-100) Mean Corpuscular Hemoglobin 26 pg (25-35) Mean Corpuscular Hemoglobin Concent 31 g/dL (31-37) Red Cell Distribution Width 17.3 % (11.5-14.5) Platelet Count 170 x10^3/uL (140-400) Neutrophils (%) (Auto) 97 % (31-73) Lymphocytes (%) (Auto) 1 % (24-48) Monocytes (%) (Auto) 2 % (0-9) Eosinophils (%) (Auto) 0 % (0-3) Basophils (%) (Auto) 0 % (0-3) Neutrophils # (Auto) 21.3 x10^3uL (1.8-7.7) Lymphocytes # (Auto) 0.3 x10^3/uL (1.0-4.8) Monocytes # (Auto) 0.4 x10^3/uL (0.0-1.1) Eosinophils # (Auto) 0.1 x10^3/uL (0.0-0.7) Basophils # (Auto) 0.0 x10^3/uL (0.0-0.2) Segmented Neutrophils % 92 % (35-66) Band Neutrophils % 8 % (0-9) Nucleated Red Blood Cells 1 Toxic Granulation Mod Platelet Estimate Adequate (ADEQUATE) Polychromasia Slight Anisocytosis Slight Sodium Level 150 mmol/L (136-145) Potassium Level 4.0 mmol/L (3.5-5.1) Chloride Level 114 mmol/L (98-107) Carbon Dioxide Level 27 mmol/L (21-32) Anion Gap 9 (6-14) Blood Urea Nitrogen 85 mg/dL (8-26) Creatinine 2.6 mg/dL (0.7-1.3) Estimated GFR (Cockcroft-Gault) 23.9 Glucose Level 268 mg/dL (70-99) Calcium Level 8.4 mg/dL (8.5-10.1) Phosphorus Level 2.6 mg/dL (2.6-4.7) Albumin 2.1 g/dL (3.4-5.0) Test 04/24/17 07:38 Glucose (Fingerstick) 241 mg/dL (70-99) NAKIA PEREZ MD Apr 24, 2017 09:30
--- NOTE | 2017-04-24 10:57 | PDOC ---
Infectious Disease Note Subjective Subjective Transferred out of ICU to telemetry floor. c/o persistent abdominal pain and dry mouth + BM NPO, on TPN ROS ROS GEN: Denies fevers, chills, sweats CV: Denies chest pain RESP: Denies shortness of air, cough GI: Denies n/v/d NEURO: Denies confusion Vital Sign Vital Signs Vital Signs Date Time Temp Pulse Resp B/P (MAP) Pulse Ox O2 Delivery O2 Flow Rate FiO2 04/24/17 07:00 98.0 81 18 87/54 (65) 96 Room Air 98.0 Physical Exam PHYSICAL EXAM GENERAL: Lying down, NAD HEENT: OC/OP dry LUNGS: Clear HEART: S1 and S2 ABD: Increae distension, + ascites, BS active, soft, tender light palpation EXT: Less generalized edema CLINICAL REVIEWER: Alert, 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, no focal neurologic deficit SKIN: No rash Left subclavian central line. clean Labs Lab Laboratory Tests Test 04/23/17 12:08 04/23/17 17:55 04/23/17 21:27 04/24/17 04:25 Glucose (Fingerstick) 269 mg/dL (70-99) 308 mg/dL (70-99) 232 mg/dL (70-99) White Blood Count 22.0 x10^3/uL (4.0-11.0) Red Blood Count 3.35 x10^6/uL (4.30-5.70) Hemoglobin 8.8 g/dL (13.0-17.5) Hematocrit 28.5 % (39.0-53.0) Mean Corpuscular Volume 85 fL (79-100) Mean Corpuscular Hemoglobin 26 pg (25-35) Mean Corpuscular Hemoglobin Concent 31 g/dL (31-37) Red Cell Distribution Width 17.3 % (11.5-14.5) Platelet Count 170 x10^3/uL (140-400) Neutrophils (%) (Auto) 97 % (31-73) Lymphocytes (%) (Auto) 1 % (24-48) Monocytes (%) (Auto) 2 % (0-9) Eosinophils (%) (Auto) 0 % (0-3) Basophils (%) (Auto) 0 % (0-3) Neutrophils # (Auto) 21.3 x10^3uL (1.8-7.7) Lymphocytes # (Auto) 0.3 x10^3/uL (1.0-4.8) Monocytes # (Auto) 0.4 x10^3/uL (0.0-1.1) Eosinophils # (Auto) 0.1 x10^3/uL (0.0-0.7) Basophils # (Auto) 0.0 x10^3/uL (0.0-0.2) Segmented Neutrophils % 92 % (35-66) Band Neutrophils % 8 % (0-9) Nucleated Red Blood Cells 1 Toxic Granulation Mod Platelet Estimate Adequate (ADEQUATE) Polychromasia Slight Anisocytosis Slight Sodium Level 150 mmol/L (136-145) Potassium Level 4.0 mmol/L (3.5-5.1) Chloride Level 114 mmol/L (98-107) Carbon Dioxide Level 27 mmol/L (21-32) Anion Gap 9 (6-14) Blood Urea Nitrogen 85 mg/dL (8-26) Creatinine 2.6 mg/dL (0.7-1.3) Estimated GFR (Cockcroft-Gault) 23.9 Glucose Level 268 mg/dL (70-99) Calcium Level 8.4 mg/dL (8.5-10.1) Phosphorus Level 2.6 mg/dL (2.6-4.7) Albumin 2.1 g/dL (3.4-5.0) Test 04/24/17 07:38 Glucose (Fingerstick) 241 mg/dL (70-99) Micro 04/21. Abdominal fluid ANAEROBIC-AEROBIC CULTURE PENDING ANAEROBIC RES 1 PENDING AEROBIC RES 1 Final Enterobacter cloacae complex Antibiotic RSLT#1 Amoxicillin/Clavulanic Acid R Cefazolin R Cefepime R Ceftriaxone R Cefuroxime R Ciprofloxacin S Gentamicin S Imipenem R Levofloxacin S Piperacillin R Tetracycline S Tobramycin S Trimethoprim/Sulfa S Objective Assessment Sepsis with hypotension, off pressor support GPC & Clostridium Ramosum bacteremia, present on transfer from [facility]. 04/15 Abdominal pain, distention and ascites: SBP & pneumoperitoneum -s/p paracentesis, 04/21. 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 Cirrhosis of liver HERIBERTO on CKD Leukocytosis, worse Coagulopathy PAFIB Plan Plan of Care change Unasyn to Tygacil per Dr. Barrett (HERIBERTO and Afib) Contact isolation, CRE No surgical plans noted Repeat CBC in am D/w RN Attending Co-Sign Attending Co-Sign The patient was seen and interviewed as well as examined at the bedside. The chart was reviewed. The case was discussed. Agree with the plan of care. WOOD KRUEGER APRN Apr 24, 2017 10:57 ARLET BARRETT MD Apr 24, 2017 15:31
[2017-04-24] MEDS ORDERED: TIGECYCLINE 100 MG in IV NORMAL SALINE 100ML 100 ML IV ONE (12:00)
--- NOTE | 2017-04-24 13:23 | PDOC ---
PROGRESS NOTES Chief Complaint Chief Complaint 1. Hpotensive Shock, s/p vasopressors, 2. Severe CM with low EF 2. Ascites, with cirrhosis s/p LARGE VOLUME paracentesis (04/21/17) 3. Abdominal pain:Pneumoperitoneum 4. Chronic atrial fibrillation, rate controlled. 5. Acute kidney injury on chronic kidney disease 4.: Possible due to VMN, 6. Multi organ dysfunction 7. Type 2 diabetes mellitus: SSI 8. Hypernatremia 9. Anemia of chronic disease. 10. Chronic post inflammatory hyperpigmentation legs History of Present Illness History of Present Illness Pt seen and examined DW RN On TPN Looks very weak Vitals Vitals Vital Signs Date Time Temp Pulse Resp B/P (MAP) Pulse Ox O2 Delivery O2 Flow Rate FiO2 04/24/17 11:07 98.0 104 18 93/48 (63) 93 Room Air 98.0 Physical Exam General: Alert, Oriented X3, Cooperative, No acute distress Heart: Regular rate, Normal S1, Normal S2 Lungs: Clear Abdomen: Soft, Other (mild TTP LLQ) Extremities: No cyanosis, Other (3+ edema) Skin: No breakdown, No significant lesion Labs LABS Laboratory Tests Test 04/23/17 17:55 04/23/17 21:27 04/24/17 04:25 04/24/17 07:38 Glucose (Fingerstick) 308 mg/dL (70-99) 232 mg/dL (70-99) 241 mg/dL (70-99) White Blood Count 22.0 x10^3/uL (4.0-11.0) Red Blood Count 3.35 x10^6/uL (4.30-5.70) Hemoglobin 8.8 g/dL (13.0-17.5) Hematocrit 28.5 % (39.0-53.0) Mean Corpuscular Volume 85 fL (79-100) Mean Corpuscular Hemoglobin 26 pg (25-35) Mean Corpuscular Hemoglobin Concent 31 g/dL (31-37) Red Cell Distribution Width 17.3 % (11.5-14.5) Platelet Count 170 x10^3/uL (140-400) Neutrophils (%) (Auto) 97 % (31-73) Lymphocytes (%) (Auto) 1 % (24-48) Monocytes (%) (Auto) 2 % (0-9) Eosinophils (%) (Auto) 0 % (0-3) Basophils (%) (Auto) 0 % (0-3) Neutrophils # (Auto) 21.3 x10^3uL (1.8-7.7) Lymphocytes # (Auto) 0.3 x10^3/uL (1.0-4.8) Monocytes # (Auto) 0.4 x10^3/uL (0.0-1.1) Eosinophils # (Auto) 0.1 x10^3/uL (0.0-0.7) Basophils # (Auto) 0.0 x10^3/uL (0.0-0.2) Segmented Neutrophils % 92 % (35-66) Band Neutrophils % 8 % (0-9) Nucleated Red Blood Cells 1 Toxic Granulation Mod Platelet Estimate Adequate (ADEQUATE) Polychromasia Slight Anisocytosis Slight Sodium Level 150 mmol/L (136-145) Potassium Level 4.0 mmol/L (3.5-5.1) Chloride Level 114 mmol/L (98-107) Carbon Dioxide Level 27 mmol/L (21-32) Anion Gap 9 (6-14) Blood Urea Nitrogen 85 mg/dL (8-26) Creatinine 2.6 mg/dL (0.7-1.3) Estimated GFR (Cockcroft-Gault) 23.9 Glucose Level 268 mg/dL (70-99) Calcium Level 8.4 mg/dL (8.5-10.1) Phosphorus Level 2.6 mg/dL (2.6-4.7) Albumin 2.1 g/dL (3.4-5.0) Test 04/24/17 11:22 Glucose (Fingerstick) 236 mg/dL (70-99) Review of Systems Review of Systems co weaknness co hunger Assessment and Plan Assessmemt and Plan 1. Hpotensive Shock, s/p vasopressors, 2. Severe CM with low EF 2. Ascites, with cirrhosis s/p LARGE VOLUME paracentesis (04/21/17) 3. Abdominal pain:Pneumoperitoneum 4. Chronic atrial fibrillation, rate controlled. 5. Acute kidney injury on chronic kidney disease 4.: Possible due to VMN, 6. Multi organ dysfunction 7. Type 2 diabetes mellitus: SSI 8. Hypernatremia 9. Anemia of chronic disease. 10. Chronic post inflammatory hyperpigmentation legs Plan TPN Labs PTOT SNU eval Home meds Diuretics Appreciate subspecialist input Problems: Comment Review of Relevant I have reviewed the following items ivon (where applicable) has been applied. Labs Laboratory Tests Test 04/22/17 18:15 04/22/17 23:38 04/23/17 06:30 04/23/17 12:08 Glucose (Fingerstick) 232 mg/dL (70-99) 245 mg/dL (70-99) 269 mg/dL (70-99) White Blood Count 9.9 x10^3/uL (4.0-11.0) Red Blood Count 3.11 x10^6/uL (4.30-5.70) Hemoglobin 8.3 g/dL (13.0-17.5) Hematocrit 26.2 % (39.0-53.0) Mean Corpuscular Volume 84 fL (79-100) Mean Corpuscular Hemoglobin 27 pg (25-35) Mean Corpuscular Hemoglobin Concent 32 g/dL (31-37) Red Cell Distribution Width 17.2 % (11.5-14.5) Platelet Count 179 x10^3/uL (140-400) Neutrophils (%) (Auto) 92 % (31-73) Lymphocytes (%) (Auto) 4 % (24-48) Monocytes (%) (Auto) 4 % (0-9) Eosinophils (%) (Auto) 0 % (0-3) Basophils (%) (Auto) 0 % (0-3) Neutrophils # (Auto) 9.1 x10^3uL (1.8-7.7) Lymphocytes # (Auto) 0.4 x10^3/uL (1.0-4.8) Monocytes # (Auto) 0.4 x10^3/uL (0.0-1.1) Eosinophils # (Auto) 0.0 x10^3/uL (0.0-0.7) Basophils # (Auto) 0.0 x10^3/uL (0.0-0.2) Prothrombin Time 22.6 SEC (11.7-14.0) Prothromb Time International Ratio 2.1 (0.8-1.1) Sodium Level 151 mmol/L (136-145) Potassium Level 3.2 mmol/L (3.5-5.1) Chloride Level 114 mmol/L (98-107) Carbon Dioxide Level 27 mmol/L (21-32) Anion Gap 10 (6-14) Blood Urea Nitrogen 78 mg/dL (8-26) Creatinine 2.3 mg/dL (0.7-1.3) Estimated GFR (Cockcroft-Gault) 27.6 Glucose Level 292 mg/dL (70-99) Lactic Acid Level 1.6 mmol/L (0.4-2.0) Calcium Level 8.3 mg/dL (8.5-10.1) Phosphorus Level 2.7 mg/dL (2.6-4.7) Magnesium Level 1.9 mg/dL (1.8-2.4) Albumin 2.5 g/dL (3.4-5.0) Test 04/23/17 17:55 04/23/17 21:27 04/24/17 04:25 04/24/17 07:38 Glucose (Fingerstick) 308 mg/dL (70-99) 232 mg/dL (70-99) 241 mg/dL (70-99) White Blood Count 22.0 x10^3/uL (4.0-11.0) Red Blood Count 3.35 x10^6/uL (4.30-5.70) Hemoglobin 8.8 g/dL (13.0-17.5) Hematocrit 28.5 % (39.0-53.0) Mean Corpuscular Volume 85 fL (79-100) Mean Corpuscular Hemoglobin 26 pg (25-35) Mean Corpuscular Hemoglobin Concent 31 g/dL (31-37) Red Cell Distribution Width 17.3 % (11.5-14.5) Platelet Count 170 x10^3/uL (140-400) Neutrophils (%) (Auto) 97 % (31-73) Lymphocytes (%) (Auto) 1 % (24-48) Monocytes (%) (Auto) 2 % (0-9) Eosinophils (%) (Auto) 0 % (0-3) Basophils (%) (Auto) 0 % (0-3) Neutrophils # (Auto) 21.3 x10^3uL (1.8-7.7) Lymphocytes # (Auto) 0.3 x10^3/uL (1.0-4.8) Monocytes # (Auto) 0.4 x10^3/uL (0.0-1.1) Eosinophils # (Auto) 0.1 x10^3/uL (0.0-0.7) Basophils # (Auto) 0.0 x10^3/uL (0.0-0.2) Segmented Neutrophils % 92 % (35-66) Band Neutrophils % 8 % (0-9) Nucleated Red Blood Cells 1 Toxic Granulation Mod Platelet Estimate Adequate (ADEQUATE) Polychromasia Slight Anisocytosis Slight Sodium Level 150 mmol/L (136-145) Potassium Level 4.0 mmol/L (3.5-5.1) Chloride Level 114 mmol/L (98-107) Carbon Dioxide Level 27 mmol/L (21-32) Anion Gap 9 (6-14) Blood Urea Nitrogen 85 mg/dL (8-26) Creatinine 2.6 mg/dL (0.7-1.3) Estimated GFR (Cockcroft-Gault) 23.9 Glucose Level 268 mg/dL (70-99) Calcium Level 8.4 mg/dL (8.5-10.1) Phosphorus Level 2.6 mg/dL (2.6-4.7) Albumin 2.1 g/dL (3.4-5.0) Test 04/24/17 11:22 Glucose (Fingerstick) 236 mg/dL (70-99) Laboratory Tests Test 04/23/17 17:55 04/23/17 21:27 04/24/17 04:25 04/24/17 07:38 Glucose (Fingerstick) 308 mg/dL (70-99) 232 mg/dL (70-99) 241 mg/dL (70-99) White Blood Count 22.0 x10^3/uL (4.0-11.0) Red Blood Count 3.35 x10^6/uL (4.30-5.70) Hemoglobin 8.8 g/dL (13.0-17.5) Hematocrit 28.5 % (39.0-53.0) Mean Corpuscular Volume 85 fL (79-100) Mean Corpuscular Hemoglobin 26 pg (25-35) Mean Corpuscular Hemoglobin Concent 31 g/dL (31-37) Red Cell Distribution Width 17.3 % (11.5-14.5) Platelet Count 170 x10^3/uL (140-400) Neutrophils (%) (Auto) 97 % (31-73) Lymphocytes (%) (Auto) 1 % (24-48) Monocytes (%) (Auto) 2 % (0-9) Eosinophils (%) (Auto) 0 % (0-3) Basophils (%) (Auto) 0 % (0-3) Neutrophils # (Auto) 21.3 x10^3uL (1.8-7.7) Lymphocytes # (Auto) 0.3 x10^3/uL (1.0-4.8) Monocytes # (Auto) 0.4 x10^3/uL (0.0-1.1) Eosinophils # (Auto) 0.1 x10^3/uL (0.0-0.7) Basophils # (Auto) 0.0 x10^3/uL (0.0-0.2) Segmented Neutrophils % 92 % (35-66) Band Neutrophils % 8 % (0-9) Nucleated Red Blood Cells 1 Toxic Granulation Mod Platelet Estimate Adequate (ADEQUATE) Polychromasia Slight Anisocytosis Slight Sodium Level 150 mmol/L (136-145) Potassium Level 4.0 mmol/L (3.5-5.1) Chloride Level 114 mmol/L (98-107) Carbon Dioxide Level 27 mmol/L (21-32) Anion Gap 9 (6-14) Blood Urea Nitrogen 85 mg/dL (8-26) Creatinine 2.6 mg/dL (0.7-1.3) Estimated GFR (Cockcroft-Gault) 23.9 Glucose Level 268 mg/dL (70-99) Calcium Level 8.4 mg/dL (8.5-10.1) Phosphorus Level 2.6 mg/dL (2.6-4.7) Albumin 2.1 g/dL (3.4-5.0) Test 04/24/17 11:22 Glucose (Fingerstick) 236 mg/dL (70-99) Microbiology 04/21/17 Gram Stain - Final, Complete Medications Current Medications Acetaminophen (Tylenol) 325 mg PRN Q6HRS PRN PO MILD PAIN / TEMP; Start at 14:00 Acetaminophen/ Hydrocodone Bitart (Lortab 5/325) 1 tab PRN Q6HRS PRN PO MODERATE TO SEVERE PAIN Last administered on 04/23/17 08:11; Start 04/15/17 at 14:00; Stop 04/23/17 at 11:14; Status DC Hydralazine HCl (Apresoline) 10 mg PRN Q4HRS PRN IVP ELEVATED BP, SEE COMMENTS ; Start 04/15/17 at 14:00 Ondansetron HCl (Zofran) 4 mg PRN Q8HRS PRN IV NAUSEA/VOMITING Last administered on 04/20/17 13:23; Start 04/15/17 at 14:00 Albuterol Sulfate (Ventolin Neb Soln) 2.5 mg PRN Q4HRS PRN NEB SHORTNESS OF BREATH Last administered on 04/19/17 16:45; Start 04/15/17 at 14:00 Sodium Chloride 1,000 ml @ 125 mls/hr Q8H IV Last administered on 04/18/17 06 :20; Start 04/15/17 at 14:00; Stop 04/18/17 at 09:50; Status DC Norepinephrine Bitartrate 250 ml @ 0 mls/hr CONT PRN IV SEE I/O RECORD Last administered on 04/18/17 06:22; Start 04/15/17 at 14:00 Ceftriaxone Sodium 1 gm/ Sodium Chloride 50 ml @ 100 mls/hr Q24H IV ; Start at 16:00; Stop 04/15/17 at 16:00; Status DC Warfarin Sodium (Coumadin Per Pharmacy) 1 each PRN DAILY PRN MC SEE COMMENTS Last administered on 04/20/17 10:59; Start 04/15/17 at 15:15; Stop 04/20/17 at 16:07; Status DC Amiodarone HCl (Cordarone) 200 mg DAILY PO Last administered on 04/18/17 09:19 ; Start 04/16/17 at 09:00; Stop 04/18/17 at 17:42; Status DC Aspirin (Children'S Aspirin) 81 mg DAILYWBKFT PO Last administered on 07:42; Start 04/16/17 at 08:00; Stop 04/18/17 at 17:43; Status DC Cyanocobalamin (Vitamin B-12) 1,000 mcg AFTRNOON PO Last administered on 13:13; Start 04/16/17 at 13:00; Stop 04/18/17 at 17:33; Status DC Levothyroxine Sodium (Synthroid) 88 mcg DAILY07 PO Last administered on 06:17; Start 04/16/17 at 07:00 Warfarin Sodium (Coumadin) 1 mg DAILY PO ; Start 04/16/17 at 09:00; Status UNV Insulin Aspart (NovoLOG) 0-9 UNITS TIDWMEALS SQ Last administered on 04/23/17 12:15; Start 04/15/17 at 17:00; Stop 04/23/17 at 14:51; Status DC Dextrose (Dextrose 50%-Water Syringe) 12.5 gm PRN Q15MIN PRN IV SEE COMMENTS; Start 04/15/17 at 15:30 Warfarin Sodium (Coumadin) 0.5 mg 1X WARF ONCE PO ; Start 04/15/17 at 16:00; Stop 04/15/17 at 16:01; Status DC Pantoprazole Sodium (Protonix Vial) 40 mg DAILYAC IVP Last administered on 04/24 08:38; Start 04/15/17 at 16:30 Ceftriaxone Sodium 1 gm/ Sodium Chloride 50 ml @ 100 mls/hr Q24H IV Last administered on 04/16/17 09:12; Start 04/16/17 at 09:00; Stop 04/16/17 at 17:42 ; Status DC Warfarin Sodium (Coumadin - No Dose Today) 1 each 1X WARF ONCE MC ; Start 04/16 at 16:00; Stop 04/16/17 at 16:01; Status DC Darbepoetin Tomás (Aranesp) 60 mcg Sa SQ Last administered on 04/23/17 20:50; Start 04/16/17 at 21:00 Piperacillin Sod/ Tazobactam Sod 2.25 gm/Sodium Chloride 50 ml @ 100 mls/hr Q6HRS IV Last administered on 04/21/17 05:30; Start 04/16/17 at 18:00; Stop at 07:58; Status DC Vancomycin HCl 1.5 gm/Sodium Chloride 500 ml @ 250 mls/hr 1X ONCE IV Last administered on 04/16/17 19:22; Start 04/16/17 at 18:30; Stop 04/16/17 at 20:29 ; Status DC Phytonadione (Mephyton) 5 mg 1X ONCE PO Last administered on 04/17/17 11:15; Start 04/17/17 at 11:15; Stop 04/17/17 at 11:16; Status DC Magnesium Sulfate/ Dextrose 50 ml @ 25 mls/hr PRN DAILY PRN IV for Mag < 1.7 on am labs; Start 04/18/17 at 09:45; Status Cancel Warfarin Sodium (Coumadin - No Dose Today) 1 each 1X WARF ONCE MC ; Start 04/18 at 16:00; Stop 04/18/17 at 16:01; Status DC Morphine Sulfate 2 mg PRN Q2HR PRN IV PAIN Last administered on 04/23/17 15:44 ; Start 04/18/17 at 17:45 Iron Sucrose 200 mg/Sodium Chloride 110 ml @ 55 mls/hr 3X/WEEK IV Last administered on 04/22/17 08:48; Start 04/20/17 at 09:00; Stop 04/29/17 at 10:59 Warfarin Sodium (Coumadin - No Dose Today) 1 each 1X WARF ONCE MC ; Start 04/19 at 16:00; Stop 04/19/17 at 16:01; Status DC Furosemide 100 mg/ Sodium Chloride 100 ml @ 0 mls/hr CONT PRN IV SEE I/O RECORD Last administered on 04/20/17 05:29; Start 04/19/17 at 15:45; Stop 04/21 at 13:35; Status DC Furosemide (Lasix) 40 mg 1X ONCE IVP Last administered on 04/19/17 16:26; Start 04/19/17 at 16:30; Stop 04/19/17 at 16:31; Status DC Warfarin Sodium (Coumadin - No Dose Today) 1 each 1X WARF ONCE MC ; Start 04/20 at 16:00; Stop 04/20/17 at 16:01; Status DC Dopamine HCl/ Dextrose 250 ml @ 16.622 mls/ hr CONT PRN IV SEE I/O RECORD Last administered on 04/22/17 03:19; Start 04/20/17 at 11:15 Phytonadione (Vitamin K) 5 mg 1X ONCE SQ Last administered on 04/20/17 15:55 ; Start 04/20/17 at 16:00; Stop 04/20/17 at 16:01; Status DC Potassium Chloride 100 ml @ 100 mls/hr Q1H IV ; Start 04/20/17 at 15:15; Stop 04/20/17 at 19:14; Status UNV Potassium Chloride 100 ml @ 100 mls/hr Q1H IV ; Start 04/20/17 at 15:15; Stop 04/20/17 at 23:14; Status UNV Potassium Chloride 100 ml @ 100 mls/hr Q1H IV ; Start 04/20/17 at 15:15; Stop 04/21/17 at 03:14; Status UNV Albumin Human 100 ml @ 100 mls/hr 1X ONCE IV Last administered on 04/21/17 04:02; Start 04/21/17 at 04:00; Stop 04/21/17 at 04:59; Status DC Albumin Human 100 ml @ 100 mls/hr TID IV Last administered on 04/22/17 21:46 ; Start 04/21/17 at 09:00; Stop 04/22/17 at 21:59; Status DC Desmopressin Acetate (Ddavp) 4 mcg BID SQ Last administered on 04/23/17 21:00 ; Start 04/21/17 at 09:00; Stop 04/23/17 at 21:01; Status DC Magnesium Sulfate/ Dextrose 50 ml @ 25 mls/hr PRN DAILY PRN IV for Mag < 1.7 on am labs; Start 04/21/17 at 08:00; Stop 04/23/17 at 13:10; Status DC Potassium Chloride 50 ml @ 50 mls/hr PRN Q6HRS PRN IV For K < 3.7; Start at 08:00; Stop 04/23/17 at 13:10; Status DC Potassium Chloride 50 ml @ 50 mls/hr PRN Q2HR PRN IV total of 40mEq for K < 3.5; Start 04/21/17 at 08:00; Stop 04/23/17 at 13:11; Status DC Ampicillin Sodium/ Sulbactam Sodium 1.5 gm/Sodium Chloride 50 ml @ 100 mls/hr Q6HRS IV Last administered on 04/24/17 11:41; Start 04/21/17 at 12:00; Stop at 11:46; Status DC Potassium Chloride 100 ml @ 100 mls/hr Q1H IV Last administered on 04/21/17 11:10; Start 04/21/17 at 09:00; Stop 04/21/17 at 10:59; Status DC Lidocaine/Sodium Bicarbonate (Buffered Lidocaine 1%) 20 ml STK-MED ONCE IJ ; Start 04/21/17 at 08:08; Stop 04/21/17 at 08:09; Status DC Heparin Sodium/ Sodium Chloride 500 ml @ As Directed STK-MED ONCE .ROUTE ; Start 04/21/17 at 08:08; Stop 04/21/17 at 08:09; Status DC Fentanyl Citrate (Fentanyl 2ml Vial) 100 mcg STK-MED ONCE .ROUTE ; Start at 08:20; Stop 04/21/17 at 08:21; Status DC Midazolam HCl (Versed) 2 mg STK-MED ONCE .ROUTE ; Start 04/21/17 at 08:20; Stop 04/21/17 at 08:21; Status DC Iohexol (Omnipaque 240 Mg/ml) 30 ml 1X ONCE PO ; Start 04/21/17 at 08:45; Stop 04/21/17 at 08:46; Status DC Lidocaine/Sodium Bicarbonate (Buffered Lidocaine 1%) 3 ml 1X ONCE IJ Last administered on 04/21/17 09:18; Start 04/21/17 at 08:45; Stop 04/21/17 at 08:49 ; Status DC Heparin Sodium/ Sodium Chloride 60 unit 1X ONCE IV Last administered on 09:17; Start 04/21/17 at 08:45; Stop 04/21/17 at 08:49; Status DC Warfarin Sodium (Coumadin Per Pharmacy) 1 each PRN DAILY PRN MC SEE COMMENTS Last administered on 04/23/17 08:02; Start 04/21/17 at 13:45; Stop 04/23/17 at 09:40; Status DC Furosemide (Lasix) 40 mg BID PO Last administered on 04/23/17 08:09; Start at 21:00 Warfarin Sodium (Coumadin) 1 mg 1X WARF ONCE PO Last administered on 16:56; Start 04/21/17 at 16:00; Stop 04/21/17 at 16:01; Status DC Info 1 each PRN DAILY PRN MC SEE COMMENTS Last administered on 04/23/17 11:51 ; Start 04/21/17 at 13:45 Potassium Acetate 50 meq/Magnesium Sulfate 5 meq/ Calcium Gluconate 5 meq/ Multivitamins 10 ml/Chromium/ Copper/Manganese/ Seleni/Zn 1 ml/ Total Parenteral Nutrition/Amino Acids/Dextrose/ Fat Emulsion Intravenous 1,512 ml @ 63 mls/hr TPN CONT IV Last administered on 04/21/17 21:26; Start 04/21/17 at 22:00; Stop 04/22/17 at 21:59; Status DC Potassium Chloride 50 ml @ 50 mls/hr Q1H IV Last administered on 04/21/17 20: 13; Start 04/21/17 at 19:00; Stop 04/21/17 at 20:59; Status DC Warfarin Sodium (Coumadin) 1 mg 1X WARF ONCE PO Last administered on 18:13; Start 04/22/17 at 16:00; Stop 04/22/17 at 16:01; Status DC Potassium Chloride 50 ml @ 50 mls/hr Q1H IV Last administered on 04/22/17 12: 41; Start 04/22/17 at 10:30; Stop 04/22/17 at 12:29; Status DC Potassium Acetate 70 meq/Magnesium Sulfate 5 meq/ Calcium Gluconate 5 meq/ Multivitamins 10 ml/Chromium/ Copper/Manganese/ Seleni/Zn 1 ml/ Total Parenteral Nutrition/Amino Acids/Dextrose/ Fat Emulsion Intravenous 1,512 ml @ 63 mls/hr TPN CONT IV Last administered on 04/22/17 19:54; Start 04/22/17 at 22:00; Stop 04/23/17 at 21:59; Status DC Iohexol (Omnipaque 240 Mg/ml) 50 ml 1X ONCE PO Last administered on 04/22/17 11:45; Start 04/22/17 at 11:45; Stop 04/22/17 at 11:46; Status DC Potassium Chloride 50 ml @ 50 mls/hr Q2H IV Last administered on 04/23/17 10: 49; Start 04/23/17 at 08:30; Stop 04/23/17 at 11:29; Status DC Warfarin Sodium (Coumadin) 1 mg 1X WARF ONCE PO ; Start 04/23/17 at 16:00; Stop 04/23/17 at 16:01; Status Cancel Insulin Detemir (Levemir) 20 units DAILY SQ Last administered on 04/24/17 08: 39; Start 04/23/17 at 10:00 Fentanyl Citrate (Fentanyl 2ml Vial) 50 mcg PRN Q2HR PRN IV PAIN; Start at 11:15 Potassium Acetate 90 meq/Magnesium Sulfate 5 meq/ Calcium Gluconate 5 meq/ Multivitamins 10 ml/Chromium/ Copper/Manganese/ Seleni/Zn 1 ml/ Total Parenteral Nutrition/Amino Acids/Dextrose/ Fat Emulsion Intravenous 1,512 ml @ 63 mls/hr TPN CONT IV Last administered on 04/23/17 20:51; Start 04/23/17 at 22:00; Stop 04/24/17 at 21:59 Magnesium Sulfate/ Dextrose 50 ml @ 25 mls/hr PRN DAILY PRN IV for Mag < 1.7 on am labs; Start 04/23/17 at 13:15 Potassium Chloride 50 ml @ 50 mls/hr PRN Q6HRS PRN IV For K < 3.7; Start at 13:15 Potassium Chloride 50 ml @ 50 mls/hr PRN Q2HR PRN IV total of 40mEq for K < 3.5; Start 04/23/17 at 13:15 Insulin Aspart (NovoLOG) 0-9 UNITS Q6HRS SQ Last administered on 04/24/17 11: 45; Start 04/23/17 at 18:00 Tigecycline 100 mg/Sodium Chloride 100 ml @ 200 mls/hr 1X ONCE IV ; Start at 12:00; Stop 04/24/17 at 12:29; Status DC Tigecycline 50 mg/ Sodium Chloride 50 ml @ 100 mls/hr Q12HR IV ; Start at 21:00; Status UNV Active Scripts Active Reported Potassium Chloride 10 Meq Capsule.er 10 Meq PO 3X/WEEK Vitamin B-12 (Cyanocobalamin (Vitamin B-12)) 1,000 Mcg Tablet 1 Tab PO AFTRNOON Vitamin D (Cholecalciferol (Vitamin D3)) 1,000 Unit Capsule 1 Cap PO HS Vitamin E (Vitamin E (Dl,Tocopheryl Acet)) 200 Unit Capsule 200 Unit PO AFTRNOON Novolin 70-30 100 Unit/Ml Vial (Hum Insulin Nph/Reg Insulin Hm) 100 Unit/1 Ml Vial 13 Unit SQ HS Levothyroxine Sodium 88 Mcg Tablet 1 Tab PO DAILY Carvedilol 6.25 Mg Tablet 1 Tab PO BID Fosamax (Alendronate Sodium) 70 Mg Tablet 1 Tab PO WEEKLY 1 Days Amiodarone Hcl 200 Mg Tablet 1 Tab PO DAILY Aspirin 81 Mg Tab.chew 1 Tab PO DAILY Warfarin Sodium 1 Mg Tablet 1 Mg PO DAILY Crestor (Rosuvastatin Calcium) 5 Mg Tablet 5 Mg PO HS Furosemide 40 Mg Tablet 40 Mg PO BID Vitals/I & O Vital Sign - Last 24 Hours 04/23/17 04/23/17 04/23/17 04/23/17 15:01 19:00 20:00 23:00 Temp 97.8 98.0 97.8 98.0 Pulse 78 94 91 Resp 26 20 20 B/P (MAP) 98/51 (67) 86/57 (67) 91/46 (61) Pulse Ox 98 92 96 O2 Delivery Room Air Room Air Room Air Room Air 04/24/17 04/24/17 04/24/17 04/24/17 03:00 07:00 08:00 11:07 Temp 97.6 98.0 98.0 97.6 98.0 98.0 Pulse 90 81 104 Resp 20 18 18 B/P (MAP) 85/42 (56) 87/54 (65) 93/48 (63) Pulse Ox 96 96 93 O2 Delivery Room Air Room Air Room Air Room Air Intake and Output 04/23/17 04/23/17 04/24/17 15:00 23:00 07:00 Intake Total 441 ml Output Total 575 ml 550 ml Balance -575 ml -109 ml ANA ROSA LIM III DO Apr 24, 2017 13:22
[2017-04-24] MEDS: TPN PER PHARMACY MC PRN (14:01)
--- NOTE | 2017-04-24 19:20 | PDOC ---
Provider Note Provider Note no change. he tells me he feels tired and his pain is unchanged afeb vss wbc ~22 alert, frail abd soft mod distended unchanged from yest-tender a/p pneumoperitoneum leukocytosis cirrhosis acute renal failure severe malnutrition d/w pt. as long as he is not worsening, he wants to cont his current tx. if he were to worsen/significantly decline, he would refuse surgery and want to be kept comfortable. he said he had spoken with his family today about cont his current care since he is not worsening. SONDRA JENNINGS MD Apr 24, 2017 19:20
[2017-04-24] MEDS: TIGECYCLINE 50 MG in IV NORMAL SALINE 50ML 50 ML IV SCH (21:05)
[2017-04-24] MEDS ORDERED: [UNRECOGNIZED DRUG - OTHER] IV SCH ×8 (22:00)
[2017-04-24] MEDS ORDERED: TOTAL PARENTERAL NUTRITION IV SCH ×8 (22:00)
[2017-04-24] MEDS ORDERED: DEXTROSE 70% IV SCH ×8 (22:00)
[2017-04-24] MEDS ORDERED: AMINO ACIDS IV SCH ×8 (22:00)
[2017-04-25 00:03] LABS: BASO % 0 % (0-3); EOS % 0 % (0-3); HEMATOCRIT 25.3 % (39.0-53.0); LYMPH # 0.4 x10^3/uL (1.0-4.8); LYMPH % 3 % (24-48); MEAN CORPUSCULAR HEMOGLOBIN 27 pg (25-35); MEAN CORPUSCULAR HGB CONC 32 g/dL (31-37); MEAN CORPUSCULAR VOLUME 84 fL (79-100); MONO % 4 % (0-9); NEUT % 93 % (31-73); PLATELET COUNT 161 x10^3/uL (140-400); RED BLOOD COUNT 3.01 x10^6/uL (4.30-5.70); RED CELL DISTRIBUTION WIDTH 17.7 % (11.5-14.5); WHITE BLOOD COUNT 14.2 x10^3/uL (4.0-11.0)
[2017-04-25 00:16] LABS: CALCIUM 8.5 mg/dL (8.5-10.1); CREATININE 2.6 mg/dL (0.7-1.3); GFR 23.9; POTASSIUM 4.4 mmol/L (3.5-5.1)
[2017-04-25 00:19] LABS: INR 1.9 (0.8-1.1); PROTHROMBIN TIME PATIENT 20.9 SEC (11.7-14.0)
[2017-04-25 00:23] LABS: ALBUMIN 1.9 g/dL (3.4-5.0); ALBUMIN/GLOBULIN RATIO 0.6 (1.0-1.7); TOTAL BILIRUBIN 2.6 mg/dL (0.2-1.0)
[2017-04-25] MEDS: INSULIN ASPART 300 UNITS/3 ML INSULN.PEN SQ SCH ×4 (01:16→18:06)
--- NOTE | 2017-04-25 01:28 | RAD ---
EXAM: KUB, PORTABLE CHEST 1V HISTORY: abdomen distension, respiratory distress COMPARISON: None. TECHNIQUE: Portable semiupright frontal view of the chest is obtained. Portable supine views of the abdomen are obtained. FINDINGS: Bibasilar opacities are present bilaterally, including linear type opacity seen in the right hilar region. There is loss of visualization of both hemidiaphragms with a hazy appearance, suggesting some degree of pleural fluid. No pneumothorax is seen. Cardiac silhouette appears mildly enlarged. 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 Visualized osseous structures and surrounding soft tissues of the chest demonstrate no acute finding. Gaseous distended small bowel loops are present within the mid and left abdomen, not overly dilated. Formed fecal material is seen within the right abdomen, with small scattered lucencies present throughout the right abdomen which likely reside within colonic bowel loops. Evaluation for intra-abdominal free air is limited on this supine exam. Diffuse osteopenia is present. IMPRESSION: 1. Bibasilar opacities with probable bilateral small pleural effusions. Cardiomegaly. 2. Gaseous distended small bowel loops do not appear overly dilated. If there is concern for obstruction, upright radiograph would be of benefit. Findings of constipation. Electronically signed by: Delia Tanner MD (04/25/2017 1:25 AM)
[2017-04-25] MEDS ORDERED: ALBUMIN HUMAN 25% 100 ML IV ONE (01:30)
[2017-04-25 06:00] VITALS: BP 90/55
[2017-04-25 06:05] VITALS: BP 88/49
[2017-04-25] MEDS: LEVOTHYROXINE 88 MCG TABLET PO SCH (07:00)
[2017-04-25] MEDS: PANTOPRAZOLE IV PUSH 40 MG VIAL. IVP SCH (08:26)
[2017-04-25] MEDS: TIGECYCLINE 50 MG in IV NORMAL SALINE 50ML 50 ML IV SCH ×2 (08:26→20:53)
[2017-04-25] MEDS: INSULIN DETEMIR 300 UNITS/3 ML INSULN.PEN. SQ SCH (08:34)
[2017-04-25] MEDS: FUROSEMIDE 40 MG TABLET. PO SCH (09:00)
--- NOTE | 2017-04-25 09:21 | PDOC ---
Infectious Disease Note Subjective Subjective Doing ok but feels he is filling up again ROS ROS GEN: Denies fevers, chills, sweats HEENT: Denies blurred vision, sore throat CV: Denies chest pain RESP: Denies shortness of air, cough GI: Denies n/v/d NEURO: Denies confusion, dizziness MSK: Denies weakness, joint pain/swelling Vital Sign Vital Signs Vital Signs Date Time Temp Pulse Resp B/P (MAP) Pulse Ox O2 Delivery O2 Flow Rate FiO2 04/25/17 06:05 82 30 88/49 (62) 93 Room Air 04/24/17 22:30 97.5 97.5 Physical Exam PHYSICAL EXAM GENERAL: NAD, Alert HEENT: PERRL, OC/OP- dry NECK: Supple, no JVD, no LN LUNGS: Clear HEART: S1S2, no gallop, no murmur ABD: Soft, Distended. saml umbilical hernia. mild tender, Stahl EXT: No edema, no cyanosis BANK OFFICER: Alert, 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, no focal neurologic deficit SKIN: No rash IV: LIJ Labs Lab Laboratory Tests Test 04/24/17 11:22 04/24/17 16:23 04/24/17 23:45 04/25/17 05:56 Glucose (Fingerstick) 236 mg/dL (70-99) 222 mg/dL (70-99) 194 mg/dL (70-99) White Blood Count 14.2 x10^3/uL (4.0-11.0) Red Blood Count 3.01 x10^6/uL (4.30-5.70) Hemoglobin 8.0 g/dL (13.0-17.5) Hematocrit 25.3 % (39.0-53.0) Mean Corpuscular Volume 84 fL (79-100) Mean Corpuscular Hemoglobin 27 pg (25-35) Mean Corpuscular Hemoglobin Concent 32 g/dL (31-37) Red Cell Distribution Width 17.7 % (11.5-14.5) Platelet Count 161 x10^3/uL (140-400) Neutrophils (%) (Auto) 93 % (31-73) Lymphocytes (%) (Auto) 3 % (24-48) Monocytes (%) (Auto) 4 % (0-9) Eosinophils (%) (Auto) 0 % (0-3) Basophils (%) (Auto) 0 % (0-3) Neutrophils # (Auto) 13.2 x10^3uL (1.8-7.7) Lymphocytes # (Auto) 0.4 x10^3/uL (1.0-4.8) Monocytes # (Auto) 0.6 x10^3/uL (0.0-1.1) Eosinophils # (Auto) 0.0 x10^3/uL (0.0-0.7) Basophils # (Auto) 0.0 x10^3/uL (0.0-0.2) Prothrombin Time 20.9 SEC (11.7-14.0) Prothromb Time International Ratio 1.9 (0.8-1.1) Sodium Level 151 mmol/L (136-145) Potassium Level 4.4 mmol/L (3.5-5.1) Chloride Level 115 mmol/L (98-107) Carbon Dioxide Level 26 mmol/L (21-32) Anion Gap 10 (6-14) Blood Urea Nitrogen 99 mg/dL (8-26) Creatinine 2.6 mg/dL (0.7-1.3) Estimated GFR (Cockcroft-Gault) 23.9 BUN/Creatinine Ratio 38 (6-20) Glucose Level 196 mg/dL (70-99) Lactic Acid Level 2.0 mmol/L (0.4-2.0) Calcium Level 8.5 mg/dL (8.5-10.1) Total Bilirubin 2.6 mg/dL (0.2-1.0) Aspartate Amino Transf (AST/SGOT) 107 U/L (15-37) Alanine Aminotransferase (ALT/SGPT) 73 U/L (16-63) Alkaline Phosphatase 46 U/L (46-116) CR-Jyx-C-Type Natriuretic Peptide 1949 pg/mL (0-449) Total Protein 5.0 g/dL (6.4-8.2) Albumin 1.9 g/dL (3.4-5.0) Albumin/Globulin Ratio 0.6 (1.0-1.7) Procalcitonin 1.59 ng/mL (0.00-0.10) Objective Assessment Sepsis with hypotension - resolved GPC & Clostridium Ramosum bacteremia, present on transfer from [facility]. Abdominal pain and distention/ascites/possible SBP. Pneumoperitoneum -s/p paracentesis, 04/21. cx CRE Cirrhosis of liver HERIBERTO on CKD Leukocytosis, improved Coagulopathy PAFIB on warfarin therapy Plan Plan of Care changed Unasyn to Tygacil 04/24 (HERIBERTO and Afib) Contact isolation, CRE No surgical plans noted Repeat CBC/CMP in am Repeat blood cults D/w ARLET PHAM MD Apr 25, 2017 09:21
--- NOTE | 2017-04-25 10:40 | PDOC ---
JENNIFER DURAN LEAD NUCLEAR MEDICINE TECHNOLOGIST 04/25/17 1040: SURGICAL PROGRESS NOTE Subjective pain is about the same no emesis + flatus today Vital Signs Vital Signs Date Time Temp Pulse Resp B/P (MAP) Pulse Ox O2 Delivery O2 Flow Rate FiO2 04/25/17 08:00 Room Air 04/25/17 06:05 82 30 88/49 (62) 93 04/24/17 22:30 97.5 97.5 I&O Intake and Output 04/25/17 07:00 Intake Total 2160 ml Output Total 1000 ml Balance 1160 ml Intake Oral 10 ml IV Total 2150 ml Output Urine Total 1000 ml General: Alert, Oriented X3, Cooperative, No acute distress Abdomen: Soft, Other (distended, nontender on exam) Labs Laboratory Tests Test 04/23/17 12:08 04/23/17 17:55 04/23/17 21:27 04/24/17 04:25 Glucose (Fingerstick) 269 mg/dL (70-99) 308 mg/dL (70-99) 232 mg/dL (70-99) White Blood Count 22.0 x10^3/uL (4.0-11.0) Red Blood Count 3.35 x10^6/uL (4.30-5.70) Hemoglobin 8.8 g/dL (13.0-17.5) Hematocrit 28.5 % (39.0-53.0) Mean Corpuscular Volume 85 fL (79-100) Mean Corpuscular Hemoglobin 26 pg (25-35) Mean Corpuscular Hemoglobin Concent 31 g/dL (31-37) Red Cell Distribution Width 17.3 % (11.5-14.5) Platelet Count 170 x10^3/uL (140-400) Neutrophils (%) (Auto) 97 % (31-73) Lymphocytes (%) (Auto) 1 % (24-48) Monocytes (%) (Auto) 2 % (0-9) Eosinophils (%) (Auto) 0 % (0-3) Basophils (%) (Auto) 0 % (0-3) Neutrophils # (Auto) 21.3 x10^3uL (1.8-7.7) Lymphocytes # (Auto) 0.3 x10^3/uL (1.0-4.8) Monocytes # (Auto) 0.4 x10^3/uL (0.0-1.1) Eosinophils # (Auto) 0.1 x10^3/uL (0.0-0.7) Basophils # (Auto) 0.0 x10^3/uL (0.0-0.2) Segmented Neutrophils % 92 % (35-66) Band Neutrophils % 8 % (0-9) Nucleated Red Blood Cells 1 Toxic Granulation Mod Platelet Estimate Adequate (ADEQUATE) Polychromasia Slight Anisocytosis Slight Sodium Level 150 mmol/L (136-145) Potassium Level 4.0 mmol/L (3.5-5.1) Chloride Level 114 mmol/L (98-107) Carbon Dioxide Level 27 mmol/L (21-32) Anion Gap 9 (6-14) Blood Urea Nitrogen 85 mg/dL (8-26) Creatinine 2.6 mg/dL (0.7-1.3) Estimated GFR (Cockcroft-Gault) 23.9 Glucose Level 268 mg/dL (70-99) Calcium Level 8.4 mg/dL (8.5-10.1) Phosphorus Level 2.6 mg/dL (2.6-4.7) Albumin 2.1 g/dL (3.4-5.0) Test 04/24/17 05:00 04/24/17 07:38 04/24/17 11:22 04/24/17 16:23 Magnesium Level 1.8 mg/dL (1.8-2.4) Glucose (Fingerstick) 241 mg/dL (70-99) 236 mg/dL (70-99) 222 mg/dL (70-99) Test 04/24/17 23:45 04/25/17 05:56 White Blood Count 14.2 x10^3/uL (4.0-11.0) Red Blood Count 3.01 x10^6/uL (4.30-5.70) Hemoglobin 8.0 g/dL (13.0-17.5) Hematocrit 25.3 % (39.0-53.0) Mean Corpuscular Volume 84 fL (79-100) Mean Corpuscular Hemoglobin 27 pg (25-35) Mean Corpuscular Hemoglobin Concent 32 g/dL (31-37) Red Cell Distribution Width 17.7 % (11.5-14.5) Platelet Count 161 x10^3/uL (140-400) Neutrophils (%) (Auto) 93 % (31-73) Lymphocytes (%) (Auto) 3 % (24-48) Monocytes (%) (Auto) 4 % (0-9) Eosinophils (%) (Auto) 0 % (0-3) Basophils (%) (Auto) 0 % (0-3) Neutrophils # (Auto) 13.2 x10^3uL (1.8-7.7) Lymphocytes # (Auto) 0.4 x10^3/uL (1.0-4.8) Monocytes # (Auto) 0.6 x10^3/uL (0.0-1.1) Eosinophils # (Auto) 0.0 x10^3/uL (0.0-0.7) Basophils # (Auto) 0.0 x10^3/uL (0.0-0.2) Prothrombin Time 20.9 SEC (11.7-14.0) Prothromb Time International Ratio 1.9 (0.8-1.1) Sodium Level 151 mmol/L (136-145) Potassium Level 4.4 mmol/L (3.5-5.1) Chloride Level 115 mmol/L (98-107) Carbon Dioxide Level 26 mmol/L (21-32) Anion Gap 10 (6-14) Blood Urea Nitrogen 99 mg/dL (8-26) Creatinine 2.6 mg/dL (0.7-1.3) Estimated GFR (Cockcroft-Gault) 23.9 BUN/Creatinine Ratio 38 (6-20) Glucose Level 196 mg/dL (70-99) Lactic Acid Level 2.0 mmol/L (0.4-2.0) Calcium Level 8.5 mg/dL (8.5-10.1) Total Bilirubin 2.6 mg/dL (0.2-1.0) Aspartate Amino Transf (AST/SGOT) 107 U/L (15-37) Alanine Aminotransferase (ALT/SGPT) 73 U/L (16-63) Alkaline Phosphatase 46 U/L (46-116) BT-Txm-Y-Type Natriuretic Peptide 1949 pg/mL (0-449) Total Protein 5.0 g/dL (6.4-8.2) Albumin 1.9 g/dL (3.4-5.0) Albumin/Globulin Ratio 0.6 (1.0-1.7) Procalcitonin 1.59 ng/mL (0.00-0.10) Glucose (Fingerstick) 194 mg/dL (70-99) Laboratory Tests Test 04/24/17 11:22 04/24/17 16:23 04/24/17 23:45 04/25/17 05:56 Glucose (Fingerstick) 236 mg/dL (70-99) 222 mg/dL (70-99) 194 mg/dL (70-99) White Blood Count 14.2 x10^3/uL (4.0-11.0) Red Blood Count 3.01 x10^6/uL (4.30-5.70) Hemoglobin 8.0 g/dL (13.0-17.5) Hematocrit 25.3 % (39.0-53.0) Mean Corpuscular Volume 84 fL (79-100) Mean Corpuscular Hemoglobin 27 pg (25-35) Mean Corpuscular Hemoglobin Concent 32 g/dL (31-37) Red Cell Distribution Width 17.7 % (11.5-14.5) Platelet Count 161 x10^3/uL (140-400) Neutrophils (%) (Auto) 93 % (31-73) Lymphocytes (%) (Auto) 3 % (24-48) Monocytes (%) (Auto) 4 % (0-9) Eosinophils (%) (Auto) 0 % (0-3) Basophils (%) (Auto) 0 % (0-3) Neutrophils # (Auto) 13.2 x10^3uL (1.8-7.7) Lymphocytes # (Auto) 0.4 x10^3/uL (1.0-4.8) Monocytes # (Auto) 0.6 x10^3/uL (0.0-1.1) Eosinophils # (Auto) 0.0 x10^3/uL (0.0-0.7) Basophils # (Auto) 0.0 x10^3/uL (0.0-0.2) Prothrombin Time 20.9 SEC (11.7-14.0) Prothromb Time International Ratio 1.9 (0.8-1.1) Sodium Level 151 mmol/L (136-145) Potassium Level 4.4 mmol/L (3.5-5.1) Chloride Level 115 mmol/L (98-107) Carbon Dioxide Level 26 mmol/L (21-32) Anion Gap 10 (6-14) Blood Urea Nitrogen 99 mg/dL (8-26) Creatinine 2.6 mg/dL (0.7-1.3) Estimated GFR (Cockcroft-Gault) 23.9 BUN/Creatinine Ratio 38 (6-20) Glucose Level 196 mg/dL (70-99) Lactic Acid Level 2.0 mmol/L (0.4-2.0) Calcium Level 8.5 mg/dL (8.5-10.1) Total Bilirubin 2.6 mg/dL (0.2-1.0) Aspartate Amino Transf (AST/SGOT) 107 U/L (15-37) Alanine Aminotransferase (ALT/SGPT) 73 U/L (16-63) Alkaline Phosphatase 46 U/L (46-116) EX-Fgp-Z-Type Natriuretic Peptide 1949 pg/mL (0-449) Total Protein 5.0 g/dL (6.4-8.2) Albumin 1.9 g/dL (3.4-5.0) Albumin/Globulin Ratio 0.6 (1.0-1.7) Procalcitonin 1.59 ng/mL (0.00-0.10) Assessment/Plan pneumoperitoneum leukocytosis cirrhosis acute renal failure severe malnutrition no surgical plans at this time palliative consult pending, possible dc to select pending Problems: SONDRA JENNINGS MD 04/25/17 1622: SURGICAL PROGRESS NOTE Problem List addendum i saw him. he had 2 visitors. no change in abd pain afeb wbc normal abd soft nd tenderness unchanged. a/p pneumoperitoneum. no surg plans due to comorbidities. cont supportive care. i will be out and one of my partners will cover until dr. jesus returns. Problems: JENNIFER DURAN APRN Apr 25, 2017 10:40 SONDRA JENNINGS MD Apr 25, 2017 16:22
[2017-04-25] MEDS: IRON SUCROSE COMPLEX 200 MG in IV NORMAL SALINE 100ML 100 ML IV SCH (10:47)
[2017-04-25 11:00] VITALS: BP 92/49
[2017-04-25 11:25] LABS: BASO % 0 % (0-3); EOS % 0 % (0-3); HEMOGLOBIN 7.6 g/dL (13.0-17.5); LYMPH # 0.4 x10^3/uL (1.0-4.8); LYMPH % 4 % (24-48); MEAN CORPUSCULAR HEMOGLOBIN 27 pg (25-35); MEAN CORPUSCULAR HGB CONC 32 g/dL (31-37); MEAN CORPUSCULAR VOLUME 85 fL (79-100); MONO % 6 % (0-9); NEUT % 90 % (31-73); PLATELET COUNT 151 x10^3/uL (140-400); RED BLOOD COUNT 2.82 x10^6/uL (4.30-5.70); RED CELL DISTRIBUTION WIDTH 17.6 % (11.5-14.5)
[2017-04-25 11:32] LABS: ALBUMIN 2.2 g/dL (3.4-5.0); CALCIUM 8.5 mg/dL (8.5-10.1); CREATININE 2.7 mg/dL (0.7-1.3); GFR 22.9; PHOSPHORUS 3.7 mg/dL (2.6-4.7); POTASSIUM 4.5 mmol/L (3.5-5.1)
--- NOTE | 2017-04-25 11:37 | PDOC ---
Renal-Progress Notes Subjective Notes Notes STILL HAS ABD PAIN History of Present Illness Hx of present illness NO CHANGE Vitals Vitals Vital Signs Date Time Temp Pulse Resp B/P (MAP) Pulse Ox O2 Delivery O2 Flow Rate FiO2 04/25/17 11:00 98.1 77 20 92/49 (63) 93 Room Air 98.1 Weight Weight [ ] I.O. Intake and Output Intake and Output 04/25/17 07:00 Intake Total 2160 ml Output Total 1000 ml Balance 1160 ml Intake Oral 10 ml IV Total 2150 ml Output Urine Total 1000 ml Labs Labs Laboratory Tests Test 04/24/17 16:23 04/24/17 23:45 04/25/17 05:56 04/25/17 10:33 Glucose (Fingerstick) 222 mg/dL (70-99) 194 mg/dL (70-99) White Blood Count 14.2 x10^3/uL (4.0-11.0) 10.0 x10^3/uL (4.0-11.0) Red Blood Count 3.01 x10^6/uL (4.30-5.70) 2.82 x10^6/uL (4.30-5.70) Hemoglobin 8.0 g/dL (13.0-17.5) 7.6 g/dL (13.0-17.5) Hematocrit 25.3 % (39.0-53.0) 24.0 % (39.0-53.0) Mean Corpuscular Volume 84 fL (79-100) 85 fL (79-100) Mean Corpuscular Hemoglobin 27 pg (25-35) 27 pg (25-35) Mean Corpuscular Hemoglobin Concent 32 g/dL (31-37) 32 g/dL (31-37) Red Cell Distribution Width 17.7 % (11.5-14.5) 17.6 % (11.5-14.5) Platelet Count 161 x10^3/uL (140-400) 151 x10^3/uL (140-400) Neutrophils (%) (Auto) 93 % (31-73) 90 % (31-73) Lymphocytes (%) (Auto) 3 % (24-48) 4 % (24-48) Monocytes (%) (Auto) 4 % (0-9) 6 % (0-9) Eosinophils (%) (Auto) 0 % (0-3) 0 % (0-3) Basophils (%) (Auto) 0 % (0-3) 0 % (0-3) Neutrophils # (Auto) 13.2 x10^3uL (1.8-7.7) 9.0 x10^3uL (1.8-7.7) Lymphocytes # (Auto) 0.4 x10^3/uL (1.0-4.8) 0.4 x10^3/uL (1.0-4.8) Monocytes # (Auto) 0.6 x10^3/uL (0.0-1.1) 0.5 x10^3/uL (0.0-1.1) Eosinophils # (Auto) 0.0 x10^3/uL (0.0-0.7) 0.0 x10^3/uL (0.0-0.7) Basophils # (Auto) 0.0 x10^3/uL (0.0-0.2) 0.0 x10^3/uL (0.0-0.2) Prothrombin Time 20.9 SEC (11.7-14.0) Prothromb Time International Ratio 1.9 (0.8-1.1) Sodium Level 151 mmol/L (136-145) Potassium Level 4.4 mmol/L (3.5-5.1) Chloride Level 115 mmol/L (98-107) Carbon Dioxide Level 26 mmol/L (21-32) Anion Gap 10 (6-14) Blood Urea Nitrogen 99 mg/dL (8-26) Creatinine 2.6 mg/dL (0.7-1.3) Estimated GFR (Cockcroft-Gault) 23.9 BUN/Creatinine Ratio 38 (6-20) Glucose Level 196 mg/dL (70-99) Lactic Acid Level 2.0 mmol/L (0.4-2.0) Calcium Level 8.5 mg/dL (8.5-10.1) Total Bilirubin 2.6 mg/dL (0.2-1.0) Aspartate Amino Transf (AST/SGOT) 107 U/L (15-37) Alanine Aminotransferase (ALT/SGPT) 73 U/L (16-63) Alkaline Phosphatase 46 U/L (46-116) AW-Ntp-H-Type Natriuretic Peptide 1949 pg/mL (0-449) Total Protein 5.0 g/dL (6.4-8.2) Albumin 1.9 g/dL (3.4-5.0) Albumin/Globulin Ratio 0.6 (1.0-1.7) Procalcitonin 1.59 ng/mL (0.00-0.10) Micro Micro Microbiology 04/21/17 Gram Stain - Final, Complete Review of Systems Constitutional: yes: weakness, alert, oriented Ears/Nose/Throat: Yes: no symptom reported Eyes: Yes: no symptom reported Pulmonary: Yes no symptom reported Cardiovascular: Yes no symptom reported Gastrointestional: Yes: constipation Genitourinary: Yes: no symptom reported Musculoskeletal: Yes: muscle stiffness Skin: Yes no symptom reported Physical Exam General Appearance: no apparent distress Skin: warm Respiratory: decreased breath sounds Heart: S1S2 Abdomen: soft, bowel sounds present Genitourinary: bladder flat Extremities: pulses present Neurology: alert, oriented, follow commands Musculoskeletal: Osteoarthritis Assessment Assessment IMP HERIBERTO-BETTER WITH CR DOWN TO 2.6 CKD STAGE 4 WITH CR OF 2.8 DEHYDRATION BACTEREMIA HYPOTENSION ASCITES PNEUMOPERITONEUM PLAN ANTIBIOTICS CONT WITH TPN GI EVAL LABS IN AM PALLIATIVE CARE TO SEE SPENCER ORTIZ MD Apr 25, 2017 11:37
--- NOTE | 2017-04-25 11:47 | PDOC ---
PROGRESS NOTES Chief Complaint Chief Complaint 1. Hypotensive septic Shock, s/p vasopressors, with SBP possibly 2. Severe CM with low EF 35% 2. Ascites, with cirrhosis s/p LARGE VOLUME paracentesis (04/21/17) 3. Abdominal pain:Pneumoperitoneum , with possible perforation of bowels 4. Chronic atrial fibrillation, rate controlled. 5. Acute kidney injury on chronic kidney disease 4.: Possible due to VMN, 6. Multi organ dysfunction 7. Type 2 diabetes mellitus: SSI 8. Hypernatremia 9. Anemia of chronic disease. 10. Chronic post inflammatory hyperpigmentation legs 10. hypotension with cirrhosis, sepsis plan: fu with renal, sx, id on tigecycline npo, tpn dc po meds since npo anyway change to iv synthroid levemir 20u qhs, ssi dc lasix po PAT consult, still FC for now very poor prognosis History of Present Illness History of Present Illness npo, on tpn Na 151, high Cr 2.7 hudson abd pain, tenderness, guarding, distended abd post paracentesis for ascites + ascites culture wbc better Vitals Vitals Vital Signs Date Time Temp Pulse Resp B/P (MAP) Pulse Ox O2 Delivery O2 Flow Rate FiO2 04/25/17 11:00 98.1 77 20 92/49 (63) 93 Room Air 98.1 Physical Exam General: Alert, Oriented X3, Cooperative, No acute distress Heart: Regular rate, Normal S1, Normal S2 Lungs: Clear Abdomen: Soft, Other (mild distended, diffused tenderness, guarding, no rebound ) Extremities: No cyanosis, Other (3+ edema) Skin: No breakdown, No significant lesion Labs LABS Laboratory Tests Test 04/24/17 16:23 04/24/17 23:45 04/25/17 05:56 04/25/17 10:33 Glucose (Fingerstick) 222 mg/dL (70-99) 194 mg/dL (70-99) White Blood Count 14.2 x10^3/uL (4.0-11.0) 10.0 x10^3/uL (4.0-11.0) Red Blood Count 3.01 x10^6/uL (4.30-5.70) 2.82 x10^6/uL (4.30-5.70) Hemoglobin 8.0 g/dL (13.0-17.5) 7.6 g/dL (13.0-17.5) Hematocrit 25.3 % (39.0-53.0) 24.0 % (39.0-53.0) Mean Corpuscular Volume 84 fL (79-100) 85 fL (79-100) Mean Corpuscular Hemoglobin 27 pg (25-35) 27 pg (25-35) Mean Corpuscular Hemoglobin Concent 32 g/dL (31-37) 32 g/dL (31-37) Red Cell Distribution Width 17.7 % (11.5-14.5) 17.6 % (11.5-14.5) Platelet Count 161 x10^3/uL (140-400) 151 x10^3/uL (140-400) Neutrophils (%) (Auto) 93 % (31-73) 90 % (31-73) Lymphocytes (%) (Auto) 3 % (24-48) 4 % (24-48) Monocytes (%) (Auto) 4 % (0-9) 6 % (0-9) Eosinophils (%) (Auto) 0 % (0-3) 0 % (0-3) Basophils (%) (Auto) 0 % (0-3) 0 % (0-3) Neutrophils # (Auto) 13.2 x10^3uL (1.8-7.7) 9.0 x10^3uL (1.8-7.7) Lymphocytes # (Auto) 0.4 x10^3/uL (1.0-4.8) 0.4 x10^3/uL (1.0-4.8) Monocytes # (Auto) 0.6 x10^3/uL (0.0-1.1) 0.5 x10^3/uL (0.0-1.1) Eosinophils # (Auto) 0.0 x10^3/uL (0.0-0.7) 0.0 x10^3/uL (0.0-0.7) Basophils # (Auto) 0.0 x10^3/uL (0.0-0.2) 0.0 x10^3/uL (0.0-0.2) Prothrombin Time 20.9 SEC (11.7-14.0) Prothromb Time International Ratio 1.9 (0.8-1.1) Sodium Level 151 mmol/L (136-145) 153 mmol/L (136-145) Potassium Level 4.4 mmol/L (3.5-5.1) 4.5 mmol/L (3.5-5.1) Chloride Level 115 mmol/L (98-107) 117 mmol/L (98-107) Carbon Dioxide Level 26 mmol/L (21-32) 26 mmol/L (21-32) Anion Gap 10 (6-14) 10 (6-14) Blood Urea Nitrogen 99 mg/dL (8-26) 102 mg/dL (8-26) Creatinine 2.6 mg/dL (0.7-1.3) 2.7 mg/dL (0.7-1.3) Estimated GFR (Cockcroft-Gault) 23.9 22.9 BUN/Creatinine Ratio 38 (6-20) Glucose Level 196 mg/dL (70-99) 171 mg/dL (70-99) Lactic Acid Level 2.0 mmol/L (0.4-2.0) Calcium Level 8.5 mg/dL (8.5-10.1) 8.5 mg/dL (8.5-10.1) Total Bilirubin 2.6 mg/dL (0.2-1.0) Aspartate Amino Transf (AST/SGOT) 107 U/L (15-37) Alanine Aminotransferase (ALT/SGPT) 73 U/L (16-63) Alkaline Phosphatase 46 U/L (46-116) IJ-Oew-E-Type Natriuretic Peptide 1949 pg/mL (0-449) Total Protein 5.0 g/dL (6.4-8.2) Albumin 1.9 g/dL (3.4-5.0) 2.2 g/dL (3.4-5.0) Albumin/Globulin Ratio 0.6 (1.0-1.7) Procalcitonin 1.59 ng/mL (0.00-0.10) Phosphorus Level 3.7 mg/dL (2.6-4.7) Magnesium Level 2.1 mg/dL (1.8-2.4) Review of Systems Review of Systems no fever, chills, sob or chest pain Comment Review of Relevant I have reviewed the following items ivon (where applicable) has been applied. Labs Laboratory Tests Test 04/23/17 12:08 04/23/17 17:55 04/23/17 21:27 04/24/17 04:25 Glucose (Fingerstick) 269 mg/dL (70-99) 308 mg/dL (70-99) 232 mg/dL (70-99) White Blood Count 22.0 x10^3/uL (4.0-11.0) Red Blood Count 3.35 x10^6/uL (4.30-5.70) Hemoglobin 8.8 g/dL (13.0-17.5) Hematocrit 28.5 % (39.0-53.0) Mean Corpuscular Volume 85 fL (79-100) Mean Corpuscular Hemoglobin 26 pg (25-35) Mean Corpuscular Hemoglobin Concent 31 g/dL (31-37) Red Cell Distribution Width 17.3 % (11.5-14.5) Platelet Count 170 x10^3/uL (140-400) Neutrophils (%) (Auto) 97 % (31-73) Lymphocytes (%) (Auto) 1 % (24-48) Monocytes (%) (Auto) 2 % (0-9) Eosinophils (%) (Auto) 0 % (0-3) Basophils (%) (Auto) 0 % (0-3) Neutrophils # (Auto) 21.3 x10^3uL (1.8-7.7) Lymphocytes # (Auto) 0.3 x10^3/uL (1.0-4.8) Monocytes # (Auto) 0.4 x10^3/uL (0.0-1.1) Eosinophils # (Auto) 0.1 x10^3/uL (0.0-0.7) Basophils # (Auto) 0.0 x10^3/uL (0.0-0.2) Segmented Neutrophils % 92 % (35-66) Band Neutrophils % 8 % (0-9) Nucleated Red Blood Cells 1 Toxic Granulation Mod Platelet Estimate Adequate (ADEQUATE) Polychromasia Slight Anisocytosis Slight Sodium Level 150 mmol/L (136-145) Potassium Level 4.0 mmol/L (3.5-5.1) Chloride Level 114 mmol/L (98-107) Carbon Dioxide Level 27 mmol/L (21-32) Anion Gap 9 (6-14) Blood Urea Nitrogen 85 mg/dL (8-26) Creatinine 2.6 mg/dL (0.7-1.3) Estimated GFR (Cockcroft-Gault) 23.9 Glucose Level 268 mg/dL (70-99) Calcium Level 8.4 mg/dL (8.5-10.1) Phosphorus Level 2.6 mg/dL (2.6-4.7) Albumin 2.1 g/dL (3.4-5.0) Test 04/24/17 05:00 04/24/17 07:38 04/24/17 11:22 04/24/17 16:23 Magnesium Level 1.8 mg/dL (1.8-2.4) Glucose (Fingerstick) 241 mg/dL (70-99) 236 mg/dL (70-99) 222 mg/dL (70-99) Test 04/24/17 23:45 04/25/17 05:56 04/25/17 10:33 White Blood Count 14.2 x10^3/uL (4.0-11.0) 10.0 x10^3/uL (4.0-11.0) Red Blood Count 3.01 x10^6/uL (4.30-5.70) 2.82 x10^6/uL (4.30-5.70) Hemoglobin 8.0 g/dL (13.0-17.5) 7.6 g/dL (13.0-17.5) Hematocrit 25.3 % (39.0-53.0) 24.0 % (39.0-53.0) Mean Corpuscular Volume 84 fL (79-100) 85 fL (79-100) Mean Corpuscular Hemoglobin 27 pg (25-35) 27 pg (25-35) Mean Corpuscular Hemoglobin Concent 32 g/dL (31-37) 32 g/dL (31-37) Red Cell Distribution Width 17.7 % (11.5-14.5) 17.6 % (11.5-14.5) Platelet Count 161 x10^3/uL (140-400) 151 x10^3/uL (140-400) Neutrophils (%) (Auto) 93 % (31-73) 90 % (31-73) Lymphocytes (%) (Auto) 3 % (24-48) 4 % (24-48) Monocytes (%) (Auto) 4 % (0-9) 6 % (0-9) Eosinophils (%) (Auto) 0 % (0-3) 0 % (0-3) Basophils (%) (Auto) 0 % (0-3) 0 % (0-3) Neutrophils # (Auto) 13.2 x10^3uL (1.8-7.7) 9.0 x10^3uL (1.8-7.7) Lymphocytes # (Auto) 0.4 x10^3/uL (1.0-4.8) 0.4 x10^3/uL (1.0-4.8) Monocytes # (Auto) 0.6 x10^3/uL (0.0-1.1) 0.5 x10^3/uL (0.0-1.1) Eosinophils # (Auto) 0.0 x10^3/uL (0.0-0.7) 0.0 x10^3/uL (0.0-0.7) Basophils # (Auto) 0.0 x10^3/uL (0.0-0.2) 0.0 x10^3/uL (0.0-0.2) Prothrombin Time 20.9 SEC (11.7-14.0) Prothromb Time International Ratio 1.9 (0.8-1.1) Sodium Level 151 mmol/L (136-145) 153 mmol/L (136-145) Potassium Level 4.4 mmol/L (3.5-5.1) 4.5 mmol/L (3.5-5.1) Chloride Level 115 mmol/L (98-107) 117 mmol/L (98-107) Carbon Dioxide Level 26 mmol/L (21-32) 26 mmol/L (21-32) Anion Gap 10 (6-14) 10 (6-14) Blood Urea Nitrogen 99 mg/dL (8-26) 102 mg/dL (8-26) Creatinine 2.6 mg/dL (0.7-1.3) 2.7 mg/dL (0.7-1.3) Estimated GFR (Cockcroft-Gault) 23.9 22.9 BUN/Creatinine Ratio 38 (6-20) Glucose Level 196 mg/dL (70-99) 171 mg/dL (70-99) Lactic Acid Level 2.0 mmol/L (0.4-2.0) Calcium Level 8.5 mg/dL (8.5-10.1) 8.5 mg/dL (8.5-10.1) Total Bilirubin 2.6 mg/dL (0.2-1.0) Aspartate Amino Transf (AST/SGOT) 107 U/L (15-37) Alanine Aminotransferase (ALT/SGPT) 73 U/L (16-63) Alkaline Phosphatase 46 U/L (46-116) ZZ-Cpo-R-Type Natriuretic Peptide 1949 pg/mL (0-449) Total Protein 5.0 g/dL (6.4-8.2) Albumin 1.9 g/dL (3.4-5.0) 2.2 g/dL (3.4-5.0) Albumin/Globulin Ratio 0.6 (1.0-1.7) Procalcitonin 1.59 ng/mL (0.00-0.10) Glucose (Fingerstick) 194 mg/dL (70-99) Phosphorus Level 3.7 mg/dL (2.6-4.7) Magnesium Level 2.1 mg/dL (1.8-2.4) Laboratory Tests Test 04/24/17 16:23 04/24/17 23:45 04/25/17 05:56 04/25/17 10:33 Glucose (Fingerstick) 222 mg/dL (70-99) 194 mg/dL (70-99) White Blood Count 14.2 x10^3/uL (4.0-11.0) 10.0 x10^3/uL (4.0-11.0) Red Blood Count 3.01 x10^6/uL (4.30-5.70) 2.82 x10^6/uL (4.30-5.70) Hemoglobin 8.0 g/dL (13.0-17.5) 7.6 g/dL (13.0-17.5) Hematocrit 25.3 % (39.0-53.0) 24.0 % (39.0-53.0) Mean Corpuscular Volume 84 fL (79-100) 85 fL (79-100) Mean Corpuscular Hemoglobin 27 pg (25-35) 27 pg (25-35) Mean Corpuscular Hemoglobin Concent 32 g/dL (31-37) 32 g/dL (31-37) Red Cell Distribution Width 17.7 % (11.5-14.5) 17.6 % (11.5-14.5) Platelet Count 161 x10^3/uL (140-400) 151 x10^3/uL (140-400) Neutrophils (%) (Auto) 93 % (31-73) 90 % (31-73) Lymphocytes (%) (Auto) 3 % (24-48) 4 % (24-48) Monocytes (%) (Auto) 4 % (0-9) 6 % (0-9) Eosinophils (%) (Auto) 0 % (0-3) 0 % (0-3) Basophils (%) (Auto) 0 % (0-3) 0 % (0-3) Neutrophils # (Auto) 13.2 x10^3uL (1.8-7.7) 9.0 x10^3uL (1.8-7.7) Lymphocytes # (Auto) 0.4 x10^3/uL (1.0-4.8) 0.4 x10^3/uL (1.0-4.8) Monocytes # (Auto) 0.6 x10^3/uL (0.0-1.1) 0.5 x10^3/uL (0.0-1.1) Eosinophils # (Auto) 0.0 x10^3/uL (0.0-0.7) 0.0 x10^3/uL (0.0-0.7) Basophils # (Auto) 0.0 x10^3/uL (0.0-0.2) 0.0 x10^3/uL (0.0-0.2) Prothrombin Time 20.9 SEC (11.7-14.0) Prothromb Time International Ratio 1.9 (0.8-1.1) Sodium Level 151 mmol/L (136-145) 153 mmol/L (136-145) Potassium Level 4.4 mmol/L (3.5-5.1) 4.5 mmol/L (3.5-5.1) Chloride Level 115 mmol/L (98-107) 117 mmol/L (98-107) Carbon Dioxide Level 26 mmol/L (21-32) 26 mmol/L (21-32) Anion Gap 10 (6-14) 10 (6-14) Blood Urea Nitrogen 99 mg/dL (8-26) 102 mg/dL (8-26) Creatinine 2.6 mg/dL (0.7-1.3) 2.7 mg/dL (0.7-1.3) Estimated GFR (Cockcroft-Gault) 23.9 22.9 BUN/Creatinine Ratio 38 (6-20) Glucose Level 196 mg/dL (70-99) 171 mg/dL (70-99) Lactic Acid Level 2.0 mmol/L (0.4-2.0) Calcium Level 8.5 mg/dL (8.5-10.1) 8.5 mg/dL (8.5-10.1) Total Bilirubin 2.6 mg/dL (0.2-1.0) Aspartate Amino Transf (AST/SGOT) 107 U/L (15-37) Alanine Aminotransferase (ALT/SGPT) 73 U/L (16-63) Alkaline Phosphatase 46 U/L (46-116) RV-Ild-G-Type Natriuretic Peptide 1949 pg/mL (0-449) Total Protein 5.0 g/dL (6.4-8.2) Albumin 1.9 g/dL (3.4-5.0) 2.2 g/dL (3.4-5.0) Albumin/Globulin Ratio 0.6 (1.0-1.7) Procalcitonin 1.59 ng/mL (0.00-0.10) Phosphorus Level 3.7 mg/dL (2.6-4.7) Magnesium Level 2.1 mg/dL (1.8-2.4) Microbiology 04/21/17 Gram Stain - Final, Complete Medications Current Medications Acetaminophen (Tylenol) 325 mg PRN Q6HRS PRN PO MILD PAIN / TEMP; Start at 14:00 Acetaminophen/ Hydrocodone Bitart (Lortab 5/325) 1 tab PRN Q6HRS PRN PO MODERATE TO SEVERE PAIN Last administered on 04/23/17t 08:11; Start 04/15/17 at 14:00; Stop 04/23/17 at 11:14; Status DC Hydralazine HCl (Apresoline) 10 mg PRN Q4HRS PRN IVP ELEVATED BP, SEE COMMENTS ; Start 04/15/17 at 14:00 Ondansetron HCl (Zofran) 4 mg PRN Q8HRS PRN IV NAUSEA/VOMITING Last administered on 04/20/17 13:23; Start 04/15/17 at 14:00 Albuterol Sulfate (Ventolin Neb Soln) 2.5 mg PRN Q4HRS PRN NEB SHORTNESS OF BREATH Last administered on 04/19/17 16:45; Start 04/15/17 at 14:00 Sodium Chloride 1,000 ml @ 125 mls/hr Q8H IV Last administered on 04/18/17 06 :20; Start 04/15/17 at 14:00; Stop 04/18/17 at 09:50; Status DC Norepinephrine Bitartrate 250 ml @ 0 mls/hr CONT PRN IV SEE I/O RECORD Last administered on 04/18/17 06:22; Start 04/15/17 at 14:00; Stop 04/25/17 at 10:20 ; Status DC Ceftriaxone Sodium 1 gm/ Sodium Chloride 50 ml @ 100 mls/hr Q24H IV ; Start at 16:00; Stop 04/15/17 at 16:00; Status DC Warfarin Sodium (Coumadin Per Pharmacy) 1 each PRN DAILY PRN MC SEE COMMENTS Last administered on 04/20/17 10:59; Start 04/15/17 at 15:15; Stop 04/20/17 at 16:07; Status DC Amiodarone HCl (Cordarone) 200 mg DAILY PO Last administered on 04/18/17 09:19 ; Start 04/16/17 at 09:00; Stop 04/18/17 at 17:42; Status DC Aspirin (Children'S Aspirin) 81 mg DAILYWBKFT PO Last administered on 07:42; Start 04/16/17 at 08:00; Stop 04/18/17 at 17:43; Status DC Cyanocobalamin (Vitamin B-12) 1,000 mcg AFTRNOON PO Last administered on 13:13; Start 04/16/17 at 13:00; Stop 04/18/17 at 17:33; Status DC Levothyroxine Sodium (Synthroid) 88 mcg DAILY07 PO Last administered on 06:17; Start 04/16/17 at 07:00 Warfarin Sodium (Coumadin) 1 mg DAILY PO ; Start 04/16/17 at 09:00; Status UNV Insulin Aspart (NovoLOG) 0-9 UNITS TIDWMEALS SQ Last administered on 04/23/17 12:15; Start 04/15/17 at 17:00; Stop 04/23/17 at 14:51; Status DC Dextrose (Dextrose 50%-Water Syringe) 12.5 gm PRN Q15MIN PRN IV SEE COMMENTS; Start 04/15/17 at 15:30 Warfarin Sodium (Coumadin) 0.5 mg 1X WARF ONCE PO ; Start 04/15/17 at 16:00; Stop 04/15/17 at 16:01; Status DC Pantoprazole Sodium (Protonix Vial) 40 mg DAILYAC IVP Last administered on 04/25 08:26; Start 04/15/17 at 16:30 Ceftriaxone Sodium 1 gm/ Sodium Chloride 50 ml @ 100 mls/hr Q24H IV Last administered on 04/16/17 09:12; Start 04/16/17 at 09:00; Stop 04/16/17 at 17:42 ; Status DC Warfarin Sodium (Coumadin - No Dose Today) 1 each 1X WARF ONCE MC ; Start 04/16 at 16:00; Stop 04/16/17 at 16:01; Status DC Darbepoetin Tomás (Aranesp) 60 mcg Sa SQ Last administered on 04/23/17 20:50; Start 04/16/17 at 21:00 Piperacillin Sod/ Tazobactam Sod 2.25 gm/Sodium Chloride 50 ml @ 100 mls/hr Q6HRS IV Last administered on 04/21/17 05:30; Start 04/16/17 at 18:00; Stop at 07:58; Status DC Vancomycin HCl 1.5 gm/Sodium Chloride 500 ml @ 250 mls/hr 1X ONCE IV Last administered on 04/16/17 19:22; Start 04/16/17 at 18:30; Stop 04/16/17 at 20:29 ; Status DC Phytonadione (Mephyton) 5 mg 1X ONCE PO Last administered on 04/17/17 11:15; Start 04/17/17 at 11:15; Stop 04/17/17 at 11:16; Status DC Magnesium Sulfate/ Dextrose 50 ml @ 25 mls/hr PRN DAILY PRN IV for Mag < 1.7 on am labs; Start 04/18/17 at 09:45; Status Cancel Warfarin Sodium (Coumadin - No Dose Today) 1 each 1X WARF ONCE MC ; Start 04/18 at 16:00; Stop 04/18/17 at 16:01; Status DC Morphine Sulfate 2 mg PRN Q2HR PRN IV PAIN Last administered on 04/23/17 15:44 ; Start 04/18/17 at 17:45 Iron Sucrose 200 mg/Sodium Chloride 110 ml @ 55 mls/hr 3X/WEEK IV Last administered on 04/25/17 10:47; Start 04/20/17 at 09:00; Stop 04/29/17 at 10:59 Warfarin Sodium (Coumadin - No Dose Today) 1 each 1X WARF ONCE MC ; Start 04/19 at 16:00; Stop 04/19/17 at 16:01; Status DC Furosemide 100 mg/ Sodium Chloride 100 ml @ 0 mls/hr CONT PRN IV SEE I/O RECORD Last administered on 04/20/17 05:29; Start 04/19/17 at 15:45; Stop 04/21 at 13:35; Status DC Furosemide (Lasix) 40 mg 1X ONCE IVP Last administered on 04/19/17 16:26; Start 04/19/17 at 16:30; Stop 04/19/17 at 16:31; Status DC Warfarin Sodium (Coumadin - No Dose Today) 1 each 1X WARF ONCE MC ; Start 04/20 at 16:00; Stop 04/20/17 at 16:01; Status DC Dopamine HCl/ Dextrose 250 ml @ 16.622 mls/ hr CONT PRN IV SEE I/O RECORD Last administered on 04/22/17 03:19; Start 04/20/17 at 11:15 Phytonadione (Vitamin K) 5 mg 1X ONCE SQ Last administered on 04/20/17 15:55 ; Start 04/20/17 at 16:00; Stop 04/20/17 at 16:01; Status DC Potassium Chloride 100 ml @ 100 mls/hr Q1H IV ; Start 04/20/17 at 15:15; Stop 04/20/17 at 19:14; Status UNV Potassium Chloride 100 ml @ 100 mls/hr Q1H IV ; Start 04/20/17 at 15:15; Stop 04/20/17 at 23:14; Status UNV Potassium Chloride 100 ml @ 100 mls/hr Q1H IV ; Start 04/20/17 at 15:15; Stop 04/21/17 at 03:14; Status UNV Albumin Human 100 ml @ 100 mls/hr 1X ONCE IV Last administered on 04/21/17 04:02; Start 04/21/17 at 04:00; Stop 04/21/17 at 04:59; Status DC Albumin Human 100 ml @ 100 mls/hr TID IV Last administered on 04/22/17 21:46 ; Start 04/21/17 at 09:00; Stop 04/22/17 at 21:59; Status DC Desmopressin Acetate (Ddavp) 4 mcg BID SQ Last administered on 04/23/17 21:00 ; Start 04/21/17 at 09:00; Stop 04/23/17 at 21:01; Status DC Magnesium Sulfate/ Dextrose 50 ml @ 25 mls/hr PRN DAILY PRN IV for Mag < 1.7 on am labs; Start 04/21/17 at 08:00; Stop 04/23/17 at 13:10; Status DC Potassium Chloride 50 ml @ 50 mls/hr PRN Q6HRS PRN IV For K < 3.7; Start at 08:00; Stop 04/23/17 at 13:10; Status DC Potassium Chloride 50 ml @ 50 mls/hr PRN Q2HR PRN IV total of 40mEq for K < 3.5; Start 04/21/17 at 08:00; Stop 04/23/17 at 13:11; Status DC Ampicillin Sodium/ Sulbactam Sodium 1.5 gm/Sodium Chloride 50 ml @ 100 mls/hr Q6HRS IV Last administered on 04/24/17 11:41; Start 04/21/17 at 12:00; Stop at 11:46; Status DC Potassium Chloride 100 ml @ 100 mls/hr Q1H IV Last administered on 04/21/17 11:10; Start 04/21/17 at 09:00; Stop 04/21/17 at 10:59; Status DC Lidocaine/Sodium Bicarbonate (Buffered Lidocaine 1%) 20 ml STK-MED ONCE IJ ; Start 04/21/17 at 08:08; Stop 04/21/17 at 08:09; Status DC Heparin Sodium/ Sodium Chloride 500 ml @ As Directed STK-MED ONCE .ROUTE ; Start 04/21/17 at 08:08; Stop 04/21/17 at 08:09; Status DC Fentanyl Citrate (Fentanyl 2ml Vial) 100 mcg STK-MED ONCE .ROUTE ; Start at 08:20; Stop 04/21/17 at 08:21; Status DC Midazolam HCl (Versed) 2 mg STK-MED ONCE .ROUTE ; Start 04/21/17 at 08:20; Stop 04/21/17 at 08:21; Status DC Iohexol (Omnipaque 240 Mg/ml) 30 ml 1X ONCE PO ; Start 04/21/17 at 08:45; Stop 04/21/17 at 08:46; Status DC Lidocaine/Sodium Bicarbonate (Buffered Lidocaine 1%) 3 ml 1X ONCE IJ Last administered on 04/21/17 09:18; Start 04/21/17 at 08:45; Stop 04/21/17 at 08:49 ; Status DC Heparin Sodium/ Sodium Chloride 60 unit 1X ONCE IV Last administered on 09:17; Start 04/21/17 at 08:45; Stop 04/21/17 at 08:49; Status DC Warfarin Sodium (Coumadin Per Pharmacy) 1 each PRN DAILY PRN MC SEE COMMENTS Last administered on 04/23/17 08:02; Start 04/21/17 at 13:45; Stop 04/23/17 at 09:40; Status DC Furosemide (Lasix) 40 mg BID PO Last administered on 04/23/17 08:09; Start at 21:00 Warfarin Sodium (Coumadin) 1 mg 1X WARF ONCE PO Last administered on 16:56; Start 04/21/17 at 16:00; Stop 04/21/17 at 16:01; Status DC Info 1 each PRN DAILY PRN MC SEE COMMENTS Last administered on 04/24/17 14:01 ; Start 04/21/17 at 13:45 Potassium Acetate 50 meq/Magnesium Sulfate 5 meq/ Calcium Gluconate 5 meq/ Multivitamins 10 ml/Chromium/ Copper/Manganese/ Seleni/Zn 1 ml/ Total Parenteral Nutrition/Amino Acids/Dextrose/ Fat Emulsion Intravenous 1,512 ml @ 63 mls/hr TPN CONT IV Last administered on 04/21/17 21:26; Start 04/21/17 at 22:00; Stop 04/22/17 at 21:59; Status DC Potassium Chloride 50 ml @ 50 mls/hr Q1H IV Last administered on 04/21/17 20: 13; Start 04/21/17 at 19:00; Stop 04/21/17 at 20:59; Status DC Warfarin Sodium (Coumadin) 1 mg 1X WARF ONCE PO Last administered on 18:13; Start 04/22/17 at 16:00; Stop 04/22/17 at 16:01; Status DC Potassium Chloride 50 ml @ 50 mls/hr Q1H IV Last administered on 04/22/17 12: 41; Start 04/22/17 at 10:30; Stop 04/22/17 at 12:29; Status DC Potassium Acetate 70 meq/Magnesium Sulfate 5 meq/ Calcium Gluconate 5 meq/ Multivitamins 10 ml/Chromium/ Copper/Manganese/ Seleni/Zn 1 ml/ Total Parenteral Nutrition/Amino Acids/Dextrose/ Fat Emulsion Intravenous 1,512 ml @ 63 mls/hr TPN CONT IV Last administered on 04/22/17 19:54; Start 04/22/17 at 22:00; Stop 04/23/17 at 21:59; Status DC Iohexol (Omnipaque 240 Mg/ml) 50 ml 1X ONCE PO Last administered on 04/22/17 11:45; Start 04/22/17 at 11:45; Stop 04/22/17 at 11:46; Status DC Potassium Chloride 50 ml @ 50 mls/hr Q2H IV Last administered on 04/23/17 10: 49; Start 04/23/17 at 08:30; Stop 04/23/17 at 11:29; Status DC Warfarin Sodium (Coumadin) 1 mg 1X WARF ONCE PO ; Start 04/23/17 at 16:00; Stop 04/23/17 at 16:01; Status Cancel Insulin Detemir (Levemir) 20 units DAILY SQ Last administered on 04/25/17 08: 34; Start 04/23/17 at 10:00 Fentanyl Citrate (Fentanyl 2ml Vial) 50 mcg PRN Q2HR PRN IV PAIN; Start at 11:15 Potassium Acetate 90 meq/Magnesium Sulfate 5 meq/ Calcium Gluconate 5 meq/ Multivitamins 10 ml/Chromium/ Copper/Manganese/ Seleni/Zn 1 ml/ Total Parenteral Nutrition/Amino Acids/Dextrose/ Fat Emulsion Intravenous 1,512 ml @ 63 mls/hr TPN CONT IV Last administered on 04/23/17 20:51; Start 04/23/17 at 22:00; Stop 04/24/17 at 21:59; Status DC Magnesium Sulfate/ Dextrose 50 ml @ 25 mls/hr PRN DAILY PRN IV for Mag < 1.7 on am labs; Start 04/23/17 at 13:15 Potassium Chloride 50 ml @ 50 mls/hr PRN Q6HRS PRN IV For K < 3.7; Start at 13:15 Potassium Chloride 50 ml @ 50 mls/hr PRN Q2HR PRN IV total of 40mEq for K < 3.5; Start 04/23/17 at 13:15 Insulin Aspart (NovoLOG) 0-9 UNITS Q6HRS SQ Last administered on 04/25/17 06: 01; Start 04/23/17 at 18:00 Tigecycline 100 mg/Sodium Chloride 100 ml @ 200 mls/hr 1X ONCE IV Last administered on 04/24/17 13:45; Start 04/24/17 at 12:00; Stop 04/24/17 at 12:29 ; Status DC Tigecycline 50 mg/ Sodium Chloride 50 ml @ 100 mls/hr Q12HR IV Last administered on 04/25/17 08:26; Start 04/24/17 at 21:00 Potassium Acetate 90 meq/Magnesium Sulfate 5 meq/ Calcium Gluconate 5 meq/ Multivitamins 10 ml/Chromium/ Copper/Manganese/ Seleni/Zn 1 ml/ Total Parenteral Nutrition/Amino Acids/Dextrose/ Fat Emulsion Intravenous 1,512 ml @ 63 mls/hr TPN CONT IV Last administered on 04/24/17 21:06; Start 04/24/17 at 22:00; Stop 04/25/17 at 21:59 Albumin Human 100 ml @ 100 mls/hr 1X ONCE IV Last administered on 04/25/17t 01:12; Start 04/25/17 at 01:30; Stop 04/25/17 at 02:29; Status DC Active Scripts Active Reported Potassium Chloride 10 Meq Capsule.er 10 Meq PO 3X/WEEK Vitamin B-12 (Cyanocobalamin (Vitamin B-12)) 1,000 Mcg Tablet 1 Tab PO AFTRNOON Vitamin D (Cholecalciferol (Vitamin D3)) 1,000 Unit Capsule 1 Cap PO HS Vitamin E (Vitamin E (Dl,Tocopheryl Acet)) 200 Unit Capsule 200 Unit PO AFTRNOON Novolin 70-30 100 Unit/Ml Vial (Hum Insulin Nph/Reg Insulin Hm) 100 Unit/1 Ml Vial 13 Unit SQ HS Levothyroxine Sodium 88 Mcg Tablet 1 Tab PO DAILY Carvedilol 6.25 Mg Tablet 1 Tab PO BID Fosamax (Alendronate Sodium) 70 Mg Tablet 1 Tab PO WEEKLY 1 Days Amiodarone Hcl 200 Mg Tablet 1 Tab PO DAILY Aspirin 81 Mg Tab.chew 1 Tab PO DAILY Warfarin Sodium 1 Mg Tablet 1 Mg PO DAILY Crestor (Rosuvastatin Calcium) 5 Mg Tablet 5 Mg PO HS Furosemide 40 Mg Tablet 40 Mg PO BID Vitals/I & O Vital Sign - Last 24 Hours 04/24/17 04/24/17 04/24/17 04/24/17 15:10 19:00 20:00 20:08 Temp 97.8 98.2 97.8 98.2 Pulse 85 87 Resp 18 18 B/P (MAP) 93/53 (66) 90/52 (65) Pulse Ox 95 96 93 O2 Delivery Room Air Room Air Room Air Room Air 04/24/17 04/24/17 04/24/17 04/25/17 22:30 23:11 23:45 06:00 Temp 97.5 97.5 Pulse 84 87 88 80 Resp 16 24 30 B/P (MAP) 79/46 (57) 97/51 (66) 82/49 (60) 90/55 (67) Pulse Ox 92 92 92 92 O2 Delivery Room Air Room Air Room Air Room Air 04/25/17 04/25/17 04/25/17 06:05 08:00 11:00 Temp 98.1 98.1 Pulse 82 77 Resp 30 20 B/P (MAP) 88/49 (62) 92/49 (63) Pulse Ox 93 93 O2 Delivery Room Air Room Air Room Air Intake and Output 04/24/17 04/24/17 04/25/17 15:00 23:00 07:00 Intake Total 150 ml 2010 ml Output Total 1000 ml Balance 150 ml 1010 ml RAPHAEL MCCLAIN MD Apr 25, 2017 11:47
[2017-04-25] MEDS: TPN PER PHARMACY MC PRN (12:49)
[2017-04-25] MEDS: LEVOTHYROXINE SODIUM 50 MCG in IV NORMAL SALINE 50ML 5 ML IVP SCH (12:49)
--- NOTE | 2017-04-25 13:26 | PDOC2 ---
PALLIATIVE CARE Palliative Care Note Palliative Care Consult requested Term[facility] to address goals of care Diagnosis: Shock, s/p vasopressors, with SBP possibly Severe CM with low EF 35%; Ascites , with cirrhosis s/p LARGE VOLUME paracentesis (04/21/17) Abdominal pain: Pneumoperitoneum, Chronic atrial fibrillation, rate controlled. . Acute kidney injury on chronic kidney disease 4.: Possible due to VMN, Type 2 diabetes mellitus: SSI Hypernatremia; Anemia of chronic disease. Chronic post inflammatory hyperpigmentation legs hypotension with cirrhosis, sepsis Spoke with patient. Alert and oriented. Denies pain, mild SOB. Patient wants to continue current aggressive treatments. Spoke with . Plan: Family Meeting tomorrow at 8am JOHN APUL TA Apr 25, 2017 13:26
--- NOTE | 2017-04-25 13:47 | PDOC ---
Subjective: Subjective: Doing okay, some more distention. Objective: Objective: Per RN - PC meeting tomorrow. Vital Signs: Vital Signs Date Time Temp Pulse Resp B/P (MAP) Pulse Ox O2 Delivery O2 Flow Rate FiO2 04/25/17 11:00 98.1 77 20 92/49 (63) 93 Room Air 98.1 Labs: Laboratory Tests Test 04/24/17 16:23 04/24/17 23:45 04/25/17 05:56 04/25/17 10:33 Glucose (Fingerstick) 222 mg/dL 194 mg/dL White Blood Count 14.2 x10^3/uL 10.0 x10^3/uL Red Blood Count 3.01 x10^6/uL 2.82 x10^6/uL Hemoglobin 8.0 g/dL 7.6 g/dL Hematocrit 25.3 % 24.0 % Mean Corpuscular Volume 84 fL 85 fL Mean Corpuscular Hemoglobin 27 pg 27 pg Mean Corpuscular Hemoglobin Concent 32 g/dL 32 g/dL Red Cell Distribution Width 17.7 % 17.6 % Platelet Count 161 x10^3/uL 151 x10^3/uL Neutrophils (%) (Auto) 93 % 90 % Lymphocytes (%) (Auto) 3 % 4 % Monocytes (%) (Auto) 4 % 6 % Eosinophils (%) (Auto) 0 % 0 % Basophils (%) (Auto) 0 % 0 % Neutrophils # (Auto) 13.2 x10^3uL 9.0 x10^3uL Lymphocytes # (Auto) 0.4 x10^3/uL 0.4 x10^3/uL Monocytes # (Auto) 0.6 x10^3/uL 0.5 x10^3/uL Eosinophils # (Auto) 0.0 x10^3/uL 0.0 x10^3/uL Basophils # (Auto) 0.0 x10^3/uL 0.0 x10^3/uL Prothrombin Time 20.9 SEC Prothromb Time International Ratio 1.9 Sodium Level 151 mmol/L 153 mmol/L Potassium Level 4.4 mmol/L 4.5 mmol/L Chloride Level 115 mmol/L 117 mmol/L Carbon Dioxide Level 26 mmol/L 26 mmol/L Anion Gap 10 10 Blood Urea Nitrogen 99 mg/dL 102 mg/dL Creatinine 2.6 mg/dL 2.7 mg/dL Estimated GFR (Cockcroft-Gault) 23.9 22.9 BUN/Creatinine Ratio 38 Glucose Level 196 mg/dL 171 mg/dL Lactic Acid Level 2.0 mmol/L Calcium Level 8.5 mg/dL 8.5 mg/dL Total Bilirubin 2.6 mg/dL Aspartate Amino Transf (AST/SGOT) 107 U/L Alanine Aminotransferase (ALT/SGPT) 73 U/L Alkaline Phosphatase 46 U/L UT-Lxs-X-Type Natriuretic Peptide 1949 pg/mL Total Protein 5.0 g/dL Albumin 1.9 g/dL 2.2 g/dL Albumin/Globulin Ratio 0.6 Procalcitonin 1.59 ng/mL Phosphorus Level 3.7 mg/dL Magnesium Level 2.1 mg/dL Test 04/25/17 12:21 Glucose (Fingerstick) 139 mg/dL PE: GEN: was asleep LUNGS: decreased HEART: distant ABD: distended, non-tender EXTREMITY: BLE edema NEURO/PSYCH: A & O 3 A/P: Pneumoperitoneum -NPO on TPN, no surgical plans New onset ascites, cirrhosis -s/p paracentesis 04/21/17 Anemia -on IV iron Sepsis, CHF -- Await palliative care meeting. YUNIOR RESENDIZ Apr 25, 2017 13:47
[2017-04-25 15:00] VITALS: BP 103/54
[2017-04-25] MEDS: MORPHINE SULFATE 2 MG/ML DISP.SYRIN. IV PRN (16:35)
[2017-04-25 19:00] VITALS: BP 97/56
[2017-04-25] MEDS ORDERED: [UNRECOGNIZED DRUG - OTHER] IV SCH ×8 (22:00)
[2017-04-25] MEDS ORDERED: AMINO ACIDS IV SCH ×16 (22:00)
[2017-04-25] MEDS ORDERED: DEXTROSE 70% IV SCH ×16 (22:00)
[2017-04-25] MEDS ORDERED: [UNRECOGNIZED DRUG - OTHER] IV SCH ×8 (22:00)
[2017-04-25] MEDS ORDERED: TOTAL PARENTERAL NUTRITION IV SCH ×16 (22:00)
[2017-04-25 23:00] VITALS: BP 96/60
[2017-04-26 03:00] VITALS: BP 92/55
[2017-04-26] MEDS: ALBUTEROL SULFATE 2.5 MG/3 ML NEBU. NEB PRN ×4 (05:07→16:02)
[2017-04-26] MEDS: INSULIN ASPART 300 UNITS/3 ML INSULN.PEN SQ SCH ×3 (06:00→12:00)
[2017-04-26 06:48] LABS: BASO % 0 % (0-3); EOS % 0 % (0-3); HEMOGLOBIN 7.9 g/dL (13.0-17.5); LYMPH # 0.3 x10^3/uL (1.0-4.8); LYMPH % 4 % (24-48); MEAN CORPUSCULAR HEMOGLOBIN 27 pg (25-35); MEAN CORPUSCULAR HGB CONC 32 g/dL (31-37); MEAN CORPUSCULAR VOLUME 85 fL (79-100); MONO % 7 % (0-9); NEUT % 88 % (31-73); PLATELET COUNT 146 x10^3/uL (140-400); RED BLOOD COUNT 2.94 x10^6/uL (4.30-5.70); RED CELL DISTRIBUTION WIDTH 17.6 % (11.5-14.5); WHITE BLOOD COUNT 7.9 x10^3/uL (4.0-11.0)
[2017-04-26 07:00] VITALS: BP 98/52
[2017-04-26 07:05] LABS: ALBUMIN 2.1 g/dL (3.4-5.0); ALBUMIN/GLOBULIN RATIO 0.7 (1.0-1.7); CALCIUM 8.8 mg/dL (8.5-10.1); CREATININE 2.5 mg/dL (0.7-1.3); POTASSIUM 4.6 mmol/L (3.5-5.1); TOTAL PROTEIN 5.2 g/dL (6.4-8.2)
[2017-04-26] MEDS: TIGECYCLINE 50 MG in IV NORMAL SALINE 50ML 50 ML IV SCH (08:54)
[2017-04-26] MEDS: LEVOTHYROXINE SODIUM 50 MCG in IV NORMAL SALINE 50ML 5 ML IVP SCH (08:55)
[2017-04-26] MEDS: INSULIN DETEMIR 300 UNITS/3 ML INSULN.PEN. SQ SCH (09:00)
--- NOTE | 2017-04-26 09:12 | PDOC ---
Infectious Disease Note Subjective Subjective Doing ok but feels he is filling up again ROS ROS GEN: Denies fevers, chills, sweats HEENT: Denies blurred vision, sore throat CV: Denies chest pain RESP: Denies shortness of air, cough GI: Denies n/v/d NEURO: Denies confusion, dizziness MSK: Denies weakness, joint pain/swelling Vital Sign Vital Signs Vital Signs Date Time Temp Pulse Resp B/P (MAP) Pulse Ox O2 Delivery O2 Flow Rate FiO2 04/26/17 07:00 97.8 72 22 98/52 (67) 94 Room Air 97.8 04/25/17 20:05 2.0 Physical Exam PHYSICAL EXAM GENERAL: NAD, Alert, coop HEENT: PERRL, OC/OP- dry NECK: Supple, no JVD, no LN LUNGS: Clear HEART: S1S2, no gallop, no murmur ABD: Soft, Distended. small umbilical hernia. 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, no focal neurologic deficit SKIN: No rash IV: LIJ Labs Lab Laboratory Tests Test 04/25/17 10:33 04/25/17 12:21 04/25/17 17:58 04/26/17 00:38 White Blood Count 10.0 x10^3/uL (4.0-11.0) Red Blood Count 2.82 x10^6/uL (4.30-5.70) Hemoglobin 7.6 g/dL (13.0-17.5) Hematocrit 24.0 % (39.0-53.0) Mean Corpuscular Volume 85 fL (79-100) Mean Corpuscular Hemoglobin 27 pg (25-35) Mean Corpuscular Hemoglobin Concent 32 g/dL (31-37) Red Cell Distribution Width 17.6 % (11.5-14.5) Platelet Count 151 x10^3/uL (140-400) Neutrophils (%) (Auto) 90 % (31-73) Lymphocytes (%) (Auto) 4 % (24-48) Monocytes (%) (Auto) 6 % (0-9) Eosinophils (%) (Auto) 0 % (0-3) Basophils (%) (Auto) 0 % (0-3) Neutrophils # (Auto) 9.0 x10^3uL (1.8-7.7) Lymphocytes # (Auto) 0.4 x10^3/uL (1.0-4.8) Monocytes # (Auto) 0.5 x10^3/uL (0.0-1.1) Eosinophils # (Auto) 0.0 x10^3/uL (0.0-0.7) Basophils # (Auto) 0.0 x10^3/uL (0.0-0.2) Sodium Level 153 mmol/L (136-145) Potassium Level 4.5 mmol/L (3.5-5.1) Chloride Level 117 mmol/L (98-107) Carbon Dioxide Level 26 mmol/L (21-32) Anion Gap 10 (6-14) Blood Urea Nitrogen 102 mg/dL (8-26) Creatinine 2.7 mg/dL (0.7-1.3) Estimated GFR (Cockcroft-Gault) 22.9 Glucose Level 171 mg/dL (70-99) Calcium Level 8.5 mg/dL (8.5-10.1) Phosphorus Level 3.7 mg/dL (2.6-4.7) Magnesium Level 2.1 mg/dL (1.8-2.4) Albumin 2.2 g/dL (3.4-5.0) Glucose (Fingerstick) 139 mg/dL (70-99) 168 mg/dL (70-99) 99 mg/dL (70-99) Test 04/26/17 06:15 White Blood Count 7.9 x10^3/uL (4.0-11.0) Red Blood Count 2.94 x10^6/uL (4.30-5.70) Hemoglobin 7.9 g/dL (13.0-17.5) Hematocrit 25.0 % (39.0-53.0) Mean Corpuscular Volume 85 fL (79-100) Mean Corpuscular Hemoglobin 27 pg (25-35) Mean Corpuscular Hemoglobin Concent 32 g/dL (31-37) Red Cell Distribution Width 17.6 % (11.5-14.5) Platelet Count 146 x10^3/uL (140-400) Neutrophils (%) (Auto) 88 % (31-73) Lymphocytes (%) (Auto) 4 % (24-48) Monocytes (%) (Auto) 7 % (0-9) Eosinophils (%) (Auto) 0 % (0-3) Basophils (%) (Auto) 0 % (0-3) Neutrophils # (Auto) 7.0 x10^3uL (1.8-7.7) Lymphocytes # (Auto) 0.3 x10^3/uL (1.0-4.8) Monocytes # (Auto) 0.6 x10^3/uL (0.0-1.1) Eosinophils # (Auto) 0.0 x10^3/uL (0.0-0.7) Basophils # (Auto) 0.0 x10^3/uL (0.0-0.2) Sodium Level 157 mmol/L (136-145) Potassium Level 4.6 mmol/L (3.5-5.1) Chloride Level 120 mmol/L (98-107) Carbon Dioxide Level 24 mmol/L (21-32) Anion Gap 13 (6-14) Blood Urea Nitrogen 109 mg/dL (8-26) Creatinine 2.5 mg/dL (0.7-1.3) Estimated GFR (Cockcroft-Gault) 25.0 BUN/Creatinine Ratio 44 (6-20) Glucose Level 75 mg/dL (70-99) Calcium Level 8.8 mg/dL (8.5-10.1) Total Bilirubin 3.0 mg/dL (0.2-1.0) Aspartate Amino Transf (AST/SGOT) 132 U/L (15-37) Alanine Aminotransferase (ALT/SGPT) 125 U/L (16-63) Alkaline Phosphatase 53 U/L (46-116) Total Protein 5.2 g/dL (6.4-8.2) Albumin 2.1 g/dL (3.4-5.0) Albumin/Globulin Ratio 0.7 (1.0-1.7) Objective Assessment Sepsis with hypotension - resolved GPC & Clostridium Ramosum bacteremia, present on transfer from [facility]. Abdominal pain and distention/ascites/possible SBP. Pneumoperitoneum -s/p paracentesis, 04/21. cx CRE Cirrhosis of liver HERIBERTO on CKD Leukocytosis, improved Coagulopathy PAFIB on warfarin therapy Plan Plan of Care changed Unasyn to Tygacil 04/24 (HERIBERTO and Afib) Await further paracentesis Await Palliative care F/u Contact isolation, CRE No surgical plans noted F/u Repeat blood cults D/w ARLET PHAM MD Apr 26, 2017 09:12
--- NOTE | 2017-04-26 10:17 | PDOC2 ---
PALLIATIVE CARE Palliative Care Note Palliative Care Patient alert. More distended today. Met with patient, -Zahra, son Emmett, grandson Oneil. Family unable to attend--Shashank Clay--sons; daughter Alpa and grandson Obed Reviewed medical condition; Cardiomyopathy with EF 35%; ascites with recent paracentesis/cirrhosis--sepsis; abdominal pain pneumoperitoneum -not a surgical candidate due to comorbidities, HERIBERTO--CKD 4; DM' TPN providing nutrition. antibiotics. Six weeks ago patient was ambulatory, had some trouble with balance and SOB Social: lives with family; Served in [employer] Discussed options for care considering multi-system organ dysfunction and realistic expectations Patient and family understand the serious illness. He is familiar with Hospice and would like to be at home when he dies. Patient requests and supported by family to continue current treatment. If no improvement he wants to go home. Patient has been accepted at [facility]. Discussed Code Status: Patient requests DNR/DNI. Understands without this attempt he likely would . Outside the Hospital DNR/DNI form signed by at the request of patient. Spoke with Dr. Tolbert. Will consider paracentesis before transfer to [facility]. Will check INR Patient would like to name his Zahra as DPOA. Plan: DNR/DNI Consider Paracentesis Continue current treatment plan at [facility]. JOHN PAUL TA Apr 26, 2017 10:17
[2017-04-26 10:41] VITALS: BP 102/56
--- NOTE | 2017-04-26 10:58 | PDOC ---
Renal-Progress Notes Subjective Notes Notes NONE History of Present Illness Hx of present illness NO CHANGE Vitals Vitals Vital Signs Date Time Temp Pulse Resp B/P (MAP) Pulse Ox O2 Delivery O2 Flow Rate FiO2 04/26/17 10:41 97.9 70 22 102/56 (71) 94 Room Air 97.9 04/25/17 20:05 2.0 Weight Weight [ ] I.O. Intake and Output Intake and Output 04/26/17 07:00 Intake Total 1612 ml Output Total 2600 ml Balance -988 ml Intake Oral 50 ml IV Total 1562 ml Output Urine Total 2600 ml Labs Labs Laboratory Tests Test 04/25/17 12:21 04/25/17 17:58 04/26/17 00:38 04/26/17 06:10 Glucose (Fingerstick) 139 mg/dL (70-99) 168 mg/dL (70-99) 99 mg/dL (70-99) Magnesium Level 2.3 mg/dL (1.8-2.4) Test 04/26/17 06:15 White Blood Count 7.9 x10^3/uL (4.0-11.0) Red Blood Count 2.94 x10^6/uL (4.30-5.70) Hemoglobin 7.9 g/dL (13.0-17.5) Hematocrit 25.0 % (39.0-53.0) Mean Corpuscular Volume 85 fL (79-100) Mean Corpuscular Hemoglobin 27 pg (25-35) Mean Corpuscular Hemoglobin Concent 32 g/dL (31-37) Red Cell Distribution Width 17.6 % (11.5-14.5) Platelet Count 146 x10^3/uL (140-400) Neutrophils (%) (Auto) 88 % (31-73) Lymphocytes (%) (Auto) 4 % (24-48) Monocytes (%) (Auto) 7 % (0-9) Eosinophils (%) (Auto) 0 % (0-3) Basophils (%) (Auto) 0 % (0-3) Neutrophils # (Auto) 7.0 x10^3uL (1.8-7.7) Lymphocytes # (Auto) 0.3 x10^3/uL (1.0-4.8) Monocytes # (Auto) 0.6 x10^3/uL (0.0-1.1) Eosinophils # (Auto) 0.0 x10^3/uL (0.0-0.7) Basophils # (Auto) 0.0 x10^3/uL (0.0-0.2) Sodium Level 157 mmol/L (136-145) Potassium Level 4.6 mmol/L (3.5-5.1) Chloride Level 120 mmol/L (98-107) Carbon Dioxide Level 24 mmol/L (21-32) Anion Gap 13 (6-14) Blood Urea Nitrogen 109 mg/dL (8-26) Creatinine 2.5 mg/dL (0.7-1.3) Estimated GFR (Cockcroft-Gault) 25.0 BUN/Creatinine Ratio 44 (6-20) Glucose Level 75 mg/dL (70-99) Calcium Level 8.8 mg/dL (8.5-10.1) Total Bilirubin 3.0 mg/dL (0.2-1.0) Aspartate Amino Transf (AST/SGOT) 132 U/L (15-37) Alanine Aminotransferase (ALT/SGPT) 125 U/L (16-63) Alkaline Phosphatase 53 U/L (46-116) Total Protein 5.2 g/dL (6.4-8.2) Albumin 2.1 g/dL (3.4-5.0) Albumin/Globulin Ratio 0.7 (1.0-1.7) Micro Micro Microbiology 04/25/17 Blood Culture - Preliminary, Resulted NO GROWTH AFTER 1 DAY 04/21/17 Gram Stain - Final, Complete Review of Systems Constitutional: yes: weakness, alert, oriented Ears/Nose/Throat: Yes: no symptom reported Eyes: Yes: no symptom reported Pulmonary: Yes no symptom reported Cardiovascular: Yes no symptom reported Gastrointestional: Yes: constipation Genitourinary: Yes: no symptom reported Musculoskeletal: Yes: muscle stiffness Skin: Yes no symptom reported Physical Exam General Appearance: no apparent distress Skin: warm Respiratory: decreased breath sounds Heart: S1S2 Abdomen: soft, bowel sounds present Genitourinary: bladder flat Extremities: pulses present Neurology: alert, oriented, follow commands Musculoskeletal: Osteoarthritis Assessment Assessment IMP HERIBERTO-BETTER WITH CR DOWN TO 2.6 CKD STAGE 4 WITH CR OF 2.8 DEHYDRATION BACTEREMIA HYPOTENSION ASCITES-LIVER FAILURE PNEUMOPERITONEUM PLAN ANTIBIOTICS CONT WITH TPN GI EVAL LABS IN AM PALLIATIVE NOTE APPRECIATED BUN HIGH DUE TO TPN PARTLY VERY POOR PROGNOSIS WITH MSOF NOT SURE WHAT CAN BE DONE FOR HIM AT [facility] PARACENTESIS PENDING SPENCER ORTIZ MD Apr 26, 2017 10:58
--- NOTE | 2017-04-26 11:28 | PDOC ---
Subjective: Subjective: Feels more full, passing gas. Objective: Objective: Per RN - DC to [facility] today, possible paracentesis before leaving. Reviewed palliative care note - now DNR. Vital Signs: Vital Signs Date Time Temp Pulse Resp B/P (MAP) Pulse Ox O2 Delivery O2 Flow Rate FiO2 04/26/17 10:41 97.9 70 22 102/56 (71) 94 Room Air 97.9 04/25/17 20:05 2.0 Labs: Laboratory Tests Test 04/25/17 12:21 04/25/17 17:58 04/26/17 00:38 04/26/17 06:10 Glucose (Fingerstick) 139 mg/dL 168 mg/dL 99 mg/dL Magnesium Level 2.3 mg/dL Test 04/26/17 06:15 White Blood Count 7.9 x10^3/uL Red Blood Count 2.94 x10^6/uL Hemoglobin 7.9 g/dL Hematocrit 25.0 % Mean Corpuscular Volume 85 fL Mean Corpuscular Hemoglobin 27 pg Mean Corpuscular Hemoglobin Concent 32 g/dL Red Cell Distribution Width 17.6 % Platelet Count 146 x10^3/uL Neutrophils (%) (Auto) 88 % Lymphocytes (%) (Auto) 4 % Monocytes (%) (Auto) 7 % Eosinophils (%) (Auto) 0 % Basophils (%) (Auto) 0 % Neutrophils # (Auto) 7.0 x10^3uL Lymphocytes # (Auto) 0.3 x10^3/uL Monocytes # (Auto) 0.6 x10^3/uL Eosinophils # (Auto) 0.0 x10^3/uL Basophils # (Auto) 0.0 x10^3/uL Platelet Estimate Pending Sodium Level 157 mmol/L Potassium Level 4.6 mmol/L Chloride Level 120 mmol/L Carbon Dioxide Level 24 mmol/L Anion Gap 13 Blood Urea Nitrogen 109 mg/dL Creatinine 2.5 mg/dL Estimated GFR (Cockcroft-Gault) 25.0 BUN/Creatinine Ratio 44 Glucose Level 75 mg/dL Calcium Level 8.8 mg/dL Total Bilirubin 3.0 mg/dL Aspartate Amino Transf (AST/SGOT) 132 U/L Alanine Aminotransferase (ALT/SGPT) 125 U/L Alkaline Phosphatase 53 U/L Total Protein 5.2 g/dL Albumin 2.1 g/dL Albumin/Globulin Ratio 0.7 PE: GEN: was asleep ABD: some distention EXTREMITY: BLE edema NEURO/PSYCH: A & O 3 A/P: Pneumoperitoneum -NPO on TPN Ascites, cirrhosis -s/p paracentesis 04/21/17 -- Possible repeat paracentesis prior to DC. YUNIOR RESENDIZ Apr 26, 2017 11:28
[2017-04-26 11:32] LABS: INR 1.7 (0.8-1.1); PROTHROMBIN TIME PATIENT 18.9 SEC (11.7-14.0)
[2017-04-26] MEDS: PANTOPRAZOLE IV PUSH 40 MG VIAL. IVP SCH (12:08)
--- NOTE | 2017-04-26 12:11 | PDOC3 ---
Discharge Summary [facility] Date of Admission: Apr 15, 2017 Discharge Date: Apr 26, 2017 Admitting Diagnosis 1. Hypotensive septic Shock, s/p vasopressors, with SBP possibly 2. Severe CM with low EF 35% 2. Ascites, with cirrhosis s/p LARGE VOLUME paracentesis (04/21/17) 3. Abdominal pain:Pneumoperitoneum , with possible perforation of bowels 4. Chronic atrial fibrillation, on warfarin before 5. Acute kidney injury on chronic kidney disease 4.: Possible due to VMN, 6. Multi organ dysfunction 7. Type 2 diabetes mellitus: SSI 8. Hypernatremia 9. Anemia of chronic disease. 10. Chronic post inflammatory hyperpigmentation legs 10. hypotension with cirrhosis, sepsis Problems: CONSULTS renal id sx gi Brief Hospital Course Mr. Martinez is a 77 old M, multiple comobidities including CHF, afib, ckd, WAS sent from [facility] for abd pain, was found cirrhosis, ascites, and possible perf bowl with pneumoperitoneum. Pt was found septic shock as well, on pressors in ICU, + CRE from ascites. pt now cont have abd pain, tenderness, npo, on TPN, Na cont higher (pharm manage Na in TPN), cont having distended abd altho got one time paracentesis on 04/21/17. PAT consulted, DNR now, but pt and family still want agressive treatment. no sx planned since given his multiple comorbidities, not a good candidate for sx. HOld all po meds. const IR again today before DC to see if can do another paracentesis. dc to [facility] for cont iv abx, TPN. cont pat care. dc time 40min. General: Alert, Oriented X3, Cooperative, No acute distress Heart: Regular rate, Normal S1, Normal S2 Lungs: Clear Abdomen: Soft, Other (moderate distended, diffused tenderness, guarding, no rebound) Extremities: No cyanosis, Other (2+ edema) Skin: No breakdown, No significant lesion Patient History: FH: macular degeneration 32 MOTHER Pulmonary fibrosis G8 DAUGHTER Problems: Disposition [facility] CONDITION AT DISCHARGE: Improved, Stable Diet npo. tpn No Active Prescriptions or Reported Meds Follow Up RAPHAEL Ramirez MD Apr 26, 2017 12:11
--- NOTE | 2017-04-26 12:21 | PDOC ---
JENNIFER DURAN ARMED GUARD 04/26/17 1221: SURGICAL PROGRESS NOTE Subjective pain about the same feels fluid filled again, possible paracentesis today + flatus, no n/v Vital Signs Vital Signs Date Time Temp Pulse Resp B/P (MAP) Pulse Ox O2 Delivery O2 Flow Rate FiO2 04/26/17 10:41 97.9 70 22 102/56 (71) 94 Room Air 97.9 04/25/17 20:05 2.0 I&O Intake and Output 04/26/17 07:00 Intake Total 1612 ml Output Total 2600 ml Balance -988 ml Intake Oral 50 ml IV Total 1562 ml Output Urine Total 2600 ml General: Alert, Oriented X3, Cooperative, No acute distress Abdomen: Soft, Other (distended, ascites ) Labs Laboratory Tests Test 04/24/17 16:23 04/24/17 23:45 04/25/17 05:56 04/25/17 10:33 Glucose (Fingerstick) 222 mg/dL (70-99) 194 mg/dL (70-99) White Blood Count 14.2 x10^3/uL (4.0-11.0) 10.0 x10^3/uL (4.0-11.0) Red Blood Count 3.01 x10^6/uL (4.30-5.70) 2.82 x10^6/uL (4.30-5.70) Hemoglobin 8.0 g/dL (13.0-17.5) 7.6 g/dL (13.0-17.5) Hematocrit 25.3 % (39.0-53.0) 24.0 % (39.0-53.0) Mean Corpuscular Volume 84 fL (79-100) 85 fL (79-100) Mean Corpuscular Hemoglobin 27 pg (25-35) 27 pg (25-35) Mean Corpuscular Hemoglobin Concent 32 g/dL (31-37) 32 g/dL (31-37) Red Cell Distribution Width 17.7 % (11.5-14.5) 17.6 % (11.5-14.5) Platelet Count 161 x10^3/uL (140-400) 151 x10^3/uL (140-400) Neutrophils (%) (Auto) 93 % (31-73) 90 % (31-73) Lymphocytes (%) (Auto) 3 % (24-48) 4 % (24-48) Monocytes (%) (Auto) 4 % (0-9) 6 % (0-9) Eosinophils (%) (Auto) 0 % (0-3) 0 % (0-3) Basophils (%) (Auto) 0 % (0-3) 0 % (0-3) Neutrophils # (Auto) 13.2 x10^3uL (1.8-7.7) 9.0 x10^3uL (1.8-7.7) Lymphocytes # (Auto) 0.4 x10^3/uL (1.0-4.8) 0.4 x10^3/uL (1.0-4.8) Monocytes # (Auto) 0.6 x10^3/uL (0.0-1.1) 0.5 x10^3/uL (0.0-1.1) Eosinophils # (Auto) 0.0 x10^3/uL (0.0-0.7) 0.0 x10^3/uL (0.0-0.7) Basophils # (Auto) 0.0 x10^3/uL (0.0-0.2) 0.0 x10^3/uL (0.0-0.2) Prothrombin Time 20.9 SEC (11.7-14.0) Prothromb Time International Ratio 1.9 (0.8-1.1) Sodium Level 151 mmol/L (136-145) 153 mmol/L (136-145) Potassium Level 4.4 mmol/L (3.5-5.1) 4.5 mmol/L (3.5-5.1) Chloride Level 115 mmol/L (98-107) 117 mmol/L (98-107) Carbon Dioxide Level 26 mmol/L (21-32) 26 mmol/L (21-32) Anion Gap 10 (6-14) 10 (6-14) Blood Urea Nitrogen 99 mg/dL (8-26) 102 mg/dL (8-26) Creatinine 2.6 mg/dL (0.7-1.3) 2.7 mg/dL (0.7-1.3) Estimated GFR (Cockcroft-Gault) 23.9 22.9 BUN/Creatinine Ratio 38 (6-20) Glucose Level 196 mg/dL (70-99) 171 mg/dL (70-99) Lactic Acid Level 2.0 mmol/L (0.4-2.0) Calcium Level 8.5 mg/dL (8.5-10.1) 8.5 mg/dL (8.5-10.1) Total Bilirubin 2.6 mg/dL (0.2-1.0) Aspartate Amino Transf (AST/SGOT) 107 U/L (15-37) Alanine Aminotransferase (ALT/SGPT) 73 U/L (16-63) Alkaline Phosphatase 46 U/L (46-116) CP-Tuf-L-Type Natriuretic Peptide 1949 pg/mL (0-449) Total Protein 5.0 g/dL (6.4-8.2) Albumin 1.9 g/dL (3.4-5.0) 2.2 g/dL (3.4-5.0) Albumin/Globulin Ratio 0.6 (1.0-1.7) Procalcitonin 1.59 ng/mL (0.00-0.10) Phosphorus Level 3.7 mg/dL (2.6-4.7) Magnesium Level 2.1 mg/dL (1.8-2.4) Test 04/25/17 12:21 04/25/17 17:58 04/26/17 00:38 04/26/17 06:10 Glucose (Fingerstick) 139 mg/dL (70-99) 168 mg/dL (70-99) 99 mg/dL (70-99) Magnesium Level 2.3 mg/dL (1.8-2.4) Test 04/26/17 06:15 04/26/17 10:50 04/26/17 12:01 White Blood Count 7.9 x10^3/uL (4.0-11.0) Red Blood Count 2.94 x10^6/uL (4.30-5.70) Hemoglobin 7.9 g/dL (13.0-17.5) Hematocrit 25.0 % (39.0-53.0) Mean Corpuscular Volume 85 fL (79-100) Mean Corpuscular Hemoglobin 27 pg (25-35) Mean Corpuscular Hemoglobin Concent 32 g/dL (31-37) Red Cell Distribution Width 17.6 % (11.5-14.5) Platelet Count 146 x10^3/uL (140-400) Neutrophils (%) (Auto) 88 % (31-73) Lymphocytes (%) (Auto) 4 % (24-48) Monocytes (%) (Auto) 7 % (0-9) Eosinophils (%) (Auto) 0 % (0-3) Basophils (%) (Auto) 0 % (0-3) Neutrophils # (Auto) 7.0 x10^3uL (1.8-7.7) Lymphocytes # (Auto) 0.3 x10^3/uL (1.0-4.8) Monocytes # (Auto) 0.6 x10^3/uL (0.0-1.1) Eosinophils # (Auto) 0.0 x10^3/uL (0.0-0.7) Basophils # (Auto) 0.0 x10^3/uL (0.0-0.2) Sodium Level 157 mmol/L (136-145) Potassium Level 4.6 mmol/L (3.5-5.1) Chloride Level 120 mmol/L (98-107) Carbon Dioxide Level 24 mmol/L (21-32) Anion Gap 13 (6-14) Blood Urea Nitrogen 109 mg/dL (8-26) Creatinine 2.5 mg/dL (0.7-1.3) Estimated GFR (Cockcroft-Gault) 25.0 BUN/Creatinine Ratio 44 (6-20) Glucose Level 75 mg/dL (70-99) Calcium Level 8.8 mg/dL (8.5-10.1) Total Bilirubin 3.0 mg/dL (0.2-1.0) Aspartate Amino Transf (AST/SGOT) 132 U/L (15-37) Alanine Aminotransferase (ALT/SGPT) 125 U/L (16-63) Alkaline Phosphatase 53 U/L (46-116) Total Protein 5.2 g/dL (6.4-8.2) Albumin 2.1 g/dL (3.4-5.0) Albumin/Globulin Ratio 0.7 (1.0-1.7) Prothrombin Time 18.9 SEC (11.7-14.0) Prothromb Time International Ratio 1.7 (0.8-1.1) Glucose (Fingerstick) 136 mg/dL (70-99) Laboratory Tests Test 04/25/17 12:21 04/25/17 17:58 04/26/17 00:38 04/26/17 06:10 Glucose (Fingerstick) 139 mg/dL (70-99) 168 mg/dL (70-99) 99 mg/dL (70-99) Magnesium Level 2.3 mg/dL (1.8-2.4) Test 04/26/17 06:15 04/26/17 10:50 04/26/17 12:01 White Blood Count 7.9 x10^3/uL (4.0-11.0) Red Blood Count 2.94 x10^6/uL (4.30-5.70) Hemoglobin 7.9 g/dL (13.0-17.5) Hematocrit 25.0 % (39.0-53.0) Mean Corpuscular Volume 85 fL (79-100) Mean Corpuscular Hemoglobin 27 pg (25-35) Mean Corpuscular Hemoglobin Concent 32 g/dL (31-37) Red Cell Distribution Width 17.6 % (11.5-14.5) Platelet Count 146 x10^3/uL (140-400) Neutrophils (%) (Auto) 88 % (31-73) Lymphocytes (%) (Auto) 4 % (24-48) Monocytes (%) (Auto) 7 % (0-9) Eosinophils (%) (Auto) 0 % (0-3) Basophils (%) (Auto) 0 % (0-3) Neutrophils # (Auto) 7.0 x10^3uL (1.8-7.7) Lymphocytes # (Auto) 0.3 x10^3/uL (1.0-4.8) Monocytes # (Auto) 0.6 x10^3/uL (0.0-1.1) Eosinophils # (Auto) 0.0 x10^3/uL (0.0-0.7) Basophils # (Auto) 0.0 x10^3/uL (0.0-0.2) Sodium Level 157 mmol/L (136-145) Potassium Level 4.6 mmol/L (3.5-5.1) Chloride Level 120 mmol/L (98-107) Carbon Dioxide Level 24 mmol/L (21-32) Anion Gap 13 (6-14) Blood Urea Nitrogen 109 mg/dL (8-26) Creatinine 2.5 mg/dL (0.7-1.3) Estimated GFR (Cockcroft-Gault) 25.0 BUN/Creatinine Ratio 44 (6-20) Glucose Level 75 mg/dL (70-99) Calcium Level 8.8 mg/dL (8.5-10.1) Total Bilirubin 3.0 mg/dL (0.2-1.0) Aspartate Amino Transf (AST/SGOT) 132 U/L (15-37) Alanine Aminotransferase (ALT/SGPT) 125 U/L (16-63) Alkaline Phosphatase 53 U/L (46-116) Total Protein 5.2 g/dL (6.4-8.2) Albumin 2.1 g/dL (3.4-5.0) Albumin/Globulin Ratio 0.7 (1.0-1.7) Prothrombin Time 18.9 SEC (11.7-14.0) Prothromb Time International Ratio 1.7 (0.8-1.1) Glucose (Fingerstick) 136 mg/dL (70-99) Problem List pneumoperitoneum cirrhosis acute renal failure severe malnutrition no surgical plans at this time possible paracentesis, possible dc to select pending Problems: MARIA T SURESH MD 04/26/17 0844: SURGICAL PROGRESS NOTE Assessment/Plan pt seen, interviewed and examined agree with above to Select this afternoon Problems: JENNIFER DURAN APRN Apr 26, 2017 12:21 MARIA T SURESH MD Apr 26, 2017 13:44
[2017-04-26 13:22] LABS: PLT ESTIMATE ADEQUATE (ADEQUATE)
[2017-04-26 13:24] LABS: ANISOCYTOSIS PRESENT
[2017-04-26 13:25] LABS: POIKILOCYTOSIS PRESENT; SCHISTOCYTES FEW
[2017-04-26 15:00] VITALS: BP 107/66
[2017-04-29] MEDS ORDERED: FENT50AM IV (14:24)
[2017-04-29] MEDS ORDERED: HYDR20VI5 IJ (14:24)
[2017-04-29] MEDS ORDERED: [UNRECOGNIZED DRUG - CODE] IV (14:24)
[2017-04-29] MEDS ORDERED: INSU100I13 SQ (14:32)
[2017-04-29] MEDS ORDERED: PANT40VI IV (14:32)
[2017-04-29] MEDS ORDERED: LEVO50TA5 PO (14:32)
[2017-04-29] MEDS ORDERED: INSU100C SQ (14:32)
[2017-04-29] MEDS ORDERED: Morphine IV (14:32)
[2017-04-29] MEDS ORDERED: DARB10SY IJ (14:32)
[2017-04-29] MEDS ORDERED: ONDA4DIS4 IJ (14:32)
[2017-04-29] MEDS ORDERED: ALBU2.5V5 NEB (14:32)
== END 2017-04-26 17:20 | DRG 871 ==
LOC: 1 WEST ICU 13:31 → 5 SOUTH 04-23 15:51
PROVIDERS: ADMIT Internal Medicine; ATTEND Internal Medicine
PROC: 30233N1 Transfusion of Nonautologous Red Blood Cells into Peripheral Vein, Percutaneous Approach (ICD-10-PCS; 2017-04-15)
PROC: 0W9G3ZX Drainage of Peritoneal Cavity, Percutaneous Approach, Diagnostic (ICD-10-PCS; principal; 2017-04-21)
PROC: 02H633Z Insertion of Infusion Device into Right Atrium, Percutaneous Approach (ICD-10-PCS; 2017-04-23)
PROC: B244ZZZ Ultrasonography of Right Heart (ICD-10-PCS; 2017-04-23)
DX: A41.9 Sepsis, unspecified organism (principal); N17.0 Acute kidney failure with tubular necrosis; E43 Unspecified severe protein-calorie malnutrition; I50.23 Acute on chronic systolic (congestive) heart failure; K76.7 Hepatorenal syndrome; R65.21 Severe sepsis with septic shock; R57.8 Other shock; K63.1 Perforation of intestine (nontraumatic); D68.9 Coagulation defect, unspecified; E87.0 Hyperosmolality and hypernatremia; I13.0 Hypertensive heart and chronic kidney disease with heart failure and stage 1 through stage 4 chronic kidney disease, or unspecified chronic kidney disease; R18.8 Other ascites; N18.4 Chronic kidney disease, stage 4 (severe); D63.1 Anemia in chronic kidney disease; E03.9 Hypothyroidism, unspecified; E11.22 Type 2 diabetes mellitus with diabetic chronic kidney disease; E78.5 Hyperlipidemia, unspecified; E86.0 Dehydration; H35.30 Unspecified macular degeneration; I25.10 Atherosclerotic heart disease of native coronary artery without angina pectoris; I25.5 Ischemic cardiomyopathy; I48.0 Paroxysmal atrial fibrillation; I87.2 Venous insufficiency (chronic) (peripheral); K21.9 Gastro-esophageal reflux disease without esophagitis; I48.2 Chronic atrial fibrillation; K57.90 Diverticulosis of intestine, part unspecified, without perforation or abscess without bleeding; K72.90 Hepatic failure, unspecified without coma; N28.1 Cyst of kidney, acquired; L81.0 Postinflammatory hyperpigmentation; Z66 Do not resuscitate; M85.80 Other specified disorders of bone density and structure, unspecified site; K80.20 Calculus of gallbladder without cholecystitis without obstruction; M19.90 Unspecified osteoarthritis, unspecified site; K59.00 Constipation, unspecified; Z88.8 Allergy status to other drugs, medicaments and biological substances; Z95.810 Presence of automatic (implantable) cardiac defibrillator; Z79.01 Long term (current) use of anticoagulants; Z79.4 Long term (current) use of insulin; Z83.6 Family history of other diseases of the respiratory system; Z95.1 Presence of aortocoronary bypass graft; Z79.1 Long term (current) use of non-steroidal anti-inflammatories (NSAID); Z79.2 Long term (current) use of antibiotics; Z79.899 Other long term (current) drug therapy; Z68.24 Body mass index [BMI] 24.0-24.9, adult; K74.60 Unspecified cirrhosis of liver; Z51.5 Encounter for palliative care
CPT/HCPCS: 36415; 36556; 49083; 71010; 71020; 74000; 74150; 74176; 76937; 77001; 80048; 80053; 80069; 80074; 82105; 82728; 82945; 82962; 83540; 83550; 83605; 83615; 83735; 83880; 84100; 84132; 84145; 84157; 84439; 84443; 84478; 85007; 85014; 85018; 85027; 85045; 85610; 86850; 86900; 86901; 86920; 87040; 87071; 87075; 87186; 87205; 87641; 88112; 88305; 89050; 93306; 94250; 94640; 94760; A4215; C1729; C1892; C1894; C9113; J0295; J0610; J0696; J0881; J1265; J1756; J1815; J1940; J2270; J2405; J2543; J2597; J3010; J3243; J3370; J3430; J3475; J3480; J7030; J7040; P9016; P9046; Q9966; 97110; 97530; 97535